=== PATIENT | female | born 1965 | race Caucasian/White ===

== ENCOUNTER 2018-03-18 22:46 | Emergency (ER) | payer MEDICAID, SELFPAY ==
[2018-03-18 22:47] VITALS: BP 131/79; PULSE 91; RESP 19; TEMP 35.9; O2SAT 100; BMI 29.4
--- NOTE | 2018-03-18 23:02 | RAD_ITS ---
STUDY: X-RAY - SACRUM/COCCYX REASON FOR EXAM: Female, 52 years old. Fall TECHNIQUE: 3 view(s) of the sacrum and coccyx were obtained. COMPARISON: None. FINDINGS: No evidence for an acute fracture or dislocation seen. Degenerative changes of the sacroiliac joints. Pelvic phleboliths. Overlying bowel gas limits assessment of the sacrum. Degenerative changes in the lower lumbar spine. IMPRESSION: No definite evidence for an acute fracture seen. Electronically Signed: Storm Coon, at 23:36 EDT Tel , Service support , RAD/Sacrum-Coccyx min 2 Views
--- NOTE | 2018-03-18 23:05 | ED.DCSUM_ITS ---
- ER Visit Summary Date of Service: 03/18/18 Chief Complaint: Right ankle pain, tailbone pain, blurry vision History of Present Illness: The patient is a 52 F presents to the emergency department with multiple complaints. One week ago, the patient was outside with her dog. She states the lesion was between her legs and her dog ran. She states that it tripped her. She fell landing on her tailbone. She also twisted her right ankle. She has had prior fracture in this ankle. She states that since then, she has had increasing pain in her low back. She denies any weakness or numbness. She denies any problems of bowel or bladder. States over the past couple days, when she gets flares of pain, she will get double vision. She denies any trouble speaking or swallowing. She did not strike her head. She denies any nausea or vomiting. Physical Examination: Vital signs reviewed General: Well-nourished, well-developed Head: Normocephalic, atraumatic Eyes: Pupils equal and reactive, extraocular muscles intact Neck, supple, no lymphadenopathy Heart: Regular rate and rhythm Respiratory: No distress, clear bilaterally Abdomen: Soft, nontender, nondistended, no peritoneal signs Back: Nontender Extremities: Nontender, no edema, no cords Skin: Normal color no rash Neuro: Alert and oriented, no focal or lateralizing deficits Test Results: [] Emergency Department Course and Treatment: The patient has a normal neurologic examination. There is no abnormalities of ocular motion. Her neck is nontender with full range of motion. She is tender in the sacral area. She also has some swelling over the lateral malleolus without instability of the right ankle. The patient's double vision is related to her pain. She has a normal steady gait. She has no ataxia. I do not feel that this is a stroke equivalent or other dangerous process. Plain films were obtained. 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 There is no other acute injury. Films of the sacrum and coccyx do not demonstrate acute fracture. I do for the patient's symptoms are likely muscular. I do not have a great explanation for her intermittent double vision. Again, she has no nystagmus. She has a normal neurologic examination. It only comes on when she has pain. I will treat the patient with anti-inflammatories and antispasmodics. She will be discharged home. Treatment Plan: [] Disposition: Discharge Impression: 1. Sacral contusion status post fall 2. Right ankle sprain status post fall This note was generated with [employer] dictation software. It may contain incorrect words, spelling, and punctuation that were not noted in review of the chart prior to signing ED Disposition - Plan for ED Patient: Chief Complaint: Fall Instructions: ED Contusion Sacrum Coccyx Prescriptions: Naproxen [Naprosyn] 500 mg PO BID PRN #20 tab Cyclobenzaprine [Flexeril] 10 mg PO TID PRN #20 tab PRN Reason: Muscle Spasm Referrals: Sabi Burroughs MD [Primary Care Provider] -
--- NOTE | 2018-03-18 23:09 | ED.RN ---
MD AWARE THAT MED REC WAS NOT COMPLETED DUE TO PT BEING UNABLE TO GET HER PHONE WORKING. PT ALSO UNABLE TO CONFIRM LIST IN OUR COMPUTER SYSTEM.
--- NOTE | 2018-03-18 23:20 | RAD_ITS ---
STUDY: X-RAY - RIGHT ANKLE REASON FOR EXAM: Female, 52 years old. Fall, previous injury. TECHNIQUE: 3 view(s) of the ankle. COMPARISON: None. FINDINGS: Well-corticated old injury of the distal fibula is noted. Normal medial and lateral malleoli. Normal tibiotalar articulation and ankle mortise. Normal visualized talus and calcaneus. The visualized subtalar, talonavicular, calcaneocuboid and tarsal articulations are normal. Circumferential and lateral soft tissue swelling is present. RAD/Ankle min 3 Views IMPRESSION: Circumferential ankle soft tissue swelling with distal fibular old well-corticated injury noted. No evidence of acute fracture or dislocation. Electronically Signed: Ant Mercedes DO at 23:36 EDT , Service support ,
[2018-03-18] MEDS: HYDROcodone Bitartrate/Apap 5/325 Tablet PO (23:28)
[2018-03-18 23:33] VITALS: BP 146/76; PULSE 86; RESP 20; O2SAT 98
--- NOTE | 2018-03-19 00:14 | ED.RN ---
PT REFUSED TO TAKE NAPROXEN PRESCRIPTION
== END 2018-03-19 00:16 | disposition home or self-care (01) ==
LOC: ED 23:09
PROVIDERS: Emergency Provider Emergency Medicine; Family Provider Internal Medicine; PCP Internal Medicine
DX: S30.0XXA Contusion of lower back and pelvis, initial encounter (principal); S93.401A Sprain of unspecified ligament of right ankle, initial encounter; W01.0XXA Fall on same level from slipping, tripping and stumbling without subsequent striking against object, initial encounter; Y93.9 Activity, unspecified; Y92.007 Garden or yard of unspecified non-institutional (private) residence as the place of occurrence of the external cause; Y99.9 Unspecified external cause status; J44.9 Chronic obstructive pulmonary disease, unspecified; J45.909 Unspecified asthma, uncomplicated; Z72.0 Tobacco use
CPT/HCPCS: 72220; 73610; 99283

== ENCOUNTER 2018-03-26 01:11 | Emergency (ER) | payer MEDICAID, SELFPAY ==
[2018-03-26 01:12] VITALS: BP 136/92; PULSE 81; RESP 16; TEMP 36.6; O2SAT 97; BMI 29.2
--- NOTE | 2018-03-26 01:52 | ED.DCSUM_ITS ---
- ER Visit Summary Date of Service: 03/26/18 Chief Complaint: Left index finger laceration History of Present Illness: The patient is a 53 F presenting with left index finger laceration. Patient was opening a can of [employer] and cut her left index finger. Her tetanus is up-to-date. She has no other injuries. Physical Examination: Vitals are stable. Patient is afebrile. Alert no acute distress. HEENT exam is unremarkable. Lungs are clear and equal bilaterally. Heart is regular rate and rhythm. Extremities 1.5 centimeter laceration to left volar index finger, tendon function is intact. Normal cap refill. Skin is warm and dry. Remainder of exam is unremarkable. Emergency Department Course and Treatment: Laceration was repaired under sterile conditions. Anesthetized with lidocaine. Irrigated with saline. 3, 5- 0 simple sutures were placed. She was given wound care instructions. Advised follow-up with primary care physician. Advised return to ED if worsening complaints. Disposition: Discharged home Impression: Left index finger laceration, laceration repair This note was generated with [employer] dictation software. It may contain incorrect words, spelling, and punctuation that were not noted in review of the chart prior to signing ED Disposition - Plan for ED Patient: Chief Complaint: Laceration Instructions: ED Laceration Hand Referrals: Sabi Burroughs MD [Primary Care Provider] -
[2018-03-26 02:42] VITALS: RESP 18
== END 2018-03-26 02:42 | disposition home or self-care (01) ==
PROVIDERS: Emergency Provider Emergency Medicine; Family Provider Internal Medicine; PCP Internal Medicine
DX: S61.211A Laceration without foreign body of left index finger without damage to nail, initial encounter (principal); W26.8XXA Contact with other sharp object(s), not elsewhere classified, initial encounter; Y93.9 Activity, unspecified; Y92.89 Other specified places as the place of occurrence of the external cause; Y99.9 Unspecified external cause status; J44.9 Chronic obstructive pulmonary disease, unspecified; Z72.0 Tobacco use
CPT/HCPCS: 12001; 99283

== ENCOUNTER 2018-04-02 21:41 | Emergency (ER) | payer MEDICAID, SELFPAY ==
[2018-04-02 21:42] VITALS: BP 141/90; PULSE 89; RESP 14; TEMP 36.6; O2SAT 98; BMI 31.1
--- NOTE | 2018-04-02 22:51 | ED.DCSUM_ITS ---
- ER Visit Summary Date of Service: 04/02/18 Chief Complaint: Leg swelling History of Present Illness: The patient is a [address] Burroughs. She reports she has had right leg swelling for approximately a year after breaking her ankle. She reports that it has now worsened on the right and spread up to mid calf. Is also developed over the left leg over the past 1-2 weeks. She reports that the area feels tight. Is worsened by walking. She denies any chest pain or shortness of breath. Review of systems: General: No fever, chills, cold sweats. Cardiovascular: No chest pain, palpitations. Respiratory: No cough, shortness of breath, dyspnea on exertion. Gastrointestinal: No abdominal pain, nausea, vomiting, diarrhea, melena, or hematochezia. Genitourinary: No dysuria, frequency, hematuria. Skin: No rash. Neuro: No headache, numbness, weakness. Physical Examination: Vitals: Stable. Afebrile. General: Well-nourished and well-developed. Head: Normocephalic atraumatic. Neck: Supple, no lymphadenopathy. No JVD. Nontender. Cardiovascular: Regular rate and rhythm. No murmurs. Respiratory: No respiratory distress. Clear to auscultation bilaterally. Abdominal: Soft, nontender, nondistended, normal bowel sounds. No guarding, rebound, or peritoneal signs. Back: Nontender. Extremities: Nontender, 2+ pitting edema lower extremity bilaterally. Skin: Normal color, no rash. Neurologic: Alert and oriented ?3. Cranial nerves II through XII are intact. Normal strength and sensation. Psych: Normal affect. Test Results: EKG is sinus at 70 with no acute changes. Troponins negative. PT SENIOR ADMINISTRAT[employer] SUPPORT is 12.3. LFTs marked total bili 1.0 globulin 4.3. Chem-7 marked potassium 3.4, creatinine 1.07, calcium 8.3. CBC is normal. Emergency Department Course and Treatment: Patient had an IV placed. She is given dose of Lasix IV. She is resting comfortably. Treatment Plan: Patient will be discharged with 5 days of Lasix and K-Dur. Instructed to follow-up Dr. Burroughs in 3-5 days for another exam. Return to the emergency department for any worsening symptoms. Disposition: To home in improved and stable condition. Impression: 1. Peripheral edema. This note was generated with [employer] dictation software. It may contain incorrect words, spelling, and punctuation that were not noted in review of the chart prior to signing ED Disposition - Plan for ED Patient: Chief Complaint: Edema Instructions: ED Leg Swelling Bilateral Prescriptions: Furosemide [Lasix] 20 mg PO DAILY #5 tablet Potassium Chloride [K-Dur] 20 meq PO BID #14 tablet Referrals: Sabi Burroughs MD [Primary Care Provider] - 3-5 Days
[2018-04-02] MEDS: Furosemide 40 MG/4 ML Vial IV (23:03)
[2018-04-02 23:28] LABS: AST(SGOT) 17 U/L (15-37); Alanine Aminotransfer ALT/SGPT 21 U/L (13-56); Albumin, Serum 3.6 g/dL (3.2-5.0); Alkaline Phosphatase 153 U/L (45-117); Anion Gap 6 (5-15); BUN 17 mg/dL (7-18); BUN/Creat Ratio 15.9 RATIO (10-20); Bilirubin, Direct 0.08 mg/dL (0.00-0.30); Calcium,Total 8.3 mg/dL (8.5-10.1); Chloride 103 mmol/L (98-107); Creatinine, Serum 1.07 mg/dL (0.55-1.02); EST Glomerular Filtration Rate 57 mL/min (>60); Est Glom Filt Rate - Afr Amer 69 mL/min (>60); Estimated Creatinine Clearance 46.41 ml/min; Globulin 4.3 g/dL (2.2-4.2); Glucose 71 mg/dL (74-106); Potassium 3.4 mmol/L (3.5-5.1); Protein, Total 7.9 g/dL (6.4-8.2); Sodium Level 139 mmol/L (136-145)
[2018-04-02 23:33] LABS: Absolute Lymphocyte Count 3.42 X10^3/ul (0.83-4.51); Absolute Neutrophil Count 4.3 X10^3/uL (2.0-7.7); Basophil# 0.03 X10^3/uL; Basophil% 0.3 % (0-1); Eosinophil# 0.22 X10^3/uL; Eosinophils% 2.6 % (0-5); Hemoglobin 12.9 g/dl (12.0-15.0); Lymphocyte # 3.42 X10^3/ul (4.0); Lymphocyte % 39.8 % (19-41); Mean Corp Hgb Conc 33.1 g/gl (32-36); Mean Corpuscular Hgb 30.4 pg (27.0-32.0); Monocyte# 0.59 X10^3/uL; Monocyte% 6.9 % (0-10); Neutrophil # 4.29 X10^3/uL (2.7-7.7); Neutrophil % 49.9 % (47-70); Platelet Count 279 K/mm3 (150-450); RBC Distribution Width CV 13.7 % (11.6-14.6); RBC Distribution Width SD 45.4 fl (35.1-43.9); Red Blood Count 4.24 M/mm3 (4.2-5.4); White Blood Count 8.6 K/mm3 (4.4-11.0)
[2018-04-02 23:34] LABS: POSITIVE COUNT NO; POSITIVE DIFFERENTIAL NO; POSITIVE MORPHOLOGY NO
[2018-04-03 00:17] LABS: BNP,B-Type NATRIURETIC PEPTIDE 12.3 pg/mL (0-100)
[2018-04-03 00:33] VITALS: BP 136/72; BP 136/82; PULSE 82; RESP 18; O2SAT 98
== END 2018-04-03 00:37 | disposition home or self-care (01) ==
LOC: ED 22:48
PROVIDERS: Emergency Provider Emergency Medicine; Family Provider Internal Medicine; PCP Internal Medicine
DX: R60.9 Edema, unspecified (principal); J45.909 Unspecified asthma, uncomplicated; F17.210 Nicotine dependence, cigarettes, uncomplicated
CPT/HCPCS: 36415; 80048; 80076; 83880; 84484; 85025; 93005; 96374; 99283; A4216; J1940

== ENCOUNTER 2018-05-14 14:27 | Emergency (ER) | payer MEDICAID, SELFPAY ==
[2018-05-14 14:28] VITALS: BP 136/83; PULSE 94; RESP 18; TEMP 36.5; O2SAT 94; BMI 30.7
[2018-05-14] MEDS: Ondansetron ODT 4 MG Tablet PO (15:01)
[2018-05-14] MEDS: HYDROcodone Bitartrate/Apap 5/325 Tablet PO (15:01)
--- NOTE | 2018-05-14 15:05 | RAD_ITS ---
STUDY: X-RAY - RIGHT HAND REASON FOR EXAM: Female, 53 years old. Pain following a fall. TECHNIQUE: 3 view(s) of the hand. COMPARISON: None. FINDINGS: Normal radiocarpal articulation. Normal distal radioulnar joint. Normal visualized carpal bones. Normal carpal articulations Normal carpometacarpal articulation of the thumb. Normal second through fifth carpometacarpal joints. Normal metacarpi. Normal metacarpophalangeal joint of the thumb. Normal interphalangeal joint of the thumb. Normal proximal and distal phalanges of the thumb. Normal metacarpophalangeal joints of the second through fifth fingers. Normal proximal and distal interphalangeal joints of the second through fifth fingers. Normal phalanges of the second through fifth fingers. Diffuse soft tissue swelling. RAD/Hand Min 3 Views IMPRESSION: Diffuse soft tissue swelling. Electronically Signed: Ed Topete MD at 15:32 EDT Tel [phone], Service support ,
--- NOTE | 2018-05-14 15:05 | RAD_ITS ---
STUDY: X-RAY - RIGHT WRIST REASON FOR EXAM: Female, 53 years old. Pain following a fall. TECHNIQUE: 3 view(s) of the wrist were obtained. COMPARISON: None. FINDINGS: Normal visualized distal radius and ulna. Normal radiocarpal articulation. Normal distal radioulnar articulation. Normal carpal bones. Normal carpal articulations. Normal carpometacarpal articulation of the thumb. Normal second through fifth carpometacarpal articulations. Normal visualized metacarpal bones. Soft tissue swelling. RAD/Wrist min 3 Views IMPRESSION: Soft tissue swelling. Electronically Signed: Ed Topete MD at 15:33 EDT Tel [phone], Service support ,
--- NOTE | 2018-05-14 15:36 | ED.DCSUM_ITS ---
- ER Visit Summary Date of Service: 05/14/18 Chief Complaint: Fall History of Present Illness: The patient is a [address] Burroughs. She reports that she was walking today and her knee gave out and she fell and injured her right wrist and hand. She reports that she has pain there that is 10 out of 10 severity. She denies any knee pain at this time. No blow to the head or loss of consciousness. No neck or back pain. Physical Examination: Vitals: Stable. Afebrile. Neck: No vertebral tenderness. Full ROM without difficulty. Cleared by NEXUS criteria. Back: No vertebral tenderness. General: A&O x 3. NAD. Cardiovascular exam: Regular rate and rhythm, no murmur, rub or gallop. Respiratory exam: Chest nontender. No crepitus. Clear to auscultation bilaterally. No wheezes or stridor. Abdominal exam: Soft, nontender, nondistended, normal bowel sounds. No pain in R UQ or LUQ specifically. No peritoneal signs. Extremity: Moderate diffuse tenderness palpation over her entire right hand and right wrist. Full range of motion without difficulty. There is no focal tenderness. She has normal sensation to light touch. There is no swelling or contusion.. Test Results: X-ray of her right hand and wrist are negative. Emergency Department Course and Treatment: An [facility] report was obtained which show she had one prescription for opiates in the past year. She is given a dose of [place] here. Treatment Plan: Patient will be discharged with a Velcro wrist splint. Instructed use Tylenol and/or ibuprofen for pain. Follow-up her primary care physician 1 week if not improving. Disposition: To home in improved and stable condition. Impression: 1. Fall. 2. Right wrist sprain. This note was generated with [employer] dictation software. It may contain incorrect words, spelling, and punctuation that were not noted in review of the chart prior to signing ED Disposition - Plan for ED Patient: Chief Complaint: Upper Extremity Injury Instructions: ED Sprain Wrist Referrals: Sabi Burroughs MD [Primary Care Provider] - 1 Week if not improving
[2018-05-14 16:11] VITALS: PULSE 68; RESP 16
== END 2018-05-14 16:12 | disposition home or self-care (01) ==
LOC: ED 14:50
PROVIDERS: Emergency Provider Emergency Medicine; Family Provider Internal Medicine; PCP Internal Medicine
DX: S63.501A Unspecified sprain of right wrist, initial encounter (principal); W18.30XA Fall on same level, unspecified, initial encounter; Y93.01 Activity, walking, marching and hiking; Y92.9 Unspecified place or not applicable; Y99.9 Unspecified external cause status; Z72.0 Tobacco use; F31.9 Bipolar disorder, unspecified
CPT/HCPCS: 73110; 73130; 99284

== ENCOUNTER 2019-09-01 19:16 | Emergency (ER) | payer MEDICAID, SELFPAY ==
[2019-09-01 19:17] VITALS: BP 147/102; PULSE 96; RESP 19; TEMP 37.1; O2SAT 96; BMI 36.1
--- NOTE | 2019-09-01 21:14 | RAD_ITS ---
STUDY: X-RAY CHEST REASON FOR EXAM: Female, 54 years old. COUGH, SOB TECHNIQUE: PA and lateral COMPARISON: August 23, 2017 FINDINGS: There appears to be very mild chronic interstitial thickening in the lower lobes. No focal lobar infiltrates are seen.. There is no demonstrated pleural abnormality. Normal size heart. Normal mediastinum and carol. Normal visualized pulmonary arteries. Normal visualized aortic arch and descending thoracic aorta. Normal visualized thoracic spine. Normal visualized ribs, clavicles, and shoulders. There is no demonstrated abnormality of the visualized soft tissue structures of the upper abdomen. RAD/Chest PA and Lateral IMPRESSION: Minor chronic interstitial thickening in the lower lobes. No acute disease Electronically Signed: Bob Zuluaga MD at 22:05 EST , Service support ,
[2019-09-01 21:25] VITALS: PULSE 88; RESP 20
[2019-09-01] MEDS: Albuterol 2.5 MG/3 ML VIAL.NEB. INHALATION (21:25)
--- NOTE | 2019-09-01 22:44 | ED.VISSUMM ---
- ER Visit Summary Date of Service: 09/01/19 Chief Complaint: Cough History of Present Illness: The patient is a 54 F with a cough for 4 days. Associated with sneezing, headache, chills, and achiness. History of asthma and smoking. Physical Examination: Afebrile and vital signs unremarkable. HEENT exam unremarkable. Lungs diminished in all nelson. Heart regular. Abdomen soft. Extremities nontender with no edema. Skin appears normal. Test Results: Chest x-ray showed no acute disease. Influenza test negative. Emergency Department Course and Treatment: Patient has what sounds like respiratory infection. She has a history of asthma and smoking. She is not having chest pain. No hemoptysis or history of blood clots. No history of heart failure. Patient was treated with DuoNeb. X-ray negative. Influenza test negative. She was treated with doxycycline and prednisone. Follow-up with primary care. Treatment Plan: As above Disposition: Discharge Impression: 1. Cough This note was generated with [employer] dictation software. It may contain incorrect words, spelling, and punctuation that were not noted in review of the chart prior to signing ED Disposition - Plan for ED Patient: Referrals: Sabi Burroughs MD [Primary Care Provider] -
--- NOTE | 2019-09-01 22:46 | ED.DEP ---
ED Disposition - Plan for ED Patient: Instructions: BRONCHITIS, Antiobiotic Treatment (Adult) Prescriptions: Doxycycline 100 mg PO BID #20 cap Prescription Printed Prednisone 10 mg PO UD #33 tab Prescription Printed Referrals: Sabi Burroughs MD [Primary Care Provider] -
[2019-09-01 22:55] VITALS: PULSE 92; RESP 18; O2SAT 95
== END 2019-09-01 23:06 | disposition home or self-care (01) ==
PROVIDERS: Emergency Provider Emergency Medicine; PCP Internal Medicine
DX: R05 Cough (principal); R06.7 Sneezing; R51 Headache; R68.83 Chills (without fever); J34.89 Other specified disorders of nose and nasal sinuses; M79.10 Myalgia, unspecified site; J45.909 Unspecified asthma, uncomplicated; G40.909 Epilepsy, unspecified, not intractable, without status epilepticus; F31.9 Bipolar disorder, unspecified; F41.9 Anxiety disorder, unspecified; Z79.899 Other long term (current) drug therapy; F17.200 Nicotine dependence, unspecified, uncomplicated
CPT/HCPCS: 71046; 87804; 94640; 99282

== ENCOUNTER 2020-09-10 16:08 | Emergency (ER) | payer MEDICAID, SELFPAY ==
[2020-09-10 16:11] VITALS: BP 143/94; PULSE 101; RESP 16; TEMP 35.4; O2SAT 97; BMI 37.8
--- NOTE | 2020-09-10 16:35 | CT_ITS ---
STUDY: CT ABDOMEN AND PELVIS WITHOUT CONTRAST REASON FOR EXAM: Female, 55 years old. LLQ PAIN. RADIATION DOSAGE (If Supplied By Facility): CTDIvol = ( 14.80 ) mGy, DLP = ( 718.65 ) mGycm TECHNIQUE: Transaxial images were obtained from the dome of the diaphragm to the symphysis pubis without oral contrast, and without intravenous contrast. Sagittal and coronal images were reconstructed. Individualized dose optimization techniques were used for this CT. COMPARISON: August 09, 2017 FINDINGS: There is lower lung atelectasis. The visualized portions of the heart are within normal limits. There is hepatomegaly with diffuse hepatic enlargement. There are surgical clips in the gallbladder fossa consistent with a prior cholecystectomy. Normal spleen. Normal pancreas. Normal bilateral adrenal glands. Normal right kidney. Normal left kidney. Normal visualized stomach. Normal small intestine. Normal colon. There is non-visualization of the appendix. There is diffuse atherosclerotic calcification of the abdominal aorta, without a demonstrated aneurysm. Normal inferior vena cava. Normal retroperitoneum. Normal urinary bladder. There is absence of the uterus consistent with a prior hysterectomy. There is no free fluid in the abdomen or pelvis. There is postoperative change of the upper abdominal wall. Normal osseous structures. CT/Abdomen/Pelvis without Cont IMPRESSION: No dominant mass or obstruction. Hepatomegaly. Postoperative change. Electronically Signed: Jj Crawley MD at 18:22 EST , Service support ,
--- NOTE | 2020-09-10 16:37 | ED.DCSUM_ITS ---
History of Present Illness Chief Complaint: Flank Pain Informant: Patient Onset: Yesterday Context: Gradual Onset Current Severity: Moderate Maximum Severity: Moderate Narrative: Patient presents secondary to left lower quadrant abdominal pain. She states she had some mild pain yesterday but significantly worsened pain today. Denies urinary symptoms. No fever or chills. She states she was told several years ago that she had a black mass in her abdomen on a CAT scan. She was told it was within that was present since . She is not able to provide any further details. Last colonoscopy was 16 years ago and unremarkable at that time. She does have a family history of colon cancer. She also has had prior kidney stones. - Past Medical History (1) Asthma Status: Chronic (2) Kidney stone Status: Resolved Past Medical History - Allergies and Home Meds Allergies/Adverse Reactions: Allergies venom-honey bee [bee venom (honey bee)] Allergy (Verified 09/10/20 16:11) Anaphylaxis aspirin Adverse Reaction (Verified 09/10/20 16:11) Other fluticasone propionate [From Advair Diskus] Adverse Reaction (Verified 09/10/20 16:11) Upset Stomach salmeterol xinafoate [From Advair Diskus] Adverse Reaction (Verified 09/10/20 16:11) Upset Stomach TIDE LAUNDRY DETERGENT Allergy (Uncoded 09/10/20 16:11) Rash Primary Care Physician: Sabi Burroughs MD [Primary Care Provider] - Prior records reviewed: Yes Smoking Status: Current every day smoker Review of Systems General: Denies: Chills, Fever Eyes: Denies: Visual changes - bilaterally ENT: Denies: Bilateral ear pain Cardiovascular: Denies: Chest pain Respiratory: Denies: Dyspnea, Cough Gastrointestinal: Reports: Abdominal pain. Denies: Vomiting, Diarrhea Genitourinary: Denies: Dysuria, Hematuria Musculoskeletal: Reports: Back pain - Left flank. Denies: Extremity Pain Neurological: Denies: Headache Hematologic: Denies: Easy bruising, Easy bleeding Allergy: Denies: Uticaria Physical Exam Vital Signs/Narrative: Vital Signs Temp Pulse Resp BP Pulse Ox 09/10/20 16:11 95.7 F L 101 H 16 143/94 H 97 Inital Vital Signs reviewed: Yes General: Well nourished, Well developed Head: Normocephalic ENT: Moist mucous membranes Neck: Supple Cardiovascular: Regular rate, Regular rhythm Respiratory: No distress, CTA bilaterally Abdomen: Soft, Tender - Left lower quadrant tenderness to palpation., Hypoactive bowel sounds. Negative for: Guarding, Rebound tenderness Back: CVA tenderness - Mild left CVA tenderness Skin: Normal color Neurological: Alert, Oriented x3 Psychological: Normal affect Diagnostic/Tx/Re-eval Impressions Abdomen/Pelvis CT 09/10/20 16:35 IMPRESSION: No dominant mass or obstruction. Hepatomegaly. Postoperative change. Electronically Signed: Jj Crawley MD at 18:22 EST , Service support , 09/10/20 16:35 Abdomen/Pelvis without Cont [CT] Stat Laboratory Results 09/10/20 09/10/20 09/10/20 16:50 16:50 17:15 WBC 13.8 H RBC 4.75 Hgb 13.6 Hct 43.3 MCV 91.2 MCH 28.6 MCHC 31.4 L RDW Std Deviation 45.1 H RDW Coeff of Lakshmi 13.3 Plt Count 342 MPV 10.9 Immature Gran % (Auto) 0.700 Neut % (Auto) 64.6 Lymph % (Auto) 24.4 [place] % (Auto) 6.8 Eos % (Auto) 3.1 Baso % (Auto) 0.4 Absolute Neuts (auto) 8.9 H Absolute Lymphs (auto) 3.36 Nucleated RBC % 0 Sodium 138 Potassium 3.9 Chloride 105 Carbon Dioxide 27.0 Anion Gap 6 BUN 8 Creatinine 0.84 Estim Creat Clear Calc 57.77 Est GFR (MDRD) Af Amer 90 Est GFR (MDRD) Non-Af 75 BUN/Creatinine Ratio 9.5 L Glucose 116 H Calcium 9.1 Urine Color Yellow Urine Clarity Clear Urine pH 7.0 Ur Specific [place] 1.005 Urine Protein Negative Urine Glucose (UA) Normal Urine Ketones Negative Urine Occult Blood 10 H Urine Nitrite Negative Urine Bilirubin Negative Urine Urobilinogen Normal Ur Leukocyte Esterase Negative Urine RBC 0 SEEN Urine WBC 0 SEEN Ur Squamous Epith Cells 0-5 SEEN Urine Bacteria RARE Urine Mucus 0 SEEN - Medical Decision Making Patient was given morphine and Zofran for pain. Labs are reviewed. White count is slightly elevated at 13.8. Urine is clean. CT scan reveals no acute findings or source of infection. Test results are discussed with the patient at bedside as well as her daughter on the phone. Patient is advised to monitor for any signs of infection including fever or worsening pain and given return instructions for this. In the meantime she will be given a short course of [place] along with Zofran to help with pain at home. She is advised to follow bland diet and slowly advance as tolerated. ED Disposition - Plan for ED Patient: Disposition: Home or Assisted Living Diagnosis: Abdominal pain Instructions: ED Abdominal Pain Unkn Cause Fem Prescriptions: Hydrocodone Bitart/Apap 5-325 [[place] 5MG-325MG] 1 tablet PO Q6H PRN PRN 3 Days #10 tablet PRN Reason: Pain Transmission Status: Received by ISAC HUDSON RD Ondansetron [Zofran Odt] 4 mg PO Q8H PRN PRN #10 tab PRN Reason: Nausea Transmission Status: Pending to ISAC HUDSON RD Referrals: Sabi Burroughs MD [Primary Care Provider] - 3-5 Days if not improving
[2020-09-10] MEDS: Morphine 4 MG/ML Syringe IV (16:54)
[2020-09-10] MEDS: Ondansetron 4 MG/2 ML Vial IV (16:54)
[2020-09-10 17:13] LABS: Anion Gap 6 (5-15); BUN 8 mg/dL (7-18); BUN/Creat Ratio 9.5 RATIO (10-20); Calcium,Total 9.1 mg/dL (8.5-10.1); Chloride 105 mmol/L (98-107); Creatinine, Serum 0.84 mg/dL (0.55-1.02); EST Glomerular Filtration Rate 75 mL/min (>60); Est Glom Filt Rate - Afr Amer 90 mL/min (>60); Estimated Creatinine Clearance 57.77 ml/min; Glucose 116 mg/dL (74-106); Potassium 3.9 mmol/L (3.5-5.1); Sodium Level 138 mmol/L (136-145)
[2020-09-10 17:21] LABS: Absolute Lymphocyte Count 3.36 X10^3/uL (0.83-4.51); Absolute Neutrophil Count 8.9 X10^3/uL (2.0-7.7); Basophil# 0.05 X10^3/uL; Basophil% 0.4 % (0-1); Eosinophil# 0.42 X10^3/uL; Eosinophils% 3.1 % (0-5); Hematocrit 43.3 % (37-47); Hemoglobin 13.6 g/dL (12.0-15.0); Lymphocyte # 3.36 X10^3/ul (4.0); Lymphocyte % 24.4 % (19-41); Mean Corp Hgb Conc 31.4 g/dL (32-36); Mean Corpuscular Hgb 28.6 pg (27.0-32.0); Mean Corpuscular Volume 91.2 fL (81-99); Mean Platelet Vol. 10.9 fl (6.2-12.0); Monocyte# 0.93 X10^3/uL; Monocyte% 6.8 % (0-10); NRBC Flagged by Analyzer 0 % (0-5); Neutrophil # 8.91 X10^3/uL (2.7-7.7); Neutrophil % 64.6 % (47-70); Platelet Count 342 K/mm3 (150-450); RBC Distribution Width CV 13.3 % (11.6-14.6); RBC Distribution Width SD 45.1 fl (35.1-43.9); Red Blood Count 4.75 M/mm3 (4.2-5.4); White Blood Count 13.8 K/mm3 (4.4-11.0)
[2020-09-10 17:24] LABS: Mucous, Urine 0 SEEN /hpf (<or=2+); Red Blood Cells-Urine 0 SEEN /hpf (0-5); White Blood Cells 0 SEEN /hpf (0-5)
[2020-09-10 17:25] LABS: Color, Urine Yellow (Yellow); Glucose, Dipstick Normal (Normal); Ketone-Dipstick Negative (Negative); Leukocyte Esterase-Dipstick Negative /ul (Negative); Nitrite-Dipstick Negative (Negative); Occult Blood-Urine 10 /ul (Negative); Protein-Dipstick Negative (Negative); Specific Gravity, Urine 1.005 (1.002-1.030); Urine Bilirubin Dipstick Negative (Negative); Urine Clarity Clear (Clear); Urine Urobilinogen Normal (Normal)
[2020-09-10 17:31] LABS: Bacteria RARE /hpf (None Seen); Squamous Epithelial Cells - UA 0-5 SEEN /hpf (5-10)
[2020-09-10 18:29] VITALS: BP 140/89; PULSE 75; RESP 20; O2SAT 97
[2020-09-10 18:53] VITALS: BP 124/73; PULSE 66; RESP 15; O2SAT 98
== END 2020-09-10 18:53 | disposition home or self-care (01) ==
PROVIDERS: Emergency Provider Emergency Medicine; PCP Internal Medicine
DX: R10.32 Left lower quadrant pain (principal); J45.909 Unspecified asthma, uncomplicated; F17.200 Nicotine dependence, unspecified, uncomplicated; Z88.0 Allergy status to penicillin; Z87.442 Personal history of urinary calculi; Z88.6 Allergy status to analgesic agent; Z80.0 Family history of malignant neoplasm of digestive organs
CPT/HCPCS: 74176; 80048; 81001; 85025; 96374; 96375; 99283; A4216; J2405

== ENCOUNTER 2021-03-05 13:23 | Emergency (ER) | payer MEDICAID, SELFPAY ==
[2021-03-05 13:23] VITALS: BP 158/93; PULSE 86; RESP 16; TEMP 37.2; O2SAT 96; BMI 41.9
--- NOTE | 2021-03-05 14:12 | EDS_ITS ---
HPI History of Present Illness Chief Complaint: Abscess Informant: patient Onset/Context/Timing Onset: Yesterday Context: Gradual Onset Timing: Continuous Quality: sore Location: R labia area Current Severity: Moderate Maximum Severity: Moderate Worsened by: touching area Relieved by: leaving alone Associated Symptoms Associated Symptoms: none Narrative Narrative: Tender swollen area in right groin that started yesterday. Never had this before. No systemic symptoms or fever/chills. No spontaneous drainage. No urinary problems or other vaginal discharge. [facility] Medical History Anxiety Bipolar 1 disorder Epilepsy History of hiatal hernia Hypothyroid Home Medications phenytoin sodium extended 100 mg PO 4X/DAY 02/23/14 [History Last Taken 05/31/17] timolol maleate [Timoptic-XE 0.5%] 1 drp EACH EYE BID 02/23/14 [History Last Taken 05/31/17] fluticasone propionate 1 puff NARES DAILY 02/24/17 [History Last Taken 05/31/17] nortriptyline 25 mg PO QHS 02/24/17 [History Last Taken 05/30/17] albuterol sulfate [Proair Hfa (SP)Vent Pts] 1 - 2 puff INHALATION Q4H PRN PRN 03/11/17 [History Last Taken Unknown] buspirone 15 mg PO BID 05/24/17 [History Last Taken 05/31/17] albuterol sulfate 2.5 mg INHALATION Q4H PRN PRN 08/09/17 [History Last Taken Unknown] dicyclomine 20 mg PO TIDAC #20 cap 08/09/17 [Rx Last Taken Unknown] epinephrine 0.3 mg IM X1 08/09/17 [History Last Taken Unknown] omeprazole 40 mg PO DAILY 08/09/17 [History Last Taken Unknown] lithium carbonate 150 mg PO TID 05/14/18 [History Last Taken Unknown] levothyroxine 75 mcg PO DAILY 09/01/19 [History Last Taken Unknown] azelastine 1 spray INTRANASAL BID 03/05/21 [History Last Taken Unknown] montelukast 10 mg PO QHS 03/05/21 [History Last Taken Unknown] quetiapine 50 mg PO QHS 03/05/21 [History Last Taken Unknown] spironolactone 25 mg PO DAILY 03/05/21 [History Last Taken Unknown] sulfamethoxazole-trimethoprim 1 tab PO BID #14 tablet 03/05/21 [Rx Last Taken Unknown] Allergy/AdvReac Type Severity Reaction Status Date / Time venom-honey bee Allergy Anaphylaxis Verified 03/05/21 13:24 [bee venom (honey bee)] aspirin AdvReac Other Verified 03/05/21 13:24 fluticasone propionate AdvReac Upset Verified 03/05/21 13:24 [From Advair Diskus] Stomach salmeterol xinafoate AdvReac Upset Verified 03/05/21 13:24 [From Advair Diskus] Stomach TIDE LAUNDRY DETERGENT Allergy Rash Uncoded 03/05/21 13:24 Surgical History (Updated 03/05/21 @ 13:41 by Kanchan East) History of cholecystectomy History of inguinal hernia repair History of tonsillectomy Hx of appendectomy Hx of hysterectomy Social History Smoking Status: Current every day smoker tobacco type: e-cigarettes ROS ROS ED Constitutional Constitutional ED: Denies chills or fever(s) Gastrointestinal Gastrointestinal: Denies abdominal pain, diarrhea, nausea or vomiting Genitourinary Genitourinary ED: Reports as per HPI Integumentary Reports as per HPI and abscess; Denies rash Neurologic Neurologic: Denies headache(s), paresthesias or weakness EXAM Physical Exam Const Vital Signs: 03/05/21 13:23 Temperature 99 F Temperature Source Temporal Pulse Rate 86 Respiratory Rate 16 Blood Pressure 158/93 H Blood Pressure Mean 114 Pulse Ox 96 Oxygen Delivery Method Room Air Positive well nourished, well developed and obese General Appearance ED: well developed and NAD Nutritional Appearance: obese Neck supple Neck Narrative: FROM Resp normal respiratory effort Neuro oriented x3, CN's II-XII intact bilaterally, no focal motor deficits and gait normal Sensorium / Orientation: alert Psych mental status grossly normal Skin Skin Narrative: Small 1 cm abscess near hair follicle in the right inguinal crease, does not involve genitalia but does involve the mons pubis. No spontaneous drainage. MDM MDM MDM Narrative Medical decision making narrative: Abscess was open, small amount of pus was drained. Will cover for MRSA, there is no surrounding cellulitis. I think 7 days of antibiotic will be enough. Discussed home care and reasons to return. Procedures Other Procedures Procedure(s): Simple abscess I&D -right groin 1 cm abscess, prepped with isopropanol and anesthetized with 2 cc plain 1% lidocaine, opened with a #10 blade superficially, probed and deloculated small amount of purulent material drained, dressed with bacitracin. Tolerated well no complications. Discharge Plan Triage Chief Complaint: Abscess ED Provider: Jj Barton Dx/Rx/DC Orders Clinical Impression: Abscess of groin, right Instructions: ED Abscess Incision And Drainage Prescriptions: New sulfamethoxazole-trimethoprim [sulfamethoxazole-trimethoprim] 1 TABLET tablet 1 tab PO BID Qty: 14 RF: 0 No Action phenytoin sodium extended 100 MG capsule 100 mg PO 4X/DAY RF: 0 timolol maleate [Timoptic-XE] 1 DROP gel forming solution 1 drp Each Eye BID RF: 0 nortriptyline 25 MG capsule 25 mg PO QHS RF: 0 fluticasone propionate 1 SPRAY spray,suspension 1 puff NARES DAILY RF: 0 albuterol sulfate [ProAir HFA] 1 PUFF inhaler 1 - 2 puff inhalation Q4H PRN PRN (Reason: Sob &/Or Wheezing) RF: 0 buspirone 10 MG tablet 15 mg PO BID RF: 0 albuterol sulfate 2.5 MG/3 ML solution for nebulization 2.5 mg inhalation Q4H PRN PRN (Reason: Sob &/Or Wheezing) RF: 0 omeprazole 20 MG capsule 40 mg PO DAILY RF: 0 epinephrine 0.3 MG syringe 0.3 mg IM X1 RF: 0 dicyclomine 10 MG capsule 20 mg PO TIDAC Qty: 20 RF: 0 lithium carbonate 150 MG capsule 150 mg PO TID RF: 0 levothyroxine 25 MCG tablet 75 mcg PO DAILY RF: 0 spironolactone 25 mg Tablet 25 mg PO DAILY RF: 0 montelukast 10 mg Tablet 10 mg PO QHS RF: 0 azelastine 137 mcg (0.1 %) Aerosol,[place] 1 spray INTRANASAL BID RF: 0 quetiapine 50 mg Tablet 50 mg PO QHS RF: 0 Primary Care Provider: Sabi Burroughs Referrals: Sabi Burroughs MD [Primary Care Provider] - As Needed Disposition Disposition: Home, Self Care
[2021-03-05] MEDS: Lidocaine 1% (20 ml mdv) 20 ML Vial INFILT (14:23)
[2021-03-05] MEDS: Smz/Tmp Ds Tablet 1 TABLET PO (15:37)
== END 2021-03-05 15:39 | disposition home or self-care (01) ==
PROVIDERS: Emergency Provider Emergency Medicine; PCP Internal Medicine
DX: L02.214 Cutaneous abscess of groin (principal); E66.9 Obesity, unspecified; E03.9 Hypothyroidism, unspecified; F31.9 Bipolar disorder, unspecified; F41.9 Anxiety disorder, unspecified; G40.909 Epilepsy, unspecified, not intractable, without status epilepticus; F17.210 Nicotine dependence, cigarettes, uncomplicated; Z79.51 Long term (current) use of inhaled steroids; Z79.82 Long term (current) use of aspirin; Z79.899 Other long term (current) drug therapy
CPT/HCPCS: 10060; 99283

== ENCOUNTER 2022-01-19 17:24 | Emergency (ER) | payer MEDICAID, SELFPAY ==
[2022-01-19 17:26] VITALS: BP 136/102; PULSE 98; RESP 14; TEMP 36.4; O2SAT 99; BMI 41.1
--- NOTE | 2022-01-19 18:01 | CT_ITS ---
STUDY: CT PELVIS WITH CONTRAST REASON FOR EXAM: Female, 56 years old. abscess, perirectal pain, boils lt butt cheek area, hx hiatal hernia, torrey, appy hyster RADIATION DOSAGE (If Supplied By Facility): CTDIvol = ( 28.20 ) mGy, DLP = ( 1262.11 ) mGycm TECHNIQUE: Transaxial imaging of the pelvis was performed without oral contrast. isovue 300 75 ml was administered intravenously. Individualized dose optimization techniques were used for this CT. COMPARISON: None. FINDINGS: Normal urinary bladder. Normal visualized small intestine. Normal visualized colon. There is no pelvic fluid. There is no pelvic lymphadenopathy or mass lesion. Normal visualized pelvic arteries. Normal abdominal wall. Normal osseous structures. CT/Pelvis WITH IV Contrast IMPRESSION: Normal enhanced CT of the pelvis. Electronically Signed: Aneudy Moreno MD at 19:35 EDT ,
--- NOTE | 2022-01-19 18:02 | EDS_ITS ---
HPI History of Present Illness Chief Complaint: Abscess Narrative Narrative: Patient presents with perirectal pain. She thinks she feels an abscess in that region. This started today. No fever or chills. She has no abdominal pain. No difficulty urinating. No prior hemorrhoids or abscesses. [facility] Medical History Anxiety Bipolar 1 disorder Epilepsy History of hiatal hernia Hypothyroid Home Medications phenytoin sodium extended 100 mg PO 4X/DAY 02/23/14 [History Last Taken 05/31/17] timolol maleate [Timoptic-XE 0.5%] 1 drp EACH EYE BID 02/23/14 [History Last Taken 05/31/17] fluticasone propionate 1 puff NARES DAILY 02/24/17 [History Last Taken 05/31/17] nortriptyline 25 mg PO QHS 02/24/17 [History Last Taken 05/30/17] albuterol sulfate [Proair Hfa (SP)Vent Pts] 1 - 2 puff INHALATION Q4H PRN PRN 03/11/17 [History Last Taken Unknown] buspirone 15 mg PO BID 05/24/17 [History Last Taken 05/31/17] albuterol sulfate 2.5 mg INHALATION Q4H PRN PRN 08/09/17 [History Last Taken Unknown] epinephrine 0.3 mg IM X1 08/09/17 [History Last Taken Unknown] omeprazole 40 mg PO DAILY 08/09/17 [History Last Taken Unknown] lithium carbonate 150 mg PO TID 05/14/18 [History Last Taken Unknown] levothyroxine 75 mcg PO DAILY 09/01/19 [History Last Taken Unknown] azelastine 1 spray INTRANASAL BID 03/05/21 [History Last Taken Unknown] montelukast 10 mg PO QHS 03/05/21 [History Last Taken Unknown] quetiapine 50 mg PO QHS 03/05/21 [History Last Taken Unknown] spironolactone 25 mg PO DAILY 03/05/21 [History Last Taken Unknown] sulfamethoxazole-trimethoprim 1 tab PO BID #14 tablet 03/05/21 [Rx Last Taken Unknown] amoxicillin-pot clavulanate [Augmentin] 1 tab PO Q8H #15 tab 01/19/22 [Rx Last Taken Unknown] Allergy/AdvReac Type Severity Reaction Status Date / Time venom-honey bee Allergy Anaphylaxis Verified 01/19/22 17:29 [bee venom (honey bee)] aspirin AdvReac Other Verified 03/05/21 13:24 fluticasone propionate AdvReac Upset Verified 03/05/21 13:24 [From Advair Diskus] Stomach salmeterol xinafoate AdvReac Upset Verified 03/05/21 13:24 [From Advair Diskus] Stomach TIDE LAUNDRY DETERGENT Allergy Rash Uncoded 03/05/21 13:24 Surgical History History of cholecystectomy History of inguinal hernia repair History of tonsillectomy Hx of appendectomy Hx of hysterectomy Social History Smoking Status: Current every day smoker tobacco type: e-cigarettes ROS ROS ED ROS Narrative Past medical history: Reviewed, significant asthma, history of kidney stone, bipolar. Medications: Reviewed Social history: Noncontributory Review of systems: All systems negative except as indicated General: No fever Eyes: No visual changes ENT: No upper airway congestion, normal voice Neck: No neck pain Cardiovascular: No chest pain Respiratory: No shortness of breath or cough Gastrointestinal: No abdominal pain, nausea vomiting or diarrhea Genitourinary: No dysuria Rectal: Perirectal pain Musculoskeletal: Denies myalgias no difficulty with ambulation Skin: No rash Neurological: No memory loss, confusion or any focal weakness Psych: No recent behavioral changes Hematologic: No easy bleeding or easy bruising EXAM Physical Exam Narrative Exam Narrative: Physical exam General: Well nourished, Well developed, No Acute Distress Head: Normocephalic, Atraumatic Eyes: Conjunctiva not pale ENT: Moist mucous membranes Neck: Supple, Nontender, No lymphadenopathy Cardiovascular: Regular rate, Regular rhythm Respiratory: No distress, CTA bilaterally Abdomen: Soft, Nontender, Nondistended Rectal: There is some left-sided fullness in the perirectal region no obvious hemorrhoids. No induration or fluctuance I cannot appreciate an obvious abscess. Back: Nontender, Normal Inspection. Negative for: CVA tenderness Extremities: Nontender, No edema Skin: Normal color, No rash Neurological: Alert, Normal Strength, Normal Sensation Psychological: Normal affect Const Vital Signs: 01/19/22 17:26 Temperature 97.6 F L Temperature Source Temporal Pulse Rate 98 Respiratory Rate 14 Blood Pressure 136/102 H Blood Pressure Mean 113 Pulse Ox 99 Oxygen Delivery Method Room Air MDM MDM MDM Narrative Medical decision making narrative: Patient's work-up is unremarkable, however on my examination there could be the beginning of an abscess therefore I will start on antibiotics. At this time I do not see anything drained and the CT does not show any dental abscess. If anything worsens she is to return. Lab Data Labs: Laboratory Results - last 24 hr 01/19/22 01/19/22 01/19/22 18:10 18:10 18:32 WBC Cancelled 11.4 H Corrected WBC Cancelled RBC Cancelled 3.89 L Hgb Cancelled 11.0 L Hct Cancelled 35.4 L MCV Cancelled 91.0 MCH Cancelled 28.3 MCHC Cancelled 31.1 L RDW Std Deviation Cancelled 43.6 RDW Coeff of Lakshmi Cancelled 13.2 Plt Count Cancelled 258 MPV Cancelled 10.2 Immature Gran % (Auto) Cancelled 0.500 Neut % (Auto) Cancelled 65.4 Lymph % (Auto) Cancelled 25.8 Falls % (Auto) Cancelled 5.6 Eos % (Auto) Cancelled 2.3 Baso % (Auto) Cancelled 0.4 Absolute Neuts (auto) Cancelled 7.5 Absolute Lymphs (auto) Cancelled 2.95 Total Counted Cancelled Neutrophils % (Manual) Cancelled Band Neutrophils % Cancelled Lymphocytes % (Manual) Cancelled Monocytes % (Manual) Cancelled Eosinophils % (Manual) Cancelled Basophils % (Manual) Cancelled Metamyelocytes % Cancelled Myelocytes % Cancelled Promyelocytes % Cancelled Blast Cells % Cancelled Plasma Cell % (Manual) Cancelled Other Cells % Cancelled Nucleated RBC % Cancelled 0 Nucleated RBCs/100 WBC Cancelled Differential Comment Cancelled Diff Path Review Cancelled Hypersegmented Neuts Cancelled Atypical Lymphocytes Cancelled Reactive Lymphocytes Cancelled Smudge Cells Cancelled Toxic Granulation Cancelled Toxic Vacuolation Cancelled Dohle Bodies Cancelled Myriam Rods Cancelled Platelet Estimate Cancelled Plt Morphology Comment Cancelled RBC Morphology Cancelled Polychromasia Cancelled Hypochromasia Cancelled Poikilocytosis Cancelled Basophilic Stippling Cancelled Anisocytosis Cancelled Microcytosis Cancelled Macrocytosis Cancelled Spherocytes Cancelled Sickle Cells Cancelled Target Cells Cancelled Tear Drop Cells Cancelled Ovalocytes Cancelled Stomatocytes Cancelled [place] Bodies Cancelled Scot Cells Cancelled Bite Cells Cancelled Crenated Cell Cancelled Acanthocytes (Spur) Cancelled Rouleaux Cancelled Schistocytes Cancelled Sodium 140 Potassium 3.3 L Chloride 107 Carbon Dioxide 29.0 Anion Gap 4 L BUN 8 Creatinine 0.86 Estim Creat Clear Calc 55.77 Est GFR (MDRD) Af Amer 88 Est GFR (MDRD) Non-Af 73 BUN/Creatinine Ratio 9.3 L Glucose 116 H Calcium 8.9 Total Bilirubin 0.10 L AST 49 H ALT 69 H Alkaline Phosphatase 188 H Total Protein 7.4 Albumin 3.3 Globulin 4.1 Albumin/Globulin Ratio 0.8 L Radiography Diagnostic Testing: Clinical Impression(s) from Imaging Studies Pelvis CT 01/19/22 18:01 IMPRESSION: Normal enhanced CT of the pelvis. Electronically Signed: Aneudy Moreno MD at 19:35 EDT , Discharge Plan Triage Chief Complaint: Abscess ED Provider: Hieu Vieira Dx/Rx/DC Orders Clinical Impression: Pain in rectum, No problem, feared complaint unfounded Instructions: Understanding the Pain Response Prescriptions: New amoxicillin-pot clavulanate [Augmentin] 500-125 mg tablet 1 tab PO Q8H Qty: 15 RF: 0 No Action phenytoin sodium extended 100 MG capsule 100 mg PO 4X/DAY RF: 0 timolol maleate [Timoptic-XE] 1 DROP gel forming solution 1 drp Each Eye BID RF: 0 nortriptyline 25 MG capsule 25 mg PO QHS RF: 0 fluticasone propionate 1 SPRAY spray,suspension 1 puff NARES DAILY RF: 0 albuterol sulfate [ProAir HFA] 1 PUFF inhaler 1 - 2 puff inhalation Q4H PRN PRN (Reason: Sob &/Or Wheezing) RF: 0 buspirone 10 MG tablet 15 mg PO BID RF: 0 albuterol sulfate 2.5 MG/3 ML solution for nebulization 2.5 mg inhalation Q4H PRN PRN (Reason: Sob &/Or Wheezing) RF: 0 omeprazole 20 MG capsule 40 mg PO DAILY RF: 0 epinephrine 0.3 MG syringe 0.3 mg IM X1 RF: 0 lithium carbonate 150 MG capsule 150 mg PO TID RF: 0 levothyroxine 25 MCG tablet 75 mcg PO DAILY RF: 0 spironolactone 25 mg Tablet 25 mg PO DAILY RF: 0 montelukast 10 mg Tablet 10 mg PO QHS RF: 0 azelastine 137 mcg (0.1 %) Aerosol,[place] 1 spray INTRANASAL BID RF: 0 quetiapine 50 mg Tablet 50 mg PO QHS RF: 0 sulfamethoxazole-trimethoprim [sulfamethoxazole-trimethoprim] 1 TABLET tablet 1 tab PO BID Qty: 14 RF: 0 Primary Care Provider: Sabi Burroughs Referrals: Sabi Burroughs MD [Primary Care Provider] - 2 Days Disposition Disposition: Home, Self Care
[2022-01-19 18:37] LABS: ALB/GLOB Ratio 0.8 RATIO (0.9-2.4); AST(SGOT) 49 U/L (15-37); Alanine Aminotransfer ALT/SGPT 69 U/L (13-56); Albumin, Serum 3.3 g/dL (3.2-5.0); Alkaline Phosphatase 188 U/L (45-117); Anion Gap 4 (5-15); BUN 8 mg/dL (7-18); BUN/Creat Ratio 9.3 RATIO (10-20); Calcium,Total 8.9 mg/dL (8.5-10.1); Chloride 107 mmol/L (98-107); Creatinine, Serum 0.86 mg/dL (0.55-1.02); EST Glomerular Filtration Rate 73 mL/min (>60); Est Glom Filt Rate - Afr Amer 88 mL/min (>60); Estimated Creatinine Clearance 55.77 ml/min; Globulin 4.1 g/dL (2.2-4.2); Glucose 116 mg/dL (74-106); Potassium 3.3 mmol/L (3.5-5.1); Protein, Total 7.4 g/dL (6.4-8.2); Sodium Level 140 mmol/L (136-145)
[2022-01-19 18:37] LABS: Absolute Lymphocyte Count 2.95 X10^3/uL (0.83-4.51); Absolute Neutrophil Count 7.5 X10^3/uL (2.0-7.7); Basophil# 0.05 X10^3/uL; Basophil% 0.4 % (0-1); Eosinophil# 0.26 X10^3/uL; Eosinophils% 2.3 % (0-5); Hematocrit 35.4 % (37-47); Lymphocyte # 2.95 X10^3/ul (0.83-4.51); Lymphocyte % 25.8 % (19-41); Mean Corp Hgb Conc 31.1 g/dL (32-36); Mean Corpuscular Hgb 28.3 pg (27.0-32.0); Mean Platelet Vol. 10.2 fl (6.2-12.0); Monocyte# 0.64 X10^3/uL; Monocyte% 5.6 % (0-10); NRBC Flagged by Analyzer 0 % (0-5); Neutrophil # 7.48 X10^3/uL (2.7-7.7); Neutrophil % 65.4 % (47-70); Platelet Count 258 K/mm3 (150-450); RBC Distribution Width CV 13.2 % (11.6-14.6); RBC Distribution Width SD 43.6 fl (35.1-43.9); Red Blood Count 3.89 M/mm3 (4.2-5.4); White Blood Count 11.4 K/mm3 (4.4-11.0)
[2022-01-19 20:01] VITALS: RESP 16
[2022-01-19] MEDS: Amox/Clavulanate 875 MG Tablet PO (20:23)
== END 2022-01-19 20:25 | disposition home or self-care (01) ==
PROVIDERS: Emergency Provider Emergency Medicine; PCP Internal Medicine; Visit Provider Emergency Medicine
DX: K62.89 Other specified diseases of anus and rectum (principal); F31.9 Bipolar disorder, unspecified; G40.909 Epilepsy, unspecified, not intractable, without status epilepticus; F17.290 Nicotine dependence, other tobacco product, uncomplicated; E03.9 Hypothyroidism, unspecified; Z79.890 Hormone replacement therapy; F41.9 Anxiety disorder, unspecified; Z79.899 Other long term (current) drug therapy
CPT/HCPCS: 72193; 80053; 85025; 99284; Q9967; A4216

== ENCOUNTER 2023-04-12 19:39 | Emergency (ER) | payer MEDICAID, SELFPAY ==
[2023-04-12 19:40] VITALS: BP 119/85; PULSE 101; RESP 16; TEMP 36.3; O2SAT 99
--- NOTE | 2023-04-12 19:50 | RAD_ITS ---
STUDY: X-RAY - LEFT ANKLE REASON FOR EXAM: Female, 58 years old. INJURY TECHNIQUE: 3 view(s) of the ankle. COMPARISON: None. FINDINGS: Nondisplaced fracture seen across the tip of the lateral malleolus. No other definite fractures are seen. There is lateral soft tissue swelling. Normal visualized distal tibia Normal medial malleolus. Normal tibiotalar articulation and ankle mortise. Normal visualized talus and calcaneus. The visualized subtalar, talonavicular, calcaneocuboid and tarsal articulations are normal. RAD/Ankle min 3 Views IMPRESSION: Nondisplaced fracture seen across the tip of the lateral malleolus. Electronically Signed: John Barclay MD at 20:33 EDT ,
--- NOTE | 2023-04-12 20:22 | ED.VIS.LOWEX ---
HPI History of Present Illness Chief Complaint: Lower Extremity Injury Narrative Narrative: 58-year-old female states she walks with a cane chronically for the last few years presents with injury to her left ankle that she sustained earlier today. She states she was walking home with her son, stepped in a hole by accident, heard a snap and now has swelling about her lateral malleolus. She has pain with weightbearing and walking. She denies hitting her head or loss of consciousness, and denies other injury. She presents because of the pain in her left ankle. [facility] Medical History Anxiety Bipolar 1 disorder Epilepsy History of hiatal hernia Hypothyroid Home Medications phenytoin sodium extended 100 mg capsule 100 mg PO 4X/DAY 02/23/14 [History Last Taken 05/31/17] timolol maleate 0.5 % eye gel forming solution (Timoptic-XE) 1 drp BID 02/23/14 [History Last Taken 05/31/17] fluticasone propionate 50 mcg/actuation nasal spray,suspension 1 puff DAILY 02/24/17 [History Last Taken 05/31/17] nortriptyline 25 mg capsule 25 mg PO QHS 02/24/17 [History Last Taken 05/30/17] albuterol sulfate 90 mcg/actuation aerosol inhaler (ProAir HFA) 1 - 2 puff inhalation Q4H PRN PRN Sob &/Or Wheezing 03/11/17 [History Last Taken Unknown] buspirone 10 mg tablet 15 mg PO BID 05/24/17 [History Last Taken 05/31/17] albuterol sulfate 2.5 mg/3 mL (0.083 %) solution for nebulization 2.5 mg inhalation Q4H PRN PRN Sob &/Or Wheezing 08/09/17 [History Last Taken Unknown] epinephrine 0.3 mg/0.3 mL injection, auto-injector 0.3 mg IM X1 08/09/17 [History Last Taken Unknown] omeprazole 20 mg capsule,delayed release 40 mg PO DAILY 08/09/17 [History Last Taken Unknown] lithium carbonate 150 mg capsule 150 mg PO TID 05/14/18 [History Last Taken Unknown] levothyroxine 25 mcg tablet 75 mcg PO DAILY 09/01/19 [History Last Taken Unknown] azelastine 137 mcg (0.1 %) nasal spray aerosol 1 spray intranasal BID 03/05/21 [History Last Taken Unknown] montelukast 10 mg tablet 10 mg PO QHS 03/05/21 [History Last Taken Unknown] quetiapine 50 mg tablet 50 mg PO QHS 03/05/21 [History Last Taken Unknown] spironolactone 25 mg tablet 25 mg PO DAILY 03/05/21 [History Last Taken Unknown] sulfamethoxazole 800 mg-trimethoprim 160 mg tablet 1 tab PO BID #14 TABLETS 03/05/21 [Rx Last Taken Unknown] amoxicillin 500 mg-potassium clavulanate 125 mg tablet (Augmentin) 1 tab PO Q8H #15 tabs 01/19/22 [Rx Last Taken Unknown] hydrocodone-acetaminophen 5-325mg 5mg-325mg 1 tab PO Q6H PRN pain 3 days #12 tabs 04/12/23 [Rx Last Taken Unknown] Allergy/AdvReac Type Severity Reaction Status Date / Time venom-honey bee Allergy Anaphylaxis Verified 04/12/23 19:40 [bee venom (honey bee)] aspirin AdvReac Other Verified 04/12/23 19:40 fluticasone propionate AdvReac Upset Verified 04/12/23 19:40 [From Advair Diskus] Stomach salmeterol xinafoate AdvReac Upset Verified 04/12/23 19:40 [From Advair Diskus] Stomach TIDE LAUNDRY DETERGENT Allergy Rash Uncoded 03/05/21 13:24 Surgical History History of cholecystectomy History of inguinal hernia repair History of tonsillectomy Hx of appendectomy Hx of hysterectomy Social History Smoking Status: Current every day smoker tobacco type: e-cigarettes ROS ROS ED ROS Narrative Constitutional: No fever, no chills. HEENT: No sore throat. No neck pain. No loss of vision. No rhinorrhea. Cardiovascular: No chest pain. No palpitations. No pedal edema. Respiratory: No cough, no shortness of breath. Abdominal: No abdominal pain. No nausea. No vomiting. Genitourinary: No dysuria. No hematuria. Musculoskeletal: No myalgias. Left ankle pain, left lateral ankle swelling worse with weightbearing and movement. Neurologic: No headaches. No dizziness. No lightheadedness. Skin: No rash. No change in color. Psychiatric: No depression. No anxiety. EXAM Physical Exam Narrative Exam Narrative: Afebrile. Vital signs noted. HEENT: Normocephalic. Atraumatic. PERRL, EOMI. Neck soft and supple. No point tenderness or step off. Cardiovascular: Regular rate and rhythm. No murmurs, rubs, or gallops appreciated. Respiratory: No tachypnea. Lungs clear to auscultation bilaterally. Gastrointestinal: Abdomen soft, nontender, with normoactive bowel sounds. No rebound or guarding. Neurological: Awake. Alert. Nonfocal, nonlateralizing. Skin: No rash. Normal color. No pallor. Musculoskeletal: Positive swelling left lateral malleolus with tenderness to palpation. Palpable dorsalis pedis pulse. No pain at base of fifth metatarsal. No palpable Achilles tendon deficit. Flexion extension is limited secondary to pain. Able to flex and extend knee without difficulty. No proximal fibular head tenderness. Const Vital Signs: 04/12/23 19:40 Temperature 97.4 F L Temperature Source Temporal Pulse Rate 101 H Respiratory Rate 16 Blood Pressure 119/85 H Blood Pressure Mean 96 Pulse Ox 99 MDM MDM MDM Narrative Medical decision making narrative: Concern is for fracture versus sprain of the left ankle. Given the amount of swelling and pain, she was administered Deary 1 tablet orally here for analgesia. X-rays were obtained per nursing protocol of the ankle in 3 views interpreted by myself independently and I see a nondisplaced De a fracture of the distal fibula. I reviewed the radiology report. It confirms a nondisplaced fracture of the distal fibula. I discussed patient with Dr. Zepeda with podiatry who recommended splinting and crutches. Initially, patient wanted a walking boot, but she was told that she may not bear weight on this nondisplaced fracture because if it becomes displaced she will require surgery. She agreed to crutches and a sugar-tong splint. Patient was examined pre and post splint application and has good capillary refill and is still able to wiggle her toes. At this point in time, she was written a prescription for 12 Deary tablets. She will be given crutches and made nonweightbearing on her left lower extremity. I stressed the importance of this along with follow-up with Dr. Zepeda. She is to call the office tomorrow for an appointment to be seen in the next few days. I feel she can be discharged safely home with follow-up. I had discussed with her possible admission if she would not manage well at home, but she states she will do well with the crutches and will follow-up. Return instructions were reviewed. Disposition is discharged home in stable condition. Radiography Diagnostic Testing: Clinical Impression(s) from Imaging Studies Ankle X-Ray 04/12/23 19:50 IMPRESSION: Nondisplaced fracture seen across the tip of the lateral malleolus. Electronically Signed: John Barclay MD at 20:33 EDT , Procedures Lower Extremity Splints Lower Extremity Splint: Orthoglass and Stirrup Splint Fabrication: Fabricated Location: Left Discharge Plan Triage Chief Complaint: Lower Extremity Injury ED Provider: Mikey Wallis Dx/Rx/DC Orders Clinical Impression: Fracture of distal end of left fibula, Fall Instructions: ED Ankle Fracture, Distal Fibula Prescriptions: New hydrocodone-acetaminophen 5-325 mg tablet 1 tab PO Q6H PRN (Reason: pain) 3 Days Qty: 12 0RF No Action phenytoin sodium extended 100 MG capsule 100 mg PO 4X/DAY timolol maleate [Timoptic-XE] 1 DROP gel forming solution 1 drp Each Eye BID nortriptyline 25 MG capsule 25 mg PO QHS Patient Comments: TAKE 1 CAPSULE BY MOUTH DAILY AT BEDTIME fluticasone propionate 1 SPRAY spray,suspension 1 puff NARES DAILY albuterol sulfate [ProAir HFA] 1 PUFF inhaler 1 - 2 puff inhalation Q4H PRN PRN (Reason: Sob &/Or Wheezing) buspirone 10 MG tablet 15 mg PO BID Patient Comments: Take 1 tablet by mouth twice daily. albuterol sulfate 2.5 MG/3 ML solution for nebulization 2.5 mg inhalation Q4H PRN PRN (Reason: Sob &/Or Wheezing) omeprazole 20 MG capsule 40 mg PO DAILY epinephrine 0.3 MG syringe 0.3 mg IM X1 lithium carbonate 150 MG capsule 150 mg PO TID levothyroxine 25 MCG tablet 75 mcg PO DAILY spironolactone 25 mg Tablet 25 mg PO DAILY montelukast 10 mg Tablet 10 mg PO QHS azelastine 137 mcg (0.1 %) Aerosol,[employer] [place] 1 spray INTRANASAL BID quetiapine 50 mg Tablet 50 mg PO QHS sulfamethoxazole-trimethoprim [sulfamethoxazole-trimethoprim] 1 TABLET tablet 1 tab PO BID Qty: 14 0RF amoxicillin-pot clavulanate [Augmentin] 500-125 mg tablet 1 tab PO Q8H Qty: 15 0RF Primary Care Provider: Sabi Burroughs Referrals: William Zepeda DPM [Med Staff - Active Staff] - Sabi Burroughs MD [Primary Care Provider] - Activity Restrictions/Additional Instructions: Do not bear any weight on your left ankle. Use your crutches. Follow-up with Dr. Zepeda early this coming week. Call the office tomorrow for an appointment. Disposition Disposition: Home, Self Care
[2023-04-12 20:44] VITALS: BMI 39.7
[2023-04-12] MEDS: HYDROcodone Bitartrate/Apap 5/325 Tablet PO (20:48)
== END 2023-04-12 22:43 | disposition home or self-care (01) ==
PROVIDERS: Emergency Provider Emergency Medicine; PCP Internal Medicine; Visit Provider Emergency Medicine
DX: S82.832A Other fracture of upper and lower end of left fibula, initial encounter for closed fracture (principal); F31.9 Bipolar disorder, unspecified; F41.9 Anxiety disorder, unspecified; E03.9 Hypothyroidism, unspecified; Z90.49 Acquired absence of other specified parts of digestive tract; Z90.710 Acquired absence of both cervix and uterus; F17.290 Nicotine dependence, other tobacco product, uncomplicated; W17.2XXA Fall into hole, initial encounter; Y93.01 Activity, walking, marching and hiking
CPT/HCPCS: 29515; 73610; 99284

== ENCOUNTER 2023-10-19 13:47 | Emergency (ER) | payer MEDICAID, SELFPAY ==
[2023-10-19 13:47] VITALS: BP 128/97; PULSE 81; RESP 22; TEMP 35.1; O2SAT 98; BMI 36.8
== END 2023-10-19 15:38 | disposition left against medical advice (07) ==
LOC: ED 15:40
PROVIDERS: PCP Internal Medicine
DX: R21 Rash and other nonspecific skin eruption (principal)

== ENCOUNTER 2024-03-04 17:39 | Emergency (ER) | payer MEDICAID, SELFPAY ==
[2024-03-04 17:40] VITALS: BP 113/74; PULSE 83; RESP 17; TEMP 36.1; O2SAT 97; BMI 34.4
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
[2024-03-04 20:51] VITALS: BP 151/81; PULSE 74; RESP 20; TEMP 36.6; O2SAT 98
== END 2024-03-04 20:52 | disposition home or self-care (01) ==
PROVIDERS: Emergency Provider Emergency Medicine; PCP Internal Medicine; Visit Provider Emergency Medicine
DX: T23.121A Burn of first degree of single right finger (nail) except thumb, initial encounter (principal); F31.9 Bipolar disorder, unspecified; T23.131A Burn of first degree of multiple right fingers (nail), not including thumb, initial encounter; F17.210 Nicotine dependence, cigarettes, uncomplicated; Z90.49 Acquired absence of other specified parts of digestive tract; E03.9 Hypothyroidism, unspecified; F41.9 Anxiety disorder, unspecified; X15.0XXA Contact with hot stove (kitchen), initial encounter
CPT/HCPCS: 99282

== ENCOUNTER 2024-03-21 22:00 | Emergency (ER) | payer MEDICAID, SELFPAY ==
[2024-03-21 22:01] VITALS: BP 133/111; PULSE 76; RESP 18; TEMP 36.9; O2SAT 98; BMI 33.7
--- NOTE | 2024-03-21 22:28 | CT_ITS ---
INDICATION: altered mental status EXAMINATION: CT BRAIN - CT Head or Brain W/O Contrast Injection TECHNIQUE: Multiple axial images were obtained of the head with sagittal and coronal reconstructed images. Individualized dose optimization techniques were used for this CT. IV contrast dosage and agent: None. COMPARISON: 11/25/2006 CT. FINDINGS: BRAIN PARENCHYMA: No evidence of an acute infarct or intracranial hemorrhage. No evidence of a mass. CSF SPACES: The ventricles, sulci and subarachnoid cisterns are appropriate for age. CALVARIUM, SKULL BASE, PARANASAL SINUSES AND MASTOID AIR CELLS: No fracture. Mastoid air cells are clear. Visualized paranasal sinuses are unremarkable. ORBITS: The globes, extraocular muscles, optic nerves and retrobulbar fat are unremarkable. CT/Brain/Head without Contrast IMPRESSION: Normal noncontrast CT of the head. Electronically Signed: Bob Farias DO at 1:15 EDT ,
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
[2024-03-21 23:34] LABS: Anion Gap 3 (5-15); BUN 9 mg/dL (7-18); BUN/Creat Ratio 9.7 RATIO (10-20); Calcium,Total 9.5 mg/dL (8.5-10.1); Chloride 107 mmol/L (98-107); Creatinine, Serum 0.93 mg/dL (0.55-1.02); EST Glomerular Filtration Rate 66 mL/min (>60); Est Glom Filt Rate - Afr Amer 80 mL/min (>60); Estimated Creatinine Clearance 63.58 ml/min; Glucose 102 mg/dL (74-106); Potassium 3.7 mmol/L (3.5-5.1); Sodium Level 137 mmol/L (136-145)
[2024-03-22 00:01] VITALS: BP 127/80; PULSE 65; RESP 18; O2SAT 92
[2024-03-22 00:07] LABS: Absolute Lymphocyte Count 3.63 X10^3/uL (0.83-4.51); Absolute Neutrophil Count 7.6 X10^3/uL (2.0-7.7); Basophil# 0.06 X10^3/uL; Basophil% 0.5 % (0-1); Eosinophil# 0.42 X10^3/uL; Eosinophils% 3.4 % (0-5); Hematocrit 38.5 % (37-47); Hemoglobin 11.9 g/dL (12.0-15.0); Lymphocyte # 3.63 X10^3/ul (0.83-4.51); Lymphocyte % 29.4 % (19-41); Mean Corp Hgb Conc 30.9 g/dL (32-36); Mean Corpuscular Hgb 27.7 pg (27.0-32.0); Mean Corpuscular Volume 89.5 fL (81-99); Mean Platelet Vol. 11.2 fl (6.2-12.0); Monocyte# 0.62 X10^3/uL; NRBC Flagged by Analyzer 0 % (0-5); Neutrophil # 7.55 X10^3/uL (2.7-7.7); Neutrophil % 61.3 % (47-70); POSITIVE COUNT YES; Platelet Count 261 K/mm3 (150-450); RBC Distribution Width SD 42.4 fl (35.1-43.9); White Blood Count 12.3 K/mm3 (4.4-11.0)
[2024-03-22 01:10] VITALS: BP 120/78; PULSE 69; RESP 16; TEMP 36.8; O2SAT 99
== END 2024-03-22 01:10 | disposition home or self-care (01) ==
PROVIDERS: Emergency Provider Emergency Medicine; PCP Internal Medicine; Visit Provider Emergency Medicine
DX: G24.02 Drug induced acute dystonia (principal); F31.9 Bipolar disorder, unspecified; G40.909 Epilepsy, unspecified, not intractable, without status epilepticus; F41.9 Anxiety disorder, unspecified; E66.9 Obesity, unspecified; F17.290 Nicotine dependence, other tobacco product, uncomplicated; Z68.33 Body mass index [BMI] 33.0-33.9, adult; Z79.899 Other long term (current) drug therapy
CPT/HCPCS: 70450; 80048; 80178; 83735; 85025; 96374; 99282; A4216

== ENCOUNTER 2024-11-10 15:24 | Emergency (ER) | payer MEDICAID, SELFPAY ==
[2024-11-10 15:25] VITALS: BP 108/89; PULSE 88; RESP 18; TEMP 37; O2SAT 98; BMI 27.9
--- NOTE | 2024-11-10 17:30 | EDS_ITS ---
HPI History of Present Illness Chief Complaint: Eye Problem [facility] Medical History History of hiatal hernia Hypothyroid Anxiety Bipolar 1 disorder Epilepsy Home Medications ?Medication ?Instructions ?Recorded ?Last Taken ?Type
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
--- NOTE | 2024-11-10 17:44 | ED.RN ---
DR. COLLINS DID NOT REQUIRE MEDICATIONS TO STAIN EYE. MEDS RETURNED UNOPENED
== END 2024-11-10 17:59 | disposition home or self-care (01) ==
PROVIDERS: Emergency Provider Emergency Medicine; PCP Internal Medicine; Referring Provider Emergency Medicine; Visit Provider Emergency Medicine
DX: H00.015 Hordeolum externum left lower eyelid (principal); Z90.710 Acquired absence of both cervix and uterus; F17.290 Nicotine dependence, other tobacco product, uncomplicated; Z90.49 Acquired absence of other specified parts of digestive tract; E03.9 Hypothyroidism, unspecified
CPT/HCPCS: 99282

== ENCOUNTER 2024-12-11 13:46 | Emergency (ER) | payer MEDICAID, SELFPAY ==
[2024-12-11 13:47] VITALS: BP 161/120; PULSE 90; RESP 18; TEMP 36.6; O2SAT 98; BMI 27.3
--- NOTE | 2024-12-11 14:15 | RAD_ITS ---
EXAM: Right foot radiograph CLINICAL HISTORY: Pain COMPARISON: None TECHNIQUE: Three-view right foot radiographs. FINDINGS: Mild diffuse osteopenia. Mild hallux valgus. No acute fracture or dislocation. No significant degenerative changes. Mild dorsal soft tissue swelling. No radiopaque foreign body. RAD/Foot min 3 Views IMPRESSION: No acute fracture or dislocation. [facility]
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
[2024-12-11 15:19] VITALS: BP 150/75; PULSE 100; RESP 18; TEMP 36.6; O2SAT 99
== END 2024-12-11 15:20 | disposition home or self-care (01) ==
PROVIDERS: Emergency Provider Emergency Medicine; PCP Internal Medicine; Visit Provider Emergency Medicine
DX: S90.31XA Contusion of right foot, initial encounter (principal); F31.9 Bipolar disorder, unspecified; E11.9 Type 2 diabetes mellitus without complications; Z90.710 Acquired absence of both cervix and uterus; M85.80 Other specified disorders of bone density and structure, unspecified site; F17.290 Nicotine dependence, other tobacco product, uncomplicated; Z90.49 Acquired absence of other specified parts of digestive tract; Z90.79 Acquired absence of other genital organ(s); E03.9 Hypothyroidism, unspecified; W22.8XXA Striking against or struck by other objects, initial encounter; Y92.009 Unspecified place in unspecified non-institutional (private) residence as the place of occurrence of the external cause
CPT/HCPCS: 73630; 99282

== ENCOUNTER 2024-12-12 21:40 | Emergency (ER) | payer MEDICAID, SELFPAY ==
[2024-12-12 21:42] VITALS: BP 131/99; PULSE 95; RESP 18; TEMP 36.4; O2SAT 99; BMI 28.5
[2024-12-12] MEDS: Ketorolac 30 MG/ML Syringe IM (22:16)
[2024-12-12] MEDS: Orphenadrine 60 MG/2 ML Ampul IM (22:16)
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
--- NOTE | 2024-12-12 22:31 | RAD_ITS ---
EXAM: Right ribs and chest CLINICAL HISTORY: Chest pain, right rib pain COMPARISON: 09/01/2019 TECHNIQUE: PA view of the chest and four views of the right ribs FINDINGS: No obvious displaced right rib fracture. No bony abnormality. The heart and mediastinum are normal. No opacity within the lungs to suggest active pulmonary disease. RAD/Ribs Uni Min 3V w/PA Chest IMPRESSION: No obvious displaced right rib fracture. No active pulmonary disease. Reading Location: [id number]
[2024-12-12 23:48] VITALS: BP 128/96; PULSE 91; RESP 17; TEMP 36.9; O2SAT 97
== END 2024-12-12 23:49 | disposition home or self-care (01) ==
PROVIDERS: Emergency Provider Emergency Medicine; PCP Internal Medicine; Visit Provider Emergency Medicine
DX: S20.211A Contusion of right front wall of thorax, initial encounter (principal); F31.9 Bipolar disorder, unspecified; E03.9 Hypothyroidism, unspecified; Z90.710 Acquired absence of both cervix and uterus; J45.909 Unspecified asthma, uncomplicated; Z79.51 Long term (current) use of inhaled steroids; Z79.890 Hormone replacement therapy; Z79.899 Other long term (current) drug therapy; F41.9 Anxiety disorder, unspecified; W19.XXXA Unspecified fall, initial encounter; Z90.49 Acquired absence of other specified parts of digestive tract; F17.290 Nicotine dependence, other tobacco product, uncomplicated
CPT/HCPCS: 71101; 96372; 99283

== ENCOUNTER 2025-02-10 16:27 | Emergency (ER) | payer MEDICAID, SELFPAY ==
[2025-02-10 16:29] VITALS: BP 150/107; PULSE 76; RESP 16; TEMP 36.7; O2SAT 95; BMI 28.5
--- NOTE | 2025-02-10 18:45 | ED.RN ---
PT STATES SHE IS LEAVING AND WILL COME BACK ANOTHER TIME. SHE IS TIRED OF WAITING/
== END 2025-02-10 18:15 | disposition left against medical advice (07) ==
LOC: ED 19:05
PROVIDERS: PCP Internal Medicine
DX: R07.9 Chest pain, unspecified (principal)

== ENCOUNTER 2025-04-01 21:00 | Emergency (ER) | payer MEDICAID, SELFPAY ==
[2025-04-01 21:01] VITALS: BP 127/109; PULSE 78; RESP 18; TEMP 36.9; O2SAT 98; BMI 28.8
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
[2025-04-01 22:37] LABS: Hematocrit 38.4 % (37-47); Hemoglobin 12.3 g/dL (12.0-15.0); Immature Granulocytes Count 0.030 X10^3/uL (0.0-0.0); Mean Corp Hgb Conc 32.0 g/dL (32-36); Mean Corpuscular Volume 88.9 fL (81-99); Mean Platelet Vol. 10.6 fl (6.2-12.0); NRBC Flagged by Analyzer 0 % (0-5); Platelet Count 264 K/mm3 (150-450); RBC Distribution Width CV 12.6 % (11.6-14.6); RBC Distribution Width SD 41.0 fl (35.1-43.9); Red Blood Count 4.32 M/mm3 (4.2-5.4); White Blood Count 10.5 K/mm3 (4.4-11.0)
--- OUTSIDE RECORDS SUMMARY | 2025-04-01 22:38 | XMS RPT_ITS | CCD ---
Author Organization [facility] Care Team Providers Care Business Information Consultant Name Role Phone Dayton Garcia MD Primary Care Provider Dayton Garcia MD Primary Care Provider Koch [facility] OR MEDICAL.GAMING CASHIER, Saeid Unavailable Radha HEALTHCARE OR MEDICAL.DESIGN ARCHITECT, Pinky Unavailable Radha HEALTHCARE OR MEDICAL.DESIGN ARCHITECT, Pinky Unavailable Dr. Dayton Garcia MD Primary Care Provider Dr. Ashu Butts DO Referring Provider Dr. Ashu Butts DO Emergency Provider Radha HEALTHCARE OR MEDICAL.DESIGN ARCHITECT, Pinky Unavailable Dr. Ashu Butts DO Attending Provider Dr. Anusha Mancia DO Emergency Provider Dr. Bob Morgan DO Emergency Provider [facility].GAMING CASHIER, Saeid Unavailable [facility] MED[facility].GAMING CASHIER, Saeid Unavailable Dr. Anusha Mancia DO Attending Provider Dr. Bob Morgan DO Attending Provider Provider, Ed Physician Emergency Provider Dayton Crane Primary Care Unavailable Anusha Mancia Attending Unavailable Ashu Butts Referring Unavailable Ashu Butts Attending Unavailable Dayton Garcia Primary Care Unavailable Jj Barton Attending Unavailable Dayton Garcia Primary Care Unavailable Amauri Salazar Attending Unavailable Talampas, Dayton D Primary Care Unavailable Talampas, Dayton D Primary Care Unavailable Provider, Ed Physician Attending Unavailab le Talampas, Dayton D Primary Care Unavailable Bob Morgan Attending Unavailable BUCKLEY KREW, FEROZ P Referring Unavailable TALAMPAS, DAYTON D Primary Care Unavailable BUCKLEY HALINAW, FEROZ P Attending Unavailable TALAMPAS, DAYTON D Primary Care Unavailable TALAMPAS, DAYTON D Primary Care Unavailable SAVAGE BATISTA Attending Unavailable SELF Referring Unavailable TALAMPAS, DAYTON D Primary Care Unavailable TALAMPAS, DAYTON D Primary Care Unavailable SAEID KOCH Attending Unavailable TALAMPAS, DAYTON D Referring Unavailable TALAMPAS, DAYTON D Primary Care Unavailable BUCKLEY HALINAW, FEROZ P Referring Unavailable BUCKLEY KEVIN, FEROZ P Attending Unavailable LYNNE GENE Janice Attending Unavailable SELF Referring Unavailable TALAMPAS, DAYTON D Primary Care Unavailable TALAMPAS, DAYTON D Primary Care Unavailable TALAMPAS, DAYTON D Attending Unavailable TALAMPAS, DAYTON D Primary Care Unavailable SAVAGE BATISTA Attending Unavailable SELF Referring Unavailable BUCKLEY KREW, FEROZ P Attending Unavailable TALAMPAS, DAYTON D Referring Unavailable TALAMPAS, DAYTON D Primary Care Unavailable SELF Referring Unavailable TALAMPAS, DAYTON D Attending Unavailable TALAMPAS, DAYTON D Primary Care Unavailable TALAMPAS, DAYTON D Referring Unavailable TALAMPAS, DAYTON D Primary Care Unavailable BUCKLEY KREW, FEROZ P Attending Unavailable TALAMPAS, DAYTON D Primary Care Unavailable BUCKLEY KREW, FEROZ P Referring Unavailable TALAMPAS, DAYTON D Primary Care Unavailable TALAMPAS, DAYTON D Attending Unavailable TALAMPAS, DAYTON D Primary Care Unavailable TALAMPAS, DAYTON D Attending Unavailable TALAMPAS, DAYTON D Primary Care Unavailable LYNNE, GENE Janice Attending Unavailable TALAMPAS, DAYTON D Primary Care Unavailable Allergies Allergy Classification Reported Allergen(s) Allergy Type Date of Onset Reaction(s) Facility fluticasone / salmeterol (1 source) fluticasone / salmeterol Drug Allergy 01-22-[address] [place] [address] Work Phone: (20 sources) fluticasone / salmeterol; Translations: [FLUTICASONE PROPION-SALMETERO L] Drug Allergy 01-22-[address] [place] [address] Work Phone: (9 sources) Salicylic Acid; Translations: [SALICYLATES] Drug Allergy 07-23-20 05 Intolerance [facility] Work Phone: (6 sources) Aspirin Drug Allergy 03-05-20 21 Other [facility] (7 sources) fluticasone; Translations: [fluticasone propionate] Drug Allergy 03-05-20 21 Upset Stomach [facility] (7 sources) salmeterol; Translations: [salmeterol xinafoate] Drug Allergy 03-05-20 21 Upset Stomach [facility] (6 sources) venom-honey bee Allergy to substance 01-20-20 22 Anaphylaxis [facility] (2 sources) TIDE LAUNDRY DETERGENT Allergy to substance 03-05-20 21 Rash [facility] (20 sources) Salicylate product Drug Intolerance 07-23-20 05 Intolerance [facility] Work Phone: (20 sources) Tree; Translations: [TREES] Allergy to substance 09-28-19 24 Shortness of Breath [facility] (5 sources) Environmental Allergies: Uncoded; Translations: [Environmental Allergies: Uncoded] Allergy to substance 04-14-20 23 Rash [facility] Comment on above: Tide Laudry Detergen t (1 source) Aspirin Drug Allergy 02-11-20 25 [facility] Repository (1 source) venom-honey bee Drug allergy (disorder) 02-11-20 25 [facility] Repository Medications Current Medications Medication Drug Class(es) Dates Sig (Normalized) Sig (Original) [id number] 200 actuat albuterol 0.09 mg/actuat metered dose inhaler (20 sources) beta2-Adrenergic Agonist Start: 09-17-2020 End: 06-22-2024 take 2 puff(s) by inhalation every four hours as needed albuterol HFA (VENTOLIN HFA) 90 mcg/actuation inhaler Inhale 2 Puffs as instructed every 4 hours as needed. Also use 2 puffs prior to exertion 8 g 3 06/22/2024 Active Start: 09-17-2020 End: 10-13-2022 albuterol (PROVENTIL) 2.5 mg /3 mL (0.083 %) nebulizer solution Use 3 mL via nebulizer every 6 hours as needed for Wheezing/Shortness of Breath. 50 Vial 5 09/17/2020 10/04/2021 Discontinued Start: 08-09-2017 take 2.5 mg by inhal ation every four hours as needed for wheezing Albuterol Sulfate 2.5 MG/3 ML solution for nebulization Active 2.5 mg INHALATION EVERY 4 HOURS NEEDED as needed for Sob &/Or Wheezing August 09, 2017 1:00am Start: 03-11-2017 take 1 puff(s) by in halation every four hours as needed Albuterol Sulfate (Proair Hfa (Sp)Vent Pts) 1 PUFF inhaler Active 1 - 2 PUFF INHALATION EVERY 4 HOURS NEEDED March 11, 2017 6:18pm Comment on above: Inhale 2 Puffs as in structed every 4 hours as needed. Also use 2 puffs prior to exertion Use 3 mL via nebuliz er every 6 hours as needed for Wheezing/Shortness of Breath. albuterol 0.833 mg/ml / ipratropium bromide 0.167 mg/ml inhalation solution (20 sources) Anticholinergic, beta2-Adrenergic Agonist Start: 3 End: 3 take 3 mL by inhalation every six hours as needed ipratropium-albute rol (DUONEB) 0.5 mg-3 mg(2.5 mg base)/3 mL nebu Inhale 3 mL as instructed every 6 hours as needed for wheezing/shortness of breath. 150 mL 1 01/07/2023 Active Comment on above: Inhale 3 mL as instr ucted every 6 hours as needed for wheezing/shortness of breath. Albuterol Sulfate (Proair Hfa (Sp)Vent Pts) 1 PUFF inhaler (2 sources) Start: take 1 puff(s) by inhalation every four hours as needed Albuterol Sulfate (Proair Hfa (Sp)Vent Pts) 1 PUFF inhaler Active 1 - 2 PUFF INHALATION EVERY 4 HOURS NEEDED March 10, 2017 11:00pm Start: 03-11-2017 take 1 puff(s) by in halation every four hours as needed Albuterol Sulfate (Proair Hfa (Sp)Vent Pts) 1 PUFF inhaler Active 1 - 2 PUFF INHALATION EVERY 4 HOURS NEEDED March 11, 2017 12:00am Albuterol Sulfate (Proair Hfa) 1 PUFF inhaler (3 sources) Start: 03-11-2017 Albuterol Sulf ate (Proair Hfa) 1 PUFF inhaler Active 1 - 2 NMA INHALATION EVERY 4 HOURS NEEDED as needed for Sob &/Or Wheezing March 11, 2017 12:00am benzonatate 100 mg oral capsule (20 sources) Non-narcotic Antitussive Start: 10-03-2024 take 1 capsule by mouth three times daily as needed for cough benzonatate (TESSALON PERLES) 100 mg capsule Indications: Acute URI Take 1 capsule by mouth three times a day as needed. TAKE ONE(1)CAPSULE BY MOUTH THREE(3) TIMES DAILIY NEEDED FOR COUGH. 21 capsule 1 10/03/2024 Active Start: 08-12-2022 take 1 capsule by mo [facility] three times daily as needed for cough benzonatate (TESSALON PERLES) 100 mg capsule Indications: Acute URI Take 1 capsule by mouth three times daily as needed. TAKE ONE(1)CAPSULE BY MOUTH THREE(3) TIMES DAILIY NEEDED FOR COUGH. 21 capsule 1 08/12/2022 Active Comment on above: Take 1 capsule by mo ut three times daily as needed. TAKE ONE(1)CAPSULE BY MOUTH THREE(3) TIMES DAILIY NEEDED FOR COUGH. benztropine mesylate 2 mg oral tablet (20 sources) Anticholinergic, Antihistamine Start: take 1 tablet by mouth three times daily benztropine (COGENTIN) 2 mg tablet TAKE 1 TABLET BY MOUTH THREE TIMES A DAY 90 tablet 2 02/07/2025 Active Start: 11-14-2024 take 1 tablet by casey three times daily benztropine (COGENTIN) 2 mg tablet TAKE 1 TABLET BY MOUTH THREE TIMES A DAY 90 tablet 2 11/14/2024 Active Start: 07-27-2024 End: 08-26-2024 take 1 tablet by mouth three times daily benztropine (COGENTIN) 2 mg tablet Take 1 tablet by mouth three times a day. 90 tablet 2 07/27/2024 Active Start: 05-18-2024 End: 06-27-2024 take 1 tablet by mouth twice daily as needed, then take 1-2 tablets by mouth twice daily as needed benztropine (COGENTIN) 2 mg tablet Take 1 tablet by mouth two times a day. 1 to 2 tablets two times daily as needed 60 tablet 2 05/18/2024 06/27/2024 Discontinued Start: 03-22-2024 End: 03-28-2024 take 1 tablet by mouth twice daily as needed Benztropine 1 mg tablet Active 1 mg PO TWICE A DAY as needed for tic 20 0 March 22, 2024 1:18am 24 hr buPROPion hydrochloride 150 mg extended release oral tablet (20 sources) Aminoketone Start: 2024 take 1 tablet by mouth every twenty-four hours at bedtime Bupropion Hcl 150 mg tablet extended release 24 hr Active 150 mg PO AT BEDTIME 2024 12:00am Start: 04-25-2022 End: 11-14-2025 take 1 tablet by mouth once daily buPROPion XL (WELLBUTRIN XL) 150 mg 24 hr tablet Indications: Bipolar I disorder (HCC) Take 1 tablet by mouth once daily. 90 tablet 3 11/14/2024 11/14/2025 Active Start: 10-25-2021 End: 04-23-2022 take 1 tablet by mouth once daily buPROPion XL (WELLBUTRIN XL) 150 mg 24 hr tablet Indications: Bipolar I disorder (HCC) Take 1 tablet by mouth once daily. 30 tablet 5 10/25/2021 04/23/2022 Discontinued Comment on above: Take 1 tablet by casey th once daily. cholestyramine resin 4000 mg powder for oral suspension (20 sources) Bile Acid Sequestrant Start: 021 End: 023 take 1 dose by mouth once daily for diarrhea cholestyramine (QUESTRAN) 4 gram packet Take 1 Packet by mouth once daily. for diarrhea 30 Packet 5 02/06/2023 Active Comment on above: Take 1 Packet by casey th once daily. for diarrhea COMPOUNDED PRESCRIPTION (20 sources) Start: 011 COMPOUNDED PRESCRIPTION Indications: Unspecified asthma(493.90) Nebulizer for home use. Dx: 493.90 1 Each 0 02/25/2011 Active Comment on above: Nebulizer for home u se. Dx: 493.90 [id number] 0.3 ml EPINEPHrine 1 mg/ml auto-injector (20 sources) alpha-Adrenergic Agonist, beta-Adrenergic Agonist, Catecholamine Start: 021 End: 023 EPINEPHrine (EPIPEN) 0.3 mg/0.3 mL auto-injector Indications: Bee sting allergy Use as needed for bee sting then go to emergecny room for further evaluation and treatment after bee sting 2 Each 01/07/2023 Active Start: 08-09-2017 inject 0.3 mg by int ramuscular injection once Epinephrine 0.3 MG syringe Active 0.3 mg IM ONE TIME August 09, 2017 1:00am Comment on above: Use as needed for be e sting then go to emergecny room for further evaluation and treatment after bee sting erythromycin 0.005 mg/mg ophthalmic ointment (3 sources) Macrolide, Macrolide Antimicrobial Start: 11-11-19 25 Erythromycin 5 mg/gram (0.5 %) ointment Active 1 NMA LEFT EYE THREE TIMES A DAY 3.5 7 0 November 10, 2024 12:00am estradiol 1 mg oral tablet (20 sources) Estrogen Start: 06-22-20 End: 11-15-19 25 take 1 tablet by mouth once daily Estradiol 1 mg tablet Active 1 mg PO DAILY 2024 12:00am Start: 05-26-2023 take 1 tablet by casey th once daily estradiol (ESTRACE) 1 mg tablet Indications: Hot flash, menopausal Take 1 tablet by mouth once daily. Take this in addition to the 0.5mg dose for a total of 1.5 mg daily 30 tablet 5 05/26/2023 Active Start: 05-25-2023 End: 05-26-2023 take 1 tablet by mouth once daily Estradiol (ESTRACE) 0.5 mg tablet Indications: Hot flash, menopausal Take 1 tablet by mouth once daily. Take this in addition to 1 mg tablet for a total of 1.5 mg daily. For hot flashes 30 tablet 5 05/26/2023 Active Start: 02-13-2023 take 1 tablet by casey th once daily estradiol (ESTRACE) 1 mg tablet Indications: Hot flash, menopausal Take 1 tablet by mouth once daily. 30 tablet 5 02/13/2023 Active Start: 10-14-2022 End: 02-13-2023 take 1 tablet by mouth once daily Estradiol (ESTRACE) 0.5 mg tablet Indications: Hot flash, menopausal Take 1 tablet by mouth once daily. 30 tablet 11 12/15/2022 02/13/2023 Discontinued Start: 06-20-2022 End: 08-15-2022 take 1 tablet by mouth once daily Estradiol (ESTRACE) 0.5 mg tablet Indications: Hot flash, menopausal Take 1 tablet by mouth once daily. 30 tablet 1 06/20/2022 08/15/2022 Discontinued Comment on above: Take 1 tablet by casey th once daily. Take 1 tablet by casey th once daily. Take this in addition to 1 mg tablet for a total of 1.5 mg daily. For hot flashes Take 1 tablet by casey th once daily. Take this in addition to the 0.5mg dose for a total of 1.5 mg daily etodolac 500 mg oral tablet (20 sources) Nonsteroidal Anti-inflammatory Drug Start: 02-06-2023 End: 01-06-2025 take 1 tablet by mouth twice daily Etodolac 500 mg tablet Indications: Myalgia Take 1 tablet by mouth two times a day. 60 tablet 3 01/06/2025 Active Start: 10-26-2020 End: 02-06-2023 take 1 tablet by mouth twice daily as needed etodolac (LODINE) 400 mg tablet Indications: Myalgia , Medication management Take 1 tablet by mouth twice daily as needed. 60 tablet 1 10/26/2020 06/11/2022 Discontinued Comment on above: Take 1 tablet by casey th twice daily as needed. Take 1 tablet by casey th twice daily. Take 1 tablet by casey th two times a day. fluticasone propionate 0.05 mg/actuat metered dose nasal spray (20 sources) Corticosteroid Start: 02-24-2017 End: 02-08-2025 Fluticasone Propionate 1 SPRAY spray,suspension Active 1 NMA NARES DAILY February 24, 2017 12:00am Start: 02-24-2017 Fluticasone Pr opionate Active 1 PUFF NARES DAILY February 23, 2017 11:00pm Comment on above: Use 2 Sprays in each nostril once daily. gabapentin 300 mg oral capsule (20 sources) Anti-epileptic Agent Start: 11-14-2024 End: 12-14-2024 take 1 capsule by mouth every twelve hours as needed gabapentin (NEURONTIN) 100 mg capsule Take 1 capsule by mouth two times a day as needed (anxiety) for up to 30 days. 60 capsule 11/14/2024 Active Start: 09-07-2024 End: 10-07-2024 take 1 capsule by mouth three times daily gabapentin (NEURONTIN) 400 mg capsule Take 1 capsule by mouth three times a day for 30 days. 90 capsule 2 09/07/2024 10/07/2024 Active Start: 07-21-2024 End: 08-20-2024 take 1 capsule by mouth every twelve hours as needed gabapentin (NEURONTIN) 100 mg capsule Take 1 capsule by mouth two times a day as needed (dystonia) for up to 30 days. TAKE 2 CAPSULES BY MOUTH EVERY MORNING & TAKE 1 CAPSULE AT NOON *MAY TAKE AN ADDITIONAL 1 CAPSULE NEEDED DURING THE DAY 60 capsule 2 07/21/2024 Active Start: 06-03-2024 End: 07-08-2024 gabapentin (NEURONTIN) 100 m g capsule Take 200 mg in the morning and 100 mg at noon, may take an additional 100 mg as needed during the day. 60 capsule 2 06/03/2024 07/08/2024 Active Start: 05-18-2024 End: 06-22-2024 gabapentin (NEURONTIN) 100 m g capsule Take 100 mg in the morning and 100 mg at noon 60 capsule 2 05/18/2024 06/03/2024 Discontinued Start: 03-04-2024 End: 01-26-2025 take 1 capsule by mouth at bedtime Gabapentin 300 mg capsule Active 300 mg PO AT BEDTIME March 04, 2024 12:00am Start: 07-19-2023 End: 11-30-2024 take 1 capsule by mouth once daily at bedtime gabapentin (NEURONTIN) 300 mg capsule Take 1 capsule by mouth daily at bedtime for 180 days. 90 capsule 1 05/18/2024 06/03/2024 Discontinued Start: 06-19-2023 End: 09-28-2023 gabapentin (NEURONTIN) 100 m g capsule Take one at bedtime for three days, then take two at bedtime for three days then take three at bedtime thereafter. For hot flashes 69 capsule 0 06/19/2023 09/28/2023 Discontinued Comment on above: Take one at bedtime for three days, then take two at bedtime for three days then take three at bedtime thereafter. For hot flashes Take 1 capsule by mo [facility] daily at bedtime for 180 days. Do not start before July 19, 2023. levothyroxine sodium 0.088 mg oral tablet (20 sources) l-Thyroxine Start: 06-20-20 End: 04-21-20 take 1 tablet by mouth once daily Levothyroxine 88 mcg tablet Active 88 ug PO DAILY March 04, 2024 12:00am Start: 05-28-2020 End: 05-06-2022 take 1 tablet by mouth once daily for thyroid dysfunction levothyroxine (SYNTHROID) 75 mcg tablet Indications: Acquired hypothyroidism Take 1 tablet by mouth once daily. Take on empty stomach. For Thyroid 30 tablet 11 05/07/2022 Active Start: 09-01-2019 End: 03-04-2024 take 3 tablets by mouth once daily Levothyroxine 25 MCG tablet Discontinued 75 ug PO DAILY September 01, 2019 1:00am March 04, 2024 7:38pm Start: 09-01-2019 take 75 ug by mouth once daily Levothyroxine Active 75 MCG PO DAILY September 01, 2019 12:00am Comment on above: Take 1 tablet by casey once daily. Take on empty stomach. For Thyroid lidocaine 0.05 mg/mg medicated patch (2 sources) Antiarrhythmic, Amide Local Anesthetic Start: 12-12-2024 Lidocaine 5 % adhesive patch,medicated Active 1 NMA TOPICAL DAILY as needed for pain 30 0 December 12, 2024 11:39pm leave on most painful area for up to 12 hrs lithium carbonate 300 mg oral capsule (20 sources) Start: 02-07-2025 End: 03-09-2025 take 1 capsule by mouth twice daily lithium carbonate (ESKALITH) 300 mg capsule Indications: Bipolar I disorder (HCC) Take 1 capsule by mouth two times a day. 60 capsule 1 02/07/2025 03/09/2025 Active Start: 05-30-2024 End: 07-04-2024 take 1 capsule by mouth once daily at bedtime lithium carbonate (ESKALITH) 300 mg capsule Indications: Bipolar I disorder (HCC) Take 1 capsule by mouth daily at bedtime. 30 capsule 05/30/2024 07/04/2024 Discontinued Start: 05-30-2024 End: 07-04-2024 take 1 capsule by mouth once daily lithium carbonate (ESKALITH) 150 mg capsule Take 1 capsule by mouth once daily. 30 capsule 2 05/30/2024 07/04/2024 Discontinued Start: 10-26-2020 End: 08-26-2024 take 1 capsule by mouth twice daily at mealtime lithium carbonate (ESKALITH) 300 mg capsule Indications: Bipolar I disorder (HCC) TAKE 1 CAPSULE BY MOUTH TWICE A DAY WITH MEALS 60 capsule 1 12/12/2024 Active Start: 05-14-2018 End: 2024 take 2 capsules by mouth twice daily Lealman Carbonate 150 MG capsule Discontinued 300 mg PO TWICE A DAY May 14, 2018 12:00am 2024 11:26pm Start: 05-14-2018 take 150 mg by mouth three times daily Lealman Carbonate Active 150 MG PO THREE TIMES A DAY May 13, 2018 11:00pm Comment on above: Take 1 capsule by mo uth twice daily with meals. Take 1 capsule by mo uth two times a day with meals. 24 hr metFORMIN hydrochloride 500 mg extended release oral tablet (20 sources) Biguanide Start: End: take 1 tablet by mouth once daily Metformin 500 mg tablet extended release 24 hr Active 500 mg PO DAILY March 04, 2024 12:00am Comment on above: Take 1 tablet by casey th daily with breakfast. methocarbamol 500 mg oral tablet (2 sources) Muscle Relaxant Start: 5 take 1 tablet by mouth four times daily as needed for pain Methocarbamol 500 mg tablet Active 500 mg PO 4 TIMES DAILY as needed for Muscle pain/spasm 40 0 December 12, 2024 11:39pm phenytoin sodium 100 mg extended release oral capsule (20 sources) Anti-epileptic Agent Start: 5 End: 5 take 1 capsule by mouth three times daily phenytoin ER (DILANTIN) 100 mg ER capsule Take 1 capsule by mouth three times a day. 90 capsule 5 10/17/2024 Active Start: 01-02-2023 End: 10-14-2024 take 1 capsule by mouth three times daily phenytoin ER (DILANTIN) 100 mg ER capsule Take 1 capsule by mouth three times a day. 90 capsule 5 03/28/2024 10/14/2024 Discontinued Start: 04-25-2022 End: 10-20-2022 take 1 capsule by mouth three times daily phenytoin ER (DILANTIN) 100 mg ER capsule Take 1 capsule by mouth three times daily. 90 capsule 2 07/21/2022 10/20/2022 Discontinued Start: 10-26-2020 End: 04-23-2022 take 1 capsule by mouth three times daily phenytoin ER (DILANTIN) 100 mg ER capsule Take 1 capsule by mouth three times daily. 90 capsule 5 10/25/2021 04/23/2022 Discontinued Start: 02-23-2014 take 1 capsule by mo ut four times daily Phenytoin Sodium Extended 100 MG capsule Active 100 mg PO 4 TIMES DAILY February 23, 2014 12:00am Comment on above: Take 1 capsule by mo [facility] three times daily. Take 1 capsule by mo [facility] three times a day. Timolol (20 sources) beta-Adrenergic Ian Start: 08-01-2015 take 1 drop(s) into the eye(s) twice daily timolol hemihydrate (BETIMOL) 0.5 % ophthalmic solution Use 1 Drop in both eyes twice daily. 0 08/01/2015 Active Start: 08-01-2015 take 1 drop(s) into the eye(s) twice daily timolol hemihydrate (BETIMOL) 0.5 % ophthalmic solution Use 1 Drop in both eyes twice daily. 0 08/01/2015 Active Start: 08-01-2015 take 1 drop(s) into the eye(s) twice daily timolol hemihydrate (BETIMOL) 0.5 % ophthalmic solution Use 1 Drop in both eyes twice daily. 0 08/01/2015 Active Start: 02-23-2014 apply 1 drop(s) into the eye(s) twice daily Timolol Maleate (Timoptic-Xe) 1 DROP gel forming solution Active 1 NMA Each Eye TWICE A DAY February 23, 2014 12:00am Start: 02-23-2014 Timolol Maleat e (Timoptic-Xe 0.5%) 1 DROP gel forming solution Active 1 DRP Each Eye TWICE A DAY February 22, 2014 11:00pm Comment on above: Use 1 Drop in both e yes twice daily. Completed/Discontinued Medications Medication Drug Class(es) Dates Sig (Normalized) Sig (Original) acetaminophen 325 mg oral tablet (20 sources) Start: 08-18-2019 End: 09-02-2022 take 2 tablets by mouth every six hours as needed acetaminophen (TYLENOL) 325 mg tablet Take 2 tablets by mouth every 6 hours as needed for Pain. 08/18/2019 09/02/2022 Discontinued Comment on above: Take 2 tablets by mo uth every 6 hours as needed for Pain. acetaminophen 325 mg / HYDROcodone bitartrate 5 mg oral tablet (11 sources) Opioid Agonist Start: 04-12-2023 End: 03-04-2024 Hydrocodone-Acetami nophen 5-325 mg tablet Discontinued 1 {tbl} PO EVERY 6 HOURS as needed for pain 12 3 0 April 12, 2023 March 04, 2024 7:36pm Fracture of distal end of fibula Start: 04-12-2023 take 1 tablet by casey th every six hours Hydrocodone-Acetaminophen Active 1 TABLE T PO EVERY 6 HOURS 12 3 April 12, 2023 Start: 09-10-2020 End: 09-13-2020 Hydrocodone-Acetaminophen 1 TABLET tablet Discontinued 1 {tbl} PO EVERY 6 HOURS NEEDED as needed for Pain 10 3 0 September 10, 2020 September 12, 2020 1:00am September 13, 2020 1:03am Abdominal pain Unspecified abdominal pain Start: 09-10-2020 End: 09-13-2020 take 1 tablet by mouth every six hours as needed Hydrocodone-Acetaminophen Discontinued 1 TABLET PO EVERY 6 HOURS NEEDED 10 3 September 10, 2020 September 13, 2020 12:03am amoxicillin 500 mg / clavulanate 125 mg oral tablet (6 sources) Penicillin-class Antibacterial Start: 01-19-2022 End: 03-04-2024 Amoxicillin-Pot Clavulanate (Augmentin) 500-125 mg tablet Discontinued 1 {tbl} PO Q8H 15 0 January 19, 2022 12:00am March 04, 2024 7:35pm azelastine hydrochloride 0.137 mg/actuat metered dose nasal spray (20 sources) Histamine-1 Receptor Antagonist Start: 03-05-2021 End: 09-02-2022 azelastine (ASTELIN) 0.1% nasal spray Azelastine Active 1 SPRAY INTRANASAL TWICE A DAY March 05, 2021 1:44pm 03/05/2021 09/02/2022 Discontinued Start: 03-05-2021 End: 09-02-2022 azelastine (ASTELIN) 0.1% na sunday spray Azelastine Active 1 SPRAY INTRANASAL TWICE A DAY March 05, 2021 1:44pm 0 03/05/2021 09/02/2022 Discontinued Start: 03-05-2021 Azelastine 137 mcg (0.1 %) Aerosol,Loyal Active 1 NMA INTRANASAL TWICE A DAY March 05, 2021 12:00am Start: 03-05-2021 Azelastine Act dashawn 1 SPRAY INTRANASAL TWICE A DAY March 04, 2021 11:00pm Comment on above: Azelastine Active 1 SPRAY INTRANASAL TWICE A DAY March 05, 2021 1:44pm busPIRone hydrochloride 10 mg oral tablet (20 sources) Start: End: take 2 tablets by mouth three times daily busPIRone (BUSPAR) 10 mg tablet Indications: Encounter for long-term current use of medication , Anxiety Take 2 tablets by mouth three times a day. 180 tablet 2 11/28/2024 12/28/2024 Start: 08-14-2023 End: 07-21-2024 take 1 tablet by mouth three times daily Buspirone 15 mg tablet Active 15 mg PO THREE TIMES A DAY 2024 12:00am Start: 09-02-2022 take 1 tablet by casey th three times daily busPIRone (BUSPAR) 15 mg tablet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 sting allergy [T63.91XA] 12/17/2007 Asthma [J45.909] 06/04/2012 Chronic daily headache [R51.9] 06/04/2012 Non morbid obesity due to excess calories [E66.*08/31/2015 Chronic abdominal pain [R10.9, G89.29] 04/22/2016 Myalgia [M79.10] 04/22/2016 Altered bowel habits [R19.4] 08/26/2017 Left sided abdominal pain [R10.9] 08/26/2017 GERD (gastroesophageal reflux disease) [K21.9] 08/26/2017 Biliary dyskinesia [K82.8] 08/26/2017 Borderline diabetes mellitus [R73.03] 09/14/2017 High serum thyroid stimulating hormone (TSH) [R*01/11/2019 Chronic low back pain without sciatica [M54.50,*05/20/2021 Other spondylosis, thoracolumbar region [M47.89*05/20/2021 Kyphosis of thoracic region [M40.204] 05/20/2021 Encounter Status:Closed by UTE COATES on 07/11/24 Normal [facility] [place], Bld SerPl-sCncon [place] [Moles/Vol] 1.2 mmol/L Normal 0.6-1.2 [facility] Comment on above: Order Comment: Speci men Type: BLOOD SPECIMENOrdering Facility: [facility] Address: [address] [place] [address] Result Comment: Refe rence ranges and high/low indicator flags are provided as general guidelines only. The treating physician must determine appropriate target levels/dosing based on the specific clinical situation. Performed By: #### 1 4334-7 ####[facility] LABCLIA [id number] [facility] [id number] [place] [address] OF [facility] Kiran 07-05-2024 CNPN Telephone (PSYRMN) KALLI JACOBS ([id number]) 1965 F Date Time Provider Department 07/05/24 FEROZ ACOSTA PSYRMN During your visit today, we recorded the following information about you: Ute Coates 07/05/2024 10:12 AM Signed Pt called upset and would like a call back from you. Feroz Acosta MD 07/05/2024 10:46 AM Signed Called patient. She was upset because her friend was just diagnosed with COVID. Is worried that this will impact Thanksgiving. Reassured her it wouldn't. Not symptomatic at this time. Will speak to PCP. Engaged in some supportive psychotherapy/. Allergies As of Date: 07/05/2024 Noted Allergy Reaction ASA (SALICYLATES) 07/23/2005 5 - Intolerance Comments: stomach bleeding ADVAIR DISKUS (FLUTICASONE PROPIO*01/21/2010 Comments: Seizures after use twice. PINE TREES (TREES) 09/28/2023 12 - Shortness of Breath Comments: Sneezing, runny nose Date Reviewed: 05/30/2024 Reviewed by: Jess Ceja LPN - Fully Assessed Prescriptions as of 07/05/2024 - lithium carbonate (ESKALITH) 300 mg capsule Take 1 capsule by mouth two times a day with meals. - benztropine (COGENTIN) 2 mg tablet Take 1 tablet by mouth three times a day. - albuterol HFA (VENTOLIN HFA) 90 mcg/actuation inhaler Inhale 2 Puffs as instructed every 4 hours as needed. Also use 2 puffs prior to exertion - metFORMIN ER (GLUCOPHAGE XR) 500 mg 24 hr tablet Take 1 tablet by mouth daily with breakfast. - gabapentin (NEURONTIN) 300 mg capsule Take 1 capsule by mouth daily at bedtime for 180 days. - gabapentin (NEURONTIN) 100 mg capsule Take 200 mg in the morning and 100 mg at noon, may take an additional 100 mg as needed during the day. - estradiol (ESTRACE) 1 mg tablet Take 1 tablet by mouth once daily. - Etodolac 500 mg tablet Take 1 tablet by mouth two times a day. - levothyroxine (SYNTHROID) 88 mcg tablet Take 1 tablet by mouth once daily. Take on empty stomach. For Thyroid - phenytoin ER (DILANTIN) 100 mg ER capsule Take 1 capsule by mouth three times a day. - buPROPion XL (WELLBUTRIN XL) 150 mg 24 hr tablet Take 1 tablet by mouth once daily. - busPIRone (BUSPAR) 15 mg tablet Take 1 tablet by mouth three times a day. - fluticasone (FLONASE) 50 mcg/actuation nasal spray Use 2 Sprays in each nostril once daily. - cholestyramine (QUESTRAN) 4 gram packet Take 1 Packet by mouth once daily. for diarrhea - ipratropium-albuterol (DUONEB) 0.5 mg-3 mg(2.5 mg base)/3 mL nebu Inhale 3 mL as instructed every 6 hours as needed for wheezing/shortness of breath. - EPINEPHrine (EPIPEN) 0.3 mg/0.3 mL auto-injector Use as needed for bee sting then go to emergecny room for further evaluation and treatment after bee sting - spironolactone (ALDACTONE) 25 mg tablet Take 1 tablet by mouth once daily as needed (swelling/fluid retention). - timolol hemihydrate (BETIMOL) 0.5 % ophthalmic solution Use 1 Drop in both eyes twice daily. - COMPOUNDED PRESCRIPTION Nebulizer for home use. Dx: 493.90 Problem List As Of Date 07/05/2024 Noted Resolved Bipolar I disorder (HCC) [F31.9] Migraine with aura [G43.109] INCISIONAL HERNIA [K43.2] 08/19/2005 Closed fracture of metacarpal bone(s), site uns*03/25/2006 06/04/2012 Closed fracture of hamate (unciform) bone of wr*04/08/2006 06/04/2012 Generalized convulsive epilepsy (HCC) [G40.309] 05/11/2006 Constipation [K59.00] 07/29/2006 Tobacco use disorder [F17.200] 10/28/2006 Bee sting allergy [T63.91XA] 12/17/2007 Asthma [J45.909] 06/04/2012 Chronic daily headache [R51.9] 06/04/2012 Non morbid obesity due to excess calories [E66.*08/31/2015 Chronic abdominal pain [R10.9, G89.29] 04/22/2016 Myalgia [M79.10] 04/22/2016 Altered bowel habits [R19.4] 08/26/2017 Left sided abdominal pain [R10.9] 08/26/2017 GERD (gastroesophageal reflux disease) [K21.9] 08/26/2017 Biliary dyskinesia [K82.8] 08/26/2017 Borderline diabetes mellitus [R73.03] 09/14/2017 High serum thyroid stimulating hormone (TSH) [R*01/11/2019 Chronic low back pain without sciatica [M54.50,*05/20/2021 Other spondylosis, thoracolumbar region [M47.89*05/20/2021 Kyphosis of thoracic region [M40.204] 05/20/2021 Encounter Status:Closed by FEROZ ACOSTA on 07/05/24 Normal [facility] Kiran 07-04-2024 CNPN Telephone (PSYRMN) KALLI JACOBS ([id number]) 1965 F Date Time Provider Department 07/04/24 FEROZ ACOSTA PSYRMN During your visit today, we recorded the following information about you: Ute Coates 07/04/2024 10:49 AM Signed Pt called and she wanted to let you know that she is doing great and the benztropine (COGENTIN) 2 mg tablet . She said she has not jumped, Estela ect. She is requesting call back [phone] Thank you, Feroz Calderon MD 07/04/2024 11:41 AM Signed Spoke to patient. Overall doing much better. Thinking about going into psychotherapy. No concerns. Grateful for care. Allergies As of Date: 07/04/2024 Noted Allergy Reaction ASA (SALICYLATES) 07/23/2005 5 - Intolerance Comments: stomach bleeding ADVAIR DISKUS (FLUTICASONE PROPIO*01/21/2010 Comments: Seizures after use twice. PINE TREES (TREES) 09/28/2023 12 - Shortness of Breath Comments: Sneezing, runny nose Date Reviewed: 05/30/2024 Reviewed by: Jess Ceja LPN - Fully Assessed Visit Diagnosis:Bipolar I disorder (HCC) [F31.9] Order(s):lithium carbonate (ESKALITH) 300 mg capsuleTake 1 capsule by mouth two times a day with meals.Disp: 60 capsuleRfl: 1 Prescriptions as of 07/04/2024 - lithium carbonate (ESKALITH) 300 mg capsule Take 1 capsule by mouth two times a day with meals. - benztropine (COGENTIN) 2 mg tablet Take 1 tablet by mouth three times a day. - albuterol HFA (VENTOLIN HFA) 90 mcg/actuation inhaler Inhale 2 Puffs as instructed every 4 hours as needed. Also use 2 puffs prior to exertion - metFORMIN ER (GLUCOPHAGE XR) 500 mg 24 hr tablet Take 1 tablet by mouth daily with breakfast. - gabapentin (NEURONTIN) 300 mg capsule Take 1 capsule by mouth daily at bedtime for 180 days. - gabapentin (NEURONTIN) 100 mg capsule Take 200 mg in the morning and 100 mg at noon, may take an additional 100 mg as needed during the day. - estradiol (ESTRACE) 1 mg tablet Take 1 tablet by mouth once daily. - Etodolac 500 mg tablet Take 1 tablet by mouth two times a day. - levothyroxine (SYNTHROID) 88 mcg tablet Take 1 tablet by mouth once daily. Take on empty stomach. For Thyroid - phenytoin ER (DILANTIN) 100 mg ER capsule Take 1 capsule by mouth three times a day. - buPROPion XL (WELLBUTRIN XL) 150 mg 24 hr tablet Take 1 tablet by mouth once daily. - busPIRone (BUSPAR) 15 mg tablet Take 1 tablet by mouth three times a day. - fluticasone (FLONASE) 50 mcg/actuation nasal spray Use 2 Sprays in each nostril once daily. - cholestyramine (QUESTRAN) 4 gram packet Take 1 Packet by mouth once daily. for diarrhea - ipratropium-albuterol (DUONEB) 0.5 mg-3 mg(2.5 mg base)/3 mL nebu Inhale 3 mL as instructed every 6 hours as needed for wheezing/shortness of breath. - EPINEPHrine (EPIPEN) 0.3 mg/0.3 mL auto-injector Use as needed for bee sting then go to emergecny room for further evaluation and treatment after bee sting - spironolactone (ALDACTONE) 25 mg tablet Take 1 tablet by mouth once daily as needed (swelling/fluid retention). - timolol hemihydrate (BETIMOL) 0.5 % ophthalmic solution Use 1 Drop in both eyes twice daily. - COMPOUNDED PRESCRIPTION Nebulizer for home use. Dx: 493.90 Problem List As Of Date 07/04/2024 Noted Resolved Bipolar I disorder (HCC) [F31.9] Migraine with aura [G43.109] INCISIONAL HERNIA [K43.2] 08/19/2005 Closed fracture of metacarpal bone(s), site uns*03/25/2006 06/04/2012 Closed fracture of hamate (unciform) bone of wr*04/08/2006 06/04/2012 Generalized convulsive epilepsy (HCC) [G40.309] 05/11/2006 Constipation [K59.00] 07/29/2006 Tobacco use disorder [F17.200] 10/28/2006 Bee sting allergy [T63.91XA] 12/17/2007 Asthma [J45.909] 06/04/2012 Chronic daily headache [R51.9] 06/04/2012 Non morbid obesity due to excess calories [E66.*08/31/2015 Chronic abdominal pain [R10.9, G89.29] 04/22/2016 Myalgia [M79.10] 04/22/2016 Altered bowel habits [R19.4] 08/26/2017 Left sided abdominal pain [R10.9] 08/26/2017 GERD (gastroesophageal reflux disease) [K21.9] 08/26/2017 Biliary dyskinesia [K82.8] 08/26/2017 Borderline diabetes mellitus [R73.03] 09/14/2017 High serum thyroid stimulating hormone (TSH) [R*01/11/2019 Chronic low back pain without sciatica [M54.50,*05/20/2021 Other spondylosis, thoracolumbar region [M47.89*05/20/2021 Kyphosis of thoracic region [M40.204] 05/20/2021 Prescriptions ordered this encounter Disp Refills Start End LITHIUM CARBONATE 300 MG CAPSULE 60 c* 1 07/04/2024 08/03/2024 Route: ORAL Sig: Take 1 capsule by mouth two times a day with meals. Medications Discontinued During This Encounter Prescriptions - lithium carbonate (ESKALITH) 150 mg capsule (Discontinued) Take 150 mg by mouth once daily. In the am - lithium carbonate (ESKALITH) 300 mg capsule (Discontinued) Take 1 capsule by mouth daily at bedtim (more content not included)... Normal [facility] Kiran 06-27-2024 KASSI Telephone (PSYRMN) KALLI JACOBS ([id number]) 1965 F Date Time Provider Department 06/27/24 FEROZ ACOSTA PSYRMN During your visit today, we recorded the following information about you: Melvin Ute Camacho 06/27/2024 3:25 PM Signed Pt called and said she was returning you call something about lithium? I asked her if the call was from today, but she was not sure. I think it may have been from 06/13? Please review. Ute Mckenzie Allergies As of Date: 06/27/2024 Noted Allergy Reaction ASA (SALICYLATES) 07/23/2005 5 - Intolerance Comments: stomach bleeding ADVAIR DISKUS (FLUTICASONE PROPIO*01/21/2010 Comments: Seizures after use twice. PINE TREES (TREES) 09/28/2023 12 - Shortness of Breath Comments: Sneezing, runny nose Date Reviewed: 05/30/2024 Reviewed by: Jess Ceja LPN - Fully Assessed Prescriptions as of 06/27/2024 - benztropine (COGENTIN) 2 mg tablet Take 1 tablet by mouth three times a day. - albuterol HFA (VENTOLIN HFA) 90 mcg/actuation inhaler Inhale 2 Puffs as instructed every 4 hours as needed. Also use 2 puffs prior to exertion - metFORMIN ER (GLUCOPHAGE XR) 500 mg 24 hr tablet Take 1 tablet by mouth daily with breakfast. - gabapentin (NEURONTIN) 300 mg capsule Take 1 capsule by mouth daily at bedtime for 180 days. - gabapentin (NEURONTIN) 100 mg capsule Take 200 mg in the morning and 100 mg at noon, may take an additional 100 mg as needed during the day. - lithium carbonate (ESKALITH) 150 mg capsule Take 1 capsule by mouth once daily. - lithium carbonate (ESKALITH) 300 mg capsule Take 1 capsule by mouth daily at bedtime. - estradiol (ESTRACE) 1 mg tablet Take 1 tablet by mouth once daily. - Etodolac 500 mg tablet Take 1 tablet by mouth two times a day. - levothyroxine (SYNTHROID) 88 mcg tablet Take 1 tablet by mouth once daily. Take on empty stomach. For Thyroid - phenytoin ER (DILANTIN) 100 mg ER capsule Take 1 capsule by mouth three times a day. - buPROPion XL (WELLBUTRIN XL) 150 mg 24 hr tablet Take 1 tablet by mouth once daily. - busPIRone (BUSPAR) 15 mg tablet Take 1 tablet by mouth three times a day. - fluticasone (FLONASE) 50 mcg/actuation nasal spray Use 2 Sprays in each nostril once daily. - cholestyramine (QUESTRAN) 4 gram packet Take 1 Packet by mouth once daily. for diarrhea - ipratropium-albuterol (DUONEB) 0.5 mg-3 mg(2.5 mg base)/3 mL nebu Inhale 3 mL as instructed every 6 hours as needed for wheezing/shortness of breath. - EPINEPHrine (EPIPEN) 0.3 mg/0.3 mL auto-injector Use as needed for bee sting then go to emergecny room for further evaluation and treatment after bee sting - spironolactone (ALDACTONE) 25 mg tablet Take 1 tablet by mouth once daily as needed (swelling/fluid retention). - timolol hemihydrate (BETIMOL) 0.5 % ophthalmic solution Use 1 Drop in both eyes twice daily. - COMPOUNDED PRESCRIPTION Nebulizer for home use. Dx: 493.90 Problem List As Of Date 06/27/2024 Noted Resolved Bipolar I disorder (HCC) [F31.9] Migraine with aura [G43.109] INCISIONAL HERNIA [K43.2] 08/19/2005 Closed fracture of metacarpal bone(s), site uns*03/25/2006 06/04/2012 Closed fracture of hamate (unciform) bone of wr*04/08/2006 06/04/2012 Generalized convulsive epilepsy (HCC) [G40.309] 05/11/2006 Constipation [K59.00] 07/29/2006 Tobacco use disorder [F17.200] 10/28/2006 Bee sting allergy [T63.91XA] 12/17/2007 Asthma [J45.909] 06/04/2012 Chronic daily headache [R51.9] 06/04/2012 Non morbid obesity due to excess calories [E66.*08/31/2015 Chronic abdominal pain [R10.9, G89.29] 04/22/2016 Myalgia [M79.10] 04/22/2016 Altered bowel habits [R19.4] 08/26/2017 Left sided abdominal pain [R10.9] 08/26/2017 GERD (gastroesophageal reflux disease) [K21.9] 08/26/2017 Biliary dyskinesia [K82.8] 08/26/2017 Borderline diabetes mellitus [R73.03] 09/14/2017 High serum thyroid stimulating hormone (TSH) [R*01/11/2019 Chronic low back pain without sciatica [M54.50,*05/20/2021 Other spondylosis, thoracolumbar region [M47.89*05/20/2021 Kyphosis of thoracic region [M40.204] 05/20/2021 Encounter Status:Closed by UTE COATES on 06/27/24 [facility] Kiran 06-13-2024 CNPN Telephone (PSYAEM) KALLI JACOBS ([id number]) 1965 F Date Time Provider Department 06/13/24 FEROZ ACOSTA During your visit today, we recorded the following information about you: Feroz Acosta MD 06/13/2024 9:40 AM Signed Spoke to patient. Instructed her to please restart lithium 300 mg BID. Will repeat lithium level in one month. Allergies As of Date: 06/13/2024 Noted Allergy Reaction ASA (SALICYLATES) 07/23/2005 5 - Intolerance Comments: stomach bleeding ADVAIR DISKUS (FLUTICASONE PROPIO*01/21/2010 Comments: Seizures after use twice. PINE TREES (TREES) 09/28/2023 12 - Shortness of Breath Comments: Sneezing, runny nose Date Reviewed: 05/30/2024 Reviewed by: Jess Ceja LPN - Fully Assessed Primary Visit Diagnosis:Bipolar affective disorder, remission status unspecified (HCC) [F31.9] Order(s):LITHIUM [SQLI] Order #: [id number] FUTURE Prescriptions as of 06/13/2024 - gabapentin (NEURONTIN) 300 mg capsule Take 1 capsule by mouth daily at bedtime for 180 days. - gabapentin (NEURONTIN) 100 mg capsule Take 200 mg in the morning and 100 mg at noon, may take an additional 100 mg as needed during the day. - lithium carbonate (ESKALITH) 150 mg capsule Take 1 capsule by mouth once daily. - lithium carbonate (ESKALITH) 300 mg capsule Take 1 capsule by mouth daily at bedtime. - estradiol (ESTRACE) 1 mg tablet Take 1 tablet by mouth once daily. - Etodolac 500 mg tablet Take 1 tablet by mouth two times a day. - benztropine (COGENTIN) 2 mg tablet Take 1 tablet by mouth two times a day. 1 to 2 tablets two times daily as needed - levothyroxine (SYNTHROID) 88 mcg tablet Take 1 tablet by mouth once daily. Take on empty stomach. For Thyroid - phenytoin ER (DILANTIN) 100 mg ER capsule Take 1 capsule by mouth three times a day. - albuterol HFA (VENTOLIN HFA) 90 mcg/actuation inhaler Inhale 2 Puffs as instructed every 4 hours as needed. Also use 2 puffs prior to exertion - metFORMIN ER (GLUCOPHAGE XR) 500 mg 24 hr tablet Take 1 tablet by mouth daily with breakfast. - buPROPion XL (WELLBUTRIN XL) 150 mg 24 hr tablet Take 1 tablet by mouth once daily. - busPIRone (BUSPAR) 15 mg tablet Take 1 tablet by mouth three times a day. - fluticasone (FLONASE) 50 mcg/actuation nasal spray Use 2 Sprays in each nostril once daily. - cholestyramine (QUESTRAN) 4 gram packet Take 1 Packet by mouth once daily. for diarrhea - ipratropium-albuterol (DUONEB) 0.5 mg-3 mg(2.5 mg base)/3 mL nebu Inhale 3 mL as instructed every 6 hours as needed for wheezing/shortness of breath. - EPINEPHrine (EPIPEN) 0.3 mg/0.3 mL auto-injector Use as needed for bee sting then go to emergecny room for further evaluation and treatment after bee sting - spironolactone (ALDACTONE) 25 mg tablet Take 1 tablet by mouth once daily as needed (swelling/fluid retention). - timolol hemihydrate (BETIMOL) 0.5 % ophthalmic solution Use 1 Drop in both eyes twice daily. - COMPOUNDED PRESCRIPTION Nebulizer for home use. Dx: 493.90 Problem List As Of Date 06/13/2024 Noted Resolved Bipolar I disorder (HCC) [F31.9] Migraine with aura [G43.109] INCISIONAL HERNIA [K43.2] 08/19/2005 Closed fracture of metacarpal bone(s), site uns*03/25/2006 06/04/2012 Closed fracture of hamate (unciform) bone of wr*04/08/2006 06/04/2012 Generalized convulsive epilepsy (HCC) [G40.309] 05/11/2006 Constipation [K59.00] 07/29/2006 Tobacco use disorder [F17.200] 10/28/2006 Bee sting allergy [T63.91XA] 12/17/2007 Asthma [J45.909] 06/04/2012 Chronic daily headache [R51.9] 06/04/2012 Non morbid obesity due to excess calories [E66.*08/31/2015 Chronic abdominal pain [R10.9, G89.29] 04/22/2016 Myalgia [M79.10] 04/22/2016 Altered bowel habits [R19.4] 08/26/2017 Left sided abdominal pain [R10.9] 08/26/2017 GERD (gastroesophageal reflux disease) [K21.9] 08/26/2017 Biliary dyskinesia [K82.8] 08/26/2017 Borderline diabetes mellitus [R73.03] 09/14/2017 High serum thyroid stimulating hormone (TSH) [R*01/11/2019 Chronic low back pain without sciatica [M54.50,*05/20/2021 Other spondylosis, thoracolumbar region [M47.89*05/20/2021 Kyphosis of thoracic region [M40.204] 05/20/2021 Encounter Status:Closed by FEROZ ACOSTA on 06/13/24 Normal [facility] CBC W Auto Differential pane l (Bld)on 06-06-2024 Basophils (Bld) [#/Vol] 0.06 10*3/uL [facility] Basophils/100 WBC (Bld) 0.5 % [facility] Differential cell count method Nom (Bld) Auto [facility] Eosinophils (Bld) [#/Vol] 0.37 10*3/uL [facility] Eosinophils/100 WBC (Bld) 3.2 % [facility] Erythrocyte distribution width (RBC) [Ratio] 13.0 % 11.5 - 15.0 % [facility] Hematocrit (Bld) [Volume fraction] 40.8 % 36.0 - 46.0 % [facility] Hemoglobin (Bld) [Mass/Vol] 12.5 g/dL 11.5 - 15.5 g/dL [facility] Immature granulocytes (Bld) [#/Vol] 0.04 10*3/uL [facility] Immature granulocytes/100 WBC (Bld) 0.3 % [facility] Interpretation and review of laboratory results Abnormal [facility] Lymphocytes (Bld) [#/Vol] 3.30 10*3/uL [facility] Lymphocytes/100 WBC (Bld) 28.9 % [facility] MCH (RBC) [Entitic mass] 28.5 pg 26.0 - 34.0 pg [facility] MCHC (RBC) [Mass/Vol] 30.6 g/dL 30.5 - 36.0 g/dL [facility] MCV (RBC) [Entitic vol] 93.2 fL 80.0 - 100.0 fL [facility] Monocytes (Bld) [#/Vol] 0.60 10*3/uL [facility] Monocytes/100 WBC (Bld) 5.2 % C [facility] Neutrophils (Bld) [#/Vol] 7.06 10*3/uL [facility] Neutrophils/100 WBC (Bld) 61.9 % [facility] Nucleated RBC (Bld) [#/Vol] [facility] Nucleated RBC/100 WBC (Bld) [Ratio] 0.0 % /100 WBC [facility] Platelet mean volume (Bld) [Entitic vol] 11.4 fL 9.0 - 12.7 fL [facility] Platelets (Bld) [#/Vol] 324 10*3/uL [facility] RBC (Bld) [#/Vol] 4.38 10*6/uL 3.90 - 5.2 0 m/uL [facility] WBC (Bld) [#/Vol] 11.43 10*3/uL [facility] Basophils (Bld) [#/Vol] 0.06 10*3/uL Normal <0.11 [facility] Comment on above: Order Comment: Speci men Type: BLOOD SPECIMENOrdering Facility: [facility] Address: [address] [place] [address] Performed By: #### 5 7021-8 ####[facility] LABCLIA [id number] [facility] [place] [address] [place] Basophils/100 WBC (Bld) 0.5 % Normal [facility] Comment on above: Order Comment: Speci men Type: BLOOD SPECIMENOrdering Facility: [facility] Address: [address] [place] [address] Performed By: #### 5 7021-8 ####[facility] LABCLIA [id number] [place] [address] [place] Differential cell count method Nom (Bld) Auto Normal [facility] Comment on above: Order Comment: Speci men Type: BLOOD SPECIMENOrdering Facility: [facility] Address: [address] [place] [address] Performed By: #### 5 7021-8 ####[facility] LABCLIA [id number] [place] [address] [place] Eosinophils (Bld) [#/Vol] 0.37 10*3/uL Normal <0.46 [facility] Comment on above: Order Comment: Speci men Type: BLOOD SPECIMENOrdering Facility: [facility] Address: [address] [place] [address] Performed By: #### 5 7021-8 ####[facility] LABCLIA [id number] [place] [address] [place] Eosinophils/100 WBC (Bld) 3.2 % Normal [facility] Comment on above: Order Comment: Speci men Type: BLOOD SPECIMENOrdering Facility: [facility] Address: [address] [place] [address] Performed By: #### 5 7021-8 ####[facility] LABCLIA [id number] [place] [address] [place] Erythrocyte distribution width (RBC) [Ratio] 13.0 % Normal 11.5-15.0 [facility] Comment on above: Order Comment: Speci men Type: BLOOD SPECIMENOrdering Facility: [facility] Address: [address] [place] [address] Performed By: #### 5 7021-8 ####[facility] LABIA [id number] [place] [address] [place] Hematocrit (Bld) [Volume fraction] 40.8 % Normal 36.0-46.0 [facility] [facility] Comment on above: Order Comment: Speci men Type: BLOOD SPECIMENOrdering Facility: [facility] Address: [address] [place] [address] Performed By: #### 5 7021-8 ####[facility] LABIA [id number] [place] [address] [place] Hemoglobin (Bld) [Mass/Vol] 12.5 g/dL Normal 11.5-15.5 [facility] Comment on above: Order Comment: Speci men Type: BLOOD SPECIMENOrdering Facility: [facility] Address: [address] [place] [address] Performed By: #### 5 7021-8 ####[facility] LABCLIA [id number] [place] [address] [place] Immature granulocytes (Bld) [#/Vol] 0.04 10*3/uL Normal <0.10 [facility] Comment on above: Order Comment: Speci men Type: BLOOD SPECIMENOrdering Facility: [facility] Address: [address] [place] [address] Performed By: #### 5 7021-8 ####[facility] LABCLIA [id number] [place] [address] [place] Immature granulocytes/100 WBC (Bld) 0.3 % Normal [facility] Comment on above: Order Comment: Speci men Type: BLOOD SPECIMENOrdering Facility: [facility] Address: [address] [place] [address] Performed By: #### 5 7021-8 ####[facility] LABCLIA [id number] [place] [address] [place] Lymphocytes (Bld) [#/Vol] 3.30 10*3/uL Normal 1.00-4.00 [facility] Comment on above: Order Comment: Speci men Type: BLOOD SPECIMENOrdering Facility: [facility] Address: [address] [place] [address] Performed By: #### 5 7021-8 ####[facility] LABCLIA [id number] [place] [address] [place] Lymphocytes/100 WBC (Bld) 28.9 % Normal [facility] Comment on above: Order Comment: Speci men Type: BLOOD SPECIMENOrdering Facility: [facility] Address: [address] [place] [address] Performed By: #### 5 7021-8 ####[facility] LABCLIA [id number] [place] [address] [place] MCH (RBC) [Entitic mass] 28.5 pg Normal 26.0-34.0 [facility] Comment on above: Order Comment: Speci men Type: BLOOD SPECIMENOrdering Facility: [facility] Address: [address] [place] [address] Performed By: #### 5 7021-8 ####[facility] LABCLIA [id number] [place] [address] [place] MCHC (RBC) [Mass/Vol] 30.6 g/dL Normal 30.5-36.0 [facility] Comment on above: Order Comment: Speci men Type: BLOOD SPECIMENOrdering Facility: [facility] Address: [address] [place] [address] Performed By: #### 5 7021-8 ####[facility] LABCLIA [id number] [place] [address] [place] MCV (RBC) [Entitic vol] 93.2 fL Normal 80.0-100.0 [facility] Comment on above: Order Comment: Speci men Type: BLOOD SPECIMENOrdering Facility: [facility] Address: [address] [place] [address] Performed By: #### 5 7021-8 ####[facility] LABCLIA [id number] [place] [address] [place] Monocytes (Bld) [#/Vol] 0.60 10*3/uL Normal <0.87 [facility] Comment on above: Order Comment: Speci men Type: BLOOD SPECIMENOrdering Facility: [facility] Address: [address] [place] [address] Performed By: #### 5 7021-8 ####[facility] LABCLIA [id number] [place] [address] [place] Monocytes/100 WBC (Bld) 5.2 % Normal [facility] Comment on above: Order Comment: Speci men Type: BLOOD SPECIMENOrdering Facility: [facility] Address: [address] [place] [address] Performed By: #### 5 7021-8 ####[facility] LABCLIA [id number] [place] [address] [place] Neutrophils (Bld) [#/Vol] 7.06 10*3/uL Normal 1.45-7.50 [facility] Comment on above: Order Comment: Speci men Type: BLOOD SPECIMENOrdering Facility: [facility] Address: [address] [place] [address] Performed By: #### 5 7021-8 ####[facility] LABCLIA [id number] [place] [address] [place] Neutrophils/100 WBC (Bld) 61.9 % Normal [facility] Comment on above: Order Comment: Speci men Type: BLOOD SPECIMENOrdering Facility: [facility] Address: [address] [place] [address] Performed By: #### 5 7021-8 ####[facility] LABCLIA [id number] [place] [address] [place] Nucleated RBC (Bld) [#/Vol] 10*3/uL Normal <0.01 [facility] Comment on above: Order Comment: Speci men Type: BLOOD SPECIMENOrdering Facility: [facility] Address: [address] [place] [address] Performed By: #### 5 7021-8 ####[facility] LABCLIA [id number] [place] [address] [place] Nucleated RBC/100 WBC (Bld) [Ratio] 0.0 /100 WBC Normal [facility] Comment on above: Order Comment: Speci men Type: BLOOD SPECIMENOrdering Facility: [facility] Address: [address] [place] [address] Performed By: #### 5 7021-8 ####[facility] LABCLIA [id number] [place] [address] [place] Platelet mean volume (Bld) [Entitic vol] 11.4 fL Normal 9.0-12.7 [facility] Comment on above: Order Comment: Speci men Type: BLOOD SPECIMENOrdering Facility: [facility] Address: [address] [place] [address] Performed By: #### 5 7021-8 ####[facility] LABCLIA [id number] [place] [address] [place] Platelets (Bld) [#/Vol] 324 10*3/uL Normal 150-400 [facility] Comment on above: Order Comment: Speci men Type: BLOOD SPECIMENOrdering Facility: [facility] Address: [address] [place] [address] Performed By: #### 5 7021-8 ####[facility] LABCLIA [id number] [place] [address] [place] RBC (Bld) [#/Vol] 4.38 10*6/uL Normal 3.90-5.20 [facility] Comment on above: Order Comment: Speci men Type: BLOOD SPECIMENOrdering Facility: [facility] Address: [address] [place] [address] Performed By: #### 5 7021-8 ####[facility] LABCLIA [id number] [place] [address] [place] WBC (Bld) [#/Vol] 11.43 10*3/uL High 3.70-11.00 [facility] Comment on above: Order Comment: Speci men Type: BLOOD SPECIMENOrdering Facility: [facility] Address: [address] [place] [address] Performed By: #### 5 7021-8 ####[facility] LABCLIA [id number] [place] [address] [place] Comprehensive metabolic 2000 panelon 06-06-2024 Albumin [Mass/Vol] 4.2 g/dL 3.9 - 4.9 g/dL [facility] ALP [Catalytic activity/Vol] 175 U/L High 34 - 123 U/L [facility] ALT [Catalytic activity/Vol] 12 U/L 7 - 38 U/L [facility] Anion gap [Moles/Vol] 10 mmol/L 8 - 15 mmol/L [facility] AST [Catalytic activity/Vol] 16 U/L 13 - 35 U/L [facility] Bilirubin [Mass/Vol] 0.2 mg/dL 0.2 - 1 .3 mg/dL [facility] Calcium [Mass/Vol] 9.3 mg/dL 8.5 - 10. 2 mg/dL [facility] Chloride [Moles/Vol] 105 mmol/L 98 - 10 7 mmol/L [facility] CO2 [Moles/Vol] 26 mmol/L 22 - 30 mmol/L [facility] Creatinine [Mass/Vol] 0.88 mg/dL 0.58 - 0.96 mg/dL [facility] GFR/1.73 sq M.predicted among non-blacks MDRD (S/P/Bld) [Vol rate/Area] 76 mL/min/{1.73_m2} - PINF [facility] Comment on above: Estimated Glomerular Filtration Rate (eGFR) is calculated using the 2020 CKD-EPI creatinine equation. This equation utilizes serum creatinine, sex, and age as parameters. The creatinine assay has traceable calibration to isotope dilution-mass spectrometry. Refer to KDIGO guidelines for clinical interpretation. In patients with unstable renal function, e.g. those with acute kidney injury, the eGFR may not accurately reflect actual GFR. Glucose [Mass/Vol] 97 mg/dL 74 - 99 mg/dL [facility] Comment on above: The [place] Di[employer] s Association (ADA) provides guidance for cutoff values for fasting glucose and random glucose. The ADA defines fasting as no caloric intake for at least 8 hours. Fasting plasma glucose results between 100 to 125 mg/dL indicate increased risk for diabetes (prediabetes). Fasting plasma glucose results greater than or equal to 126 mg/dL meet the criteria for diagnosis of diabetes. In the absence of unequivocal hyperglycemia, results should be confirmed by repeat testing. In a patient with classic symptoms of hyperglycemia or hyperglycemic crisis, random plasma glucose results greater than or equal to 200 mg/dL meet the criteria for diagnosis of diabetes. Reference: Standards of Medical Care in Diabetes 2016, [place] [employer] Association. Diabetes Care. 2016.39(Suppl 1). Interpretation and review of laboratory results Abnormal [facility] Potassium [Moles/Vol] 4.5 mmol/L 3.7 - 5.1 mmol/L [facility] Protein [Mass/Vol] 6.9 g/dL 6.3 - 8.0 g/dL [facility] Sodium [Moles/Vol] 141 mmol/L 136 - 144 mmol/L [facility] Urea nitrogen [Mass/Vol] 8 mg/dL 7 - 21 mg/dL [facility] Albumin [Mass/Vol] 4.2 g/dL Normal 3.9-4.9 [facility] Comment on above: Order Comment: Speci men Type: BLOOD SPECIMENOrdering Facility: [facility] Address: [address] [id number] Performed By: #### 2 4323-8, 77368-0 ####[facility] LABCLIA [id number] [place] [address] [place] ALP [Catalytic activity/Vol] 175 U/L High 34-123 [facility] Comment on above: Order Comment: Speci men Type: BLOOD SPECIMENOrdering Facility: [facility] Address: [address] [place] [address] Performed By: #### 2 4323-8, 26995-8 ####[facility] LABCLIA [id number] [place] [address] [place] ALT [Catalytic activity/Vol] 12 U/L Normal 7-38 [facility] Comment on above: Order Comment: Speci men Type: BLOOD SPECIMENOrdering Facility: [facility] Address: [address] [place] [address] Performed By: #### 2 4323-8, 47572-6 ####[facility] LABIA [id number] [place] [address] [place] Anion gap [Moles/Vol] 10 mmol/L Normal 8-15 [facility] Comment on above: Order Comment: Speci men Type: BLOOD SPECIMENOrdering Facility: [facility] Address: [address] [place] [address] Performed By: #### 2 4323-8, 12225-9 ####[facility] LABCLIA [id number] [place] [address] [place] AST [Catalytic activity/Vol] 16 U/L Normal 13-35 [facility] Comment on above: Order Comment: Speci men Type: BLOOD SPECIMENOrdering Facility: [facility] Address: [address] [place], [place] [address] Performed By: #### 2 4323-8, 72869-8 ####[facility] LABCLIA [id number] [address] [address] [place] Bilirubin [Mass/Vol] 0.2 mg/dL Normal 0.2-1.3 [facility] Comment on above: Order Comment: Speci men Type: BLOOD SPECIMENOrdering Facility: [facility] Address: [address] [place] [address] Performed By: #### 2 4323-8, 56027-9 ####[facility] LABCLIA [id number] [place] [address] [place] Calcium [Mass/Vol] 9.3 mg/dL Normal 8.5-10.2 [facility] Comment on above: Order Comment: Speci men Type: BLOOD SPECIMENOrdering Facility: [facility] Address: [address] [place] [address] Performed By: #### 2 4323-8, 16809-9 ####[facility] LABCLIA [id number] [place] [address] [place] Chloride [Moles/Vol] 105 mmol/L Normal 98-107 [facility] Comment on above: Order Comment: Speci men Type: BLOOD SPECIMENOrdering Facility: [facility] Address: [address] [place] [address] Performed By: #### 2 4323-8, 29286-1 ####[facility] LABCLIA [id number] [place] [id number] [place] CO2 [Moles/Vol] 26 mmol/L Normal 22-30 [facility] Comment on above: Order Comment: Speci men Type: BLOOD SPECIMENOrdering Facility: [facility] Address: [address] [place] [address] Performed By: #### 2 4323-8, 60957-0 ####[facility] LABCLIA [id number] [address] [address] [place] Creatinine [Mass/Vol] 0.88 mg/dL Normal 0.58-0.96 [facility] Comment on above: Order Comment: Edmar perkins Type: BLOOD SPECIMENOrdering Facility: [facility] Address: [address] [place] [address] Performed By: #### 2 4323-8, 19957-5 ####[facility] LABCLIA [id number] [address] [place] Creatinine and Glomerular filtration rate.predicted panel (S/P/Bld) 76 mL/min/1.73m??? Normal >=60 [facility] Comment on above: Order Comment: Edmar perkins Type: BLOOD SPECIMENOrdering Facility: [facility] Address: [address] [place] [address] Result Comment: Willow mated Glomerular Filtration Rate (eGFR) is calculated using the 2020 CKD-EPI creatinine equation. This equation utilizes serum creatinine, sex, and age as parameters. The creatinine assay has traceable calibration to isotope dilution-mass spectrometry. Refer to KDIGO guidelines for clinical interpretation. In patients with unstable renal function, e.g. those with acute kidney injury, the eGFR may not accurately reflect actual GFR. Performed By: #### 2 4323-8, 24399-3 ####[facility] LABCLIA [id number] [place] [address] [place] Glucose [Mass/Vol] 97 mg/dL Normal 74-99 [facility] Comment on above: Order Comment: Edmar perkins Type: BLOOD SPECIMENOrdering Facility: [facility] Address: [address] [place] [address] Result Comment: The [place] Diabetes Association (ADA) provides guidance for cutoff values for fasting glucose and random glucose. The ADA defines fasting as no caloric intake for at least 8 hours. Fasting plasma glucose results between 100 to 125 mg/dL indicate increased risk for diabetes (prediabetes). Fasting plasma glucose results greater than or equal to 126 mg/dL meet the criteria for diagnosis of diabetes. In the absence of unequivocal hyperglycemia, results should be confirmed by repeat testing. In a patient with classic symptoms of hyperglycemia or hyperglycemic crisis, random plasma glucose results greater than or equal to 200 mg/dL meet the criteria for diagnosis of diabetes. Reference: Standards of Medical Care in Diabetes 2016, [place] [employer]. Diabetes Care. 2016.39(Suppl 1). Performed By: #### 2 4323-8, 08707-7 ####[facility] LABCLIA [id number] [address] [address] [place] Potassium [Moles/Vol] 4.5 mmol/L Normal 3.7-5.1 [facility] Comment on above: Order Comment: Speci men Type: BLOOD SPECIMENOrdering Facility: [facility] Address: [address] [place] [address] Performed By: #### 2 4323-8, 02587-9 ####[facility] LABCLIA [id number] [place] [address] [place] Protein [Mass/Vol] 6.9 g/dL Normal 6.3-8.0 [facility] Comment on above: Order Comment: Speci men Type: BLOOD SPECIMENOrdering Facility: [facility] Address: [address] [id number] Performed By: #### 2 4323-8, 61345-5 ####[facility] LABIA [id number] [place] [id number] [place] Sodium [Moles/Vol] 141 mmol/L Normal 136-144 [facility] Comment on above: Order Comment: Speci men Type: BLOOD SPECIMENOrdering Facility: [facility] Address: [address] [id number] Performed By: #### 2 4323-8, 74912-8 ####[facility] LABCLIA [id number] [place] [id number] [place] Urea nitrogen [Mass/Vol] 8 mg/dL Normal 7-21 [facility] Comment on above: Order Comment: Speci men Type: BLOOD SPECIMENOrdering Facility: [facility] Address: [address] [id number] Performed By: #### 2 4323-8, 47539-0 ####[facility] LABCLIA [id number] [place] [address] [place] HbA1c (Bld)on 06-06-2024 Average glucose Estimated from glycated hemoglobin (Bld) [Mass/Vol] 94 mg/dL [facility] Comment on above: eAG: (Estimated aver age glucose) is a calculated value from HgbA1c and is client account representative of the average blood glucose level in the last 2-3 month period. HbA1c (Bld) [Mass fraction] 4.9 % 4.3 - 5.6 % [facility] Comment on above: [place] Diabetes As sociation guidelines indicate that patients with HgbA1c in the range 5.7-6.4% are at increased risk for development of diabetes, and intervention by lifestyle modification may be beneficial. HgbA1c greater or equal to 6.5% is considered diagnostic of diabetes. [facility] Average glucose Estimated from glycated hemoglobin (Bld) [Mass/Vol] 94 mg/dL Normal [facility] Comment on above: Order Comment: Speci men Type: BLOOD SPECIMENOrdering Facility: [facility] Address: [address] [place] [address] Result Comment: eAG: (Estimated average glucose) is a calculated value from HgbA1c and is client account representative of the average blood glucose level in the last 2-3 month period. Performed By: #### 5 5454-3 ####[facility] LABCLIA [id number] [place] [address] [place] HbA1c (Bld) [Mass fraction] 4.9 % Normal 4.3-5.6 [facility] Comment on above: Order Comment: Speci men Type: BLOOD SPECIMENOrdering Facility: [facility] Address: [address] [place] [address] Result Comment: [place] Diabetes Association guidelines indicate that patients with HgbA1c in the range 5.7-6.4% are at increased risk for development of diabetes, and intervention by lifestyle modification may be beneficial. HgbA1c greater or equal to 6.5% is considered diagnostic of diabetes. Performed By: #### 5 5454-3 ####[facility] LABCLIA [id number] [place] [address] [place] Lealman, Bld SerPl-sCncon Lealman [Moles/Vol] 0.5 mmol/L Low 0.6-1.2 [facility] Comment on above: Order Comment: Speci men Type: BLOOD SPECIMENOrdering Facility: [facility] Address: [address] [place] [address] Result Comment: Refe rence ranges and high/low indicator flags are provided as general guidelines only. The treating physician must determine appropriate target levels/dosing based on the specific clinical situation. Performed By: #### 2 4323-8, 68208-3 ####[facility] LABCLIA [id number] [address] OF [facility] CNPBeverley 06-03-2024 CNPN Telephone (PSYRMN) KALLI JACOBS ([id number]) 1965 F Date Time Provider Department 06/03/24 FEROZ ACOSTA PSYRMN During your visit today, we recorded the following information about you: Ute Coates 06/03/2024 3:32 PM Signed Pt called and it was hard to understand her, so I called the provider Dr. Buckley to call her alonso and she will take care of it. Pt was studding a lot and I was not able to understand much but pt wants to know why is she feeling this way. She said she is doing everything she was told to do. Pt [phone] Ute Mckenzie Anna P, MD 06/03/2024 3:36 PM Signed Spoke to patient who reports stutter was worse. Told her to take an additional dose of neurontin. Had some improvement. Increase dosage to 200 mgqam, 100 mg q noon and 300 mg qhs with 100 mg daily prn. Allergies As of Date: 06/03/2024 Noted Allergy Reaction ASA (SALICYLATES) 07/23/2005 5 - Intolerance Comments: stomach bleeding ADVAIR DISKUS (FLUTICASONE PROPIO*01/21/2010 Comments: Seizures after use twice. PINE TREES (TREES) 09/28/2023 12 - Shortness of Breath Comments: Sneezing, runny nose Date Reviewed: 05/30/2024 Reviewed by: Jess Ceja LPN - Fully Assessed Order(s):gabapentin (NEURONTIN) 300 mg capsuleTake 1 capsule by mouth daily at bedtime for 180 days.Disp: 90 capsuleRfl: 1 gabapentin (NEURONTIN) 100 mg capsuleTake 200 mg in the morning and 100 mg at noon, may take an additional 100 mg as needed during the day.Disp: 60 capsuleRfl: 2 Prescriptions as of 06/03/2024 - gabapentin (NEURONTIN) 300 mg capsule Take 1 capsule by mouth daily at bedtime for 180 days. - gabapentin (NEURONTIN) 100 mg capsule Take 200 mg in the morning and 100 mg at noon, may take an additional 100 mg as needed during the day. - lithium carbonate (ESKALITH) 150 mg capsule Take 1 capsule by mouth once daily. - lithium carbonate (ESKALITH) 300 mg capsule Take 1 capsule by mouth daily at bedtime. - estradiol (ESTRACE) 1 mg tablet Take 1 tablet by mouth once daily. - Etodolac 500 mg tablet Take 1 tablet by mouth two times a day. - benztropine (COGENTIN) 2 mg tablet Take 1 tablet by mouth two times a day. 1 to 2 tablets two times daily as needed - levothyroxine (SYNTHROID) 88 mcg tablet Take 1 tablet by mouth once daily. Take on empty stomach. For Thyroid - phenytoin ER (DILANTIN) 100 mg ER capsule Take 1 capsule by mouth three times a day. - albuterol HFA (VENTOLIN HFA) 90 mcg/actuation inhaler Inhale 2 Puffs as instructed every 4 hours as needed. Also use 2 puffs prior to exertion - metFORMIN ER (GLUCOPHAGE XR) 500 mg 24 hr tablet Take 1 tablet by mouth daily with breakfast. - buPROPion XL (WELLBUTRIN XL) 150 mg 24 hr tablet Take 1 tablet by mouth once daily. - busPIRone (BUSPAR) 15 mg tablet Take 1 tablet by mouth three times a day. - fluticasone (FLONASE) 50 mcg/actuation nasal spray Use 2 Sprays in each nostril once daily. - cholestyramine (QUESTRAN) 4 gram packet Take 1 Packet by mouth once daily. for diarrhea - ipratropium-albuterol (DUONEB) 0.5 mg-3 mg(2.5 mg base)/3 mL nebu Inhale 3 mL as instructed every 6 hours as needed for wheezing/shortness of breath. - EPINEPHrine (EPIPEN) 0.3 mg/0.3 mL auto-injector Use as needed for bee sting then go to emergecny room for further evaluation and treatment after bee sting - spironolactone (ALDACTONE) 25 mg tablet Take 1 tablet by mouth once daily as needed (swelling/fluid retention). - timolol hemihydrate (BETIMOL) 0.5 % ophthalmic solution Use 1 Drop in both eyes twice daily. - COMPOUNDED PRESCRIPTION Nebulizer for home use. Dx: 493.90 Problem List As Of Date 06/03/2024 Noted Resolved Bipolar I disorder (HCC) [F31.9] Migraine with aura [G43.109] INCISIONAL HERNIA [K43.2] 08/19/2005 Closed fracture of metacarpal bone(s), site uns*03/25/2006 06/04/2012 Closed fracture of hamate (unciform) bone of wr*04/08/2006 06/04/2012 Generalized convulsive epilepsy (HCC) [G40.309] 05/11/2006 Constipation [K59.00] 07/29/2006 Tobacco use disorder [F17.200] 10/28/2006 Bee sting allergy [T63.91XA] 12/17/2007 Asthma [J45.909] 06/04/2012 Chronic daily headache [R51.9] 06/04/2012 Non morbid obesity due to excess calories [E66.*08/31/2015 Chronic abdominal pain [R10.9, G89.29] 04/22/2016 Myalgia [M79.10] 04/22/2016 Altered bowel habits [R19.4] 08/26/2017 Left sided abdominal pain [R10.9] 08/26/2017 GERD (gastroesophageal reflux disease) [K21.9] 08/26/2017 Biliary dyskinesia [K82.8] 08/26/2017 Borderline diabetes mellitus [R73.03] 09/14/2017 High serum thyroid stimulating hormone (TSH) [R*01/11/2019 Chronic low back pain without sciatica [M54.50,*05/20/2021 Other spondylosis, thoracolumbar region [M47.89*05/20/2021 Kyphosis of thoracic region [M40.204] 05/20/2021 Prescriptions ordered this encounter Disp R (more content not included)... [facility] KALLI JACOBS ([id number]) 1965 F Date Time Provider Department 06/03/24 FEROZ ACOSTA PSYRMN During your visit today, we recorded the following information about you: Ute Coates 06/03/2024 3:59 PM Signed Pt called and wants to know when she needs to do her lab work? I don't see anything about a lab work. Please review and let me know so that I can call the pt back and let her know. Thanks, Feroz Calderon MD 06/03/2024 4:02 PM Signed Spoke to patient, lithium level to be drawn on Thursday Allergies As of Date: 06/03/2024 Noted Allergy Reaction ASA (SALICYLATES) 07/23/2005 5 - Intolerance Comments: stomach bleeding ADVAIR DISKUS (FLUTICASONE PROPIO*01/21/2010 Comments: Seizures after use twice. PINE TREES (TREES) 09/28/2023 12 - Shortness of Breath Comments: Sneezing, runny nose Date Reviewed: 05/30/2024 Reviewed by: Jess Ceja LPN - Fully Assessed Primary Visit Diagnosis:Bipolar affective disorder, remission status unspecified ([facility]) [F31.9] Order(s):LITHIUM [SQLI] Order #: [id number] FUTURE Prescriptions as of 06/03/2024 - gabapentin (NEURONTIN) 300 mg capsule Take 1 capsule by mouth daily at bedtime for 180 days. - gabapentin (NEURONTIN) 100 mg capsule Take 200 mg in the morning and 100 mg at noon, may take an additional 100 mg as needed during the day. - lithium carbonate (ESKALITH) 150 mg capsule Take 1 capsule by mouth once daily. - lithium carbonate (ESKALITH) 300 mg capsule Take 1 capsule by mouth daily at bedtime. - estradiol (ESTRACE) 1 mg tablet Take 1 tablet by mouth once daily. - Etodolac 500 mg tablet Take 1 tablet by mouth two times a day. - benztropine (COGENTIN) 2 mg tablet Take 1 tablet by mouth two times a day. 1 to 2 tablets two times daily as needed - levothyroxine (SYNTHROID) 88 mcg tablet Take 1 tablet by mouth once daily. Take on empty stomach. For Thyroid - phenytoin ER (DILANTIN) 100 mg ER capsule Take 1 capsule by mouth three times a day. - albuterol HFA (VENTOLIN HFA) 90 mcg/actuation inhaler Inhale 2 Puffs as instructed every 4 hours as needed. Also use 2 puffs prior to exertion - metFORMIN ER (GLUCOPHAGE XR) 500 mg 24 hr tablet Take 1 tablet by mouth daily with breakfast. - buPROPion XL (WELLBUTRIN XL) 150 mg 24 hr tablet Take 1 tablet by mouth once daily. - busPIRone (BUSPAR) 15 mg tablet Take 1 tablet by mouth three times a day. - fluticasone (FLONASE) 50 mcg/actuation nasal spray Use 2 Sprays in each nostril once daily. - cholestyramine (QUESTRAN) 4 gram packet Take 1 Packet by mouth once daily. for diarrhea - ipratropium-albuterol (DUONEB) 0.5 mg-3 mg(2.5 mg base)/3 mL nebu Inhale 3 mL as instructed every 6 hours as needed for wheezing/shortness of breath. - EPINEPHrine (EPIPEN) 0.3 mg/0.3 mL auto-injector Use as needed for bee sting then go to emergecny room for further evaluation and treatment after bee sting - spironolactone (ALDACTONE) 25 mg tablet Take 1 tablet by mouth once daily as needed (swelling/fluid retention). - timolol hemihydrate (BETIMOL) 0.5 % ophthalmic solution Use 1 Drop in both eyes twice daily. - COMPOUNDED PRESCRIPTION Nebulizer for home use. Dx: 493.90 Problem List As Of Date 06/03/2024 Noted Resolved Bipolar I disorder (HCC) [F31.9] Migraine with aura [G43.109] INCISIONAL HERNIA [K43.2] 08/19/2005 Closed fracture of metacarpal bone(s), site uns*03/25/2006 06/04/2012 Closed fracture of hamate (unciform) bone of wr*04/08/2006 06/04/2012 Generalized convulsive epilepsy (HCC) [G40.309] 05/11/2006 Constipation [K59.00] 07/29/2006 Tobacco use disorder [F17.200] 10/28/2006 Bee sting allergy [T63.91XA] 12/17/2007 Asthma [J45.909] 06/04/2012 Chronic daily headache [R51.9] 06/04/2012 Non morbid obesity due to excess calories [E66.*08/31/2015 Chronic abdominal pain [R10.9, G89.29] 04/22/2016 Myalgia [M79.10] 04/22/2016 Altered bowel habits [R19.4] 08/26/2017 Left sided abdominal pain [R10.9] 08/26/2017 GERD (gastroesophageal reflux disease) [K21.9] 08/26/2017 Biliary dyskinesia [K82.8] 08/26/2017 Borderline diabetes mellitus [R73.03] 09/14/2017 High serum thyroid stimulating hormone (TSH) [R*01/11/2019 Chronic low back pain without sciatica [M54.50,*05/20/2021 Other spondylosis, thoracolumbar region [M47.89*05/20/2021 Kyphosis of thoracic region [M40.204] 05/20/2021 Encounter Status:Closed by FEROZ ACOSTA on 06/03/24 Normal [facility] CNOVon 05-30-2024 CNOV Office Visit (INTMWS ) KALLI JACOBS ([id number]) 1965 F Date Time Provider Department 05/30/24 4:20 PM DAYTON GARCIA INTMWS During your visit today, we recorded the following information about you: Temperature Pulse Respiration Blood pressure 98.3 degrees 70/minute 16/minute 104/62 Weight 75.1 kg Dayton Garcia MD 07/09/2024 2:54 PM Signed This note was created using [employer]. Subjective Kalli Jacobs is a 59 year old female. Patient presents with: Established Patient: Follow up SUBJECTIVE: Kalli Jacobs is a 59 year old year old lady here today for follow up appointment for review of medical conditions. The patient is a 59-year-old female with a history of seizures, presenting for follow-up. The patient reports significant improvement in her condition following a recent adjustment to her medication regimen by her psychiatrist, Dr. Feroz Brown. She is currently taking lithium, with one dose in the morning and two in the evening, and notes that the medication is working well. She mentions experiencing dizziness with the morning dose, which Dr. Joy Brown is addressing. Recent lithium levels were 1.3 mEq/L. She also reports a return of her voice and a reduction in stuttering, stating, I feel like a person again. She denies any issues with her seizure medication. The patient has been experiencing xerostomia and inquires about potential treatments. 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 She mentions a family history of Parkinson's disease and inquires about testing for the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 APRN.GAMING CASHIER Work Phone: [facility] 10-10-2024 14:11-0500 Heart rate 70 /min Saeid Koch HEALTHCARE OR MEDICAL.GAMING CASHIER Work Phone: [facility] 10-10-2024 14:11-0500 Respiratory rate 16 /min Saeid Koch HEALTHCARE OR MEDICAL.GAMING CASHIER Work Phone: [facility] 10-10-2024 14:11-0500 Systolic blood pressure 111 mm[Hg] Saeid Koch HEALTHCARE OR MEDICAL.GAMING CASHIER Work Phone: [facility] 09-22-2024 14:23-0500 Body mass index (BMI) [Ratio] 28.95 kg/m2 Blair Beth MD Work Phone: [facility] 09-22-2024 14:23-0500 Body temperature 99.3 [degF] Blair Beth MD Work Phone: [facility] 09-22-2024 14:23-0500 Body weight 69.5 kg Blair Beth MD Work Phone: [facility] 09-22-2024 14:23-0500 Heart rate 87 /min Blair Beth MD Work Phone: [facility] 09-22-2024 14:23-0500 Respiratory rate 18 /min Blair Beth MD Work Phone: [facility] 09-22-2024 14:23-0500 SaO2% (BldA) [Mass fraction] 96 % Blair Beth MD Work Phone: [facility] 05-30-2024 16:38-0400 Body mass index (BMI) [Ratio] 31.28 kg/m2 Dayton Garcia MD Work Phone: [facility] 05-30-2024 16:38-0400 Body temperature 98.29 [degF] Dayton Garcia MD Work Phone: [facility] 05-30-2024 16:38-0400 Body weight 75.1 kg Dayton Garcia MD Work Phone: [facility] 05-30-2024 16:38-0400 Diastolic blood pressure 62 mm[Hg] Dayton Garcia MD Work Phone: [facility] 05-30-2024 16:38-0400 Heart rate 70 /min Dayton Garcia MD Work Phone: [facility] 05-30-2024 16:38-0400 Respiratory rate 16 /min Dayton Garcia MD Work Phone: [facility] 05-30-2024 16:38-0400 SaO2% (BldA) [Mass fraction] 99 % Dayton Garcia MD Work Phone: [facility] 05-30-2024 16:38-0400 Systolic blood pressure 104 mm[Hg] Dayton Garcia MD Work Phone: [facility] 04-14-2024 13:54-0400 Body height 154.9 cm Dayton Garcia MD Work Phone: [facility] 04-14-2024 13:54-0400 Body mass index (BMI) [Ratio] 32.07 kg/m2 Dayton Garcia MD Work Phone: [facility] 04-14-2024 13:54-0400 Body temperature 97.59 [degF] Dayton Garcia MD Work Phone: [facility] 04-14-2024 13:54-0400 Body weight 77 kg Dayton Garcia MD Work Phone: [facility] 04-14-2024 13:54-0400 Heart rate 65 /min Dayton Garcia MD Work Phone: [facility] 04-14-2024 13:54-0400 Respiratory rate 16 /min Dayton Garcia MD Work Phone: [facility] 04-14-2024 13:54-0400 SaO2% (BldA) [Mass fraction] 97 % Dayton Garcia MD Work Phone: [facility] 03-28-2024 14:18-0400 Body mass index (BMI) [Ratio] 33.2 kg/m2 Dayton Garcia MD Work Phone: [facility] 03-28-2024 14:18-0400 Body temperature 97.81 [degF] Dayton Garcia MD Work Phone: [facility] 03-28-2024 14:18-0400 Body weight 79.7 kg Dayton Garcia MD Work Phone: [facility] 03-28-2024 14:18-0400 Diastolic blood pressure 72 mm[Hg] Dayton Garcia MD Work Phone: [facility] 03-28-2024 14:18-0400 Heart rate 65 /min Dayton Garcia MD Work Phone: [facility] 03-28-2024 14:18-0400 Respiratory rate 18 /min Dayton Garcia MD Work Phone: [facility] 03-28-2024 14:18-0400 SaO2% (BldA) [Mass fraction] 99 % Dayton Garcia MD Work Phone: [facility] 03-28-2024 14:18-0400 Systolic blood pressure 124 mm[Hg] Dayton Garcia MD Work Phone: [facility] 02-05-2024 12:55-0400 Body mass index (BMI) [Ratio] 33.82 kg/m2 Albina Mi HEALTHCARE OR MEDICAL.DESIGN ARCHITECT Work Phone: [facility] 02-05-2024 12:55-0400 Body weight 81.19 kg Albina PearsonShmuel HEALTHCARE OR MEDICAL.DESIGN ARCHITECT Work Phone: [facility] 02-05-2024 12:55-0400 Diastolic blood pressure 92 mm[Hg] Albina PearsonShmuel HEALTHCARE OR MEDICAL.DESIGN ARCHITECT Work Phone: [facility] 02-05-2024 12:55-0400 Heart rate 74 /min Albina PearsonShmuel HEALTHCARE OR MEDICAL.DESIGN ARCHITECT Work Phone: [facility] 02-05-2024 12:55-0400 Respiratory rate 16 /min Albina Shmuel HEALTHCARE OR MEDICAL.DESIGN ARCHITECT Work Phone: [facility] 02-05-2024 12:55-0400 SaO2% (BldA) [Mass fraction] 97 % Albina Mi APRN.DESIGN ARCHITECT Work Phone: [facility] 02-05-2024 12:55-0400 Systolic blood pressure 146 mm[Hg] Albina Mi APRN.DESIGN ARCHITECT Work Phone: [facility] 10-19-2023 13:47-0500 Body height 154.94 cm [facility] 10-19-2023 13:47-0500 Body mass index (BMI) [Ratio] 36.8 kg/m2 [facility] 10-19-2023 13:47-0500 Body temperature 95.2 [degF] [facility] 10-19-2023 13:47-0500 Body weight 88.54 kg [facility] 10-19-2023 13:47-0500 Diastolic blood pressure 97 mm[Hg] [facility] 10-19-2023 13:47-0500 Heart rate 81 /min [facility] 10-19-2023 13:47-0500 Respiratory rate 22 /min [facility] 10-19-2023 13:47-0500 SaO2% (BldA) [Mass fraction] 98 % [facility] 10-19-2023 13:47-0500 Systolic blood pressure 128 mm[Hg] [facility] 04-12-2023 20:44-0400 Body mass index (BMI) [Ratio] 39.7 kg/m2 [facility] 04-12-2023 20:44-0400 Body weight 95.5 kg [facility] 04-12-2023 19:40-0400 Body height 154.94 cm [facility] 04-12-2023 19:40-0400 Body temperature 97.4 [degF] [facility] 04-12-2023 19:40-0400 Diastolic blood pressure 85 mm[Hg] [facility] 04-12-2023 19:40-0400 Heart rate 101 /min [facility] 04-12-2023 19:40-0400 Respiratory rate 16 /min [facility] 04-12-2023 19:40-0400 SaO2% (BldA) [Mass fraction] 99 % [facility] 04-12-2023 19:40-0400 Systolic blood pressure 119 mm[Hg] [facility] 02-06-2023 17:48-0400 Body temperature 98.01 [degF] Dayton Garcia MD Work Phone: [facility] 02-06-2023 17:48-0400 Body weight 94.35 kg Dayton Garcia MD Work Phone: [facility] 02-06-2023 17:48-0400 Diastolic blood pressure 72 mm[Hg] Dayton Garcia MD Work Phone: [facility] 02-06-2023 17:48-0400 Heart rate 79 /min Dayton Garcia MD Work Phone: [facility] 02-06-2023 17:48-0400 Respiratory rate 18 /min Dayton Garcia MD Work Phone: [facility] 02-06-2023 17:48-0400 SaO2% (BldA) [Mass fraction] 97 % Dayton Garcia MD Work Phone: [facility] 02-06-2023 17:48-0400 Systolic blood pressure 110 mm[Hg] Dayton Garcia MD Work Phone: [facility] 10-13-2022 14:18-0500 Body weight 92.49 kg Saeid Koch HEALTHCARE OR MEDICAL.GAMING CASHIER Work Phone: [facility] 10-13-2022 14:18-0500 Diastolic blood pressure 78 mm[Hg] Saeid Koch HEALTHCARE OR MEDICAL.GAMING CASHIER Work Phone: [facility] 10-13-2022 14:18-0500 Heart rate 88 /min Saeid Koch HEALTHCARE OR MEDICAL.GAMING CASHIER Work Phone: [facility] 10-13-2022 14:18-0500 Respiratory rate 16 /min Saeid Koch HEALTHCARE OR MEDICAL.GAMING CASHIER Work Phone: [facility] 10-13-2022 14:18-0500 SaO2% (BldA) [Mass fraction] 96 % Saeid Koch HEALTHCARE OR MEDICAL.GAMING CASHIER Work Phone: [facility] 10-13-2022 14:18-0500 Systolic blood pressure 124 mm[Hg] Saeid Koch HEALTHCARE OR MEDICAL.GAMING CASHIER Work Phone: [facility] 09-02-2022 15:29-0500 Diastolic blood pressure 83 mm[Hg] Saeid Koch HEALTHCARE OR MEDICAL.GAMING CASHIER Work Phone: [facility] 09-02-2022 15:29-0500 Heart rate 91 /min Saeid Koch HEALTHCARE OR MEDICAL.GAMING CASHIER Work Phone: [facility] 09-02-2022 15:29-0500 Systolic blood pressure 119 mm[Hg] Saeid Koch HEALTHCARE OR MEDICAL.GAMING CASHIER Work Phone: [facility] 09-02-2022 15:27-0500 Body weight 94.35 kg Saeid Okch HEALTHCARE OR MEDICAL.GAMING CASHIER Work Phone: [facility] 09-02-2022 15:27-0500 Respiratory rate 16 /min Saeid Koch HEALTHCARE OR MEDICAL.GAMING CASHIER Work Phone: [facility] 01-19-2022 20:01-0400 Respiratory rate 16 /min [facility] Work Phone: 01-19-2022 17:26-0400 Body height 154.94 cm [facility] Work Phone: 01-19-2022 17:26-0400 Body mass index (BMI) [Ratio] 41.1 kg/m2 [facility] Work Phone: 01-19-2022 17:26-0400 Body temperature 97.6 [degF] [facility] Work Phone: 01-19-2022 17:26-0400 Body weight 98.88 kg [facility] Work Phone: 01-19-2022 17:26-0400 Diastolic blood pressure 102 mm[Hg] [facility] Work Phone: 01-19-2022 17:26-0400 Heart rate 98 /min [facility] Work Phone: 01-19-2022 17:26-0400 SaO2% (BldA) [Mass fraction] 99 % [facility] Work Phone: 01-19-2022 17:26-0400 Systolic blood pressure 136 mm[Hg] [facility] Work Phone: 10-25-2021 15:51-0500 Body weight 98.88 kg Dayton Garcia MD Work Phone: [facility] 10-25-2021 15:51-0500 Diastolic blood pressure 72 mm[Hg] Dayton Garcia MD Work Phone: [facility] 10-25-2021 15:51-0500 Heart rate 92 /min Dayton Garcia MD Work Phone: [facility] 10-25-2021 15:51-0500 Systolic blood pressure 118 mm[Hg] Dayton Garcia MD Work Phone: [facility] Encounters Encounter Date Encounter Type Care Provider Facility Start: 03-14-2025 End: 03-14-2025 ambulatory DAYTON GARCIA Facility:[facility] Start: 02-10-2025 End: 02-10-2025 Emergency department patient visit Dr. Dayton Garcia MD Work Phone: -Emergency Department Work Phone: Start: 02-08-2025 End: 02-08-2025 Refill Dayton Garcia MD Work Phone: [facility] Comment on above: Refill Request Start: 01-06-2025 End: 01-10-2025 Refill Dayton Garcia MD Work Phone: [facility] Comment on above: Refill Request Start: 12-20-2024 End: 01-02-2025 Office outpatient visit 15 minutes Dayton Garcia MD Work Phone: [facility] Comment on above: Dystonia (Primary Dx ); Family history of Parkinson disease; History of fall Start: 12-20-2024 End: 01-20-2025 ambulatory Dayton Garcia MD Work Phone: [facility] Start: 12-19-2024 End: 12-19-2024 Telephone encounter Dayotn Garcia MD Work Phone: [facility] Comment on above: Hand Shakiness Start: 12-12-2024 End: 12-12-2024 Emergency department patient visit Dr. Dayton Garcia MD Work Phone: -Emergency Department Work Phone: Start: 12-12-2024 End: 12-12-2024 Refill Pinky Garcia APRN.DESIGN ARCHITECT Work Phone: [facility] Comment on above: Refill Request Start: 12-11-2024 End: 12-11-2024 Emergency department patient visit Dr. Dayton Garcia MD Work Phone: -Emergency Department Work Phone: Start: 11-14-2024 End: 11-14-2024 Refill Dayton Garcia MD Work Phone: [facility] [place] Comment on above: Refill Request Start: 11-11-2024 End: 11-11-2024 ambulatory DAYTON GARCIA Facility:[facility] Start: 11-10-2024 End: 11-10-2024 Emergency department patient visit Dr. Dayton Garcia MD Work Phone: -Emergency Department Work Phone: Start: 10-14-2024 End: 10-17-2024 Refill Dayton Garcia MD Work Phone: [facility] [place] Comment on above: Refill Request Start: 10-10-2024 End: 10-10-2024 Office outpatient visit 25 minutes Saeid Koch APRN.GAMING CASHIER Work Phone: [facility] [place] Comment on above: Asthma (Primary Dx); Encounter for immunization; Generalized convulsive epilepsy (HCC); Bipolar I disorder (HCC); Migraine with aura and without status migrainosus, not intractable; Tobacco use disorder; High serum thyroid stimulating hormone (TSH); Non morbid obesity due to excess calories Start: 10-10-2024 End: 10-10-2024 ambulatory DAYTON GARCIA Facility:[facility] Start: 10-03-2024 End: 10-03-2024 Telephone encounter Dayton Garcia MD Work Phone: [facility] [place] Comment on above: Cough Start: 09-26-2024 End: 09-26-2024 ambulatory SAVAGE Janice LYNNE Facility:[facility] Start: 09-22-2024 End: 09-22-2024 ambulatory DAYTON GARCIA Facility:[facility] Start: 09-22-2024 End: 09-22-2024 Office outpatient visit 15 minutes Blair Beth MD Work Phone: [facility] Comment on above: Otalgia, right (Prim rosa maria Dx) Start: 09-22-2024 End: 09-22-2024 Telephone encounter Dayton Garcia MD Work Phone: [facility] [place] Comment on above: Earache Start: 09-15-2024 End: 09-15-2024 Refill Dayton Garcia MD Work Phone: [facility] [place] Comment on above: Refill Request Start: 08-18-2024 End: 08-19-2024 Refill Dayton Garcia MD Work Phone: [facility] [place] Comment on above: Refill Request Start: 07-27-2024 End: 07-28-2024 ambulatory FEROZ BROWN Facility:[facility] Start: 07-21-2024 End: 07-22-2024 Refill Dayton Garcia MD Work Phone: [facility] [place] Comment on above: Refill Request Start: 07-08-2024 End: 07-08-2024 ambulatory FEROZ BROWN Facility:[facility] Start: 06-27-2024 End: 06-27-2024 ambulatory FEROZ BROWN Facility:[facility] Start: 06-22-2024 End: 06-22-2024 Refill Dayton Garcia MD Work Phone: [facility] [place] Comment on above: Refill Request Start: 06-06-2024 End: 06-06-2024 ambulatory DAYTON GARCIA Facility:[facility] Start: 05-30-2024 End: 05-30-2024 Office outpatient visit 25 minutes Dayton Garcia MD Work Phone: [facility] [place] Comment on above: Dysmetabolic syndrom e (Primary Dx); Class 1 obesity due to excess calories with body mass index (BMI) of 33.0 to 33.9 in adult, unspecified whether serious comorbidity present; Dystonia; Dry mouth; Acquired hypothyroidism; Bipolar I disorder (HCC); Other elevated white blood cell (WBC) count; Elevated LFTs; Encounter for long-term current use of medication; Long-term current use of lithium; Screening for depression; Encounter for screening examination for other mental health and behavioral disorders Start: 05-30-2024 End: 05-30-2024 ambulatory SELF Facility:[facility] Start: 05-28-2024 End: 05-28-2024 ambulatory FEROZ BROWN Facility:[facility] Start: 05-24-2024 End: 05-24-2024 Refill Dayton Garcia MD Work Phone: [facility] [place] Comment on above: Refill Request Start: 05-18-2024 End: 05-18-2024 ambulatory FEROZ BROWN Facility:[facility] Start: 04-26-2024 End: 04-26-2024 ambulatory SAVAGE BATISTA Facility:[facility] Start: 04-21-2024 End: 04-21-2024 Refill Dayton Garcia MD Work Phone: [facility] [place] Comment on above: Refill Request Start: 04-14-2024 End: 04-14-2024 ambulatory DAYTON GARCIA Facility:[facility] Start: 04-14-2024 End: 04-14-2024 Office outpatient visit 40 minutes Dayton Garcia MD Work Phone: [facility] [place] Comment on above: Adverse effects in t he therapeutic use of other antipsychotics and neuroleptics (Primary Dx); Dystonia; Bipolar I disorder (HCC); Generalized convulsive epilepsy (HCC) Start: 04-04-2024 End: 04-04-2024 Refill Dayton Garcia MD Work Phone: [facility] [place] Comment on above: Refill Request Start: 03-28-2024 End: 03-28-2024 Office outpatient visit 25 minutes Dayton Garcia MD Work Phone: [facility] [place] Comment on above: Bipolar I disorder ( HCC) (Primary Dx); Dystonia; Hot flash, menopausal; Class 1 obesity due to excess calories with body mass index (BMI) of 33.0 to 33.9 in adult, unspecified whether serious comorbidity present; Adverse effects in the therapeutic use of other antipsychotics and neuroleptics; Long-term current use of lithium Start: 03-28-2024 End: 03-28-2024 ambulatory DAYTON GARCIA Facility:[facility] Start: 03-23-2024 End: 03-23-2024 ambulatory SAVAGE Camacho LYNNE Facility:[facility] Start: 2024 End: 03-22-2024 Emergency department patient visit Jj Barton Facility:[facility] Start: 03-07-2024 Telephone encounter Dayton boss MD Work Phone: [facility] [place] Comment on above: Forms Start: 03-04-2024 End: 03-04-2024 Emergency department patient visit Amauri Salazar Facility:[facility] Start: 02-29-2024 Telephone encounter Dayton boss MD Work Phone: [facility] [place] Comment on above: Results Start: 02-25-2024 End: 02-25-2024 Subsequent hospital visit by physician [facility] Work Phone: Radiology Comment on above: Localized swelling, mass or lump of neck [R22.1] Start: 02-24-2024 Refill Dayton holman MD Work Phone: [facility] [place] Comment on above: Refill Request Start: 02-08-2024 Telephone encounter Dayton boss MD Work Phone: [facility] [place] Comment on above: Results Start: 02-05-2024 End: 02-05-2024 Patient encounter procedure Albina Mi HEALTHCARE OR MEDICAL.DESIGN ARCHITECT Work Phone: [facility] [place] Comment on above: Localized swelling, mass or lump of neck (Primary Dx) Start: 01-20-2024 ambulatory Dayton holman MD Work Phone: [facility] [place] Start: 12-31-2023 Refill Dayton holman MD Work Phone: [facility] [place] Comment on above: Refill Request Start: 11-30-2023 Refill Dayton holman MD Work Phone: [facility] [place] Comment on above: Refill Request Start: 11-05-2023 Refill Dayton holman MD Work Phone: [facility] [place] Comment on above: Refill Request Start: 10-19-2023 End: 10-19-2023 Emergency department patient visit [facility] Work Phone: Start: 10-07-2023 Refill Dayton holman MD Work Phone: [facility] [place] Comment on above: Refill Request Start: 09-28-2023 End: 09-28-2023 Office outpatient visit 15 minutes Dayton Garcia MD Work Phone: [facility] [place] Comment on above: Elevated ferritin (P rimary Dx); Generalized convulsive epilepsy (HCC); Bipolar I disorder (HCC); Anxiety; Acquired hypothyroidism; Class 2 obesity due to excess calories with body mass index (BMI) of 37.0 to 37.9 in adult, unspecified whether serious comorbidity present Start: 07-17-2023 Refill Dayton holman MD Work Phone: [facility] [place] Comment on above: Refill Request Start: 06-19-2023 Refill Dayton holman MD Work Phone: Internal [facility] Comment on above: Refill Request Start: 05-31-2023 Refill Pinky Radha A PRN.DESIGN ARCHITECT Work Phone: Internal [facility] Comment on above: Refill Request Start: 05-26-2023 Refill Saeid Koch A PRN.GAMING CASHIER Work Phone: Internal [facility] Comment on above: Refill Request; Medi cation Problem Start: 05-22-2023 Refill Dayton holman MD Work Phone: Internal [facility] Comment on above: Refill Request Start: 05-01-2023 Refill Pinky Radha A PRN.DESIGN ARCHITECT Work Phone: Internal [facility] Comment on above: Refill Request Start: 04-12-2023 End: 04-12-2023 Emergency department patient visit [facility] Work Phone: Start: 04-01-2023 Refill Pinky Radha A PRN.DESIGN ARCHITECT Work Phone: Internal [facility] Comment on above: Refill Request Start: 03-30-2023 Refill Dayton holman MD Work Phone: [facility] Comment on above: Refill Request Start: 03-26-2023 Telephone encounter Dayton boss MD Work Phone: Internal [facility] Comment on above: Results Start: 03-02-2023 Refill Pinky Wallr A PRN.DESIGN ARCHITECT Work Phone: Internal [facility] Comment on above: Refill Request Start: 02-21-2023 Telephone encounter Dayton boss MD Work Phone: Internal [facility] Comment on above: Results Start: 02-06-2023 End: 02-06-2023 Office outpatient visit 40 minutes Dayton Garcia MD Work Phone: Internal [facility] Comment on above: Myalgia (Primary Dx) ; Dysmetabolic syndrome; Bipolar I disorder (HCC); Acquired hypothyroidism; Pure hypercholesterolemia; Generalized convulsive epilepsy (HCC); Breast cancer screening by mammogram; Elevated LFTs; Elevated ferritin; Encounter for long-term current use of medication Start: 02-02-2023 Refill Dayton holman MD Work Phone: [facility] [place] Comment on above: Refill Request Start: 01-31-2023 Refill Pinky Wallr A PRN.DESIGN ARCHITECT Work Phone: [facility] [place] Comment on above: Refill Request Start: 12-15-2022 Refill Dayton holman MD Work Phone: [facility] [place] Comment on above: Refill Request Start: 12-10-2022 Refill Dayton holman MD Work Phone: [facility] [place] Comment on above: Refill Request Start: 12-09-2022 Refill Pinky Camacho PRN.DESIGN ARCHITECT Work Phone: [facility] [place] Comment on above: Refill Request Start: 12-09-2022 Refill Dayton holman MD Work Phone: [facility] [place] Comment on above: Refill Request Start: 10-27-2022 Telephone encounter Saeid shepherd APRN.GAMING CASHIER Work Phone: [facility] [place] Comment on above: Information Start: 10-20-2022 Refill Dayton holman MD Work Phone: [facility] [place] Comment on above: Refill Request Start: 10-13-2022 End: 10-13-2022 Office outpatient visit 25 minutes Saeid Koch APRN.GAMING CASHIER Work Phone: [facility] [place] Comment on above: Anxiety (Primary Dx) ; Colon cancer screening; Gastroesophageal reflux disease, unspecified whether esophagitis present; Bipolar I disorder (HCC) Start: 10-03-2022 Refill Pinky Radha A PRN.DESIGN ARCHITECT Work Phone: [facility] Comment on above: Refill Request Start: 10-02-2022 Refill Dayton holman MD Work Phone: [facility] Comment on above: Refill Request Start: 09-05-2022 Refill Pinky Camacho PRN.DESIGN ARCHITECT Work Phone: [facility] Comment on above: Refill Request Start: 09-03-2022 ambulatory Pinky Camacho PRN.DESIGN ARCHITECT Work Phone: [facility] [place] Comment on above: Results Start: 09-03-2022 E-mail encounter fro m caregiver Pinky Garcia HEALTHCARE OR MEDICAL.DESIGN ARCHITECT Work Phone: [facility] [place] Start: 09-02-2022 End: 09-02-2022 Office outpatient visit 25 minutes Saeid Koch HEALTHCARE OR MEDICAL.GAMING CASHIER Work Phone: [facility] [place] Comment on above: Hot flashes (Primary Dx); Bipolar I disorder (HCC); Anxiety; Encounter for long-term current use of medication; High serum thyroid stimulating hormone (TSH) Start: 08-15-2022 Refill Dayton holman MD Work Phone: [facility] [place] Comment on above: Refill Request Start: 08-12-2022 End: 08-12-2022 Office outpatient visit 25 minutes Dayton Garcia MD Work Phone: [facility] [place] Comment on above: COVID-19 virus infec tion (Primary Dx); Mild intermittent asthma with acute exacerbation; Acute URI Start: 08-06-2022 End: 08-06-2022 Subsequent hospital visit by physician [facility] Work Phone: Radiology Comment on above: Abnormal mammogram [ R92.8] Start: 07-21-2022 Refill Dayton holman MD Work Phone: [facility] Comment on above: Refill Request Start: 07-16-2022 Telephone encounter Dayton boss MD Work Phone: [facility] [place] Comment on above: thyroid lab results Start: 07-14-2022 Refill Dayton holman MD Work Phone: [facility] [place] Comment on above: Refill Request Start: 06-25-2022 Telephone encounter Dayton boss MD Work Phone: [facility] [place] Comment on above: Results; Breast Prob chion (Mammogram at [facility]) Start: 06-24-2022 Documentation procedure Mammog kavitha Coordinator [facility] Start: 06-24-2022 Letter encounter Mammography Coordinator [facility] Start: 06-16-2022 Refill Dayton holman MD Work Phone: [facility] [place] Comment on above: Refill Request Start: 06-11-2022 Refill Dayton holman MD Work Phone: [facility] [place] Comment on above: Refill Request Start: 06-03-2022 Telephone encounter Dayton boss MD Work Phone: [facility] [place] Comment on above: Results Start: 05-06-2022 Refill Dayton holman MD Work Phone: [facility] [place] Comment on above: Refill Request Start: 05-05-2022 Refill Saeid BENDER Work Phone: [facility] [place] Comment on above: Refill Request Start: 04-23-2022 Refill Dayton holman MD Work Phone: [facility] [place] Comment on above: Refill Request Start: 02-12-2022 ambulatory Dayton holman MD Work Phone: Internal [facility] Start: 01-19-2022 End: 01-19-2022 [facility] Start: 12-27-2021 Telephone encounter Dayton boss MD Work Phone: [facility] [place] Comment on above: Dry Mouth Start: 12-09-2021 Telephone encounter Dayton boss MD Work Phone: [facility] [place] Comment on above: Orders Refill Request Start: 11-25-2021 Refill Dayton holman MD Work Phone: [facility] [place] Comment on above: Refill Request Start: 11-03-2021 Refill Dayton holman MD Work Phone: [facility] [place] Comment on above: Refill Request Start: 10-25-2021 End: 10-25-2021 Office outpatient visit 25 minutes Dayton Garcia MD Work Phone: [facility] [place] Comment on above: Bipolar I disorder ( HCC) (Primary Dx); Acquired hypothyroidism; Elevated cholesterol; Elevated ferritin; Elevated hemoglobin A1c; Encounter for long-term current use of medication; Generalized convulsive epilepsy (HCC); Class 3 severe obesity due to excess calories without serious comorbidity with body mass index (BMI) of 40.0 to 44.9 in adult (HCC); Gastroesophageal reflux disease, unspecified whether esophagitis present; Moderate persistent asthma without complication; Kyphosis of thoracic region, unspecified kyphosis type Start: 07-19-2021 Telephone encounter Dayton boss MD Work Phone: [facility] [place] Comment on above: hot flashes Start: 04-09-2021 End: 04-09-2021 Subsequent hospital visit by physician [facility] [place] Work Phone: Radiology Comment on above: Chronic midline back pain, unspecified back location [M54.9, G89.29] Procedures Date Procedure Procedure Detail Performing Clinician Start: 12-12-2024 X-ray of chest posteroanterior view Dr. Dayton Garcia MD Work Phone: Start: 12-11-2024 X-ray of foot, three or more views Dr. Dayton Garcia MD Work Phone: Start: 05-30-2024 Adult depression scr eening assessment Dayton Garcia MD Work Phone: Start: 02-05-2024 Lipid 1996 panel - S mati or Plasma Dayton Garcia MD Work Phone: Start: 04-12-2023 Radiography of ankle Start: 02-20-2023 Lipid 1996 panel - S mati or Plasma Pinky Garcia APRN.DESIGN ARCHITECT Work Phone: Start: 08-06-2022 breast uni real t holger with image limited Dayton Garcia MD Work Phone: Start: 08-06-2022 MARIA D FLAKITOG W RONNIE LEFT Li ghada Garcia MD Work Phone: Start: 06-23-2022 Mammography Mammograph y Coordinator Start: 01-19-2022 CT of pelvis with contrast Start: 04-09-2021 Radex spine lumbosac ral 2/3 views Saeid Koch HEALTHCARE OR MEDICAL.GAMING CASHIER Work Phone: Start: 04-09-2021 Adult depression scr eening assessment Dayton Garcia MD Work Phone: Start: 08-04-2017 Mammography Dayton cronin MD Work Phone: Plan of Treatment Date Care Activity Detail Author Start: 02-04-2029 Lipid panel Lipid Screening [facility] Start: 02-21-2028 Lipid 1996 panel - S mati or Plasma Lipid Screening [facility] Start: 02-21-2028 Lipid panel Lipid Screening [facility] Start: 02-21-2028 LIPID SCREEN LIPID SCREEN [facility] Start: 06-06-2027 Diabetes Screening Diabetes Screenin g [facility] Start: 06-02-2027 LIPID SCREEN LIPID SCREEN [facility] Start: 02-04-2027 [facility] Start: 05-20-2026 LIPID SCREEN LIPID SCREEN [facility] Start: 02-20-2026 DIABETES SCREEN DIABETES SCREEN [facility] Start: 02-20-2026 Diabetes Screening Diabetes Screenor g [facility] Start: 12-22-2025 Urine microalbumin profile [facility] Start: 12-20-2025 Annual PCP Team Document Specialist jos Disease Visit Annual PCP Team Chronic Disease Visit [facility] Start: 10-27-2025 COLOGUARD (FIT-DNA) COLOGUARD (FIT-D NA) [facility] Start: 10-27-2025 COLORECTAL CANCER SCREENING COLORECTAL CANCER SCREENING [facility] Start: 10-27-2025 Screening for malign ant neoplasm of colon [facility] Start: 10-10-2025 Pneumococcal Vaccine : 50+ (2 of 2 - PCV) Pneumococcal Vaccine: 50+ (2 of 2 - PCV) [facility] Comment on above: Postponed from 03/23 (Declined at this time) Start: 07-12-2025 End: 07-12-2025 Patient encounter procedure 07/12/2025 1:40 PM EST Office Visit [facility] [place] [address] [facility] [place] [id number] Dayton Garcia MD [address] [facility] [place], [place] [address] 3-4 month follow up [facility] [place] Comment on above: 3-4 month follow up Start: 06-02-2025 DIABETES SCREEN DIABETES SCREEN [facility] Start: 05-30-2025 Annual PCP Team Document Specialist jos Disease Visit Annual PCP Team Chronic Disease Visit [facility] Start: 05-30-2025 Anxiety Screening Anxiety Screening [facility] Start: 05-30-2025 Covid-19 Vaccine ( season) Covid-19 Vaccine ( season) [facility] Comment on above: Postponed from 04/17 (Declined at this time) Start: 05-30-2025 [facility] Start: 04-17-2025 Influenza vaccination Influenz a Vaccine (Season Ended) [facility] Start: 04-14-2025 Annual PCP Team Document Specialist jos Disease Visit Annual PCP Team Chronic Disease Visit [facility] Start: 04-10-2025 End: 04-10-2025 Patient encounter procedure [facility] [place] Comment on above: 3-4 month follow up follow up Start: 03-28-2025 Annual PCP Team Document Specialist jos Disease Visit Annual PCP Team Chronic Disease Visit [facility] Start: 02-13-2025 Influenza vaccination Influenza Vacc ine (#1) [facility] Comment on above: Postponed from 04/17 (Declined at this time) Start: 02-04-2025 Annual PCP Team Document Specialist jos Disease Visit Annual PCP Team Chronic Disease Visit [facility] Start: 01-04-2025 End: 01-04-2025 Patient encounter procedure 01/04/2025 3:20 PM EDT Office Visit [facility] [place] [address] [place] [id number] Dayton Garcia MD [address] [facility] [place] [id number] 3-4 month follow up [facility] [place] Comment on above: 3-4 month follow up Start: 12-20-2024 End: 12-20-2024 Patient encounter procedure 12/20/2024 6:40 PM EDT Office Visit [facility] [place] [address] [place] [address] Dayton Garcia MD [address] [facility], [place] [id number] Bilateral Hand Shakiness for Years. Concerns for Parkinson's d/t family History. [facility] [place] Comment on above: Bilateral Hand Shaki ness for Years. Concerns for Parkinson's d/t family History. Start: 12-15-2024 End: 03-17-2025 25-hydroxyvitamin D3 [Mass/volume] in Serum or Plasma VITAMIN D 25 HYDROXY Lab Routine Generalized convulsive epilepsy (HCC) High serum thyroid stimulating hormone (TSH) Expected: 12/15/2024 (Approximate), Expires: 03/17/2025 [facility] Comment on above: Expected: 12/15/2024 (Approximate), Expires: 03/17/2025 Start: 12-15-2024 End: 03-17-2025 CBC W Auto Differential panel - Blood COMPLETE BLOOD COUNT AND DIFFERENTIAL Lab Routine Generalized convulsive epilepsy (HCC) Bipolar I disorder (HCC) Migraine with aura and without status migrainosus, not intractable Tobacco use disorder Expected: 12/15/2024 (Approximate), Expires: 03/17/2025 [facility] Comment on above: Expected: 12/15/2024 (Approximate), Expires: 03/17/2025 Start: 12-15-2024 End: 03-17-2025 Comprehensive metabolic 2000 panel - Serum or Plasma COMPREHENSIVE METABOLIC PANEL Lab Routine Generalized convulsive epilepsy (HCC) Bipolar I disorder (HCC) Migraine with aura and without status migrainosus, not intractable Tobacco use disorder High serum thyroid stimulating hormone (TSH) Expected: 12/15/2024 (Approximate), Expires: 03/17/2025 [facility] Comment on above: Expected: 12/15/2024 (Approximate), Expires: 03/17/2025 Start: 12-15-2024 End: 03-17-2025 Hemoglobin A1c in Blood HEMOGLOBIN A1C Lab Routine Non morbid obesity due to excess calories Expected: 12/15/2024 (Approximate), Expires: 03/17/2025 [facility] Comment on above: Expected: 12/15/2024 (Approximate), Expires: 03/17/2025 Start: 12-15-2024 End: 03-17-2025 Lipid 1996 panel - Serum or Plasma LIPID PANEL BASIC Lab Routine Bipolar I disorder (HCC) High serum thyroid stimulating hormone (TSH) Expected: 12/15/2024 (Approximate), Expires: 03/17/2025 [facility] Comment on above: Expected: 12/15/2024 (Approximate), Expires: 03/17/2025 Start: 12-15-2024 End: 03-17-2025 Thyrotropin [Units/volume] in Serum or Plasma THYROID STIMULATING HORMONE Lab Routine Generalized convulsive epilepsy (HCC) High serum thyroid stimulating hormone (TSH) Expected: 12/15/2024 (Approximate), Expires: 03/17/2025 [facility] Comment on above: Expected: 12/15/2024 (Approximate), Expires: 03/17/2025 Start: 12-12-2024 [facility] Start: 12-11-2024 [facility] Start: 11-10-2024 [facility] Start: 10-10-2024 End: 10-10-2024 Patient encounter procedure 10/10/2024 2:20 PM EST Office Visit [facility] [place] [address] [place] [address] Saeid Koch APRN.GAMING CASHIER [address] [place] [address] 3-4 mo follow up [facility] [place] Comment on above: 3-4 mo follow up Start: 10-10-2024 End: 01-09-2025 Phenytoin [Mass/volume] in Serum or Plasma PHENYTOIN/DILANTIN Lab Routine Generalized convulsive epilepsy (HCC) Expected: 10/10/2024, Expires: 01/09/2025 [facility] Comment on above: Expected: 10/10/2024 , Expires: 01/09/2025 Start: 10-03-2024 End: 10-03-2024 Patient encounter procedure 10/03/2024 1:20 PM EST Office Visit [facility] [place] [address] [place] [address] Saeid Koch APRN.GAMING CASHIER [address] [place] [address] 3-4 month follow up [facility] [place] Comment on above: 3-4 month follow up Start: 09-28-2024 Annual PCP Team Document Specialist jos Disease Visit Annual PCP Team Chronic Disease Visit [facility] Start: 05-30-2024 End: 05-30-2024 Patient encounter procedure 05/30/2024 4:20 PM EDT Office Visit [facility] [place] [address] [place] [address] Dayton Garcia MD [address] [facility] [place] [address] sep f/u joanie [facility] [place] Comment on above: sep f/u joanie Start: 05-20-2024 DIABETES SCREEN DIABETES SCREEN [facility] Start: 04-17-2024 Covid-19 Vaccine ( season) Covid-19 Vaccine ( season) [facility] Start: 04-17-2024 Covid-19 Vaccine ( season) Covid-19 Vaccine ( season) [facility] Start: 04-17-2024 Influenza vaccination [facility] Start: 02-25-2024 End: 02-25-2024 Patient encounter procedure 02/25/2024 11:30 AM EDT Appointment Radiology [address] [place] [address] Localized swelling, mass or lump of neck [R22.1] Radiology Comment on above: Localized swelling, mass or lump of neck [R22.1] Start: 02-22-2024 End: 02-22-2024 Patient encounter procedure 02/22/2024 11:40 AM EDT Office Visit [facility] [place] [address] [place] [address] Saeid Koch, HEALTHCARE OR MEDICAL.GAMING CASHIER [address] [place], [place] [id number] sep [facility] [place] Comment on above: sep [facility] Start: 02-14-2024 Influenza vaccination Influenza Vacc ine (#1) [facility] Comment on above: Postponed from 04/17 (Declined at this time) Start: 02-07-2024 ANNUAL PCP TEAM DEVELOPMENT GEOLOGIST JOS DISEASE VISIT ANNUAL PCP TEAM CHRONIC DISEASE VISIT [facility] Start: 01-28-2024 End: 01-28-2024 Patient encounter procedure 01/28/2024 1:00 PM EDT Office Visit Internal Medicine [place] [address], [place] [id number] Saeid Koch, HEALTHCARE OR MEDICAL.GAMING CASHIER [address] [place], [place] [id number] [facility] [place] Comment on above: [facility] Start: 10-13-2023 COVID-19 VACCINE (#1) COVID-19 VACCI NE (#1) [facility] Comment on above: Postponed from 09/21 (Declined at this time) Start: 10-13-2023 PNEUMOCOCCAL (2 - PCV) PNEUMOCOCCAL (2 - PCV) [facility] Comment on above: Postponed from 03/23 (Declined at this time) Start: 10-13-2023 Pneumococcal vaccination Pneum ococcal Vaccine (2 - PCV) [facility] Comment on above: Postponed from 03/23 (Declined at this time) Start: 08-17-2023 Behavioral Health Screening Behavioral Health Screening [facility] Start: 08-17-2023 Depression Assessment Depression Ass essment [facility] Start: 08-12-2023 ANNUAL PCP TEAM DEVELOPMENT GEOLOGIST JOS DISEASE VISIT ANNUAL PCP TEAM CHRONIC DISEASE VISIT [facility] Start: 06-23-2023 Mammography [facility] Start: 06-23-2023 Screening for malign ant neoplasm of breast Mammogram Screening [facility] Start: 06-20-2023 ANNUAL PCP TEAM DEVELOPMENT GEOLOGIST JOS DISEASE VISIT ANNUAL PCP TEAM CHRONIC DISEASE VISIT [facility] Start: 04-17-2023 Covid-19 Vaccine ( season) Covid-19 Vaccine () [facility] Start: 04-17-2023 Influenza vaccination C [facility] Start: 02-26-2023 End: 04-28-2023 CBC W Auto Differential panel - Blood CBC + DIFF Lab Routine Elevated ferritin Expected: 02/26/2023, Expires: 04/28/2023 [facility] Work Phone: Comment on above: Expected: 02/26/2023 , Expires: 04/28/2023 Start: 02-26-2023 End: 04-28-2023 Ferritin [Mass/volume] in Serum or Plasma FERRITIN BLD Lab Routine Elevated ferritin Expected: 02/26/2023, Expires: 04/28/2023 [facility] Work Phone: Comment on above: Expected: 02/26/2023 , Expires: 04/28/2023 Start: 02-26-2023 End: 04-28-2023 HFE gene targeted mutation analysis in Blood or Tissue by Molecular genetics method HFE (HEMOCHROMATOSIS) Lab Routine Elevated ferritin Expected: 02/26/2023, Expires: 04/28/2023 [facility] Work Phone: Comment on above: Expected: 02/26/2023 , Expires: 04/28/2023 Start: 02-26-2023 End: 04-28-2023 Iron and Iron binding capacity panel - Serum or Plasma IRON + TIBC Lab Routine Elevated ferritin Expected: 02/26/2023, Expires: 04/28/2023 [facility] Work Phone: Comment on above: Expected: 02/26/2023 , Expires: 04/28/2023 Start: 02-26-2023 End: 04-28-2023 Smooth muscle Ab [Presence] in Serum SMOOTH MUSCLE AB SCR Lab Routine Elevated ferritin Expected: 02/26/2023, Expires: 04/28/2023 [facility] Work Phone: Comment on above: Expected: 02/26/2023 , Expires: 04/28/2023 Start: 02-13-2023 Influenza vaccination INFLUENZA (#1) [facility] Comment on above: Postponed from 04/17 (Declined at this time) Start: 10-25-2022 ANNUAL PCP TEAM DEVELOPMENT GEOLOGIST JOS DISEASE VISIT ANNUAL PCP TEAM CHRONIC DISEASE VISIT [facility] Start: 08-27-2022 End: 10-27-2022 Thyrotropin [Units/volume] in Serum or Plasma TSH BLD Lab Routine Acquired hypothyroidism Expected: 08/27/2022, Expires: 10/27/2022 [facility] Work Phone: Comment on above: Expected: 08/27/2022 , Expires: 10/27/2022 Start: 08-27-2022 End: 10-27-2022 Thyroxine (T4) free [Mass/volume] in Serum or Plasma T4 FREE/FREE THYROX Lab Routine Acquired hypothyroidism Expected: 08/27/2022, Expires: 10/27/2022 [facility] Work Phone: Comment on above: Expected: 08/27/2022 , Expires: 10/27/2022 Start: 08-27-2022 End: 10-27-2022 Triiodothyronine (T3) Free [Mass/volume] in Serum or Plasma T3 FREE BLD Lab Routine Acquired hypothyroidism Expected: 08/27/2022, Expires: 10/27/2022 [facility] Work Phone: Comment on above: Expected: 08/27/2022 , Expires: 10/27/2022 Start: 08-17-2022 DEPRESSION ASSESSMENT DEPRESSION ASS ESSMENT [facility] Start: 04-17-2022 Influenza vaccination C [facility] Start: 04-09-2022 Adult depression scr eening assessment DEPRESSION SCREENING [facility] Start: 04-09-2022 COVID-19 VACCINE (#1) COVID-19 VACCI NE (#1) [facility] Comment on above: Postponed from 03/21 (Declined at this time) Postponed from 09/21 (Declined at this time) Start: 04-09-2022 COVID-19 VACCINE (1) COVID-19 VACCIN E (1) [facility] Comment on above: Postponed from 03/21 (Declined at this time) Start: 02-13-2022 Influenza vaccination INFLUENZA (#1) [facility] Comment on above: Postponed from 04/17 (Declined at this time) Start: 08-17-2021 DEPRESSION ASSESSMENT DEPRESSION ASS ESSMENT [facility] Start: 03-23-2021 PNEUMOCOCCAL (2 - PCV) PNEUMOCOCCAL (2 - PCV) [facility] Start: 03-23-2021 Pneumococcal Vaccine : 50+ (2 of 2 - PCV) Pneumococcal Vaccine: 50+ (2 of 2 - PCV) [facility] Start: 03-07-2021 COLORECTAL CANCER SCREENING COLORECTAL CANCER SCREENING [facility] Start: 03-07-2021 FECAL OCCULT BLOOD FECAL OCCULT BLOO D [facility] Start: 03-07-2021 Screening for malign ant neoplasm of colon Fecal Occult Blood [facility] Start: 08-04-2018 Mammography MAMMOGRAM [facility] Start: 2011 COLOGUARD (FIT-DNA) COLOGUARD (FIT-D NA) [facility] Start: 2011 Colonoscopy COLONOSCOPY [facility] Start: [address] COLONOGRAPHY [facility] Start: 2011 Screening for malign ant neoplasm of colon [facility] Start: 2011 SIGMOIDOSCOPY SIGMOIDOSCOPY [facility] Start: 1984 Anxiety Screening Anxiety Screening [facility] Start: 1984 Depression Screening Depression Scre ening [facility] Start: 1984 SPIROMETRY SPIROMETRY [facility] Start: 1972 PNEUMOCOCCAL (1 - PCV) PNEUMOCOCCAL (1 - PCV) [facility] Start: 1966 COVID-19 VACCINE (#1) COVID-19 VACCI NE (#1) [facility] End: 10-25-2022 CBC panel - Blood by Automated count CBC Lab Routine Encounter for long-term current use of medication Every 3 months for 4 Occurrences starting 10/25/2021 until 10/25/2022 [facility] Work Phone: Comment on above: Every 3 months for 4 Occurrences starting 10/25/2021 until 10/25/2022 COLOGUARD COLOGUARD Lab Ro utine Colon cancer screening Ordered: 10/13/2022 [facility] Work Phone: Comment on above: Ordered: 10/13/2022 End: 10-25-2022 Comprehensive metabolic 2000 panel - Serum or Plasma COMP METABOLIC PANEL Lab Routine Encounter for long-term current use of medication Every 3 months for 4 Occurrences starting 10/25/2021 until 10/25/2022 [facility] Work Phone: Comment on above: Every 3 months for 4 Occurrences starting 10/25/2021 until 10/25/2022 End: 01-19-2026 DBT Breast - bilateral screening MARIA D SCREENING W RONNIE Radiology Routine Encounter for screening mammogram for breast cancer 1 Occurrences starting 12/20/2024 until 01/19/2026 [facility] Work Phone: Comment on above: 1 Occurrences starti ng 12/20/2024 until 01/19/2026 End: 07-26-2023 Diagnostic mammography computer-aided detcj uni MARIA D DIAGNOSTIC LT Radiology Routine Abnormal mammogram 1 Occurrences starting 06/26/2022 until 07/26/2023 [facility] Work Phone: Comment on above: 1 Occurrences starti ng 06/26/2022 until 07/26/2023 End: 10-25-2022 FERRITIN BLD FERRITIN BLD Lab Routine Elevated ferritin Every 3 months for 4 Occurrences starting 10/25/2021 until 10/25/2022 [facility] Work Phone: Comment on above: Every 3 months for 4 Occurrences starting 10/25/2021 until 10/25/2022 End: 10-25-2022 Hemoglobin A1c/Hemoglobin.total in Blood HGB A1C Lab Routine Elevated hemoglobin A1c Every 3 months for 4 Occurrences starting 10/25/2021 until 10/25/2022 [facility] Work Phone: Comment on above: Every 3 months for 4 Occurrences starting 10/25/2021 until 10/25/2022 Hepb vaccine adult 3 dose schedule for im use HEPATITIS B VACCINE, ADULT AGE 20+, IM Immunization/Injection Routine Need for vaccination Ordered: 12/09/2021 [facility] Work Phone: Comment on above: Ordered: 12/09/2021 End: 10-25-2022 IRON + TIBC IRON + TIBC Lab Routine Encounter for long-term current use of medication Every 3 months for 4 Occurrences starting 10/25/2021 until 10/25/2022 [facility] Work Phone: Comment on above: Every 3 months for 4 Occurrences starting 10/25/2021 until 10/25/2022 End: 10-25-2022 LIPID PANEL BASIC LIPID PANEL BASIC Lab Routine Elevated cholesterol Encounter for long-term current use of medication Every 3 months for 4 Occurrences starting 10/25/2021 until 10/25/2022 [facility] Work Phone: Comment on above: Every 3 months for 4 Occurrences starting 10/25/2021 until 10/25/2022 End: 03-07-2024 MARIA D SCREENING MARIA D SCREENING Radiology Routine Breast cancer screening by mammogram 1 Occurrences starting 02/06/2023 until 03/07/2024 [facility] Work Phone: Comment on above: 1 Occurrences starti ng 02/06/2023 until 03/07/2024 End: 02-18-2025 MG Breast Screening MARIA D SCREENING Radiology Routine Encounter for screening mammogram for breast cancer 1 Occurrences starting 01/20/2024 until 02/18/2025 [facility] Work Phone: Comment on above: 1 Occurrences starti ng 01/20/2024 until 02/18/2025 Patient Education [facility] Work Phone: Patient referral [facility] Work Phone: End: 03-14-2023 Screening mammography bi 2-[facility] cad MARIA D SCREENING Radiology Routine Encounter for screening mammogram for breast cancer 1 Occurrences starting 02/12/2022 until 03/14/2023 [facility] Work Phone: Comment on above: 1 Occurrences starti ng 02/12/2022 until 03/14/2023 End: 11-09-2025 SPIROMETRY - BASELINE AND POST DILATOR SPIROMETRY - BASELINE AND POST DILATOR PFT Routine Asthma 1 Occurrences starting 10/10/2024 until 11/09/2025 [facility] Work Phone: Comment on above: 1 Occurrences starti ng 10/10/2024 until 11/09/2025 End: 10-25-2022 T3 FREE BLD T3 FREE BLD Lab Routine Acquired hypothyroidism Encounter for long-term current use of medication Every 3 months for 4 Occurrences starting 10/25/2021 until 10/25/2022 [facility] Work Phone: Comment on above: Every 3 months for 4 Occurrences starting 10/25/2021 until 10/25/2022 End: 10-25-2022 T4 FREE/FREE THYROX T4 FREE/FREE THYROX Lab Routine Acquired hypothyroidism Encounter for long-term current use of medication Every 3 months for 4 Occurrences starting 10/25/2021 until 10/25/2022 [facility] Work Phone: Comment on above: Every 3 months for 4 Occurrences starting 10/25/2021 until 10/25/2022 End: 10-25-2022 Thyrotropin [Units/volume] in Serum or Plasma TSH BLD Lab Routine Acquired hypothyroidism Encounter for long-term current use of medication Every 3 months for 4 Occurrences starting 10/25/2021 until 10/25/2022 [facility] Work Phone: Comment on above: Every 3 months for 4 Occurrences starting 10/25/2021 until 10/25/2022 End: 07-26-2023 Us breast uni real time with image limited US BREAST LTD LT Radiology Routine Abnormal mammogram 1 Occurrences starting 06/26/2022 until 07/26/2023 [facility] Work Phone: Comment on above: 1 Occurrences starti ng 06/26/2022 until 07/26/2023 End: 03-06-2025 US Head and neck soft tissue US HEAD/NECK SOFT TISSUE OTHER Radiology Routine Localized swelling, mass or lump of neck 1 Occurrences starting 02/05/2024 until 03/06/2025 [facility] Work Phone: Comment on above: 1 Occurrences starti ng 02/05/2024 until 03/06/2025 US Head and neck sof t tissue US HEAD/NECK SOFT TISSUE OTHER Radiology Routine Localized swelling, mass or lump of neck 02/25/2024 11:55 AM EDT [facility] Work Phone: [facility] Immunizations Immunization Date Immunization Notes Care Provider Fa zenaida 12-23-2021 hepatitis B vaccine, adult dosage Dayton Garcia MD Work Phone: [facility] Work Phone: 08-20-2021 hepatitis B vaccine, adult dosage Dayton Garcia MD Work Phone: [facility] Work Phone: 06-27-2021 hepatitis B vaccine, adult dosage Dayton Garcia MD Work Phone: [facility] Work Phone: 03-23-2020 pneumococcal polysaccharide vaccine, 23 valent Dayton Garcia MD Work Phone: [facility] Work Phone: 03-23-2020 zoster vaccine recombinant Dayton Garcia MD Work Phone: [facility] Work Phone: 01-20-2020 zoster vaccine recombinant Dayton Garcia MD Work Phone: [facility] Work Phone: 06-21-2018 influenza, injectabl e, quadrivalent, contains preservative Dayton Garcia MD Work Phone: [facility] 06-21-2018 influenza virus vacc ine, unspecified formulation Pinky Garcia APRN.CNP Work Phone: [facility] 12-23-2015 tetanus toxoid, redu singh diphtheria toxoid, and acellular pertussis vaccine, adsorbed Dayton Garcia MD Work Phone: [facility] Work Phone: Payers Date Payer Category Payer Self-pay [id number] 2022 Unknown [id number] 2015 Medicaid [employer] [facility] MEDICA[employer] [id number] 2015-Present [phone] [address] [place] [address] Medicaid [id number] 2015 Medicaid [id number] Unknown SELF PAY INSURANCE [id number] Unknown [id number] Unknown [id number] Unknown [id number] Unknown [id number] Unknown [id number] Unknown [id number] Social History Date Type Detail Facility Start: 08-18-2017 End: 12-12-2024 Tobacco smoking status NHIS Smokes tobacco daily [facility] Start: 02-28-1991 End: 02-28-2021 History of tobacco use Cigarette Smoker [facility] Start: 08-18-2017 End: 12-17-2022 Cigarettes smoked current (pack per day) - Reported 0.5 [facility] Start: 08-18-2017 End: 09-17-2020 Tobacco use and exposure Smokeless tobacco non-user [facility] Start: 10-25-2021 End: 12-20-2024 Alcohol intake Current drinker of alcohol (finding) [facility] Start: 09-17-2020 Tobacco Comment ; currently va pes; smokes only when home but not most of the time. Down to less than half PPD [facility] Start: 1965 Sex Assigned At Not on file [facility] Start: 03-10-2021 End: 06-20-2022 Exposure to SARS-CoV-2 (event) Not sure [facility] Start: 01-19-2022 End: 04-12-2023 Tobacco smoking status NHIS Unknown if ever smoked [facility] Start: 1965 Sex Assigned At Female [facility] Start: 04-14-2022 End: 04-24-2022 Exposure to SARS-CoV-2 (event) Unable to assess [facility] Work Phone: Start: 06-20-2022 End: 04-14-2024 Tobacco smoking status NHIS Ex-smoker [facility] Work Phone: Start: 02-28-1991 End: 02-28-2021 History of tobacco use Current smoker [facility] Work Phone: Start: 06-20-2022 End: 04-14-2024 Tobacco use and exposure Former smokeless tobacco user [facility] Work Phone: Start: 06-20-2022 Tobacco Comment Currently vape s but no nicotine in it. Just likes th flavor [facility] Start: 08-12-2022 History SDOH Social Connections Phone 2 [facility] Start: 08-12-2022 History SDOH Social Connections Meetings 1 [facility] Start: 08-12-2022 History SDOH Social Connections Living 5 [facility] Start: 08-12-2022 History SDOH Physica l Activity DPW 0 [facility] Start: 08-12-2022 History SDOH Financial 4 [facility] Start: 08-12-2022 History SDOH Food Scarcity 98 [facility] Start: 08-12-2022 End: 12-17-2022 Social connection and isolation panel [facility] Attends [employer] Services Not on file [facility] Do you belong to any clubs or organizations such as yazdanism groups, unions, fraternal or athletic groups, or school groups? No [facility] Are you now , , , , never or living with a partner? [facility] How hard is it for y ou to pay for the very basics like food, housing, medical care, and heating Not very hard [facility] Do you feel stress - tense, restless, nervous, or anxious, or unable to sleep at night because your mind is troubled all the time - these days [OSQ] Only a little [facility] (I/We) worried eloisa er (my/our) food would run out before (I/we) got money to buy more. Never true [facility] The food that (I/we) bought just didn't last, and (I/we) didn't have money to get more. DK or Refused [facility] At any time in the p ast 12 months, were you homeless or living in residential [including now]? Yes [facility] Start: 11-10-2024 End: 12-12-2024 Sex Female (finding) [facility] Functional Status Date Assessment Result Facility 09-19-2014 Are you deaf, or do you have serious difficulty hearing No 09/19/2014 3:05 PM Magaly Fine MA No [facility] 09-19-2014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 shakiness. Patient reports bilateral hand shakiness for years. No other symptoms noted. Patient reports she has a family history of Parkinson's and would like to discuss shakiness and if she needs any further testing to evaluate. Scheduled with Dr. Garcia per patient request. Nicci Martinez RN documented in this encounter [facility] 12-12-2024 Radiology Diagnostic study note [facility] Imaging Services [address], [place] [address] Ribs Uni Min 3V w/PA Chest MR#: [id number] Acct: [id number] Name: KALLI JACOBS Rep #: [id number] : 1965 F 59 From: Robbin Moreno MD PCP: Dr. Dayton Garcia MD Status: RE G ER Study:Ribs Uni Min 3V w/PA Chest Date of Exam : 12/12/24 Exam# [id number] Ordering Dr: Katie Morgan DO EXAM: Right ribs and chest CLINICAL HISTORY: Chest pain, right rib pain COMPARISON: 09/01/2019 TECHNIQUE: PA view of the chest and four views of the right ribs FINDINGS: No obvious displaced right rib fracture. No bony abnormality. The heart and mediastinum are normal. No opacity within the lungs to suggest active pulmonary disease. RAD/Ribs Uni Min 3V w/PA Chest IMPRESSION: No obvious displaced right rib fracture. No active pulmonary disease. Reading Location: [id number] CC: Dr. Dayton Garcia MD; Bob oMrgan DO ~ Floodplain Manager: Signed [facility] 12-12-2024 Telephone encounter Note The patient has been identified by name and date of : Yes, pharmacy Caregiver verified no other encounters exist for this prescription request: Yes Caregiver confirmed with patient/requestor that no other refills are due, in the near future, with this provider at this time: Yes The last office visit in the department: 10/10/2024 Does the patient have a future office visit with this provider/department: Yes 04/10/2025 Requested Prescriptions Pending Prescriptions Disp Refills metFORMIN ER (GLUCOPHAGE XR) 500 mg 24 hr tablet 30 tablet 5 Sig: Take 1 tablet by mouth daily with breakfast. Violeta Alegria LPN December 12, 2024 1:38 PM [facility] 12-12-2024 Miscellaneous Notes The patient has been identified by name and date of : Yes, pharmacy Caregiver verified no other encounters exist for this prescription request: Yes Caregiver confirmed with patient/requestor that no other refills are due, in the near future, with this provider at this time: Yes The last office visit in the department: 10/10/2024 Does the patient have a future office visit with this provider/department: Yes 04/10/2025 Requested Prescriptions Pending Prescriptions Disp Refills metFORMIN ER (GLUCOPHAGE XR) 500 mg 24 hr tablet 30 tablet 5 Sig: Take 1 tablet by mouth daily with breakfast. Violeta Alegria LPN December 12, 2024 1:38 PM documented in this encounter [facility] 11-14-2024 Telephone encounter Note The patient has been identified by name and date of : Yes Caregiver verified no other encounters exist for this prescription request: Yes Caregiver confirmed with patient/requestor that no other refills are due, in the near future, with this provider at this time: Yes The last office visit in the department: 10/10/2024 Does the patient have a future office visit with this provider/department: Yes 04/10/2025 Requested Prescriptions Pending Prescriptions Disp Refills buPROPion XL (WELLBUTRIN XL) 150 mg 24 hr tablet 90 tablet 3 Sig: Take 1 tablet by mouth once daily. estradiol (ESTRACE) 1 mg tablet 30 tablet 5 Sig: Take 1 tablet by mouth once daily. Gabriela Oro RN November 14, 2024 9:17 AM [facility] 11-14-2024 Miscellaneous Notes The patient has been identified by name and date of : Yes Caregiver verified no other encounters exist for this prescription request: Yes Caregiver confirmed with patient/requestor that no other refills are due, in the near future, with this provider at this time: Yes The last office visit in the department: 10/10/2024 Does the patient have a future office visit with this provider/department: Yes 04/10/2025 Requested Prescriptions Pending Prescriptions Disp Refills buPROPion XL (WELLBUTRIN XL) 150 mg 24 hr tablet 90 tablet 3 Sig: Take 1 tablet by mouth once daily. estradiol (ESTRACE) 1 mg tablet 30 tablet 5 Sig: Take 1 tablet by mouth once daily. Gabriela Oro RN November 14, 2024 9:17 AM documented in this encounter [facility] 11-11-2024 Note HNO ID: [id number] Author: FEROZ ACOSTA MD Service: ? Author Type: Physician Type: Progress Notes Filed: 11/11/2024 17:10 Note Text: FOLLOW UP - PSYCHIATRIC PROGRESS NOTE Visit Type:Visit had to occur by telephone due to technologic problems Reason for Visit: Outpatient follow-up and safety monitoring of previously prescribed psychiatric medication, psychotherapy or other treatment CC: Medication management. HPI: Ms. 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 Today, reports that she is doing well. The stutter is gone. Has rare movements. Is happy. Discussed her beautiful family. No concerns. Risks and benefits of the medication, including any black box warnings, were discussed with the patient. Interval Progress: Improved PATIENT DATA: Generalized Anxiety Disorder Scale (DAMARIS-7) 10/13/2022 06/27/2024 DAMARIS - 7 SCORES Score 3 16 (0-4) minimal anxiety, (5-9) mild anxiety, (10-14) moderate anxiety, (15-21) severe anxiety Patient Health Questionnaire (PHQ-9) 04/09/2021 10/13/2022 06/27/2024 PHQ-9 Score 3 7 10 (0-4) minimal depression, (5-9) mild depression, (10-14) moderate depression, (15-19) moderately severe depression, (20-27) severe depression PROMIS Global Health 08/12/2022 06/27/2024 PROMIS Global Health - (T-Scores - the mean of general population = 50. Five points is a clinically meaningful difference.) Physical T-Score 47.7 34.9 Mental T-Score 36.3 38.8 Generalized Anxiety Disorder Scale (DAMARIS-7) 10/13/2022 06/27/2024 DAMARIS - 7 SCORES Score 3 16 (0-4) minimal anxiety, (5-9) mild anxiety, (10-14) moderate anxiety, (15-21) severe anxiety Darwin Cognitive Assessment (MoCA) No data to display Score of 26 or above considered normal 18-25 =mild cognitive impairment, 10-17 = moderate cognitive impairment, <10 = severe cognitive impairment Patient Health Questionnaire (PHQ-9) 04/09/2021 10/13/2022 06/27/2024 PHQ-9 Score 3 7 10 (0-4) minimal depression, (5-9) mild depression, (10-14) moderate depression, (15-19) moderately severe depression, (20-27) severe depression PROMIS Global Health 08/12/2022 06/27/2024 PROMIS Global Health - (T-Scores - the mean of general population = 50. Five points is a clinically meaningful difference.) Physical T-Score 47.7 34.9 Mental T-Score 36.3 38.8 PAST MEDICAL HISTORY Diagnosis Date Bee sting allergy 12/17/2007 By patient history Bipolar I disorder, most recent episode (or current) unspecified Borderline diabetes mellitus 09/14/2017 Esophageal reflux 09/02/2005 Hearing loss Hot flashes due to menopause Migraine with aura Other forms of epilepsy and recurrent seizures Unspecified asthma(493.90) Unspecified constipation PAST SURGICAL HISTORY Procedure Laterality Date APPENDECTOMY HX ARTHROSCOPY KNEE DIAGNOSTIC W/WO SYNOVIAL BX SPX 1998 Arthroscopy, knee right DEL W/ ANTE/POST CARE x 4 COLONOSCOPY FLX DX W/COLLJ SPEC WHEN PFRMD 08/28/05 LAPAROSCOPY SURG CHOLECYSTECTOMY 2002 Cholecystectomy, lap RPR 1ST INGUN HRNA AGE 6 YRS/> REDUCIBLE Hernia repair, inguinal RPR 1ST INGUN HRNA FULL TERM INFT <6 MO [facility] 07/2005 TONSILLECTOMY HX TONSILLECTOMY PRIMARY/SECONDARY Tonsillectomy TOTAL ABDOMINAL HYSTERECT W/WO RMVL TUBE OVARY Hysterectomy, JIMMY Current Outpatient Medications Medication Sig Dispense Refill phenytoin ER (DILANTIN) 100 mg ER capsule Take 1 capsule by mouth three times a day. 90 capsule 5 lithium carbonate (ESKALITH) 300 mg capsule TAKE 1 CAPSULE BY MOUTH TWICE A DAY WITH MEALS 60 capsule 1 benzonatate (TESSALON PERLES) 100 mg capsule Take 1 capsule by mouth three times a day as needed. TAKE ONE(1)CAPSULE BY MOUTH THREE(3) TIMES DAILIY NEEDED FOR COUGH. 21 capsule 1 gabapentin (NEURONTIN) 300 mg capsule Take 1 capsule by mouth three times a day for 30 days. 90 capsule 2 Etodolac 500 mg tablet Take 1 tablet by mouth two times a day. 60 tablet 3 fluticasone (FLONASE) 50 mcg/actuation nasal spray Use 2 Sprays in each nostril once daily. 16 g 5 benztropine (COGENTIN) 2 mg tablet Take 1 tablet by mouth three times a day. 90 tablet 2 busPIRone (BUSPAR) 15 mg tablet Take 1 tablet by mouth three times a day. 90 tablet 11 gabapentin (NEURONTIN) 100 mg capsule Take 1 capsule by mouth two times a day as needed (dystonia) for up to 30 days. TAKE 2 CAPSULES BY MOUTH EVERY MORNING AND TAKE 1 CAPSULE AT NOON *MAY TAKE AN ADDITIONAL 1 CAPSULE NEEDED DURING THE DAY (Patient not taking: Reported on 10/10/2024) 60 capsule 2 albuterol HFA (VENTOLIN HFA) 90 mcg/actuation inhaler Inhale 2 Puffs as instructed every 4 hours as needed. Also use 2 puffs prior to exertion 8 g 3 metFORMIN ER (GLUCOPHAGE XR) 500 mg 24 hr tablet Take 1 tablet by mouth daily with breakfas (more content not included)... [facility] 10-17-2024 Telephone encounter Note ok [facility] 10-17-2024 Miscellaneous Notes ok [facility] calling and stated patient will be out of medication tomorrow. Will send message to Saeid Koch, for possible renewal. Leora Carcamo RN The patient has been identified by name and date of : Yes Caregiver verified no other encounters exist for this prescription request: Yes Caregiver confirmed with patient/requestor that no other refills are due, in the near future, with this provider at this time: Yes The last office visit in the department: 10/10/2024 Does the patient have a future office visit with this provider/department: Yes 01/04/2025 Requested Prescriptions Pending Prescriptions Disp Refills phenytoin ER (DILANTIN) 100 mg ER capsule 90 capsule 5 Sig: Take 1 capsule by mouth three times a day. Nicci Martinez RN October 14, 2024 2:33 PM documented in this encounter [facility] 10-17-2024 Telephone encounter Note [facility] calling and stated patient will be out of medication tomorrow. Will send message to Saeid Koch, for possible renewal. Leoar Carcamo RN [facility] 10-14-2024 Telephone encounter Note The patient has been identified by name and date of : Yes Caregiver verified no other encounters exist for this prescription request: Yes Caregiver confirmed with patient/requestor that no other refills are due, in the near future, with this provider at this time: Yes The last office visit in the department: 10/10/2024 Does the patient have a future office visit with this provider/department: Yes 01/04/2025 Requested Prescriptions Pending Prescriptions Disp Refills phenytoin ER (DILANTIN) 100 mg ER capsule 90 capsule 5 Sig: Take 1 capsule by mouth three times a day. Nicci Martinez RN October 14, 2024 2:33 PM [facility] 10-10-2024 Note HNO ID: [id number] Author: SAEID KOCH APRN.GAMING CASHIER Service: ? Author Type: Nurse Specialist Type: Progress Notes Filed: 10/10/2024 15:01 Note Text: SUBJECTIVE: Spirometry Never done Pneumococcal Vaccine: 50+(2 of 2 - PCV) due on 03/23/2021 Mammogram Screening due on 06/23/2023 HPI Kalli Jacobs is a 59 year old female. PMH significant for ACTIVE PROBLEM LIST Bipolar I Disorder (Hcc) Migraine With Aura Incisional Hernia Without Mention of Obstruction Or Gangrene Generalized Convulsive Epilepsy (Hcc) Constipation Tobacco Use Disorder Bee sting allergy Asthma Chronic Daily Headache Non Morbid Obesity Due to Excess Calories Chronic Abdominal Pain Myalgia Altered Bowel Habits Left Sided Abdominal Pain Gerd (Gastroesophageal Reflux Disease) Biliary Dyskinesia Borderline Diabetes Mellitus High Serum Thyroid Stimulating Hormone (Tsh) Chronic Low Back Pain Without Sciatica Other Spondylosis, Thoracolumbar Region Kyphosis of Thoracic Region Reports has resumed smoking. At her last visit she noted dry mouth. Notes lemon drop candy has helped Seizure: reports one seizure since last seen. Her dose of gabapentin ws decreased from 400 mg to 300mg. Counseling/psychiatry: Dr Savage Batista / Dr Janet Brown Hypothyroidism. Notes feeling well with current dose TSH Date Value 02/05/2024 1.870 mIU/L 02/20/2023 3.600 mIU/L 12/26/2020 2.670 uU/mL 05/21/2020 4.950 uU/mL ) Without report of excessive thirst or increased frequency of urination, chest pain or dyspnea , numbness, tingling or pain in extremities, new or unusual visual symptoms, low sugar/hypoglycemic reactions, weight loss/gain, lightheadedness/dizziness, and bowel changes/loose stools Patient's last HgA1C was Hemoglobin A1C (%) Date Value 06/06/2024 4.9 02/20/2023 5.7 05/20/2021 5.9 12/26/2020 6.1 ) Review of Systems Psychiatric/Behavioral: Positive for dysphoric mood. The patient is nervous/anxious. Objective BP 111/76 Pulse 70 Resp 16 Wt 69 kg (152 lb 1.9 oz) LMP 01/30/2011 BMI 28.74 kg/m? Physical Exam Vitals and nursing note reviewed. Constitutional: Appearance: Normal appearance. HENT: Head: Normocephalic and atraumatic. Eyes: Conjunctiva/sclera: Conjunctivae normal. Neck: Thyroid: No thyromegaly. Vascular: No JVD. Cardiovascular: Rate and Rhythm: Normal rate and regular rhythm. Heart sounds: Normal heart sounds. Pulmonary: Effort: Pulmonary effort is normal. Breath sounds: Normal breath sounds. Abdominal: General: Bowel sounds are normal. Skin: General: Skin is warm and dry. Neurological: Mental Status: She is alert. Mental status is at baseline. ALLERGIES Allergen Reactions Asa [Salicylates] Intolerance stomach bleeding Advair Diskus [Flut* Seizures after use twice. Orosi Trees [Trees] Shortness of Breath Sneezing, runny nose Medications benzonatate (TESSALON PERLES) 100 mg capsule Take 1 capsule by mouth three times a day as needed. TAKE ONE(1)CAPSULE BY MOUTH THREE(3) TIMES DAILIY NEEDED FOR COUGH. gabapentin (NEURONTIN) 300 mg capsule Take 1 capsule by mouth three times a day for 30 days. Etodolac 500 mg tablet Take 1 tablet by mouth two times a day. fluticasone (FLONASE) 50 mcg/actuation nasal spray Use 2 Sprays in each nostril once daily. benztropine (COGENTIN) 2 mg tablet Take 1 tablet by mouth three times a day. lithium carbonate (ESKALITH) 300 mg capsule Take 1 capsule by mouth two times a day with meals. busPIRone (BUSPAR) 15 mg tablet Take 1 tablet by mouth three times a day. albuterol HFA (VENTOLIN HFA) 90 mcg/actuation inhaler Inhale 2 Puffs as instructed every 4 hours as needed. Also use 2 puffs prior to exertion metFORMIN ER (GLUCOPHAGE XR) 500 mg 24 hr tablet Take 1 tablet by mouth daily with breakfast. estradiol (ESTRACE) 1 mg tablet Take 1 tablet by mouth once daily. levothyroxine (SYNTHROID) 88 mcg tablet Take 1 tablet by mouth once daily. Take on empty stomach. For Thyroid phenytoin ER (DILANTIN) 100 mg ER capsule Take 1 capsule by mouth three times a day. buPROPion XL (WELLBUTRIN XL) 150 mg 24 hr tablet Take 1 tablet by mouth once daily. cholestyramine (QUESTRAN) 4 gram packet Take 1 Packet by mouth once daily. for diarrhea EPINEPHrine (EPIPEN) 0.3 mg/0.3 mL auto-injector Use as needed for bee sting then go to emergecny room for further evaluation and treatment after bee sting timolol hemihydrate (BETIMOL) 0.5 % ophthalmic solution Use 1 Drop in both eyes twice daily. COMPOUNDED PRESCRIPTION Nebulizer for home use. Dx: 493.90 gabapentin (NEURONTIN) 100 mg capsule Take 1 capsule by mouth two times a day as needed (dystonia) for up to 30 days. TAKE 2 CAPSULES BY MOUTH EVERY MORNING AND TAKE 1 CAPSULE AT NOON *MAY TAKE AN ADDITIONAL 1 CAPSULE NEEDED DURING THE DAY (Patient not taking: Reported on 10/10/2024) ipratropium-albuterol (DUONEB) 0.5 mg-3 mg(2.5 mg base)/3 mL nebu (more content not included)... [facility] 10-10-2024 History of Presen t illness Narrative SUBJECTIVE: Spirometry Never done Pneumococcal Vaccine: 50+(2 of 2 - PCV) due on 03/23/2021 Mammogram Screening due on 06/23/2023 HPI Kalli Jacobs is a 59 year old female. PMH significant for ACTIVE PROBLEM LIST Bipolar I Disorder (Hcc) Migraine With Aura Incisional Hernia Without Mention of Obstruction Or Gangrene Generalized Convulsive Epilepsy (Hcc) Constipation Tobacco Use Disorder Bee sting allergy Asthma Chronic Daily Headache Non Morbid Obesity Due to Excess Calories Chronic Abdominal Pain Myalgia Altered Bowel Habits Left Sided Abdominal Pain Gerd (Gastroesophageal Reflux Disease) Biliary Dyskinesia Borderline Diabetes Mellitus High Serum Thyroid Stimulating Hormone (Tsh) Chronic Low Back Pain Without Sciatica Other Spondylosis, Thoracolumbar Region Kyphosis of Thoracic Region Reports has resumed smoking. At her last visit she noted dry mouth. Notes lemon drop candy has helped Seizure: reports one seizure since last seen. Her dose of gabapentin ws decreased from 400 mg to 300mg. Counseling/psychiatry: Dr Savage Batista / Dr Janet Brown Hypothyroidism. Notes feeling well with current dose TSH Date Value 02/05/2024 1.870 mIU/L 02/20/2023 3.600 mIU/L 12/26/2020 2.670 uU/mL 05/21/2020 4.950 uU/mL ) Without report of excessive thirst or increased frequency of urination, chest pain or dyspnea , numbness, tingling or pain in extremities, new or unusual visual symptoms, low sugar/hypoglycemic reactions, weight loss/gain, lightheadedness/dizziness, and bowel changes/loose stools Patient's last HgA1C was Hemoglobin A1C (%) Date Value 06/06/2024 4.9 02/20/2023 5.7 05/20/2021 5.9 12/26/2020 6.1 ) Review of Systems Psychiatric/Behavioral: Positive for dysphoric mood. The patient is nervous/anxious. Objective BP 111/76 Pulse 70 Resp 16 Wt 69 kg (152 lb 1.9 oz) LMP 01/30/2011 BMI 28.74 kg/m Physical Exam Vitals and nursing note reviewed. Constitutional: Appearance: Normal appearance. HENT: Head: Normocephalic and atraumatic. Eyes: Conjunctiva/sclera: Conjunctivae normal. Neck: Thyroid: No thyromegaly. Vascular: No JVD. Cardiovascular: Rate and Rhythm: Normal rate and regular rhythm. Heart sounds: Normal heart sounds. Pulmonary: Effort: Pulmonary effort is normal. Breath sounds: Normal breath sounds. Abdominal: General: Bowel sounds are normal. Skin: General: Skin is warm and dry. Neurological: Mental Status: She is alert. Mental status is at baseline. ALLERGIES Allergen Reactions Asa [Salicylates] Intolerance stomach bleeding Advair Diskus [Flut* Seizures after use twice. Orosi Trees [Trees] Shortness of Breath Sneezing, runny nose Medications benzonatate (TESSALON PERLES) 100 mg capsule Take 1 capsule by mouth three times a day as needed. TAKE ONE(1)CAPSULE BY MOUTH THREE(3) TIMES DAILIY NEEDED FOR COUGH. gabapentin (NEURONTIN) 300 mg capsule Take 1 capsule by mouth three times a day for 30 days. Etodolac 500 mg tablet Take 1 tablet by mouth two times a day. fluticasone (FLONASE) 50 mcg/actuation nasal spray Use 2 Sprays in each nostril once daily. benztropine (COGENTIN) 2 mg tablet Take 1 tablet by mouth three times a day. lithium carbonate (ESKALITH) 300 mg capsule Take 1 capsule by mouth two times a day with meals. busPIRone (BUSPAR) 15 mg tablet Take 1 tablet by mouth three times a day. albuterol HFA (VENTOLIN HFA) 90 mcg/actuation inhaler Inhale 2 Puffs as instructed every 4 hours as needed. Also use 2 puffs prior to exertion metFORMIN ER (GLUCOPHAGE XR) 500 mg 24 hr tablet Take 1 tablet by mouth daily with breakfast. estradiol (ESTRACE) 1 mg tablet Take 1 tablet by mouth once daily. levothyroxine (SYNTHROID) 88 mcg tablet Take 1 tablet by mouth once daily. Take on empty stomach. For Thyroid phenytoin ER (DILANTIN) 100 mg ER capsule Take 1 capsule by mouth three times a day. buPROPion XL (WELLBUTRIN XL) 150 mg 24 hr tablet Take 1 tablet by mouth once daily. cholestyramine (QUESTRAN) 4 gram packet Take 1 Packet by mouth once daily. for diarrhea EPINEPHrine (EPIPEN) 0.3 mg/0.3 mL auto-injector Use as needed for bee sting then go to emergecny room for further evaluation and treatment after bee sting timolol hemihydrate (BETIMOL) 0.5 % ophthalmic solution Use 1 Drop in both eyes twice daily. COMPOUNDED PRESCRIPTION Nebulizer for home use. Dx: 493.90 gabapentin (NEURONTIN) 100 mg capsule Take 1 capsule by mouth two times a day as needed (dystonia) for up to 30 days. TAKE 2 CAPSULES BY MOUTH EVERY MORNING & TAKE 1 CAPSULE AT NOON *MAY TAKE AN ADDITIONAL 1 CAPSULE NEEDED DURING THE DAY (Patient not taking: Reported on 10/10/2024) ipratropium-albuterol (DUONEB) 0.5 mg-3 mg(2.5 mg base)/3 mL nebu Inhale 3 mL as instructed every 6 hours as needed for wheezing/shortness of breath. spironolactone (ALDACTONE) 25 mg tablet Take 1 tablet by mouth once daily as needed (swelling/fluid retention). (Patient not taking: Reported on 05/30/2024) PAST MEDICAL HISTORY Diagnosis Date Bee sting allergy 12/17/2007 By patient history Bipolar I disorder, most recent episode (or current) unspecified Borderline diabetes mellitus 09/14/2017 Esophageal reflux 09/02/2005 Hearing loss Hot flashes due to menopause Migraine with aura Other forms of epilepsy and recurrent seizures Unspecified asthma(493.90) Unspecified constipation Social History Tobacco Use Smoking status: Former Current packs/day: 0.00 Average packs/day: 0.5 packs/day for 30.0 years (15.0 ttl pk-yrs) Types: Cigarettes Start date: 02/28/1991 Quit date: 02/28/2021 Years since quittin.6 Smokeless tobacco: Former Tobacco comments: Currently vapes but no nicotine in it. Just likes th flavor Substance Use Topics Alcohol use: Yes Comment: Occasionally Drug use: Not Currently Types: Crack Cocaine Comment: Quit in 1999 Latest Ref Rng 02/05/2024 05/28/2024 06/06/2024 07/08/2024 WBC 3.70 - 11.00 k/uL 13.82 (H) 11.43 (H) RBC 3.90 - 5.20 m/uL 4.54 4.38 Hemoglobin 11.5 - 15.5 g/dL 12.6 12.5 Hematocrit 36.0 - 46.0 % 41.6 40.8 MCV 80.0 - 100.0 fL 91.6 93.2 MCH 26.0 - 34.0 pg 27.8 28.5 MCHC 30.5 - 36.0 g/dL 30.3 (L) 30.6 RDW-CV 11.5 - 15.0 % 12.5 13.0 Platelet Count 150 - 400 k/uL 333 324 MPV 9.0 - 12.7 fL 11.6 11.4 Neut% % 67.1 61.9 Abs Neut (ANC) 1.45 - 7.50 k/uL 9.28 (H) 7.06 Lymph% % 23.2 28.9 Abs Lymph 1.00 - 4.00 k/uL 3.[address] [place]% % 5.[address] [place] <0.87 k/uL 0.69 0.60 Eosin% % 3.8 3.2 Abs Eosin <0.46 k/uL 0.52 (H) 0.37 Baso% % 0.5 0.5 Abs Baso <0.11 k/uL 0.07 0.06 Immature Gran % % 0.4 0.3 IMMATURE GRANS (ABS) <0.10 k/uL 0.06 0.04 NRBC /100 WBC 0.0 0.0 Absolute nRBC <0.01 k/uL <0.01 <0.01 DTYPE Auto Auto Protein, Total 6.3 - 8.0 g/dL 7.8 6.9 Albumin 3.9 - 4.9 g/dL 4.7 4.2 Calcium 8.5 - 10.2 mg/dL 10.1 9.3 Bilirubin, Total 0.2 - 1.3 mg/dL 0.3 0.2 Alkaline Phosphatase 34 - 123 U/L 165 (H) 175 (H) AST 13 - 35 U/L 22 16 ALT 7 - 38 U/L 20 12 Glucose 74 - 99 mg/dL 101 (H) 97 BUN 7 - 21 mg/dL 9 8 Creatinine 0.58 - 0.96 mg/dL 0.92 0.88 Sodium 136 - 144 mmol/L 137 141 Potassium 3.7 - 5.1 mmol/L 4.3 4.5 Chloride 98 - 107 mmol/L 101 105 CO2 22 - 30 mmol/L 26 26 Anion Gap 8 - 15 mmol/L 10 10 eGFR >=60 mL/min/1.73m 73 76 Cholesterol, Total <200 mg/dL 259 (H) Triglyceride <150 mg/dL 198 (H) HDL Cholesterol >39 mg/dL 46 Non HDL Cholesterol <130 mg/dL 213 (H) Fasting Time hrs 12 VLDL Cholesterol <30 mg/dL 40 (H) TC:HDL Ratio <5.10 5.63 (H) LDL Cholesterol <100 mg/dL 173 (H) LDL:HDL Ratio <2.54 3.76 (H) Iron 41 - 186 ug/dL 94 TIBC 232 - 386 ug/dL 345 Transferrin Saturation 15.0 - 57.0 % 27.2 Hemoglobin A1C 4.3 - 5.6 % 4.9 Estimated Average Glucose mg/dL 94 Ferritin 14.7 - 205.1 ng/mL 380.0 (H) [place] 0.6 - 1.2 mmol/L 1.2 1.3 (H) 0.5 (L) 1.2 Phenytoin 10.0 - 20.0 ug/mL 5.9 (L) TSH 0.270 - 4.200 mIU/L 1.870 ASSESSMENT/PLAN: 1. Asthma - ICD9: 493.90, ICD10: J45.909 (primary diagnosis) controlled, no recent exacerbation - SPIROMETRY - BASELINE AND POST DILATOR 2. Encounter for immunization - ICD9: V03.89, ICD10: Z23 declined - PNEUMOCOCCAL VACCINE, 20 VALENT (PREVNAR 20) 3. Generalized convulsive epilepsy (HCC) - ICD9: 345.10, ICD10: G40.309 Reports seizure once since last seen. Continue with current treatment unchanged for now. - COMPREHENSIVE METABOLIC PANEL - COMPLETE BLOOD COUNT AND DIFFERENTIAL - LIPID PANEL BASIC - THYROID STIMULATING HORMONE - VITAMIN D 25 HYDROXY - PHENYTOIN/DILANTIN - COMPREHENSIVE METABOLIC PANEL - COMPLETE BLOOD COUNT AND DIFFERENTIAL - THYROID STIMULATING HORMONE - VITAMIN D 25 HYDROXY - PHENYTOIN/DILANTIN 4. Bipolar I disorder (HCC) - ICD9: 296.7, ICD10: F31.9 Following with psychology and psychiatry - COMPREHENSIVE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 tablet by mouth three times a day. Nicci Martinez RN July 21, 2024 9:04 AM documented in this encounter [facility] 07-21-2024 Telephone encounter Note The patient has been identified by name and date of : Yes Caregiver verified no other encounters exist for this prescription request: Yes Caregiver confirmed with patient/requestor that no other refills are due, in the near future, with this provider at this time: Yes The last office visit in the department: 05/30/2024 Does the patient have a future office visit with this provider/department: 10/03/2024 Requested Prescriptions Pending Prescriptions Disp Refills busPIRone (BUSPAR) 15 mg tablet 90 tablet 11 Sig: Take 1 tablet by mouth three times a day. Nicci Martinez RN July 21, 2024 9:04 AM [facility] 06-27-2024 Note HNO ID: [id number] Author: FEROZ ACOSTA MD Service: ? Author Type: Physician Type: Progress Notes Filed: 06/27/2024 15:52 Note Text: FOLLOW UP - PSYCHIATRIC PROGRESS NOTE Visit Type:Virtual Visit utilizing two-way audio and video for at least a portion of the visit. Consent for virtual visit obtained verbally. Confidentiality limitations with virtual visits reviewed with the patient and guardian, if present, who have accepted the risk verbally prior to proceeding with encounter. I have communicated my name and active licensure. The patient's identity and physical location were verified at the time of this visit. Either the patient or their legal client account representative has been informed of the risks and benefits of -- and alternatives to -- treatment through a remote evaluation and consents to proceed with the evaluation remotely. Reason for Visit: Outpatient follow-up and safety monitoring of previously prescribed psychiatric medication, psychotherapy or other treatment CC: Medication management HPI: Ms. 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 Since then benztropine and gabapentin were increased. Patient reports that today, she has some jumpiness' but that overall she is 90% better. Notes that she is tolerating current treatment. Would like to increase benztropine. Discuss this as reasonable option. Denies suicidal/homicidal ideation. Risks and benefits of the medication, including any black box warnings, were discussed with the patient. Interval Progress: Improved PATIENT DATA: Generalized Anxiety Disorder Scale (DAMARIS-7) 10/13/2022 06/27/2024 [place] - 7 SCORES Score 3 16 (0-4) minimal anxiety, (5-9) mild anxiety, (10-14) moderate anxiety, (15-21) severe anxiety Patient Health Questionnaire (PHQ-9) 04/09/2021 10/13/2022 06/27/2024 PHQ-9 Score 3 7 10 (0-4) minimal depression, (5-9) mild depression, (10-14) moderate depression, (15-19) moderately severe depression, (20-27) severe depression PROMIS Global Health 08/12/2022 06/27/2024 PROMIS Global Health - (T-Scores - the mean of general population = 50. Five points is a clinically meaningful difference.) Physical T-Score 47.7 34.9 Mental T-Score 36.3 38.8 Generalized Anxiety Disorder Scale (DAMARIS-7) 10/13/2022 06/27/2024 [place] - 7 SCORES Score 3 16 (0-4) minimal anxiety, (5-9) mild anxiety, (10-14) moderate anxiety, (15-21) severe anxiety Darwin Cognitive Assessment (MoCA) No data to display Score of 26 or above considered normal 18-25 =mild cognitive impairment, 10-17 = moderate cognitive impairment, <10 = severe cognitive impairment Patient Health Questionnaire (PHQ-9) 04/09/2021 10/13/2022 06/27/2024 PHQ-9 Score 3 7 10 (0-4) minimal depression, (5-9) mild depression, (10-14) moderate depression, (15-19) moderately severe depression, (20-27) severe depression PROMIS Global Health 08/12/2022 06/27/2024 PROMIS Global Health - (T-Scores - the mean of general population = 50. Five points is a clinically meaningful difference.) Physical T-Score 47.7 34.9 Mental T-Score 36.3 38.8 PAST MEDICAL HISTORY Diagnosis Date Bee sting allergy 12/17/2007 By patient history Bipolar I disorder, most recent episode (or current) unspecified Borderline diabetes mellitus 09/14/2017 Esophageal reflux 09/02/2005 Hearing loss Hot flashes due to menopause Migraine with aura Other forms of epilepsy and recurrent seizures Unspecified asthma(493.90) Unspecified constipation PAST SURGICAL HISTORY Procedure Laterality Date APPENDECTOMY HX ARTHROSCOPY KNEE DIAGNOSTIC W/WO SYNOVIAL BX SPX 1998 Arthroscopy, knee right DEL W/ ANTE/POST CARE x 4 COLONOSCOPY FLX DX W/COLLJ SPEC WHEN PFRMD 08/28/05 LAPAROSCOPY SURG CHOLECYSTECTOMY 2003 Cholecystectomy, lap RPR 1ST INGUN HRNA AGE 6 YRS/> REDUCIBLE Hernia repair, inguinal RPR 1ST INGUN HRNA FULL TERM INFT <6 MO [facility] 07/2005 TONSILLECTOMY HX TONSILLECTOMY PRIMARY/SECONDARY Tonsillectomy TOTAL ABDOMINAL HYSTERECT W/WO RMVL TUBE OVARY Hysterectomy, JIMMY Current Outpatient Medications Medication Sig Dispense Refill albuterol HFA (VENTOLIN HFA) 90 mcg/actuation inhaler Inhale 2 Puffs as instructed every 4 hours as needed. Also use 2 puffs prior to exertion 8 g 3 metFORMIN ER (GLUCOPHAGE XR) 500 mg 24 hr tablet Take 1 tablet by mouth daily with breakfast. 30 tablet 5 gabapentin (NEURONTIN) 300 mg capsule Take 1 capsule by mouth daily at bedtime for 180 days. 90 capsule 1 gabapentin (NEURONTIN) 100 mg capsule Take 200 mg in the morning and 100 mg at noon, may take an additional 100 mg as needed during the day. 60 capsule 2 lithium carbonate (ESKALITH) 150 mg capsule Take 1 capsule by mouth once daily. (Patient taking differently: Take 150 mg by mouth once daily. In the am) 30 ca (more content not included)... [facility] 06-22-2024 Telephone encounter Note Prescription Refill Information The patient has been identified by name and date of : Yes Caregiver verified no other encounters exist for this prescription request: Yes Caregiver confirmed with patient/requestor that no other refills are due, in the near future, with this provider at this time: Yes The last office visit in the department: 05/30/24 Does the patient have a future office visit with this provider/department: Yes Requested Prescriptions Pending Prescriptions Disp Refills albuterol HFA (VENTOLIN HFA) 90 mcg/actuation inhaler 8 g 3 Sig: Inhale 2 Puffs as instructed every 4 hours as needed. Also use 2 puffs prior to exertion metFORMIN ER (GLUCOPHAGE XR) 500 mg 24 hr tablet 30 tablet 5 Sig: Take 1 tablet by mouth daily with breakfast. Joy Haddad LPN June 22, 2024 11:09 AM [facility] 06-22-2024 Miscellaneous Notes Prescription Refill Information The patient has been identified by name and date of : Yes Caregiver verified no other encounters exist for this prescription request: Yes Caregiver confirmed with patient/requestor that no other refills are due, in the near future, with this provider at this time: Yes The last office visit in the department: 05/30/24 Does the patient have a future office visit with this provider/department: Yes Requested Prescriptions Pending Prescriptions Disp Refills albuterol HFA (VENTOLIN HFA) 90 mcg/actuation inhaler 8 g 3 Sig: Inhale 2 Puffs as instructed every 4 hours as needed. Also use 2 puffs prior to exertion metFORMIN ER (GLUCOPHAGE XR) 500 mg 24 hr tablet 30 tablet 5 Sig: Take 1 tablet by mouth daily with breakfast. Joy Haddad LPN June 22, 2024 11:09 AM documented in this encounter [facility] 05-30-2024 Instructions Dayton Garcia MD - 05/30/2024 5:10 PM EDT - Continue taking your current medications as prescribed by Dr. Feroz Brown. - Monitor your weight and blood sugar levels regularly. - Scheduled lab tests: - A1c test to monitor blood sugar levels. - Blood count recheck. - Metabolic panel. - Follow the provided instructions for managing dry mouth: - Sip water regularly to stay hydrated. - Use [id number] saliva substitutes like Biotene. - Suck on hard candy to stimulate saliva production. - Discuss any persistent symptoms or concerns about Parkinson's disease with Dr. Feroz Brown during your next follow-up appointment. - Schedule and complete your colonoscopy as recommended. From Up to Date management of dry mouth: Stimulating saliva -- Simply sucking on sugar-free candy or lozenges or chewing sugar-free gum can stimulate the flow of s?arline?. Products that contain xylitol can help reduce the risk for dental decay. In some people who do not respond adequately to such measures, medications (eg, pilocarpine or cevimeline) can be given to increase ?aliv? production. Replacing secretions in the mouth -- Sipping on water throughout the day is an easy and effective treatment of dry mouth for many people. The water does not have to be swallowed. It can be rinsed around the mouth and then spit out. If this does not help, an artificial saliva product (spray or lozenge) may be helpful. If you have painful gums, a gel that relieves dry mouth can be helpful. Preventing cavities -- People with Sj gren's disease [and dry mouth from other issues] are at increased risk for dental cavities. You should brush and floss after eating meals and snacks. An electric toothbrush is preferred. It is important for you to visit your dentist at least every six months for a cleaning and evaluation. Toothpastes designed specifically for people with dry mouth are available. These lack the detergents that are present in many types of toothpaste but can irritate a dry mouth. Toothbrushes with special features that help clean between the teeth (including electric toothbrushes) may also help to keep your teeth clean. Toothpaste with fluoride (or a special fluoride rinse or varnish) may help to prevent cavities. A fluoride treatment after each dental cleaning may also be helpful. Other products that help preserve dental integrity include chewing gums that keep the pH neutral on the dental surface and toothpastes that bind calcium and phosphate ions to tooth surfaces. documented in this encounter [facility] 05-30-2024 Note HNO ID: [id number] Author: DAYTON GARCIA MD Service: ? Author Type: Physician Type: Progress Notes Filed: 07/09/2024 14:54 Note Text: This note was created using [employer]. Subjective Kalli Jacobs is a 59 year old female. Patient presents with: Established Patient: Follow up SUBJECTIVE: Kalli Jacobs is a 59 year old year old lady here today for follow up appointment for review of medical conditions. The patient is a 59-year-old female with a history of seizures, presenting for follow-up. The patient reports significant improvement in her condition following a recent adjustment to her medication regimen by her psychiatrist, Dr. Feroz Brown. She is currently taking lithium, with one dose in the morning and two in the evening, and notes that the medication is working well. She mentions experiencing dizziness with the morning dose, which Dr. Joy Brown is addressing. Recent lithium levels were 1.3 mEq/L. She also reports a return of her voice and a reduction in stuttering, stating, I feel like a person again. She denies any issues with her seizure medication. The patient has been experiencing xerostomia and inquires about potential treatments. 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 She mentions a family history of Parkinson's disease and inquires about testing for the condition. The patient reports a weight loss of 1 lb over the past week, with a current weight of 165 lbs. She expresses a desire to reach a weight of 120-125 lbs, noting that she has not been in the 130s since having children. She inquires about the necessity of continuing metformin if she maintains a weight of 130 lbs. Her last recorded HbA1c was 5.7% in February of the previous year. She also mentions experiencing mild edema, particularly when walking or standing for extended periods, which she notes is worse in hot and humid weather. The patient has not yet scheduled a colonoscopy. She denies feelings of depression or hopelessness, stating she is happy and positive. She has a history of crack cocaine use but has been abstinent for 24 years as of May 01. She reports occasional marijuana use. PAST MEDICAL HISTORY Diagnosis Date Bee sting allergy 12/17/2007 By patient history Bipolar I disorder, most recent episode (or current) unspecified Borderline diabetes mellitus 09/14/2017 Esophageal reflux 09/02/2005 Hearing loss Hot flashes due to menopause Migraine with aura Other forms of epilepsy and recurrent seizures Unspecified asthma(493.90) Unspecified constipation Current Outpatient Medications Medication Sig lithium carbonate (ESKALITH) 150 mg capsule Take 1 capsule by mouth once daily. (Patient taking differently: Take 150 mg by mouth once daily. In the am) lithium carbonate (ESKALITH) 300 mg capsule Take 1 capsule by mouth daily at bedtime. estradiol (ESTRACE) 1 mg tablet Take 1 tablet by mouth once daily. Etodolac 500 mg tablet Take 1 tablet by mouth two times a day. benztropine (COGENTIN) 2 mg tablet Take 1 tablet by mouth two times a day. 1 to 2 tablets two times daily as needed gabapentin (NEURONTIN) 100 mg capsule Take 100 mg in the morning and 100 mg at noon gabapentin (NEURONTIN) 300 mg capsule Take 1 capsule by mouth daily at bedtime for 180 days. levothyroxine (SYNTHROID) 88 mcg tablet Take 1 tablet by mouth once daily. Take on empty stomach. For Thyroid phenytoin ER (DILANTIN) 100 mg ER capsule Take 1 capsule by mouth three times a day. albuterol HFA (VENTOLIN HFA) 90 mcg/actuation inhaler Inhale 2 Puffs as instructed every 4 hours as needed. Also use 2 puffs prior to exertion metFORMIN ER (GLUCOPHAGE XR) 500 mg 24 hr tablet Take 1 tablet by mouth daily with breakfast. buPROPion XL (WELLBUTRIN XL) 150 mg 24 hr tablet Take 1 tablet by mouth once daily. busPIRone (BUSPAR) 15 mg tablet Take 1 tablet by mouth three times a day. fluticasone (FLONASE) 50 mcg/actuation nasal spray Use 2 Sprays in each nostril once daily. ipratropium-albuterol (DUONEB) 0.5 mg-3 mg(2.5 mg base)/3 mL nebu Inhale 3 mL as instructed every 6 hours as needed for wheezing/shortness of breath. EPINEPHrine (EPIPEN) 0.3 mg/0.3 mL auto-injector Use as needed for bee sting then go to emergecny room for further evaluation and treatment after bee sting timolol hemihydrate (BETIMOL) 0.5 % ophthalmic solution Use 1 Drop in both eyes twice daily. COMPOUNDED PRESCRIPTION Nebulizer for home use. Dx: 493.90 cholestyramine (QUESTRAN) 4 gram packet Take 1 Packet by mouth once daily. for diarrhea (Patient taking differently: Take 1 Packet by mouth once daily as needed. for diarrhea) spironolactone (ALDACTONE) 25 mg tablet Take 1 tablet by mouth once daily as needed (swelling/fluid retention). (Patient not taking: Reported on 05/30/2024) No current facility-administered medications for (more content not included)... [facility] 05-30-2024 History of Presen t illness Narrative This note was created using [employer]. Subjective Kalli Jacobs is a 59 year old female. Patient presents with: Established Patient: Follow up SUBJECTIVE: Kalli Jacobs is a 59 year old year old lady here today for follow up appointment for review of medical conditions. The patient is a 59-year-old female with a history of seizures, presenting for follow-up. The patient reports significant improvement in her condition following a recent adjustment to her medication regimen by her psychiatrist, Dr. Feroz Brown. She is currently taking lithium, with one dose in the morning and two in the evening, and notes that the medication is working well. She mentions experiencing dizziness with the morning dose, which Dr. Joy Brown is addressing. Recent lithium levels were 1.3 mEq/L. She also reports a return of her voice and a reduction in stuttering, stating, I feel like a person again. She denies any issues with her seizure medication. The patient has been experiencing xerostomia and inquires about potential treatments. 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 She mentions a family history of Parkinson's disease and inquires about testing for the condition. The patient reports a weight loss of 1 lb over the past week, with a current weight of 165 lbs. She expresses a desire to reach a weight of 120-125 lbs, noting that she has not been in the 130s since having children. She inquires about the necessity of continuing metformin if she maintains a weight of 130 lbs. Her last recorded HbA1c was 5.7% in February of the previous year. She also mentions experiencing mild edema, particularly when walking or standing for extended periods, which she notes is worse in hot and humid weather. The patient has not yet scheduled a colonoscopy. She denies feelings of depression or hopelessness, stating she is happy and positive. She has a history of crack cocaine use but has been abstinent for 24 years as of May 01. She reports occasional marijuana use. PAST MEDICAL HISTORY Diagnosis Date Bee sting allergy 12/17/2007 By patient history Bipolar I disorder, most recent episode (or current) unspecified Borderline diabetes mellitus 09/14/2017 Esophageal reflux 09/02/2005 Hearing loss Hot flashes due to menopause Migraine with aura Other forms of epilepsy and recurrent seizures Unspecified asthma(493.90) Unspecified constipation Current Outpatient Medications Medication Sig lithium carbonate (ESKALITH) 150 mg capsule Take 1 capsule by mouth once daily. (Patient taking differently: Take 150 mg by mouth once daily. In the am) lithium carbonate (ESKALITH) 300 mg capsule Take 1 capsule by mouth daily at bedtime. estradiol (ESTRACE) 1 mg tablet Take 1 tablet by mouth once daily. Etodolac 500 mg tablet Take 1 tablet by mouth two times a day. benztropine (COGENTIN) 2 mg tablet Take 1 tablet by mouth two times a day. 1 to 2 tablets two times daily as needed gabapentin (NEURONTIN) 100 mg capsule Take 100 mg in the morning and 100 mg at noon gabapentin (NEURONTIN) 300 mg capsule Take 1 capsule by mouth daily at bedtime for 180 days. levothyroxine (SYNTHROID) 88 mcg tablet Take 1 tablet by mouth once daily. Take on empty stomach. For Thyroid phenytoin ER (DILANTIN) 100 mg ER capsule Take 1 capsule by mouth three times a day. albuterol HFA (VENTOLIN HFA) 90 mcg/actuation inhaler Inhale 2 Puffs as instructed every 4 hours as needed. Also use 2 puffs prior to exertion metFORMIN ER (GLUCOPHAGE XR) 500 mg 24 hr tablet Take 1 tablet by mouth daily with breakfast. buPROPion XL (WELLBUTRIN XL) 150 mg 24 hr tablet Take 1 tablet by mouth once daily. busPIRone (BUSPAR) 15 mg tablet Take 1 tablet by mouth three times a day. fluticasone (FLONASE) 50 mcg/actuation nasal spray Use 2 Sprays in each nostril once daily. ipratropium-albuterol (DUONEB) 0.5 mg-3 mg(2.5 mg base)/3 mL nebu Inhale 3 mL as instructed every 6 hours as needed for wheezing/shortness of breath. EPINEPHrine (EPIPEN) 0.3 mg/0.3 mL auto-injector Use as needed for bee sting then go to emergecny room for further evaluation and treatment after bee sting timolol hemihydrate (BETIMOL) 0.5 % ophthalmic solution Use 1 Drop in both eyes twice daily. COMPOUNDED PRESCRIPTION Nebulizer for home use. Dx: 493.90 cholestyramine (QUESTRAN) 4 gram packet Take 1 Packet by mouth once daily. for diarrhea (Patient taking differently: Take 1 Packet by mouth once daily as needed. for diarrhea) spironolactone (ALDACTONE) 25 mg tablet Take 1 tablet by mouth once daily as needed (swelling/fluid retention). (Patient not taking: Reported on 05/30/2024) No current facility-administered medications for this visit. Review of Systems Objective BP 104/62 Pulse 70 Temp 36.8 C (98.3 F) Resp 16 Wt 75.1 kg (165 lb 9.1 oz) LMP 01/30/2011 SpO2 99% BMI 31.28 kg/m Last 5 Encounter Wt Readings: Date: Wt: 05/30/2024 75.1 kg (165 lb 9.1 oz) 04/14/2024 77 kg (169 lb 12.1 oz) 03/28/2024 79.7 kg (175 lb 11.3 oz) 02/05/2024 81.2 kg (179 lb) 05/25/2023 88.5 kg (195 lb) No waist measurement recorded Estimated body mass index is 31.28 kg/m as calculated from the following: Height as of 04/14/24: 154.9 cm (5' 1). Weight as of this encounter: 75.1 kg (165 lb 9.1 oz). Last 5 Encounter BP Readings: Date: BP: 05/30/2024 104/62 03/28/2024 124/72 02/05/2024 146/92 05/25/2023 118/77 02/06/2023 110/72 Physical Exam Constitutional: Appearance: Normal appearance. HENT: Head: Normocephalic. Eyes: Conjunctiva/sclera: Conjunctivae normal. Cardiovascular: Rate and Rhythm: Normal rate and regular rhythm. Heart sounds: Normal heart sounds. Pulmonary: Effort: Pulmonary effort is normal. Breath sounds: Normal breath sounds. Skin: General: Skin is warm and dry. Findings: No lesion or rash. Neurological: General: No focal deficit present. Mental Status: She is alert and oriented to person, place, and time. Comments: occasional stuttering but speech mostly fluent Psychiatric: Attention and Perception: Attention and perception normal. Mood and Affect: Mood and affect normal. Speech: Speech normal. Behavior: Behavior normal. Thought Content: Thought content normal. Judgment: Judgment normal. Latest Ref Rng 02/20/2023 03/20/2023 04/07/2023 02/05/2024 05/28/2024 WBC 3.70 - 11.00 k/uL 15.14 (H) 12.80 (H) 13.82 (H) RBC 3.90 - 5.20 m/uL 4.80 4.45 4.54 Hemoglobin 11.5 - 15.5 g/dL 13.7 12.9 12.6 Hematocrit 36.0 - 46.0 % 43.7 41.5 41.6 MCV 80.0 - 100.0 fL 91.0 93.3 91.6 MCH 26.0 - 34.0 pg 28.5 29.0 27.8 MCHC 30.5 - 36.0 g/dL 31.4 31.1 30.3 (L) RDW-CV 11.5 - 15.0 % 13.3 13.7 12.5 Platelet Count 150 - 400 k/uL 393 201 333 MPV 9.0 - 12.7 fL 10.7 12.9 (H) 11.6 Neut% % 62.6 67.1 Abs Neut (ANC) 1.45 - 7.50 k/uL 8.02 (H) 9.28 (H) Lymph% % 26.8 23.2 Abs Lymph 1.00 - 4.00 k/uL 3.[address] [place]% % 6.[address] [place] <0.87 k/uL 0.84 0.69 Eosin% % 3.0 3.8 Abs Eosin <0.46 k/uL 0.38 0.52 (H) Baso% % 0.6 0.5 Abs Baso <0.11 k/uL 0.08 0.07 Immature Gran % % 0.4 0.4 IMMATURE GRANS (ABS) <0.10 k/uL 0.05 0.06 NRBC /100 WBC 0.0 0.0 Absolute nRBC <0.01 k/uL <0.01 <0.01 <0.01 DTYPE Auto Auto Protein, Total 6.3 - 8.0 g/dL 7.7 7.8 Albumin 3.9 - 4.9 g/dL 4.7 4.7 Calcium 8.5 - 10.2 mg/dL 9.5 10.1 Bilirubin, Total 0.2 - 1.3 mg/dL <0.2 (L) 0.3 Alkaline Phosphatase 34 - 123 U/L 178 (H) 165 (H) AST 13 - 35 U/L 42 (H) 22 ALT 7 - 38 U/L 44 (H) 20 Glucose 74 - 99 mg/dL 102 (H) 101 (H) BUN 7 - 21 mg/dL 7 9 Creatinine 0.58 - 0.96 mg/dL 0.79 0.92 Sodium 136 - 144 mmol/L 139 137 Potassium 3.7 - 5.1 mmol/L 4.2 4.3 Chloride 98 - 107 mmol/L 102 101 CO2 22 - 30 mmol/L 23 26 Anion Gap 8 - 15 mmol/L 14 10 eGFR >=60 mL/min/1.73m 88 73 Cholesterol, Total <200 mg/dL 257 (H) 259 (H) Triglyceride <150 mg/dL 118 198 (H) HDL Cholesterol >39 mg/dL 57 46 Non HDL Cholesterol <130 mg/dL 200 (H) 213 (H) Fasting Time hrs 13 12 VLDL Cholesterol <30 mg/dL 24 40 (H) TC:HDL Ratio <5.10 4.51 5.63 (H) LDL Cholesterol <100 mg/dL 176 (H) 173 (H) LDL:HDL Ratio <2.54 3.09 (H) 3.76 (H) Iron 41 - 186 ug/dL 103 75 94 TIBC 232 - 386 ug/dL -- 334 345 Transferrin Saturation 15.0 - 57.0 % -- 22.5 27.2 Hemoglobin A1C 4.3 - 5.6 % 5.7 (H) Estimated Average Glucose mg/dL 117 Actin Smooth Muscle IgG Qualitative Negative Negative Actin Smooth Muscle IgG Quantitative <20 Units 10 TSH 0.270 - 4.200 mIU/L 3.600 1.870 Free T4 0.9 - 1.7 ng/dL 1.1 Free T3 2.3 - 4.1 pg/mL 2.6 Phenytoin 10.0 - 20.0 ug/mL 7.7 (L) 5.9 (L) Ferritin 14.7 - 205.1 ng/mL 599.0 (H) 616.0 (H) 380.0 (H) [place]alman 0.6 - 1.2 mmol/L 1.2 1.3 (H) Legend: (H) High (L) Low Hemoglobin A1C (%) Date Value 02/20/2023 5.7 06/02/2022 5.8 05/20/2021 5.9 12/26/2020 6.1 04/08/2018 5.3 Assessment and Plan # Dysmetabolic syndrome (E88.810) # Class 1 obesity due to excess calories with body mass index (BMI) of 33.0 to 33.9 in adult, unspecified whether serious comorbidity present (E66.811) - Weight has decreased by 4 lbs since March, currently at 165 lbs. - Discussed target weight range; patient is 5'1. - Ordered HbA1c to monitor glycemic control. - Continue current dietary and exercise regimen. # Dystonia (G24.9) - Symptoms have improved with recent medication adjustments by Dr. Feroz Brown. - No further interventions required at this time. # Dry mouth (R68.2) - Likely secondary to medication use. - Recommended dadf-hrb-hmanryn saliva substitutes such as Biotene. - Advised increased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 Wheelchair, Crutches, etc.)? Yes, Patient High Risk for Falls What interventions were put in place to prevent falls during this visit? Increased Observations by Caregivers PATIENT GENDER DATA: Female. status: : No status: NO. PATIENT RELEVANT IMPLANT DATA REVIEWED: Not Applicable PATIENT PRESENTS WITH AN IMPLANTABLE OR ATTACHED REGULATED PROGRAM MANAGER: No RADIOLOGY DEPARTMENT: Ultrasound PERIPHERAL IV DATA: Not applicable SIGNED BY: Amparo Flood RDMS February 25, 2024 11:55 AM documented in this encounter [facility] 02-24-2024 Telephone encounter Note The patient has been identified by name and date of : Yes Caregiver verified no other encounters exist for this prescription request: Yes Caregiver confirmed with patient/requestor that no other refills are due, in the near future, with this provider at this time: Yes The last office visit in the department: 02/05/2024 Does the patient have a future office visit with this provider/department: Yes 05/30/2024 Requested Prescriptions Pending Prescriptions Disp Refills albuterol HFA (VENTOLIN HFA) 90 mcg/actuation inhaler 8 g 3 Sig: Inhale 2 Puffs as instructed every 4 hours as needed. Also use 2 puffs prior to exertion Ruby Bellamy LPN February 24, 2024 10:43 AM [facility] 02-24-2024 Miscellaneous Notes The patient has been identified by name and date of : Yes Caregiver verified no other encounters exist for this prescription request: Yes Caregiver confirmed with patient/requestor that no other refills are due, in the near future, with this provider at this time: Yes The last office visit in the department: 02/05/2024 Does the patient have a future office visit with this provider/department: Yes 05/30/2024 Requested Prescriptions Pending Prescriptions Disp Refills albuterol HFA (VENTOLIN HFA) 90 mcg/actuation inhaler 8 g 3 Sig: Inhale 2 Puffs as instructed every 4 hours as needed. Also use 2 puffs prior to exertion Ruby Bellamy LPN February 24, 2024 10:43 AM documented in this encounter [facility] 02-10-2024 Telephone encounter Note Spoke with patient. Given message from provider's office. Patient verbalizes understanding. Diamond Elliott RN [facility] 02-10-2024 Miscellaneous Notes Spoke with patient. Given message from provider's office. Patient verbalizes understanding. Diamond Elliott RN Please let her know that thyroid, blood counts, metabolic panel, and lithium are all stable and with in acceptable limits. Iron panel is also normal, ferritin is still high but improving. Dilantin level is stable. Cholesterol is up some, overall risk is still under 7.5% so medication does not need added but we should continue to monitor the cholesterol levels regularly. Pinky Garcia APRN.DESIGN ARCHITECT The 10-year ASCVD risk score (Doe LUNA, et al., 2019) is: 4.6% Values used to calculate the score: Age: 58 years Sex: Female Is Non- : No Diabetic: No Tobacco smoker: No Systolic Blood Pressure: 146 mmHg Is BP treated: No HDL Cholesterol: 46 mg/dL Total Cholesterol: 259 mg/dL Patient calling for lab results done 02/05/24. Diamond Elliott RN documented in this encounter [facility] 02-10-2024 Telephone encounter Note Please let her know that thyroid, blood counts, metabolic panel, and lithium are all stable and with in acceptable limits. Iron panel is also normal, ferritin is still high but improving. Dilantin level is stable. Cholesterol is up some, overall risk is still under 7.5% so medication does not need added but we should continue to monitor the cholesterol levels regularly. Pinky Garcia APRN.CNP The 10-year ASCVD risk score (Doe LUNA, et al., 2019) is: 4.6% Values used to calculate the score: Age: 58 years Sex: Female Is Non- : No Diabetic: No Tobacco smoker: No Systolic Blood Pressure: 146 mmHg Is BP treated: No HDL Cholesterol: 46 mg/dL Total Cholesterol: 259 mg/dL [facility] 02-08-2024 Telephone encounter Note Patient calling for lab results done 02/05/24. Diamond Elliott RN [facility] 02-05-2024 History of Presen t illness Narrative Images from the original note were not included. CC: Patient presents with: lump on chin HPI Kalli Jacobs is a 58 year old female who presents today for above. Patient states she has noticed a lump on the underside of her chin on the right x 3 months. She describes it as soft and squishy, tender to the touch but does not cause pain otherwise. She does mention it causes her jaw to lock up when she talks a lot. Does not interfere with eating or opening/closing her mouth. Denies fever, chills, night sweats, unintentional weight loss, dysphagia, sore throat, ear/jaw pain. Review of Systems See HPI PAST MEDICAL HISTORY Diagnosis Date Bee sting allergy 12/17/2007 By patient history Bipolar I disorder, most recent episode (or current) unspecified Borderline diabetes mellitus 09/14/2017 Esophageal reflux 09/02/2005 Hearing loss Hot flashes due to menopause Migraine with aura Other forms of epilepsy and recurrent seizures Unspecified asthma(493.90) Unspecified constipation PAST SURGICAL HISTORY Procedure Laterality Date APPENDECTOMY HX ARTHROSCOPY KNEE DIAGNOSTIC W/WO SYNOVIAL BX SPX 1998 Arthroscopy, knee right DEL W/ ANTE/POST CARE x 4 COLONOSCOPY FLX DX W/COLLJ SPEC WHEN PFRMD 08/28/05 LAPAROSCOPY SURG CHOLECYSTECTOMY 2003 Cholecystectomy, lap RPR 1ST INGUN HRNA AGE 6 YRS/> REDUCIBLE Hernia repair, inguinal RPR 1ST INGUN HRNA FULL TERM INFT <6 MO [facility] 07/2005 TONSILLECTOMY HX TONSILLECTOMY PRIMARY/SECONDARY <AGE 13 Tonsillectomy TOTAL ABDOMINAL HYSTERECT W/WO RMVL TUBE OVARY Hysterectomy, JIMMY ALLERGIES Asa [Salicylates], Advair Diskus [Fluticasone Propion-Salmeterol], and [place] Trees [Trees] MEDICATIONS Etodolac 500 mg tablet Take 1 tablet by mouth two times a day. gabapentin (NEURONTIN) 300 mg capsule Take 1 capsule by mouth daily at bedtime for 180 days. metFORMIN ER (GLUCOPHAGE XR) 500 mg 24 hr tablet Take 1 tablet by mouth daily with breakfast. nortriptyline (PAMELOR) 25 mg capsule Take 1 capsule by mouth daily at bedtime. (Patient not taking: Reported on 02/05/2024) phenytoin ER (DILANTIN) 100 mg ER capsule Take 1 capsule by mouth three times a day. estradiol (ESTRACE) 1 mg tablet Take 1 tablet by mouth once daily. buPROPion XL (WELLBUTRIN XL) 150 mg 24 hr tablet Take 1 tablet by mouth once daily. albuterol HFA (VENTOLIN HFA) 90 mcg/actuation inhaler Inhale 2 Puffs as instructed every 4 hours as needed. Also use 2 puffs prior to exertion lithium carbonate (ESKALITH) 300 mg capsule Take 1 capsule by mouth two times a day with meals. dicyclomine (BENTYL) 20 mg tablet Take 1 tablet by mouth three times a day. (Patient not taking: Reported on 02/05/2024) omeprazole (PRILOSEC) 40 mg capsule Take 1 capsule by mouth once daily. (Patient not taking: Reported on 02/05/2024) QUEtiapine (SEROQUEL) 50 mg tablet Take 1 tablet by mouth daily at bedtime. busPIRone (BUSPAR) 15 mg tablet Take 1 tablet by mouth three times a day. fluticasone (FLONASE) 50 mcg/actuation nasal spray Use 2 Sprays in each nostril once daily. montelukast (SINGULAIR) 10 mg tablet Take 1 tablet by mouth daily at bedtime. (Patient not taking: Reported on 02/05/2024) levothyroxine (SYNTHROID) 88 mcg tablet Take 1 tablet by mouth once daily. Take on empty stomach. For Thyroid cholestyramine (QUESTRAN) 4 gram packet Take 1 Packet by mouth once daily. for diarrhea ipratropium-albuterol (DUONEB) 0.5 mg-3 mg(2.5 mg base)/3 mL nebu Inhale 3 mL as instructed every 6 hours as needed for wheezing/shortness of breath. EPINEPHrine (EPIPEN) 0.3 mg/0.3 mL auto-injector Use as needed for bee sting then go to emergecny room for further evaluation and treatment after bee sting spironolactone (ALDACTONE) 25 mg tablet Take 1 tablet by mouth once daily as needed (swelling/fluid retention). timolol hemihydrate (BETIMOL) 0.5 % ophthalmic solution Use 1 Drop in both eyes twice daily. COMPOUNDED PRESCRIPTION Nebulizer for home use. Dx: 493.90 FAMILY HISTORY Problem Relation Age of Onset Hypertension Father Cancer Father Lung, renal and prostate Colon Cancer Mother at age 61 Seizures Mother other (epilepsy) Mother other (precancer cells cervix) Daughter Social History Tobacco Use Smoking status: Former Packs/day: 0.50 Years: 30.00 Additional pack years: 0.00 Total pack years: 15.00 Types: Cigarettes Quit date: 02/28/2021 Years since quittin.9 Smokeless tobacco: Former Tobacco comments: Currently vapes but no nicotine in it. Just likes th flavor Substance Use Topics Alcohol use: Yes Comment: Occasionally Drug use: Not Currently Types: Crack Cocaine Comment: Quit in 1999 BP 146/92 Pulse 74 Resp 16 Wt 81.2 kg (179 lb) LMP 01/30/2011 SpO2 97% BMI 33.82 kg/m Physical Exam Vitals reviewed. Constitutional: Appearance: Normal appearance. Neck: Lymphadenopathy: Head: Right side of head: No submental, submandibular, tonsillar, preauricular, posterior auricular or occipital adenopathy. Cervical: No cervical adenopathy. Upper Body: Right upper body: No supraclavicular adenopathy. Left upper body: No supraclavicular adenopathy. Neurological: Mental Status: She is alert. ASSESSMENT/PLAN: 1. Localized swelling, mass or lump of neck - ICD9: 784.2, ICD10: R22.1 I am unable to palpate lump patient is referring to. She states is is only really noticeable when she talks a lot. No alarm symptoms or exam findings. Recommend further evaluation with ultrasound, patient is agreeable - US HEAD/NECK SOFT TISSUE OTHER Prescription instructions reviewed with patient as applicable. Potential red flag symptoms discussed with the patient. Reviewed appropriate action plan to take if red flag symptoms occur. Patient agreeable to treatment plan. Albina Mi APRN.DESIGN ARCHITECT documented in this encounter [facility] 12-31-2023 Telephone encounter Note Patient has been identified by name and date of : Yes, Provider Dr Garcia Date 12/31/23 Time 1104. Pharmacy phones for refill(s): Requested Prescriptions Pending Prescriptions Disp Refills Etodolac 500 mg tablet 60 tablet 3 Sig: Take 1 tablet by mouth two times a day. gabapentin (NEURONTIN) 300 mg capsule 90 capsule 1 Sig: Take 1 capsule by mouth daily at bedtime for 180 days. metFORMIN ER (GLUCOPHAGE XR) 500 mg 24 hr tablet 30 tablet 5 Sig: Take 1 tablet by mouth daily with breakfast. nortriptyline (PAMELOR) 25 mg capsule 30 capsule 5 Sig: Take 1 capsule by mouth daily at bedtime. Date of last office visit in primary care: 09/28/2023 Date of next office visit in primary care: 01/28/2024 Please advise. Thank you. Snow Vences RN. [facility] 12-31-2023 Miscellaneous Notes Patient has been identified by name and date of : Yes, Provider Dr Garcia Date 12/31/23 Time 1104. Pharmacy phones for refill(s): Requested Prescriptions Pending Prescriptions Disp Refills Etodolac 500 mg tablet 60 tablet 3 Sig: Take 1 tablet by mouth two times a day. gabapentin (NEURONTIN) 300 mg capsule 90 capsule 1 Sig: Take 1 capsule by mouth daily at bedtime for 180 days. metFORMIN ER (GLUCOPHAGE XR) 500 mg 24 hr tablet 30 tablet 5 Sig: Take 1 tablet by mouth daily with breakfast. nortriptyline (PAMELOR) 25 mg capsule 30 capsule 5 Sig: Take 1 capsule by mouth daily at bedtime. Date of last office visit in primary care: 09/28/2023 Date of next office visit in primary care: 01/28/2024 Please advise. Thank you. Snow Vences RN. documented in this encounter [facility] 11-30-2023 Miscellaneous Notes Patient has been identified by name and date of : Yes, Provider Joanie Date 11-30-23 Time 3:07 pm Pharmacy phones for refill(s): Requested Prescriptions Pending Prescriptions Disp Refills phenytoin ER (DILANTIN) 100 mg ER capsule 90 capsule 5 Sig: Take 1 capsule by mouth three times a day. estradiol (ESTRACE) 1 mg tablet 30 tablet 5 Sig: Take 1 tablet by mouth once daily. buPROPion XL (WELLBUTRIN XL) 150 mg 24 hr tablet 90 tablet 3 Sig: Take 1 tablet by mouth once daily. Date of last office visit in primary care: 09/28/2023 Date of next office visit in primary care: 01/28/2024 Please advise. Thank you. Christiano Rangel RN. documented in this encounter [facility] 11-05-2023 Miscellaneous Notes Patient has been identified by name and date of : Pharmacy phones for refill(s): Requested Prescriptions Pending Prescriptions Disp Refills albuterol HFA (VENTOLIN HFA) 90 mcg/actuation inhaler 8 g 3 Sig: Inhale 2 Puffs as instructed every 4 hours as needed. Also use 2 puffs prior to exertion lithium carbonate (ESKALITH) 300 mg capsule 60 capsule 5 Sig: Take 1 capsule by mouth two times a day with meals. Date of last office visit in primary care: 09/28/2023 Date of next office visit in primary care: 01/28/2024 Please advise. Thank you. Violeta Alegria LPN. documented in this encounter [facility] 10-07-2023 Miscellaneous Notes Patient has been identified by name and date of : Yes, Provider Dr Garcia Date 10/07/23 Time 1552. Pharmacy phones for refill(s): Requested Prescriptions Pending Prescriptions Disp Refills Etodolac 500 mg tablet 60 tablet 3 Sig: Take 1 tablet by mouth two times a day. Date of last office visit in primary care: 09/28/2023 Date of next office visit in primary care: 01/28/2024 Please advise. Thank you. Snow Vences, SIMBA. documented in this encounter [facility] 09-28-2023 Instructions Dayton Garcia MD - 09/28/2023 12:29 PM EST Get labs in the next month documented in this encounter [facility] 09-28-2023 History of Presen t illness Narrative This note was created using [employer]-Medics[employer]. Subjective Kalli Jacobs is a 58 year old female. Patient presents with: Follow Up SUBJECTIVE: Kalli Jacobs is a 58 year old year old lady here today for follow up appointment for review of medical conditions. Has great granddaughter. Has roes on upper lip. Noticed a week ago. No pain noted. No rash on rest of face note. Noticed the past few months feels like muscles tighten up. Does not think anxiety triggers this. Vision has been bothering her. Glaucoma and cataract. Had not pursued treatment yet so thinks will need to get surgery now. Told might need laser surgery. Overall doing well with weight slowly coming down. PAST MEDICAL HISTORY Diagnosis Date Bee sting allergy 12/17/2007 By patient history Bipolar I disorder, most recent episode (or current) unspecified Borderline diabetes mellitus 09/14/2017 Esophageal reflux 09/02/2005 Hearing loss Hot flashes due to menopause Migraine with aura Other forms of epilepsy and recurrent seizures Unspecified asthma(493.90) Unspecified constipation Current Outpatient Medications Medication Sig dicyclomine (BENTYL) 20 mg tablet Take 1 tablet by mouth three times a day. omeprazole (PRILOSEC) 40 mg capsule Take 1 capsule by mouth once daily. QUEtiapine (SEROQUEL) 50 mg tablet Take 1 tablet by mouth daily at bedtime. busPIRone (BUSPAR) 15 mg tablet Take 1 tablet by mouth three times a day. fluticasone (FLONASE) 50 mcg/actuation nasal spray Use 2 Sprays in each nostril once daily. albuterol HFA (VENTOLIN HFA) 90 mcg/actuation inhaler Inhale 2 Puffs as instructed every 4 hours as needed. Also use 2 puffs prior to exertion metFORMIN ER (GLUCOPHAGE XR) 500 mg 24 hr tablet Take 1 tablet by mouth daily with breakfast. nortriptyline (PAMELOR) 25 mg capsule Take 1 capsule by mouth daily at bedtime. montelukast (SINGULAIR) 10 mg tablet Take 1 tablet by mouth daily at bedtime. estradiol (ESTRACE) 1 mg tablet Take 1 tablet by mouth once daily. Etodolac 500 mg tablet Take 1 tablet by mouth two times a day. phenytoin ER (DILANTIN) 100 mg ER capsule Take 1 capsule by mouth three times a day. gabapentin (NEURONTIN) 300 mg capsule Take 1 capsule by mouth daily at bedtime for 180 days. Do not start before July 19, 2023. levothyroxine (SYNTHROID) 88 mcg tablet Take 1 tablet by mouth once daily. Take on empty stomach. For Thyroid lithium carbonate (ESKALITH) 300 mg capsule Take 1 capsule by mouth two times a day with meals. cholestyramine (QUESTRAN) 4 gram packet Take 1 Packet by mouth once daily. for diarrhea ipratropium-albuterol (DUONEB) 0.5 mg-3 mg(2.5 mg base)/3 mL nebu Inhale 3 mL as instructed every 6 hours as needed for wheezing/shortness of breath. EPINEPHrine (EPIPEN) 0.3 mg/0.3 mL auto-injector Use as needed for bee sting then go to emergecny room for further evaluation and treatment after bee sting buPROPion XL (WELLBUTRIN XL) 150 mg 24 hr tablet Take 1 tablet by mouth once daily. spironolactone (ALDACTONE) 25 mg tablet Take 1 tablet by mouth once daily as needed (swelling/fluid retention). timolol hemihydrate (BETIMOL) 0.5 % ophthalmic solution Use 1 Drop in both eyes twice daily. COMPOUNDED PRESCRIPTION Nebulizer for home use. Dx: 493.90 No current facility-administered medications for this visit. Review of Systems Objective BP (P) 112/78 (BP Site: Left Arm, BP Position: Sitting, BP Cuff Size: Large Adult) Pulse (P) 78 Wt (P) 88.9 kg (196 lb) LMP 01/30/2011 BMI (P) 37.03 kg/m Last 5 Encounter Wt Readings: Date: Wt: 05/25/2023 88.5 kg (195 lb) 02/06/2023 94.3 kg (208 lb) 10/13/2022 92.5 kg (203 lb 14.4 oz) 09/02/2022 94.3 kg (208 lb) 06/20/2022 95.3 kg (210 lb) No waist measurement recorded Estimated body mass index is 37.03 kg/m (pended) as calculated from the following: Height as of 09/11/17: 154.9 cm (5' 1). Weight as of this encounter: (P) 88.9 kg (196 lb). Last 5 Encounter BP Readings: Date: BP: 05/25/2023 118/77 02/06/2023 110/72 10/13/2022 124/78 09/02/2022 119/83 06/20/2022 118/62 Physical Exam Constitutional: Appearance: Normal appearance. HENT: Head: Normocephalic. Eyes: Conjunctiva/sclera: Conjunctivae normal. Cardiovascular: Rate and Rhythm: Normal rate and regular rhythm. Heart sounds: Normal heart sounds. Pulmonary: Effort: Pulmonary effort is normal. Breath sounds: Normal breath sounds. Musculoskeletal: Right lower leg: No edema. Left lower leg: No edema. Skin: General: Skin is warm and dry. Neurological: General: No focal deficit present. Mental Status: She is alert and oriented to person, place, and time. Psychiatric: Mood and Affect: Mood normal. Behavior: Behavior normal. Thought Content: Thought content normal. Judgment: Judgment normal. Labs not done yet Assessment and Plan Encounter Diagnosis ICD-10-CM 1. Elevated ferritin R79.89 Discussed should get labs soon 2. 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 3. Bipolar I disorder (HCC) F31.9 Controlled with [place] 4. Anxiety F41.9 Stable on current meds 5. Acquired hypothyroidism E03.9 get thyroid lab updated; adjust dose as needed 6. Class 2 obesity due to excess calories with body mass index (BMI) of 37.0 to 37.9 in adult, unspecified whether serious comorbidity present E66.09 Z68.37 Needs to keep working on better diet and regular exercise to lose weight successfully Above issues addressed with patient. Patient involved in shared decision making for management of medical issues. History and medications reviewed. Epic updated as needed Refills and/or prescriptions taken care of and meds adjusted as indicated after reviewed history, exam and labs. Health Maintenance reviewed. Updated record and/or ordered tests as recorded. Encouraged on efforts at healthy diet and regular exercise and adequate sleep. Dayton Garcia MD documented in this encounter [facility] 07-17-2023 Miscellaneous Notes Patient has been identified by name and date of : Pharmacy phones for refill(s): Requested Prescriptions Pending Prescriptions Disp Refills albuterol HFA (VENTOLIN HFA) 90 mcg/actuation inhaler 8 g 3 Sig: Inhale 2 Puffs as instructed every 4 hours as needed. Also use 2 puffs prior to exertion metFORMIN ER (GLUCOPHAGE XR) 500 mg 24 hr tablet 30 tablet 5 Sig: Take 1 tablet by mouth daily with breakfast. nortriptyline (PAMELOR) 25 mg capsule 30 capsule 5 Sig: Take 1 capsule by mouth daily at bedtime. montelukast (SINGULAIR) 10 mg tablet 30 tablet 11 Sig: Take 1 tablet by mouth daily at bedtime. Date of last office visit in primary care: 05/25/2023 Date of next office visit in primary care: 09/21/2023 Last 2 Encounter Wt Readings: Date: Wt: 05/25/2023 88.5 kg (195 lb) 02/06/2023 94.3 kg (208 lb) Previous labs/tests for medication: Diabetes: Hemoglobin A1C (%) Date Value 02/20/2023 5.7 06/02/2022 5.8 05/20/2021 5.9 12/26/2020 6.1 Blood Pressure: BUN (mg/dL) Date Value 02/20/2023 7 05/20/2021 5 Sodium (mmol/L) Date Value 02/20/2023 139 05/20/2021 135 Last 1 Encounter BP Readings: Date: BP: 05/25/2023 118/77 Please advise. Thank you. Violeta Alegria LPN. documented in this encounter [facility] 06-19-2023 Miscellaneous Notes Last seen [facility] [facility] 05/25/23 Patient has been identified by name and date of : Yes Requested Prescriptions Pending Prescriptions Disp Refills Etodolac 500 mg tablet 60 tablet 3 Sig: Take 1 tablet by mouth two times a day. phenytoin ER (DILANTIN) 100 mg ER capsule 90 capsule 2 Sig: Take 1 capsule by mouth three times a day. RX INSTRUCTIONS: Pharmacy initiated this request. No need to notify patient. Marguerite Leigh documented in this encounter [facility] 05-26-2023 Miscellaneous Notes rx re-sent Amparo from [facility] calls and is asking for clarification on patient's Estradiol. Did provider increase the dose? If dose was increased the previous 1 mg dose was discontinued and new script would need to be sent to [facility]. Please review and advise, Gabriela Oro RN documented in this encounter [facility] 05-22-2023 Miscellaneous Notes Last Office Visit: 02/06/2023 Future Office Visit: 05/25/2023 Requested Prescriptions Pending Prescriptions Disp Refills levothyroxine (SYNTHROID) 88 mcg tablet 30 tablet 11 Sig: Take 1 tablet by mouth once daily. Take on empty stomach. For Thyroid lithium carbonate (ESKALITH) 300 mg capsule 60 capsule 5 Sig: Take 1 capsule by mouth two times a day with meals. Date of Last Labs: 03/20/2023 documented in this encounter [facility] 04-12-2023 Discharge summary Note Date/Time April 12, 2023 8:25pm [facility] Medical Records Department [address] [place] [address] Emergency Department Summary 04/12/23 MR#: [id number] Acct: [id number] Name: KALLI JACOBS Rep #:[id number] : 1965 58 From: Mikey Wallis MD PCP: Dr. Dayton Garcia MD Status:RE G ER Location: ED HPI History of Present Illness Chief Complaint: Lower Extremity Injury Narrative Narrative: 58-year-old female states she walks with a cane chronically for the last few years presents with injury to her left ankle that she sustained earlier today. She states she was walking home with her son, stepped in a hole by accident, heard a snap and now has swelling about her lateral malleolus. She has pain with weightbearing and walking. She denies hitting her head or loss of consciousness, and denies other injury. She presents because of the pain in herleft ankle. [facility] Medical History Anxiety Bipolar 1 disorder Epilepsy History of hiatal hernia Hypothyroid Home Medications phenytoin sodium extended 100 mg capsule 100 mg PO 4X/DAY 02/23/14 [History Last Taken 05/31/17] timolol maleate 0.5 % eye gel forming solution (Timoptic-XE) 1 drp BID 02/23/14 [History Last Taken 05/31/17] fluticasone propionate 50 mcg/actuation nasal spray,suspension 1 puff DAILY 02/24/17 [History Last Taken 05/31/17] nortriptyline 25 mg capsule 25 mg PO QHS 02/24/17 [History Last Taken 05/30/17] albuterol sulfate 90 mcg/actuation aerosol inhaler (ProAir HFA) 1 - 2 puff inhalation Q4H PRN PRN Sob &/Or Wheezing 03/11/17 [History Last Taken Unknown] buspirone 10 mg tablet 15 mg PO BID 05/24/17 [History Last Taken 05/31/17] albuterol sulfate 2.5 mg/3 mL (0.083 %) solution for nebulization 2.5 mg inhalation Q4H PRN PRN Sob &/Or Wheezing 08/09/17 [History Last Taken Unknown] epinephrine 0.3 mg/0.3 mL injection, auto-injector 0.3 mg IM X1 08/09/17 [History Last Taken Unknown] omeprazole 20 mg capsule,delayed release 40 mg PO DAILY 08/09/17 [History Last Taken Unknown] lithium carbonate 150 mg capsule 150 mg PO TID 05/14/18 [History Last Taken Unknown] levothyroxine 25 mcg tablet 75 mcg PO DAILY 09/01/19 [History Last Taken Unknown] azelastine 137 mcg (0.1 %) nasal spray aerosol 1 spray intranasal BID 03/05/21 [History Last Taken Unknown] montelukast 10 mg tablet 10 mg PO QHS 03/05/21 [History Last Taken Unknown] quetiapine 50 mg tablet 50 mg PO QHS 03/05/21 [History Last Taken Unknown] spironolactone 25 mg tablet 25 mg PO DAILY 03/05/21 [History Last Taken Unknown] sulfamethoxazole 800 mg-trimethoprim 160 mg tablet 1 tab PO BID #14 TABLETS 03/05/21 [Rx Last Taken Unknown] amoxicillin 500 mg-potassium clavulanate 125 mg tablet (Augmentin) 1 tab PO Q8H #15 tabs 01/19/22 [Rx Last Taken Unknown] hydrocodone-acetaminophen 5-325mg 5mg-325mg 1 tab PO Q6H PRN pain 3 days #12 tabs 04/12/23 [Rx Last Taken Unknown] Allergy/AdvReac Type Severity Reaction Status Date / Time venom-honey bee Allergy Anaphylaxis Verified 04/12/23 19:40 [bee venom (honey bee)] aspirin AdvReac Other Verified 04/12/23 19:40 fluticasone propionate AdvReac Upset Verified 04/12/23 19:40 [From Advair Diskus] Stomach salmeterol xinafoate AdvReac Upset Verified 04/12/23 19:40 [From Advair Diskus] Stomach TIDE LAUNDRY DETERGENT Allergy Rash Uncoded 03/05/21 13:24 Surgical History History of cholecystectomy History of inguinal hernia repair History of tonsillectomy Hx of appendectomy Hx of hysterectomy Social History Smoking Status: Current every day smoker tobacco type: e-cigarettes ROS ROS ED ROS Narrative Constitutional: No fever, no chills. HEENT: No sore throat. No neck pain. No loss of vision. No rhinorrhea. Cardiovascular: No chest pain. No palpitations. No pedal edema. Respiratory: No cough, no shortness of breath. Abdominal: No abdominal pain. No nausea. No vomiting. Genitourinary: No dysuria. No hematuria. Musculoskeletal: No myalgias. Left ankle pain, left lateral ankle swelling worse with weightbearing and movement. Neurologic: No headaches. No dizziness. No lightheadedness. Skin: No rash. No change in color. Psychiatric: No depression. No anxiety. EXAM Physical Exam Narrative Exam Narrative: Afebrile. Vital signs noted. HEENT: Normocephalic. Atraumatic. PERRL, EOMI. Neck soft and supple. No pointtenderness or step off. Cardiovascular: Regular rate and rhythm. No murmurs, rubs, or gallops appreciated. Respiratory: No tachypnea. Lungs clear to auscultation bilaterally. Gastrointestinal: Abdomen soft, nontender, with normoactive bowel sounds. No rebound or guarding. Neurological: Awake. Alert. Nonfocal, nonlateralizing. Skin: No rash. Normal color. No pallor. Musculoskeletal: Positive swelling left lateral malleolus with tenderness to palpation. Palpable dorsalis pedis pulse. No pain at base of fifth metatarsal. No palpable Achilles tendon deficit. Flexion extension is limited secondary topain. Able to flex and extend knee without difficulty. No proximal fibular head tenderness. Const Vital Signs: 04/12/23 19:40 Temperature 97.4 F L Temperature Source Temporal Pulse Rate 101 H Respiratory Rate 16 Blood Pressure 119/85 H Blood Pressure Mean 96 Pulse Ox 99 MDM MDM MDM Narrative Medical decision making narrative: Concern is for fracture versus sprain of the left ankle. Given the amount of swelling and pain, she was administered [place] 1 tablet orally here for analgesia. X-rays were obtained per nursing protocol of the ankle in 3 views interpreted by myself independently and I see a nondisplaced De a fracture ofthe distal fibula. I reviewed the radiology report. It confirms a nondisplacedfracture of the distal fibula. I discussed patient with Dr. Zepeda with podiatry who recommended splinting and crutches. Initially, patient wanted a walking boot, but she was told that she may not bear weight on this nondisplaced fracture because if it becomes displaced she will require surgery. She agreed to crutches and a sugar-tong splint. Patient was examined pre and post splint application and has good capillary refill and is still able to wiggle her toes. At this point in time, she was written a prescription for 12 [place] tablets. Shewill be given crutches and made nonweightbearing on her left lower extremity. Istressed the importance of this along with follow-up with Dr. Zepeda. She is to call the office tomorrow for an appointment to be seen in the next few days. I feel she can be discharged safely home with follow-up. I had discussed with herpossible admission if she would not manage well at home, but she states she willdo well with the crutches and will follow-up. Return instructions were reviewed. Disposition is discharged home in stable condition. Radiography Diagnostic Testing: Clinical Impression(s) from Imaging Studies Ankle X-Ray 04/12/23 19:50 IMPRESSION: Nondisplaced fracture seen across the tip of the lateral malleolus. Electronically Signed: John Barclay MD at 20:33 EDT , Procedures Lower Extremity Splints Lower Extremity Splint: Orthoglass and Stirrup Splint Fabrication: Fabricated Location: Left Discharge Plan Triage Chief Complaint: Lower Extremity Injury ED Provider: Mikey Wallis Dx/Rx/DC Orders Clinical Impression: Fracture of distal end of left fibula, Fall Instructions: ED Ankle Fracture, Distal Fibula Prescriptions: New hydrocodone-acetaminophen 5-325 mg tablet 1 tab PO Q6H PRN (Reason: pain) 3 Days Qty: 12 0RF No Action phenytoin sodium extended 100 MG capsule 100 mg PO 4X/DAY timolol maleate [Timoptic-XE] 1 DROP gel forming solution 1 drp Each Eye BID nortriptyline 25 MG capsule 25 mg PO QHS Patient Comments: TAKE 1 CAPSULE BY MOUTH DAILY AT BEDTIME fluticasone propionate 1 SPRAY spray,suspension 1 puff NARES DAILY albuterol sulfate [ProAir HFA] 1 PUFF inhaler 1 - 2 puff inhalation Q4H PRN PRN (Reason: Sob &/Or Wheezing) buspirone 10 MG tablet 15 mg PO BID Patient Comments: Take 1 tablet by mouth twice daily. albuterol sulfate 2.5 MG/3 ML solution for nebulization 2.5 mg inhalation Q4H PRN PRN (Reason: Sob &/Or Wheezing) omeprazole 20 MG capsule 40 mg PO DAILY epinephrine 0.3 MG syringe 0.3 mg IM X1 lithium carbonate 150 MG capsule 150 mg PO TID levothyroxine 25 MCG tablet 75 mcg PO DAILY spironolactone 25 mg Tablet 25 mg PO DAILY montelukast 10 mg Tablet 10 mg PO QHS azelastine 137 mcg (0.1 %) Aerosol,Loyal 1 spray INTRANASAL BID quetiapine 50 mg Tablet 50 mg PO QHS sulfamethoxazole-trimethoprim [sulfamethoxazole-trimethoprim] 1 TABLET tablet 1 tab PO BID Qty: 14 0RF amoxicillin-pot clavulanate [Augmentin] 500-125 mg tablet 1 tab PO Q8H Qty: 15 0RF Primary Care Provider: Dayton Garcia Referrals: William Zepeda DPM [Med Staff - Active Staff] - Dayton Garcia MD [Primary Care Provider] - Activity Restrictions/Additional Instructions: Do not bear any weight on your left ankle. Use your crutches. Follow-up with Dr. Zepeda early this coming week. Call the office tomorrow for an appointment. Disposition Disposition: Home, Self Care What to do if you have Problems For any increased pain, shortness of breath, bleeding, nausea or vomiting, chestpain, or any unexpected problems, contact your Primary Care Provider. Call [facility] ([phone]) or report to the closest Emergency Room. Call 911 if necessary. 04/12/232130 <Electronically signed by Mikey Wallis MD> Cosigner Signature (if applicable): CC: Dr. Dayton Garcia MD ~ Signed [facility] Work Phone: [phone] Miscellaneous Notes* Telephone Encounter - Leora Carcamo RN - 03/30/2023 11:57 AM EDT Medication refill requested by Pharmacy Please review and advise. Requested Prescriptions Pending Prescriptions Disp Refills dicyclomine (BENTYL) 20 mg tablet 90 tablet 5 Sig: Take 1 tablet by mouth three times daily. phenytoin ER (DILANTIN) 100 mg ER capsule 90 capsule 2 Sig: Take 1 capsule by mouth three times daily. albuterol HFA (VENTOLIN HFA) 90 mcg/actuation inhaler 8 g 3 Sig: Inhale 2 Puffs as instructed every 4 hours as needed. Also use 2 puffs prior to exertion Last encounter with this provider: 02/06/2023 Next appt: 05/25/2023 WBC (k/uL) Date Value 03/20/2023 12.80 (H) Hemoglobin (g/dL) Date Value 03/20/2023 12.9 Platelet Count (k/uL) Date Value 03/20/2023 201 Glucose (mg/dL) Date Value 02/20/2023 102 (H) BUN (mg/dL) Date Value 02/20/2023 7 Creatinine (mg/dL) Date Value 02/20/2023 0.79 Sodium (mmol/L) Date Value 02/20/2023 139 Potassium (mmol/L) Date Value 02/20/2023 4.2 Calcium, Total (mg/dL) Date Value 02/20/2023 9.5 Alkaline Phosphatase (U/L) Date Value 02/20/2023 178 (H) Bilirubin, Total (mg/dL) Date Value 02/20/2023 <0.2 (L) AST (U/L) Date Value 02/20/2023 42 (H) ALT (U/L) Date Value 02/20/2023 44 (H) Cholesterol, Total (mg/dL) Date Value 02/20/2023 257 (H) Triglyceride (mg/dL) Date Value 02/20/2023 118 TSH (mIU/L) Date Value 02/20/2023 3.600 Leora Carcamo RN documented in this encounterThe [facility]08-11-2023 Miscellaneous Notes* Telephone Encounter - Nicci Martinez RN - 03/27/2023 12:57 PM EDT Patient calls and notified of results and providers instructions. Patient verbalizes understanding.Patient reports she is not certain when she will have the blood work done because she hates needlesbut she will get it done. Nicci Martinez RN * Telephone Encounter - Mindy Casas LPN - 03/27/2023 12:02 PM EDT No answer. Left message for patient to call office and ask to speak to a nurse regarding lab results. * Telephone Encounter - Dayton Garcia MD - 03/27/2023 1:45 AM EDT From result note added: Iron/TIBC needs redrawn since blood hemolyzed. Smooth muscle antibody test is negative (test to check for possible autoimmune hepatitis). Negative for hemochromatosis gene. CBC normal except for high WBC but that is back down to 12.8 from 15.14 a month ago. Ferritin level still high, back over 600. Noted had CT in 2017 that showed normal liver. Need Iron/TIBC lab to see transferrin saturation to decide if needs further testing now or just continue to monitor ferritin levels ,etc. * Telephone Encounter - Leora Carcamo RN - 03/26/2023 1:37 PM EDT Patient asking PCP to advise on recent lab results from 03/20/23. Thank you. documented in this encounterThe [facility]07-14-2023 Miscellaneous Notes* Telephone Encounter - Rukhsana Pisano LPN - 02/27/2023 1:49 PM EDT PATIENT NOTIFIED OF SAME. * Telephone Encounter - Dayton Garcia MD - 02/26/2023 8:07 PM EDT Result note added: Thyroid labs within normal limits White blood cell count is high again to 15 range--would recheck with CBC and diff. Phenytoin (Dilantin) level on the low side. HgA1C is almost normal, down to 5.7%. Glucose down to 102--still consistent with prediabetes. Metabolic panel with normal kidney labs and electrolytes. Alk phos and AST and ALT still elevated. Ferritin still elevated. Prior evaluation had included CT scans that showed no liver abnormalities--last CT 2016. Would check additional labs to rule out a few other causes for high ferritin. Labs ordered so may do nonfasting. Recommend check in the next month or two. * Telephone Encounter - Joy Haddad LPN - 02/21/2023 9:09 AM EDT Patient called for results of recent lab work. They are still in process but should be back by Thursday. Patient requesting a call, states that she can see some on MyChart and does not understand what they say. Please advise. documented in this encounterThe [facility]06-23-2023 History of Present illness Narrative* Dayton Garcia MD - 02/06/2023 6:06 PM EDT This note was created using [employer]. Subjective Kalli Jacobs is a 57 year old female. Patient presents with: Established Patient SUBJECTIVE: Kalli Jacobs is a 57 year old year old lady here today for follow up appointment for review of medical conditions. Going to be a great grandmother. Due August. Grandson's child. Noted issues with back pain. Muscles get tight. Can lose balance when standing too long since like torso wants to go backwards. Does stretches to help. Using cane. Needing etodolac for back pain, knee pain or headaches. Takes one a day most days; some days needs 2 a day; occasionally does not need to take. Allergies acting up. Gets problems with bowels when eats so does not eat if wants to leave home. Still fasting even now. Requested something for insomnia and consider starting metformin for help with weight loss as well as blood sugars. Takes a couple hours to sleep. Able to sleep a few hours but sometimes gets nightmare. Sometimes feels like small bladder and has to get up to urinate. Would like to try melatonin. 5 or 10 mg did not help. Usually takes 20 mg doseto help her sleep. 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 Was in [facility]. Noted episode of pneumonia when she was 10yo and had to be hospitalized. Noted that grandfather had postpolio. When was a child, hands might shake. Noted has had issues with her hip since daughter was born. Pain come and goes. No seizure since May 2022. Eats from 3 to 6. Eats at 9PM then nothing till next afternoon. Can eat chicken. Maybe 2 drumsticks. Snacks on salads. Drinks V8 1 a day. Koolaid and iced tea. Wears shades all the time because lights hurt her eyes. Noted [birth year]22 was mother's birthday. 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 nortriptyline (PAMELOR) 25 mg capsule Take 1 capsule by mouth daily at bedtime. ipratropium-albuterol (DUONEB) 0.5 mg-3 mg(2.5 mg base)/3 mL nebu Inhale 3 mL as instructed every 6hours as needed for wheezing/shortness of breath. EPINEPHrine (EPIPEN) 0.3 mg/0.3 mL auto-injector Use as needed for bee sting then go to emergecny room for further evaluation and treatment after bee sting phenytoin ER (DILANTIN) 100 mg ER capsule Take 1 capsule by mouth three times daily. Estradiol (ESTRACE) 0.5 mg tablet Take 1 tablet by mouth once daily. lithium carbonate (ESKALITH) 300 mg capsule Take 1 capsule by mouth twice daily with meals. buPROPion XL (WELLBUTRIN XL) 150 mg 24 hr tablet Take 1 tablet by mouth once daily. dicyclomine (BENTYL) 20 mg tablet Take 1 tablet by mouth three times daily. omeprazole (PRILOSEC) 40 mg capsule Take 1 capsule by mouth once daily. albuterol HFA (VENTOLIN HFA) 90 mcg/actuation inhaler Inhale 2 Puffs as instructed every 4 hours asneeded. Also use 2 puffs prior to exertion QUEtiapine (SEROQUEL) 50 mg tablet Take 1 tablet by mouth daily at bedtime. montelukast (SINGULAIR) 10 mg tablet Take 1 tablet by mouth daily at bedtime. busPIRone (BUSPAR) 15 mg tablet Take 1 tablet by mouth three times daily. fluticasone (FLONASE) 50 mcg/actuation nasal spray Use 2 Sprays in each nostril once daily. levothyroxine (SYNTHROID) 88 mcg tablet Take 1 tablet by mouth once daily. Take on empty stomach. For Thyroid cholestyramine (QUESTRAN) 4 gram packet Take 1 Packet by mouth once daily. for diarrhea spironolactone (ALDACTONE) 25 mg tablet Take 1 tablet by mouth once daily as needed (swelling/fluidretention). timolol hemihydrate (BETIMOL) 0.5 % ophthalmic solution Use 1 Drop in both eyes twice daily. COMPOUNDED PRESCRIPTION Nebulizer for home use. Dx: 493.90 benzonatate (TESSALON PERLES) 100 mg capsule Take 1 capsule by mouth three times daily as needed. TAKE ONE(1)CAPSULE BY MOUTH THREE(3) TIMES DAILIY NEEDED FOR COUGH. (Patient not taking: Reported on 02/06/2023) nicotine (NICODERM) 21 mg/24 hr Apply 1 Patch as directed every 24 hours. (Patient not taking: Reported on 02/06/2023) polyethylene glycol 3350 (MIRALAX, GLYCOLAX) 17 gram/dose powder Mix 1 capful (17 grams) once a dayin 8 ounces of liquid daily (Patient not taking: Reported on 02/06/2023) No current facility-administered medications for this visit. Review of Systems Objective BP 110/72 Pulse 79 Temp 36.7 C (98 F) Resp 18 Wt 94.3 kg (208 lb) LMP 01/30/2011 SpO2 97% BMI 39.30 kg/m Last 5 Encounter Wt Readings: Date: Wt: 02/06/2023 94.3 kg (208 lb) 10/13/2022 92.5 kg (203 lb 14.4 oz) 09/02/2022 94.3 kg (208 lb) 06/20/2022 95.3 kg (210 lb) 10/25/2021 98.9 kg (218 lb) No waist measurement recorded Estimated body mass index is 39.3 kg/m as calculated from the following: Height as of 09/11/17: 154.9 cm (5' 1). Weight as of this encounter: 94.3 kg (208 lb). Last 5 Encounter BP Readings: Date: BP: 02/06/2023 110/72 10/13/2022 124/78 09/02/2022 119/83 06/20/2022 118/62 10/25/2021 118/72 Physical Exam Constitutional: Appearance: Normal appearance. HENT: Head: Normocephalic. Eyes: Conjunctiva/sclera: Conjunctivae normal. Cardiovascular: Rate and Rhythm: Normal rate and regular rhythm. Heart sounds: Normal heart sounds. Pulmonary: Effort: Pulmonary effort is normal. Breath sounds: Normal breath sounds. Musculoskeletal: Right lower leg: No edema. Left lower leg: No edema. Skin: General: Skin is warm and dry. Neurological: General: No focal deficit present. Mental Status: She is alert and oriented to person, place, and time. Psychiatric: Mood and Affect: Mood normal. Behavior: Behavior normal. Thought Content: Thought content normal. Judgment: Judgment normal. Skin in crease under breasts with fabricio areas with fissure and skin a little moisture. Component Latest Ref Rng & Units 05/20/2021 06/02/2022 07/15/2022 09/02/2022 10/27/2022 Protein, Total 6.3 - 8.0 g/dL 7.4 Albumin 3.9 - 4.9 g/dL 4.1 Calcium 8.5 - 10.2 mg/dL 9.3 Bilirubin, Total 0.2 - 1.3 mg/dL 0.2 Alkaline Phosphatase 34 - 123 U/L 180 (H) AST 13 - 35 U/L 33 Glucose 74 - 99 mg/dL 82 BUN 7 - 21 mg/dL 5 (L) Creatinine 0.58 - 0.96 mg/dL 0.68 Sodium 136 - 144 mmol/L 135 (L) Potassium 3.7 - 5.1 mmol/L 3.9 Chloride 97 - 105 mmol/L 102 CO2 22 - 30 mmol/L 19 (L) Anion Gap 9 - 18 mmol/L 14 ALT 7 - 38 U/L 37 eGFR- >60 eGFR-All Other Races . >60 Cholesterol, Total <200 mg/dL 239 (H) Triglyceride <150 mg/dL 124 HDL Cholesterol >39 mg/dL 47 Non HDL Cholesterol <130 mg/dL 192 (H) Fasting Time hrs 17 VLDL Cholesterol <30 mg/dL 25 TC:HDL Ratio <5.10 5.09 LDL Cholesterol <100 mg/dL 167 (H) LDL:HDL Ratio <2.54 3.55 (H) Iron 41 - 186 ug/dL 88 TIBC 232 - 386 ug/dL 283 Transferrin Saturation 15.0 - 57.0 % 31.1 Hemoglobin A1C 4.3 - 5.6 % 5.8 (H) Estimated Average Glucose mg/dL 120 TSH 0.270 - 4.200 mIU/L 6.230 (H) 5.020 (H) 2.450 Free T4 0.9 - 1.7 ng/dL 1.0 1.0 1.0 Free T3 2.3 - 4.1 pg/mL 2.6 2.5 2.5 Ferritin 14.7 - 205.1 ng/mL 605.0 (H) Stool DNA Negative Negative Hemoglobin A1C (%) Date Value 06/02/2022 5.8 05/20/2021 5.9 12/26/2020 6.1 04/08/2018 5.3 Assessment and Plan Encounter Diagnosis ICD-10-CM 1. Myalgia M79.10 Etodolac 500 mg tablet 2. Dysmetabolic syndrome E88.81 LIPID PANEL BASIC metFORMIN ER (GLUCOPHAGE XR) 500 mg 24 hr tablet 3. Bipolar I disorder (HCC) F31.9 4. Acquired hypothyroidism E03.9 TSH BLD T4 FREE/FREE THYROX T3 FREE BLD 5. Pure hypercholesterolemia E78.00 LIPID PANEL BASIC 6. 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 Breast cancer screening by mammogram Z12.31 MARIA D SCREENING 8. Elevated LFTs R79.89 9. Elevated ferritin R79.89 10. Encounter for long-term current use of medication Z79.899 COMP METABOLIC PANEL CBC HGB A1C TSH BLD T4 FREE/FREE THYROX T3 FREE BLD PHENYTOIN/DILANTIN FERRITIN BLD LIPID PANEL BASIC Above issues addressed with patient. Patient involved in shared decision making for management of medical issues. History and medications reviewed. Epic updated as needed Refills and/or prescriptions taken care of and meds adjusted as indicated after reviewed history, exam and labs. Health Maintenance reviewed. Updated record and/or ordered tests as recorded. Encouraged on efforts at healthy diet and regular exercise and adequate sleep. Needs to keep working on diet and exercise with lifestyle changes for effective weight loss as well as prevention of DM,and control of BP and lipids. I spent a total of at least 50 minutes on the date of the service which included [id number] patient care, completing clinical documentation, obtaining and/or reviewing separately obtained history, performing a medically appropriate examination, counseling and educating the patient/family/caregiver, and ordering medications, tests, or procedures. Dayton Garcia MD documented in this encounterThe [facility]06-19-2023 Miscellaneous Notes* Telephone Encounter - Ruby Bellamy LPN - 02/02/2023 2:36 PM EDT Patient has been identified by name and date of : Yes, Provider Dr. Garcia Date 01/23/23 Time 2:36 pm Pharmacy phones for refill(s): Requested Prescriptions Pending Prescriptions Disp Refills etodolac (LODINE) 400 mg tablet 60 tablet 1 Sig: Take 1 tablet by mouth twice daily as needed. nortriptyline (PAMELOR) 25 mg capsule 30 capsule 5 Sig: Take 1 capsule by mouth daily at bedtime. Date of last office visit in primary care: 10/13/22 next apt 02/06/23 Last 2 Encounter Wt Readings: Date: Wt: 10/13/2022 92.5 kg (203 lb 14.4 oz) 09/02/2022 94.3 kg (208 lb) Previous labs/tests for medication: Not applicable Thank you. Ruby Bellamy LPN documented in this encounterThe [facility]05-01-2023 Miscellaneous Notes* Telephone Encounter - Lilly Spear LPN - 12/15/2022 10:36 AM EDT Last seen [facility] 10/13/22. Next appt with pcp 02/06/23. * Telephone Encounter - Antonieta Osei - 12/15/2022 10:26 AM EDT Patient has been identified by name and date of : Yes Requested Prescriptions Pending Prescriptions Disp Refills Estradiol (ESTRACE) 0.5 mg tablet 30 tablet 1 Sig: Take 1 tablet by mouth once daily. RX INSTRUCTIONS: Patient only has enough medication left for two days. Patient aware RX will be sent to pharmacy. No need to notify patient. Antonieta Osei documented in this encounterThe [facility]04-26-2023 Miscellaneous Notes* Telephone Encounter - Nicci Martinez RN - 12/10/2022 10:37 AM EDT Patient has been identified by name and date of : Yes, Nicci Martinez RN Date 12/10/2022 Time 10:38 am Pharmacy phones for refill(s): Requested Prescriptions Pending Prescriptions Disp Refills etodolac (LODINE) 400 mg tablet 60 tablet 1 Sig: Take 1 tablet by mouth twice daily as needed. Date of last office visit with pcp: 10/13/2022 Future appt: 02/06/2023 Last 2 Encounter Wt Readings: Date: Wt: 10/13/2022 92.5 kg (203 lb 14.4 oz) 09/02/2022 94.3 kg (208 lb) Previous labs/tests for medication: Blood Pressure: BUN (mg/dL) Date Value 06/02/2022 5 05/20/2021 5 Sodium (mmol/L) Date Value 06/02/2022 136 05/20/2021 135 Last 1 Encounter BP Readings: Date: BP: 10/13/2022 124/78 Liver Function: ALT (U/L) Date Value 06/02/2022 41 05/20/2021 37 AST (U/L) Date Value 06/02/2022 41 05/20/2021 33 Please advise. Thank you. Nicci Martinez RN documented in this encounterThe [facility]04-25-2023 Miscellaneous Notes* Telephone Encounter - Patricia Miller LPN - 12/09/2022 3:40 PM EDT Patient is wanting to have all her prescriptions transferred over to [facility] pharmacy. Advised Patient to have [facility] call [place] for 1x transfer. Patricia Miller LPN documented in this encounterThe [facility]04-25-2023 Miscellaneous Notes* Telephone Encounter - Ruby Bellamy LPN - 12/09/2022 1:56 PM EDT Patient has been identified by name and date of : Yes, Provider Dr. Garcia Date 12/09/22 Time1:59 pm Pharmacy phones for refill(s): Requested Prescriptions Pending Prescriptions Disp Refills lithium carbonate (ESKALITH) 300 mg capsule 60 capsule 5 Sig: Take 1 capsule by mouth twice daily with meals. buPROPion XL (WELLBUTRIN XL) 150 mg 24 hr tablet 90 tablet 3 Sig: Take 1 tablet by mouth once daily. Date of last office visit in primary care: 10/13/22 next apt 02/06/23 Last 2 Encounter Wt Readings: Date: Wt: 10/13/2022 92.5 kg (203 lb 14.4 oz) 09/02/2022 94.3 kg (208 lb) Previous labs/tests for medication: Not applicable Thank you. Ruby Bellamy LPN documented in this encounterThe [facility]03-13-2023 Miscellaneous Notes* Telephone Encounter - Leora Carcamo RN - 10/27/2022 2:09 PM EDT Patient returned call and states she contacted the [employer] and got things figured out. A test will be mailed to her. Leora Carcamo, RN * Telephone Encounter - Violeta Alegria LPN - 10/27/2022 1:31 PM EDT Patient calling she completed her Cologuard and is having problems getting a [employer] pickling solution maker arranged. Advised patient to call number [employer] store gave her and ask to speak to a supervisor boiler repair since can not getautomated system to complete the task. documented in this encounterThe [facility] Hospital03-06-2023 Miscellaneous Notes* Telephone Encounter - Mindy Casas LPN - 10/20/2022 3:45 PM EST JOSE J 10/13/22 Next OV 02/06/23 * Telephone Encounter - Antonieta Osei - 10/20/2022 11:06 AM EST Patient has been identified by name and date of : Yes Requested Prescriptions Pending Prescriptions Disp Refills phenytoin ER (DILANTIN) 100 mg ER capsule 90 capsule 2 Sig: Take 1 capsule by mouth three times daily. RX INSTRUCTIONS: Patient aware RX will be sent to pharmacy. No need to notify patient. Antonieta Osei documented in this encounterThe [facility]02-27-2023 History of Present illness Narrative* Saeid Koch APRN.GAMING CASHIER - 10/13/2022 2:20 PM EST SUBJECTIVE: COVID-19 VACCINE(1) Never done SPIROMETRY Never done COLORECTAL CANCER SCREENING due on 03/07/2021 PNEUMOCOCCAL(2 - PCV) due on 03/23/2021 DEPRESSION ASSESSMENT Never done HPI Kalli Jacobs is a 57 year old female. 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 Her dose of buspirone was increased and she has noted improvement of symptoms. Does have some depression, no voiced SI, HI. Recalls childhood trauma/concerns that still bother her now. Counseling/psychiatry: Dr Batista Hypothyroidism. Dose was increased from 75 mcg daily to 88 mcg daily in June 2022. TSH Date Value 09/02/2022 2.450 mIU/L 07/15/2022 5.020 mIU/L 12/26/2020 2.670 uU/mL 05/21/2020 4.950 uU/mL ) She notes nausea before breakfast. Heartburn 2 or 3 times per week. Not sure if she is taking omeprazole. Review of Systems Gastrointestinal: Positive for nausea. Psychiatric/Behavioral: Positive for dysphoric mood. The patient is nervous/anxious. Objective BP 124/78 Pulse 88 Resp 16 Wt 92.5 kg (203 lb 14.4 oz) LMP 01/30/2011 SpO2 96% BMI 38.53 kg/m Physical Exam Vitals and nursing note reviewed. Constitutional: Appearance: Normal appearance. HENT: Head: Normocephalic and atraumatic. Cardiovascular: Rate and Rhythm: Normal rate. Pulmonary: Effort: Pulmonary effort is normal. Skin: General: Skin is warm and dry. Neurological: Mental Status: She is alert. Mental status is at baseline. ALLERGIES Allergen Reactions Asa [Salicylates] Intolerance stomach bleeding Advair Diskus [Flut* Seizures after use twice. Medications QUEtiapine (SEROQUEL) 50 mg tablet Take 1 tablet by mouth daily at bedtime. montelukast (SINGULAIR) 10 mg tablet Take 1 tablet by mouth daily at bedtime. busPIRone (BUSPAR) 15 mg tablet Take 1 tablet by mouth three times daily. Estradiol (ESTRACE) 0.5 mg tablet Take 1 tablet by mouth once daily. benzonatate (TESSALON PERLES) 100 mg capsule Take 1 capsule by mouth three times daily as needed. TAKE ONE(1)CAPSULE BY MOUTH THREE(3) TIMES DAILIY NEEDED FOR COUGH. buPROPion XL (WELLBUTRIN XL) 150 mg 24 hr tablet Take 1 tablet by mouth once daily. phenytoin ER (DILANTIN) 100 mg ER capsule Take 1 capsule by mouth three times daily. fluticasone (FLONASE) 50 mcg/actuation nasal spray Use 2 Sprays in each nostril once daily. omeprazole (PRILOSEC) 40 mg capsule Take 1 capsule by mouth once daily. nortriptyline (PAMELOR) 25 mg capsule Take 1 capsule by mouth daily at bedtime. levothyroxine (SYNTHROID) 88 mcg tablet Take 1 tablet by mouth once daily. Take on empty stomach. For Thyroid lithium carbonate (ESKALITH) 300 mg capsule Take 1 capsule by mouth twice daily with meals. etodolac (LODINE) 400 mg tablet Take 1 tablet by mouth twice daily as needed. dicyclomine (BENTYL) 20 mg tablet Take 1 tablet by mouth three times daily. albuterol HFA (VENTOLIN HFA) 90 mcg/actuation inhaler Inhale 2 Puffs as instructed every 4 hours asneeded. Also use 2 puffs prior to exertion albuterol (PROVENTIL) 2.5 mg /3 mL (0.083 %) nebulizer solution Use 3 mL via nebulizer every 6 hours as needed for Wheezing/Shortness of Breath. cholestyramine (QUESTRAN) 4 gram packet Take 1 Packet by mouth once daily. for diarrhea EPINEPHrine (EPIPEN) 0.3 mg/0.3 mL auto-injector Use as needed for bee sting then go to emergecny room for further evaluation and treatment after bee sting nicotine (NICODERM) 21 mg/24 hr Apply 1 Patch as directed every 24 hours. spironolactone (ALDACTONE) 25 mg tablet Take 1 tablet by mouth once daily as needed (swelling/fluidretention). polyethylene glycol 3350 (MIRALAX, GLYCOLAX) 17 gram/dose powder Mix 1 capful (17 grams) once a dayin 8 ounces of liquid daily timolol hemihydrate (BETIMOL) 0.5 % ophthalmic solution Use 1 Drop in both eyes twice daily. COMPOUNDED PRESCRIPTION Nebulizer for home use. Dx: 493.90 PAST MEDICAL HISTORY Diagnosis Date Bee sting allergy 12/17/2007 By patient history Bipolar I disorder, most recent episode (or current) unspecified Borderline diabetes mellitus 09/14/2017 Esophageal reflux 09/02/2005 Hearing loss Hot flashes due to menopause Migraine with aura Other forms of epilepsy and recurrent seizures Unspecified asthma(493.90) Unspecified constipation Social History Tobacco Use Smoking status: Former Packs/day: 0.50 Years: 30.00 Pack years: 15.00 Types: Cigarettes Quit date: 02/28/2021 Years since quittin.6 Smokeless tobacco: Former Tobacco comments: Currently vapes but no nicotine in it. Just likes th flavor Substance Use Topics Alcohol use: Yes Comment: Occasionally Drug use: No Component Latest Ref Rng & Units 07/15/2022 09/02/2022 TSH 0.270 - 4.200 mIU/L 5.020 (H) 2.450 Free T4 0.9 - 1.7 ng/dL 1.0 1.0 Free T3 2.3 - 4.1 pg/mL 2.5 2.5 ASSESSMENT/PLAN: 1. Anxiety - ICD9: 300.00, ICD10: F41.9 (primary diagnosis) Improved on increased dose of buspirone. Continue with counseling unchanged. 2. Colon cancer screening - ICD9: V76.51, ICD10: Z12.11 - COLOGUARD 3. Gastroesophageal reflux disease, unspecified whether esophagitis present - ICD9: 530.81, ICD10: K21.9 Not sure if she is taking omeprazole, endorse taking this in the morning before eating consistently. Keep scheduled follow up visit MD Saeid Delcid APRN.GAMING CASHIER Medical Decision Making: Problems: Moderate: 2+ stable chronic illnesses Risk: Moderate: Drug management Medical Decision Making Level: 4 - Moderate [facility] Miscellaneous Notes* Telephone Encounter - Rukhsana Pisano LPN - 10/03/2022 7:59 AM EST Last office visit: 09/02/22 Next appointment scheduled: 10/03/22 * Telephone Encounter - Mely [facility] - 10/02/2022 3:33 PM EST Patient has been identified by name and date of : Yes Requested Prescriptions Pending Prescriptions Disp Refills QUEtiapine (SEROQUEL) 50 mg tablet 30 tablet 11 Sig: Take 1 tablet by mouth daily at bedtime. RX INSTRUCTIONS: Patient aware RX will be sent to pharmacy. No need to notify patient. [facility] documented in [facility]The [facility]01[facility] Miscellaneous Notes* Telephone Encounter - Gabriela Oro RN - 09/03/2022 3:18 PM EST Patient notified of results. Patient verbalizes understanding. Gabriela Oro RN documented in this encounterThe [facility]01-17-[facility]23 Instructions* Patient Instructions* Saeid Koch APRN.CNS - 09/02/2022 3:46 PM EST Drink about 64 ounces of fluid per day. Increase buspirone to 15 mg twice daily to three times per day documented in [facility] encounterThe [facility]01-17-[facility]23 History of Present illness Narrative* Saeid Koch APRN.CNS - 09/02/2022 3:20 PM EST SUBJECTIVE: COVID-19 VACCINE(1) Never done SPIROMETRY Never done COLORECTAL CANCER SCREENING due on 03/07/2021 PNEUMOCOCCAL(2 - PCV) due on 03/23/2021 DEPRESSION ASSESSMENT Never done HPI Kalli Jacobs is a 57 year old female. PMH significant for ACTIVE PROBLEM LIST Bipolar I Disorder (Hcc) Migraine With Aura Incisional Hernia Without Mention of Obstruction Or Gangrene Generalized Convulsive Epilepsy (Hcc) Constipation Tobacco Use Disorder Bee sting allergy Asthma Chronic Daily Headache Non Morbid Obesity Due to Excess Calories Chronic Abdominal Pain Myalgia Altered Bowel Habits Left Sided Abdominal Pain Gerd (Gastroesophageal Reflux Disease) Biliary Dyskinesia Borderline Diabetes Mellitus High Serum Thyroid Stimulating Hormone (Tsh) Chronic Low Back Pain Without Sciatica Other Spondylosis, Thoracolumbar Region Kyphosis of Thoracic Region Reports feeling lightheaded when she goes out, no energy, hot flashes, thinks it is anxiety. Does have some depression, no voiced SI, HI. Recalls childhood trauma/concerns that still bother her now. Counseling/psychiatry: Dr Batista Hypothyroidism. Dose was increased from 75 mcg daily to 88 mcg daily in June 2022. TSH Date Value 07/15/2022 5.020 mIU/L 06/02/2022 6.230 mIU/L 12/26/2020 2.670 uU/mL 05/21/2020 4.950 uU/mL ) Review of Systems Psychiatric/Behavioral: Positive for dysphoric mood. The patient is nervous/anxious. Objective BP 119/83 (BP Site: Left Arm, BP Position: Standing, BP Cuff Size: Regular Adult) Pulse 91 Resp16 Wt 94.3 kg (208 lb) LMP 01/30/2011 BMI 39.30 kg/m Physical Exam Vitals and nursing note reviewed. Constitutional: Appearance: Normal appearance. HENT: Head: Normocephalic and atraumatic. Neurological: Mental Status: She is alert. ALLERGIES Allergen Reactions Asa [Salicylates] Intolerance stomach bleeding Advair Diskus [Flut* Seizures after use twice. Medications Estradiol (ESTRACE) 0.5 mg tablet Take 1 tablet by mouth once daily. benzonatate (TESSALON PERLES) 100 mg capsule Take 1 capsule by mouth three times daily as needed. TAKE ONE(1)CAPSULE BY MOUTH THREE(3) TIMES DAILIY NEEDED FOR COUGH. buPROPion XL (WELLBUTRIN XL) 150 mg 24 hr tablet Take 1 tablet by mouth once daily. phenytoin ER (DILANTIN) 100 mg ER capsule Take 1 capsule by mouth three times daily. fluticasone (FLONASE) 50 mcg/actuation nasal spray Use 2 Sprays in each nostril once daily. busPIRone (BUSPAR) 15 mg tablet Take 1 tablet by mouth twice daily. omeprazole (PRILOSEC) 40 mg capsule Take 1 capsule by mouth once daily. nortriptyline (PAMELOR) 25 mg capsule Take 1 capsule by mouth daily at bedtime. levothyroxine (SYNTHROID) 88 mcg tablet Take 1 tablet by mouth once daily. Take on empty stomach. For Thyroid lithium carbonate (ESKALITH) 300 mg capsule Take 1 capsule by mouth twice daily with meals. etodolac (LODINE) 400 mg tablet Take 1 tablet by mouth twice daily as needed. dicyclomine (BENTYL) 20 mg tablet Take 1 tablet by mouth three times daily. QUEtiapine (SEROQUEL) 50 mg tablet Take 1 tablet by mouth daily at bedtime. albuterol HFA (VENTOLIN HFA) 90 mcg/actuation inhaler Inhale 2 Puffs as instructed every 4 hours asneeded. Also use 2 puffs prior to exertion albuterol (PROVENTIL) 2.5 mg /3 mL (0.083 %) nebulizer solution Use 3 mL via nebulizer every 6 hours as needed for Wheezing/Shortness of Breath. montelukast (SINGULAIR) 10 mg tablet Take 1 tablet by mouth daily at bedtime. azelastine (ASTELIN) 0.1% nasal spray Azelastine Active 1 SPRAY INTRANASAL TWICE A DAY March 05, 2021 1:44pm cholestyramine (QUESTRAN) 4 gram packet Take 1 Packet by mouth once daily. for diarrhea EPINEPHrine (EPIPEN) 0.3 mg/0.3 mL auto-injector Use as needed for bee sting then go to emergecny room for further evaluation and treatment after bee sting loperamide (IMODIUM A-D) 2 mg cap(s) Take 1 capsule by mouth four times daily as needed for Diarrhea. nicotine (NICODERM) 21 mg/24 hr Apply 1 Patch as directed every 24 hours. spironolactone (ALDACTONE) 25 mg tablet Take 1 tablet by mouth once daily as needed (swelling/fluidretention). polyethylene glycol 3350 (MIRALAX, GLYCOLAX) 17 gram/dose powder Mix 1 capful (17 grams) once a dayin 8 ounces of liquid daily acetaminophen (TYLENOL) 325 mg tablet Take 2 tablets by mouth every 6 hours as needed for Pain. (Patient not taking: Reported on 04/09/2021 ) Compression Knee Highs KNEE HIGH COMPRESSION STOCKINGS 20-30 MM. DX: lower extremity edema, varicose veins, zafar insufficiency timolol hemihydrate (BETIMOL) 0.5 % ophthalmic solution Use 1 Drop in both eyes twice daily. COMPOUNDED PRESCRIPTION Nebulizer for home use. Dx: 493.90 PAST MEDICAL HISTORY Diagnosis Date Bee sting allergy 12/17/2007 By patient history Bipolar I disorder, most recent episode (or current) unspecified Borderline diabetes mellitus 09/14/2017 Esophageal reflux 09/02/2005 Hearing loss Hot flashes due to menopause Migraine with aura Other forms of epilepsy and recurrent seizures Unspecified asthma(493.90) Unspecified constipation Social History Tobacco Use Smoking status: Former Packs/day: 0.50 Years: 30.00 Pack years: 15.00 Types: Cigarettes Quit date: 02/28/2021 Years since quittin.5 Smokeless tobacco: Former Tobacco comments: Currently vapes but no nicotine in it. Just likes th flavor Substance Use Topics Alcohol use: Yes Comment: Occasionally Drug use: No ASSESSMENT/PLAN: 1. Hot flashes - ICD9: 782.62, ICD10: R23.2 (primary diagnosis) - TSH BLD 2. Bipolar I disorder (HCC) - ICD9: 296.7, ICD10: F31.9 3. Anxiety - ICD9: 300.00, ICD10: F41.9 - TSH BLD - BUSPIRONE 15 MG TABLET 4. Encounter for long-term current use of medication - ICD9: V58.69, ICD10: Z79.899 - BUSPIRONE 15 MG TABLET 5. High TSH R79.89 She notes that she thinks symptoms are related to anxiety, will increase buspirone per her preference. Increased from twice daily to 3 times daily dosing. Can recheck thyroid lab work, defers today. Recheck symptoms one month. Saeid Koch APRN.CNS Medical Decision Making: Problems: Moderate: 1+ chronic illnesses with change Data: Unique test(s) ordered: 1 Risk: Moderate: Drug management Medical Decision Making Level: 4 - Moderate documented in this encounterThe [facility]12-30-2022 Miscellaneous Notes* Telephone Encounter - Amaury Hilario Ma - 08/15/2022 2:21 PM EST JOSE J: 08/12/2022 [facility] Last refill: 06/20/2022 QTY: 30 Refills: 1 Patient's request for medication is as follows: Requested Prescriptions Pending Prescriptions Disp Refills Estradiol (ESTRACE) 0.5 mg tablet 30 tablet 1 Sig: Take 1 tablet by mouth once daily. Please approve the above prescription(s) to electronically send to pharmacy. Amaury Hilario Ma documented in this encounterThe [facility]12-27-2022 History of Present illness Narrative* Dayton Garcia MD - 08/12/2022 6:20 PM EST Telemedicine Evaluation for COVID-19 Infection MyChart video visit was used for evaluation of this patient. Location of patient: [facility] Kalli Jacobs is a 57 year old female who presents with 4 days of symptoms that are stable. Tested on Thursday. Symptoms include: Fever (?100.4F): No or Chills: No Cough: Yes Shortness of breath: No or Difficulty breathing: No Fatigue: No Muscle aches: No Headache: Yes (needing to take headache med more than usual) New loss of smell or taste: No Sore throat: Yes Nasal congestion: Yes or Rhinorrhea: No Nausea: Yes or Vomiting: Yes (once) Diarrhea: No worse than usual Daughter sent supplements through [employer]: Tried Black Cumin seed oil--tastes bad Also Zinc OTC meds/remedies that patient has tried: Zinc and Black Cumin seed oil from daughter. High risk category assessment Chronic lung disease Exposures: Sick contacts? No Family or close contacts with confirmed/probable COVID-19 in last 14 days? No She reports that she quit smoking about 17 months ago. Her smoking use included cigarettes. She hasa 15.00 pack-year smoking history. She has quit using smokeless tobacco. OBJECTIVE VIDEO EXAM (if available) GENERAL: Ill-appearing, but non-toxic HEENT: no conjunctival injection, pupils equal, moist mucous membranes, sinuses non-tender to self-palpation, and palpable cervical adenopathy PULMONARY: breathing comfortably on room air , coughing, and no wheezing noted ASSESSMENT/PLAN Encounter Diagnosis ICD-10-CM 1. COVID-19 virus infection U07.1 molnupiravir 200 mg capsule 2. Mild intermittent asthma with acute exacerbation J45.21 (U07.1) COVID-19 virus infection (primary encounter diagnosis) (J45.21) Mild intermittent asthma with acute exacerbation - Discussed symptom monitoring and supportive care - Red flag symptoms requiring follow up discussed Paxlovid contraindicated with quetiapine. Molnupiravir Eligibility and Patient Discussion [facility] Formulary Restriction Criteria: Adult outpatients 18 years and older with ALL of the following: [x] Patient has positive SARS-COV-2 viral test (PCR or antigen test) during current illness [x] Patient has symptoms for 5 days or less [x] Not requiring hospitalization at any time for management of COVID-19 [x] Not requiring supplemental oxygen or a change in baseline supplemental oxygen [x] Not utilized for pre-exposure or post-exposure prophylaxis for prevention of COVID-19 [x] Patient is not or lactating [x] Meeting at least one of the criteria for high risk of progression to severe COVID-19: [] Age over 65 years [] Cancer [] Chronic kidney disease [] Chronic liver disease [x] Chronic lung diseases, including cystic fibrosis [] Dementia or other neurological conditions [] Diabetes (type 1 or type 2) [] Disabilities, including Down syndrome and neurodevelopmental disorders [] Heart conditions [] HIV infection [] Immunocompromised state [x] Mental health conditions [] Medical related technological dependence (tracheostomy, gastrostomy, or positive pressure ventilation (not related to COVID) [x] Overweight and obesity (BMI greater or equal to 25 for adults) [] Physical inactivity [] Sickle cell disease or thalassemia [] Smoking, current or former [] Solid organ or blood stem cell transplant [] Stroke or cerebrovascular disease [] Substance use disorders [] Tuberculosis [] People from racial and ethnic minority groups Criteria above are met: Yes Date of Positive Test:08/09/22 Date of Symptom Onset: 08/09/22 Patient received COVID vaccine: No / status reviewed: Females: [x] Patient is not currently and there is no possibility the patient could be (select one of the following): [] test does not need to be confirmed in patients who have undergone permanent sterilization, are currently using an intrauterine system or contraceptive implant, or in whom is not possible. [] Patients not meeting conditions above: assess whether the patient is based on the firstday of the last menstrual period in individuals who have regular menstrual cycles, is using reliable method of contraception correctly and consistently or have had a negative test [] A test is recommended if the individual has irregular menstrual cycles, is unsure of the first day of the last menstrual period or is not using effective contraception correctly and consistently [x] Patient is not currently . is not recommended during treatment and for four days after final dose of molnupiravir. [x] Females have been advised to use a reliable method of contraception correctly and consistently for the duration of treatment and for four days after the last dose of molnupiravir Males: [] Sexually active male with partner(s) of childbearing potential has been advised to use a reliable method of contraception correctly and consistently for intercourse for the duration of treatment and for three months after the last dose of molnupiravir I have discussed the use of the investigational therapeutic, molnupiravir, for the treatment of mild to moderate COVID-19 and its use under Emergency Use Authorization with the patient. The patient was informed that molnupiravir is not an FDA approved drug and that it is authorized for use under this Emergency Use Authorization. The patient was also informed of the significant knownbenefits and potential risks of molnupiravir, and the extent to which such potential risks and benefits are unknown. The patient was informed that there is mandatory reporting of all medication errors and serious adverse events potentially related to molnupiravir treatment within 7 calendar days from the onset of the event and that events up to 28 days after completion of therapy need to be reported. The discussion included alternatives to receiving molnupiravir, including clinical trials, and potential the risks and benefits of those alternatives. The patient was provided electronically withthe Fact Sheet for Patients, Parents and Caregivers. The patient was also instructed that in addition to the treatment with molnupiravir, he/she should continue to self-isolate and use infection control measures (e.g., wear mask, isolate, social distance, avoid sharing personal items, clean and disinfect high touch surfaces, and frequent handwashing) according to CDC guidelines. The patient stated understanding and gave verbal consent to proceeding with molnupiravir treatment. Dayton Garcia MD August 12, 2022 7:27 PM This patient encounter involved the screening or treatment of novel coronavirus infection (COVID-19). documented in this encounterThe [facility]12-27-2022 Instructions* Patient Instructions* Dayton Garcia MD - 08/12/2022 5:13 PM EST Resources for Managing Anxiety During COVID Crisis [email or web address] https://www.cdc.gov/coronavirus/2019-ncov/prepare/pwiuuame-frddcu-reyyqem.html https://coronavirus.[place].gov/wps/portal/gov/covid-19/home/resources/resources-fo p-urwplw-cclnqv-oigd-atn-yngws-19-pandemic www.Instapio.[employer]cast[employer]/us/blog/uzh-slctn-hlpnkqsvceza//xfh-bxisis-duzixql irus-anxiety https://www.[employer]/us/blog/fhj-dfqon-pfkxugu//17-rxpz-heojupb dt-xktr-wrrakehmpg-now https://www.[employer]/us/blog/experimentations//0-qkknmoyxtrh-xx qkzkpinms-etiwfpuwgc-blzqlokzw How to Protect Yourself & Others from COVID-19 Wash your hands often Wash your hands often with soap and water for at least 20 seconds especially after you have been jg public place, or after blowing your nose, coughing, or sneezing. If soap and water are not readily available, use a hand fax machine repairer that contains at least 60% alcohol. Cover all surfaces of your hands and rub them together until they feel dry. Avoid touching your eyes, nose, and mouth with unwashed hands. Avoid close contact Inside your home: Avoid close contact with people who are sick. If possible, maintain 6 feet between the person who is sick and other household members. Outside your home: Put 6 feet of distance between yourself and people who don't live in your household. Cover your mouth and nose with a mask when around others Masks help prevent you from getting or spreading the virus. You could spread COVID-19 to others even if you do not feel sick. Everyone should wear a mask in public settings and when around people who don't live in your household, especially when other social distancing measures are difficult to maintain. Masks should not be placed on young children under age 2, anyone who has trouble breathing, or is unconscious, incapacitated or otherwise unable to remove the mask without assistance. Cover coughs and sneezes Always cover your mouth and nose with a tissue when you cough or sneeze or use the inside of your elbow and do not spit. Throw used tissues in the trash. Immediately wash your hands with soap and water for at least 20 seconds. Clean and disinfect Clean AND disinfect frequently touched surfaces daily. This includes tables, doorknobs, light switches, countertops, handles, desks, phones, keyboards, toilets, faucets, and sinks. Monitor Your Health Daily Be alert for symptoms. Watch for fever, cough, shortness of breath, or other symptoms of COVID-19. Especially important if you are running essential errands, going into the office or workplace, and in settings where it may be difficult to keep a physical distance of 6 feet. Take your temperature if symptoms develop. Don't take your temperature within 30 minutes of exercising or after taking medications that could lower your temperature, like acetaminophen. Travel Skip events that put you in contact with large groups of people (sporting events, concerts, theme monet, etc). Avoid unnecessary domestic and international travel, including travel through large international airports. If traveling, wipe down your airplane seat (and tray) with a disinfecting wipe. Office Visits If you have a fever, cough or shortness of breath, or are otherwise concerned you have COVID-19, weask that you do not come to any [facility] facility without calling your primary care physician or speaking to a provider using a virtual visit using [facility] [employer]. You will be evaluated to determine if you require being seen in person or if you meet CDC guidelines for testing for COVID-19 based on symptoms, travel and exposures. If you meet criteria for testing, your [employer] provider or primary care physician will advise how to proceed with testing Immunosuppression There is no need to stop your immunosuppressive medications preemptively. If you become sick, please let your doctor know, and discuss with them prior to stopping any medications. At this point, we have no knowledge that patients on immunosuppressive medications are at higher risk of COVID-19 infection. People with weakened immune systems are at higher risk of getting severely sick from SARS-CoV-2, the virus that causes COVID-19. They may also remain infectious for a longer period of time than others with COVID-19, but we cannot confirm this until we learn more about this new virus. Steps You Can Take to Protect Your Health Continue your regular treatment plan. Don't stop any medications or treatments without talking to your doctor. Discuss any concerns about your treatment with your doctor. Keep your regularly scheduled medical appointments. Talk to your doctor about steps they are taking to reduce risk of exposure to COVID-19 in the office. Use telehealth services whenever possible if recommended by your doctor. Ensure that you are getting necessary tests prescribed by your doctor. Seek urgent medical care if you are feeling unwell. Talk to your doctor, insurer, and pharmacist about getting an emergency supply of prescription medications. Make sure you have at least 30 days of prescription medications, tioq-clr-gcshuyl medicines, and supplies on hand in case you need or want to stay home for several weeks. Talk to your doctor or pharmacist about ways to receive your medications by mail. Take steps to care for your emotional health. Fear and anxiety about COVID-19 can be overwhelming and cause strong emotions. It is natural to feel concerned or stressed about COVID-19. - Learn more about stress and coping with anxiety here. Call your healthcare provider if stress gets in the way ofyour daily activities for several days in a row. If you are feeling overwhelmed with emotions like sadness, depression, or anxiety, or feel like youwant to harm yourself or others: Call 061 if you feel like you want to harm yourself or others Visit the Disaster Distress Helpline call , [place] [address] Visit the National Domestic Violence Hotline or call and TTY Visit the National Suicide Prevention Lifeline or call and TTY or text Most importantly, don't panic. By following basic prevention measures such as hand hygiene and cover your cough, you are helping to keep yourself and others healthy. Additional information can be found on the CDC and [facility] web sites: https://www.cdc.gov/coronavirus/2019-nCoV/index.html https://[facility].org/coronavirus Beginning Home Isolation Isolation is used to separate people infected with SARS-CoV-2, the virus that causes COVID-19, frompeople who are not infected. People who are in isolation should stay home until it s safe for them to be around others. In the home, anyone sick or infected should separate themselves from others by staying in a specific sick room or area and using a separate bathroom (if available). Isolation or Quarantine: What's the difference? Quarantine keeps someone who might have been exposed to the virus away from others. Isolation keeps someone who is infected with the virus away from others, even in their home. Who needs to isolate People who have COVID-19 People who have symptoms of COVID-19 and are able to recover at home People who have no symptoms (are asymptomatic) but have tested positive for infection with SARS-CoV-2 Steps to take Stay home except to get medical care Monitor your symptoms. Stay in a separate room from other household members, if possible Use a separate bathroom, if possible Avoid contact with other members of the household and pets Don t share personal household items, like cups, towels, and utensils Wear a mask when around other people, if you are able to When to seek emergency medical attention Look for emergency warning signs* for COVID-19. If someone is showing any of these signs, seek emergency medical care immediately: Trouble breathing Persistent pain or pressure in the chest New confusion Inability to wake or stay awake Bluish lips or face *This list is not all possible symptoms. Please call your medical provider for any other symptoms that are severe or concerning to you. Call 911 or call ahead to your local emergency facility: Notify the sand mill operator that you are seeking care for someone who has or may have COVID-19. Ending Home Isolation - When you can be around others after you had or likely had COVID-19 When you can be around others after you had or likely had COVID-19 If You Test Positive for COVID-19 (Isolation) Everyone, regardless of vaccination status: Stay home for 5 days. Note: Day 0 is your first day of symptoms or the date of collection of a positive viral test if no symptoms. Day 1 is the first full day after symptoms developed or test specimen was collected. If you have no symptoms or your symptoms are resolving after 5 days, you can leave your house. Continue to wear a mask around others for 5 additional days. If you have a fever, continue to stay home until your fever resolves, even if it is longer than 5 days. If You Were Exposed to Someone with COVID-19 (Quarantine) If you: 1. Have been boosted OR 2. Completed the primary series of Pfizer or Moderna vaccine within the last 6 months OR 3. Completed the primary series of J&J vaccine within the last 2 months THEN: 1. Wear a mask around others for 10 days. 2. Test on day 5, if possible. If you develop symptoms get a test and stay home. If You Were Exposed to Someone with COVID-19 (Quarantine) If you: 1. Completed the primary series of Pfizer or Moderna vaccine over 6 months ago and are not boosted OR 2. Completed the primary series of J&J over 2 months ago and are not boosted OR 3. Are unvaccinated THEN: 1. Stay home for 5 days. After that continue to wear a mask around others for 5 additional days. 2. If you can't quarantine you must wear a mask for 10 days. 3. Test on day 5 if possible. If you develop symptoms get a test and stay home. I had COVID-19 or I tested positive for COVID-19 and I have a weakened immune system If you have a weakened immune system (immunocompromised) due to a health condition or medication, you might need to stay home and isolate longer than 10 days. Talk to your healthcare provider for more information. Your doctor may work with an infectious disease expert at your local health department to determinewhen you can be around others. How to Manage Common Symptoms Associated with COVID for Adults Fever- Fever is a temperature over 100.4 F and can occur when the body is fighting an infection. Tohelp treat a fever: Drink plenty of fluids and stay well hydrated. Eat small amounts of easy to digest food. Rest. Your body needs rest to recover, but getting up and moving around the house frequently is a good idea. You should try to continue doing your normal daily activities (bathing, toileting, grooming, cooking), though you will probably feel tired, and need to rest often. Avoid any heavy activity or exercise, as this will increase your body temperature. Dress in light clothing and stay covered in a light sheet. Keep the room temperature cool. Take a slightly warm (not cold or cool) bath, or apply damp washcloths to the forehead and wrists. Cough- Cough is a common symptom associated with COVID and can be bothersome. To help treat a cough: Stay well hydrated. Try warm water or tea with lemon and/or honey to help soothe the cough. Use a humidifier to add moisture to the air. Try a product with menthol, like a cough drop or a rub for your chest such as Vicks, which can helpreduce cough. Try cough drops. Avoid smoking and other strong odors or perfumes. Try breathing exercises to keep your lungs open and clear. Take a big deep breath through your noseand hold for 5 seconds before slowly releasing. Repeat frequently, while you are awake. Congestion- Runny nose or nasal congestion can occur with COVID. Treatment can help relieve symptoms: Try OTC nasal saline spray, or nasal saline rinse to relieve mucus congestion. Nasal strips can help keep nasal passages open, to increase airflow. Elevating your head with an extra pillow in bed can help reduce congestion. Using a humidifier can increase moisture in the air, and make breathing easier. Sore Throat- Another common symptom with COVID, can be managed at home by: Stay well hydrated. Gargle with salt water - mix teaspoon salt with 1 cup of warm water and gargle. This helps to loosen mucus in the back of the throat and may reduce discomfort. Try ice chips, popsicles or lozenges to soothe the throat. Nausea/Vomiting/Diarrhea- These are common symptoms, and staying hydrated is most important. If you are nauseous or vomiting, start with small sips of water every 10-15 minutes and increase astolerated. You can try sucking an ice cube too. If tolerating, you can try pedialyte or Gatorade, or flat sprite or penny-edilia. Start slowly and increase as you are able to. Instead of meals, try smaller, more frequent snacks. Try eating bland foods like crackers, toast, rice, and applesauce. Avoid spicy, greasy or fried foods and dairy containing foods. Even if you aren't feeling hungry due to lack of smell or taste, it is important to try to take in some food when you are able. After drinking and eating, rest in an upright position for up to two hours as needed to help decrease nauseous feelings. Try closing your eyes, avoid moving and watching TV. Avoid strong odors that can make you feel more nauseated. When to seek emergency medical attention Look for emergency warning signs for COVID-19. If having any of these symptoms, seek emergency medical care immediately: Trouble breathing Persistent pain or pressure in the chest New confusion Inability to wake or stay awake Bluish lips or face *This list is not all possible symptoms. Please call your medical provider for any other symptoms that are severe or concerning to you. Fact Sheet for Patients And Caregivers Emergency Use Authorization (EUA) Of Molnupiravir For Coronavirus Disease 2019 (COVID-19) What is the most important information I should know about molnupiravir? Molnupiravir may cause serious side effects, including: Molnupiravir may cause harm to your unborn baby. It is not known if molnupiravir will harm your baby if you take molnupiravir during . Molnupiravir is not recommended for use in . Molnupiravir has not been studied in . Molnupiravir was studied in animals only. When molnupiravir was given to animals, molnupiravir caused harm to their unborn babies. You and your healthcare provider may decide that you should take molnupiravir during if there are no other COVID-19 treatment options authorized by the FDA that are accessible or clinicallyappropriate for you. If you and your healthcare provider decide that you should take molnupiravir during , you and your healthcare provider should discuss the known and potential benefits and the potential risksof taking molnupiravir during . For individuals who are able to become : You should use a reliable method of control (contraception) consistently and correctly duringtreatment with molnupiravir and for 4 days after the last dose of molnupiravir. Talk to your healthcare provider about reliable control methods. Before starting treatment with molnupiravir your healthcare provider may do a test to seeif you are before starting treatment with molnupiravir. Tell your healthcare provider right away if you become or think you may be duringtreatment with molnupiravir. Surveillance Program: There is a surveillance program for individuals who take molnupiravir during . The purpose of this program is to collect information about the health of you and your baby. Talk to your healthcare provider about how to take part in this program. If you take molnupiravir during and you agree to participate in the surveillance program and allow your healthcare provider to share your information with [employer],then your healthcare provider will report your use of molnupiravir during to [employer]. by calling or Pregnancyreporting.[employer]. For individuals who are sexually active with partners who are able to become : It is not known if molnupiravir can affect sperm. While the risk is regarded as low, animal studies to fully assess the potential for molnupiravir to affect the babies of males treated with molnupiravir have not been completed. A reliable method of control (contraception) should be used consistently and correctly during treatment with molnupiravir and for at least 3 months after thelast dose. The risk to sperm beyond 3 months is not known. Studies to understand the risk to sperm beyond 3 months are ongoing. Talk to your healthcare provider about reliable control methods. Talk to your healthcare provider if you have questions or concerns about how molnupiravir may affectsperm. You are being given this fact sheet because your healthcare provider believes it is necessary to provide you with molnupiravir for the treatment of adults with zarb-qh-bkwynazt coronavirus disease 2019 (COVID-19) with positive results of direct SARS-CoV-2 viral testing, and who are at high risk forprogressing to severe COVID-19 including hospitalization or , and for whom other COVID-19 treatment options authorized by the FDA are not accessible or clinically appropriate. The [place]. Food and Drug Administration (FDA) has issued an Emergency Use Authorization (EUA) to makemolnupiravir available during the COVID-19 pandemic (for more details about an EUA please see What is an Emergency Use Authorization? at the end of this document). Molnupiravir is not an FDA-approved medicine in the [place]. Read this Fact Sheet for information about molnupiravir. Talk to your healthcare provider about your options if you have any questions. It is your choice to take molnupiravir. What is COVID-19? COVID-19 is caused by a virus called a coronavirus. You can get COVID-19 through close contact withanother person who has the virus. COVID-19 illnesses have ranged from very qken-fx-boukcp, including illness resulting in . While information so far suggests that most COVID-19 illness is mild, serious illness can happen and maycause some of your other medical conditions to become worse. Older people and people of all ages with severe, long lasting (chronic) medical conditions like heart disease, lung disease and diabetes, for example seem to be at higher risk of being hospitalized for COVID-19. What is molnupiravir? Molnupiravir is an investigational medicine used to treat mjmj-nr-nxurxnwd COVID-19 in adults: with positive results of direct SARS-CoV-2 viral testing, and who are at high risk for progressing to severe COVID-19 including hospitalization or , and for whom other COVID-19 treatment optionsauthorized by the FDA are not accessible or clinically appropriate. The FDA has authorized the emergency use of molnupiravir for the treatment of mild-tomoderate COVID-19 in adults under an EUA. For more information on EUA, see the What is an Emergency Use Authorization (EUA)? section at the end of this Fact Sheet. Molnupiravir is not authorized: for use in people less than 18 years of age. for prevention of COVID-19. for people needing hospitalization for COVID-19. for use for longer than 5 consecutive days. What should I tell my healthcare provider before I take molnupiravir? Tell your healthcare provider if you: Have any allergies Are or plan to breastfeed Have any serious illnesses Are taking any medicines (prescription, fhie-low-raxykom, vitamins, or herbal products). How do I take molnupiravir? Take molnupiravir exactly as your healthcare provider tells you to take it. Take 4 capsules of molnupiravir every 12 hours (for example, at 8 am and at 8 pm) Take molnupiravir for 5 days. It is important that you complete the full 5 days of treatment with molnupiravir. Do not stop taking molnupiravir before you complete the full 5 days of treatment, even if you feel better. Take molnupiravir with or without food. You should stay in isolation for as long as your healthcare provider tells you to. Talk to your healthcare provider if you are not sure about how to properly isolate while you have COVID-19. Swallow molnupiravir capsules whole. Do not open, break, or crush the capsules. If you cannot swallow capsules whole, tell your healthcare provider. What to do if you miss a dose: If it has been less than 10 hours since the missed dose, take it as soon as you remember If it has been more than 10 hours since the missed dose, skip the missed dose and take your dose atthe next scheduled time. Do not double the dose of molnupiravir to make up for a missed dose. What are the important possible side effects of molnupiravir? Possible side effects of molnupiravir are: See, What is the most important information I should know about molnupiravir? diarrhea nausea dizziness These are not all the possible side effects of molnupiravir. Not many people have taken molnupiravir. Serious and unexpected side effects may happen. This medicine is still being studied,so it is possible that all of the risks are not known at this time. What other treatment choices are there? Like molnupiravir, FDA may allow for the emergency use of other medicines to treat people with COVID-19. Go to https://www.fda.gov/lscihiehg-ysxuqhklbhdm-zlw-response/dso-emxhqukqclyuuxl-hed- policy-framework/harxefduj-pfd-bqbpkssxdwuhi for more information. It is your choice to be treated or not to be treated with molnupiravir. Should you decide not to take it, it will not change your standard medical care. What if I am ? is not recommended during treatment with molnupiravir and for 4 days after the last dose of molnupiravir. If you are or plan to breastfeed, talk to your healthcare provider about your options and specific situation before taking molnupiravir. How do I report side effects with molnupiravir? Contact your healthcare provider if you have any side effects that bother you or do not go away. Report side effects to FDA MedWatch at www.fda.gov/medwatch or call 2-574-FTH-5467 ( ). How should I store molnupiravir? Store molnupiravir capsules at room temperature between 68 F to 77 F (20 C to 25 C). Keep molnupiravir and all medicines out of the reach of children and pets. How can I learn more about COVID-19? Ask your healthcare provider. Visit www.cdc.gov/COVID19 Contact your local or state public health department. Call [employer] at (toll free in the [place] Visit www.[employer] What Is an Emergency Use Authorization (EUA)? The [place] FDA has made molnupiravir available under an emergency access mechanism called an Emergency Use Authorization (EUA) The EUA is supported by a [place] of Health and Human Service (HHS) declaration that circumstances exist to justify emergency use of drugs and biological products during the COVID-19 pandemic. Molnupiravir for the treatment of ksss-ku-nrwgpooo COVID-19 in adults with positive results of direct SARS-CoV-2 viral testing, who are at high risk for progression to severe COVID-19, including hospitalization or , and for whom alternative COVID-19 treatment options authorized by FDA are not accessible or clinically appropriate, has not undergone the same type of review as an FDA- approved product. In issuing an EUA under the COVID-19 public health emergency, the FDA has determined, among other things, that based on the total amount of scientific evidence available including data from adequate and well-controlled clinical trials, if available, it is reasonable to believe that the product may be effective for diagnosing, treating, or preventing COVID-19, or a serious or life-threatening disease or condition caused by COVID19; that the known and potential benefits of the product, when used to diagnose, treat, or prevent such disease or condition, outweigh the known and potential risks of such product; and that there are no adequate, approved, and available alternatives. All of these criteria must be met to allow for the product to be used in the treatment of patients during the COVID-19 pandemic. The EUA for molnupiravir is in effect for the duration of the COVID-19declaration justifying emergency use of molnupiravir, unless terminated or revoked (after which molnupiravir may no longer be used under the EUA). For patent information: www.[employer]/research/patent Copyright 2020 [employer] [facility] and its affiliates. All rights reserved. [id number] Issued: 08/08/2021 [facility] History of Present illness Narrative* Kacey Mcdonald RDMS - 08/06/2022 2:30 PM EST Radiology Service Progress Note PATIENT NAME: Kalli Jacobs DATE OF SERVICE: August 06, 2022 TIME: 3:15 PM PATIENT IDENTITY VERIFICATION COMPLETED USING TWO (2) IDENTIFIERS: Name and Date of confirmedby patient verbally. FALL SCREENING: Has the patient had 2 falls in the last year or 1 fall with injury or currently using an Ambulatory Assistive Device (Walker, Cane, Wheelchair, Crutches, etc.)? Yes, Patient High Riskfor Falls What interventions were put in place to prevent falls during this visit? Instructed Patient to Callfor Help if Needed, Offered Assistance with Transfers/Clothing, Instructed Patient to Remain Seated(Not on Exam Table) Until Exam, and Increased Observations by Caregivers PATIENT GENDER DATA: Female. status: : No status: NO. PATIENT RELEVANT IMPLANT DATA REVIEWED: Not Applicable RADIOLOGY DEPARTMENT: Ultrasound PERIPHERAL IV DATA: Not applicable SIGNED BY: Kacey Mcdonald RDMS T August 06, 2022 3:15 PM documented in this [facility]The [facility]12-[facility] History of Present illness Narrative* Kika Garcia RT(R) - 08/06/2022 2:00 PM EST Radiology Service Progress Note PATIENT NAME: Kalli Jacobs DATE OF SERVICE: August 06, 2022 TIME: 1:40 PM PATIENT IDENTITY VERIFICATION COMPLETED USING TWO (2) IDENTIFIERS: Name and Date of confirmedby patient verbally. FALL SCREENING: Has the patient had 2 falls in the last year or 1 fall with injury or currently using an Ambulatory Assistive Device (Walker, Cane, Wheelchair, Crutches, etc.)? No PATIENT GENDER DATA: Female. status: : No status: NO. PATIENT RELEVANT IMPLANT DATA REVIEWED: Not Applicable RADIOLOGY DEPARTMENT: Mammography PERIPHERAL IV DATA: Not applicable SIGNED BY: RT Kennedi(R) August 06, 2022 1:40 PM documented in [facility] encounterThe [facility]12[facility] Miscellaneous Notes* Telephone Encounter - Rukhsana Pisano LPN - 07/21/2022 10:23 AM EST Last office visit: 06/20/22 Next appointment scheduled: 02/06/23 Last labs: 06/02/22 * Telephone Encounter - Mely Antonio - 07/21/2022 9:50 AM EST Patient has been identified by name and date of : Yes Requested Prescriptions Pending Prescriptions Disp Refills buPROPion XL (WELLBUTRIN XL) 150 mg 24 hr tablet 30 tablet 2 Sig: Take 1 tablet by mouth once daily. phenytoin ER (DILANTIN) 100 mg ER capsule 90 capsule 2 Sig: Take 1 capsule by mouth three times daily. fluticasone (FLONASE) 50 mcg/actuation nasal spray 16 g 11 Sig: Use 2 Sprays in each nostril once daily. RX INSTRUCTIONS: Patient aware RX will be sent to pharmacy. No need to notify patient. [facility] [place] [facility] Miscellaneous Notes* Telephone Encounter - Rukhsana Pisano LPN - 07/16/2022 1:48 PM EST PATIENT NOTIFIED OF SAME. * Telephone Encounter - Pinky Garcia APRN.CNP - 07/16/2022 1:19 PM EST I would recommend repeat labs in about 6 weeks, orders placed. * Telephone Encounter - Snow Vences RN - 07/16/2022 12:53 PM EST Pt called and is notified of providers message and instructions. Pt voices understanding, she is like what it I take my Thyroid medication an hour before I take my night time meds and then go to bed.Pt also asking when provider would like her to come in and get her labs redrawn. Please call and advise. Snow Vences, SIMBA * Telephone Encounter - Pinky Garcia APRN.CNP - 07/16/2022 12:36 PM EST Please let her know the thyroid labs show improvement but that thyroid is still underactive. Not taking it alone with an empty stomach could be part of the issue. If she is not having any symptoms ofissues I would recommend she try and start taking it alone without other meds at the same time (could take at bedtime if having a hard time in the morning but recommend not eating 2 hours prior to taking it) and we can see what influence that has on the labs before we jump to increasing the medicine further. * Telephone Encounter - Violeta Alegria LPN - 07/16/2022 9:48 AM EST Patient calling asking about her thyroid lab results. Patient is taking Levothyroxine 88 mcg daily,but she has been taking with her other medications at times. Patient said she tried to take it alone, hard to get all of her other medications taken. Please advise Component Latest Ref Rng & Units 07/15/2022 TSH 0.270 - 4.200 mIU/L 5.020 (H) Free T4 0.9 - 1.7 ng/dL 1.0 Free T3 2.3 - 4.1 pg/mL 2.5 documented in this encounterThe [facility]11-28-[facility]22 Miscellaneous Notes* Telephone Encounter - Rukhsana Pisano LPN - 07/14/2022 2:33 PM EST Last office visit: 06/20/22 Next appointment scheduled: 02/06/23 * Telephone Encounter - Serina Baron Pss - 07/14/2022 2:27 PM EST Patient has been identified by name and date of : Yes Requested Prescriptions Pending Prescriptions Disp Refills busPIRone (BUSPAR) 15 mg tablet 60 tablet 2 Sig: Take 1 tablet by mouth twice daily. omeprazole (PRILOSEC) 40 mg capsule 90 capsule 0 Sig: Take 1 capsule by mouth once daily. RX INSTRUCTIONS: Patient aware RX will be sent to pharmacy. No need to notify patient. Serina Baron Pss documented in this encounterThe [facility]11-10-[facility]22 Miscellaneous Notes* Telephone Encounter - Hailey Macdonald Pss - 06/26/2022 3:18 PM EST Patient contacted and transferred to [facility] at [phone]. Also given phone number in [facility] would get disconnected. * Telephone Encounter - Mindy Casas LPN - 06/26/2022 1:39 PM EST Patient notified of providers message and verbalized understanding. Encounter routed to PSR to assist patient in scheduling follow up imaging. * Telephone Encounter - Dayton Garcia MD - 06/26/2022 1:03 PM EST Patient needs additional views of left breast to determine if the asymmetry is something that needsfurther work up. * Telephone Encounter - Snow Vences RN - 06/25/2022 9:45 AM EST Pt called in and is asking if provider would go over her mammogram results. Please call and advise. documented in this encounterThe [facility]11-[facility]22 Miscellaneous Notes* Letter - Mammography Coordinator - 06/24/2022 9:43 AM EST June 24, 2022 PID: [id number] Kalli Jacobs [address] [place] [id number] Dear Ms. Jacobs, Your recent breast imaging exam on 06/23/2022 showed a possible finding that requires additional imaging studies for a complete evaluation. Most such findings are probably benign (not cancer). If you have a healthcare provider who ordered/prescribed your screening mammogram: Please call [phone] or [phone]: [phone] to schedule an appointment for your additional imaging (if youhave not already done so). If you DO NOT have a healthcare provider (ie you did not have an order/prescription for your screening mammogram): Please call to schedule an appointment for your additional imaging (if you have not already done so). You must have an order/prescription from your physician when calling to schedule your appointment. If your order/prescription is not electronic, you must bring the hard copy with you on the day of your exam to avoid delays. Your imaging studies and reports are kept [facility] file [facility] as part of your permanent medical record, and are available for your continuing care. Thank you for allowing us to help in meeting your health care needs. Sincerely, Dr. Garcia Interpreting Radiologist [facility] (Additional imaging) documented in this encounterThe [facility] Miscellaneous Notes* Telephone Encounter - Rukhsana Pisano LPN - 06/20/2022 10:23 AM EDT PATIENT NOTIFIED OF SAME. * Telephone Encounter - Dayton Garcia MD - 06/19/2022 11:04 PM EDT Let her know hypothyroidism can affect hair and weight problems * Telephone Encounter - Snow Vences RN - 06/13/2022 4:25 PM EDT Pt called and is notified of providers results and instructions. Pt voices understanding. Pt reports she is taking the Synthroid as prescribed. She is asking if this could be causing weight gain and her hair to be falling out. Snow Vences RN * Telephone Encounter - Saeid Koch APRN.ALVIN - 06/13/2022 4:15 PM EDT Has PCP visit 06/22, can discuss in detail at visit. Little change from previous, TSH elevated though. Verify taking medications as prescribed. Component Latest Ref Rng & Units 05/20/2021 06/02/2022 Protein, Total 6.3 - 8.0 g/dL 7.4 7.4 Albumin 3.9 - 4.9 g/dL 4.1 4.5 Calcium 8.5 - 10.2 mg/dL 9.3 8.7 Bilirubin, Total 0.2 - 1.3 mg/dL 0.2 0.3 Alkaline Phosphatase 34 - 123 U/L 180 (H) 188 (H) AST 13 - 35 U/L 33 41 (H) Glucose 74 - 99 mg/dL 82 116 (H) BUN 7 - 21 mg/dL 5 (L) 5 (L) Creatinine 0.58 - 0.96 mg/dL 0.68 0.85 Sodium 136 - 144 mmol/L 135 (L) 136 Potassium 3.7 - 5.1 mmol/L 3.9 4.1 Chloride 97 - 105 mmol/L 102 101 CO2 22 - 30 mmol/L 19 (L) 24 Anion Gap 9 - 18 mmol/L 14 11 ALT 7 - 38 U/L 37 41 (H) eGFR- >60 eGFR-All Other Races . >60 eGFR >=60 mL/min/1.73m 81 WBC 3.70 - 11.00 k/uL 12.33 (H) RBC 3.90 - 5.20 m/uL 4.68 Hemoglobin 11.5 - 15.5 g/dL 13.3 Hematocrit 36.0 - 46.0 % 42.6 MCV 80.0 - 100.0 fL 91.0 MCH 26.0 - 34.0 pg 28.4 MCHC 30.5 - 36.0 g/dL 31.2 RDW-CV 11.5 - 15.0 % 13.2 Platelet Count 150 - 400 k/uL 324 MPV 9.0 - 12.7 fL 11.1 Absolute nRBC <0.01 k/uL <0.01 Cholesterol, Total <200 mg/dL 249 (H) 239 (H) Triglyceride <150 mg/dL 120 124 HDL Cholesterol >39 mg/dL 50 47 LDL Cholesterol <100 mg/dL 175 (H) 167 (H) Non HDL Cholesterol <130 mg/dL 199 (H) 192 (H) Fasting Time hrs 10 17 VLDL Cholesterol <30 mg/dL 24 25 TC:HDL Ratio <5.10 4.98 5.09 LDL:HDL Ratio <2.54 3.50 (H) 3.55 (H) HSV IgG 1 Qualitative Negative Positive (A) Herpes simplex 1, IgG AI 6.8 HSV IgG 2 Qualitative Negative Positive (A) Herpes simplex 2, IgG AI 7.6 Iron 41 - 186 ug/dL 55 88 TIBC 232 - 386 ug/dL 319 283 Transferrin Saturation 15.0 - 57.0 % 17 31.1 HIV 12 Combo (Ag/Ab) Non Reactive Non Reactive HIV-1/2 AB Test Not Indicated HIV Interpretation Negative Hemoglobin A1C 4.3 - 5.6 % 5.9 (H) 5.8 (H) Estimated Average Glucose mg/dL 123 120 Syphilis Screen Result Non Reactive Non Reactive Syphilis Interpretation Cannot exclude recent Treponemal infection if specimen collected within 7 to 10 . . . Ferritin 14.7 - 205.1 ng/mL 509.0 (H) 605.0 (H) Hep C Antibody IA Negative Negative Hep B Surface Ag Negative Negative TSH 0.270 - 4.200 mIU/L 6.230 (H) Free T4 0.9 - 1.7 ng/dL 1.0 Free T3 2.3 - 4.1 pg/mL 2.6 * Telephone Encounter - Gabriela Oro RN - 06/03/2022 11:34 AM EDT Patient calls and is asking about lab results? Please review and advise, Gabriela Oro RN documented in this encounterThe [facility]10-31-[facility]22 Miscellaneous Notes* Telephone Encounter - Diamond Elliott RN - 06/16/2022 1:46 PM EDT Patient has been identified by name and date of : Yes Patient phones for refill(s): Requested Prescriptions Pending Prescriptions Disp Refills lithium carbonate (ESKALITH) 300 mg capsule 60 capsule 5 Sig: Take 1 capsule by mouth twice daily with meals. Date of last office visit with pcp: 10/25/21 Next OV 06/20/22 Date of last office visit in primary care: Last 2 Encounter Wt Readings: Date: Wt: 10/25/2021 98.9 kg (218 lb) 04/09/2021 97.1 kg (214 lb) Previous labs/tests for medication: Not applicable Please advise. Thank you. Diamond Elliott RN documented in this encounterThe [facility]10-26-2022 Miscellaneous Notes* Telephone Encounter - Melvi Horne Ma - 06/11/2022 11:37 AM EDT Patient notified * Telephone Encounter - Dayton Garcia MD - 06/11/2022 11:28 AM EDT More refills at upcoming appointment--make sure she knows she has November appointment The following approved medication requests have been transmitted electronically. Requested Prescriptions Signed Prescriptions Disp Refills nortriptyline (PAMELOR) 25 mg capsule 30 capsule 1 Sig: Take 1 capsule by mouth daily at bedtime. Authorizing Provider: DAYTON GARCIA etodolac (LODINE) 400 mg tablet 60 tablet 1 Sig: Take 1 tablet by mouth twice daily as needed. Authorizing Provider: DAYTON GARCIA MD * Telephone Encounter - Snow Vences RN - 06/11/2022 9:58 AM EDT Pt reports she only has enough of the one medication to last through tonight. Patient has been identified by name and date of : Yes Patient phones for refill(s): Requested Prescriptions Pending Prescriptions Disp Refills nortriptyline (PAMELOR) 25 mg capsule 30 capsule 5 Sig: Take 1 capsule by mouth daily at bedtime. etodolac (LODINE) 400 mg tablet 60 tablet 1 Sig: Take 1 tablet by mouth twice daily as needed. Date of last office visit in primary care: 10/25/21 Future visit: 06/20/22 Last 2 Encounter Wt Readings: Date: Wt: 10/25/2021 98.9 kg (218 lb) 04/09/2021 97.1 kg (214 lb) Previous labs/tests for medication: Blood Pressure: BUN (mg/dL) Date Value 06/02/2022 5 05/20/2021 5 Sodium (mmol/L) Date Value 06/02/2022 136 05/20/2021 135 Last 1 Encounter BP Readings: Date: BP: 10/25/2021 118/72 Liver Function: ALT (U/L) Date Value 06/02/2022 41 05/20/2021 37 AST (U/L) Date Value 06/02/2022 41 05/20/2021 33 Please advise. Thank you. Snow Vences, RN documented in this encounterThe [facility]09-21-2022 Miscellaneous Notes* Telephone Encounter - Patricia Miller LPN - 05/07/2022 9:23 AM EDT Pharmacy never received 10/25/2021 Levothyroxine RX, please resend. Patient has been identified by name and date of : Yes Patient phones for refill(s): Requested Prescriptions Pending Prescriptions Disp Refills levothyroxine (SYNTHROID) 75 mcg tablet 30 tablet 11 Sig: Take 1 tablet by mouth once daily. Take on empty stomach. For Thyroid Date of last office visit in primary care: 10/25/2021 6 month follow-up: 06/20/2022 Last 2 Encounter Wt Readings: Date: Wt: 10/25/2021 98.9 kg (218 lb) 04/09/2021 97.1 kg (214 lb) Previous labs/tests for medication: Thyroid: TSH (uU/mL) Date Value 12/26/2020 2.670 Please advise. Thank you. Patricia Miller LPN * Telephone Encounter - Maricarmen Bellamy Pss - 05/06/2022 4:46 PM EDT Patient has been identified by name and date of : Yes Requested Prescriptions Pending Prescriptions Disp Refills dicyclomine (BENTYL) 20 mg tablet 90 tablet 5 Sig: Take 1 tablet by mouth three times daily. levothyroxine (SYNTHROID) 75 mcg tablet 30 tablet 11 Sig: Take 1 tablet by mouth once daily. Take on empty stomach. For Thyroid RX INSTRUCTIONS: Patient aware RX will be sent to pharmacy. No need to notify patient. Maricarmen Leigh documented in this encounterThe [facility]09-19-2022 Miscellaneous Notes* Telephone Encounter - Patricia Miller LPN - 05/05/2022 3:47 PM EDT Patient has been identified by name and date of : Yes Patient phones for refill(s): Requested Prescriptions Pending Prescriptions Disp Refills dicyclomine (BENTYL) 20 mg tablet 90 tablet 5 Sig: Take 1 tablet by mouth three times daily. Date of last office visit in primary care: 10/25/2021 6 month follow-up: 06/20/2022 Last 2 Encounter Wt Readings: Date: Wt: 10/25/2021 98.9 kg (218 lb) 04/09/2021 97.1 kg (214 lb) Previous labs/tests for medication: Not applicable Please advise. Thank you. Patricia Miller LPN documented in this encounterThe [facility]09-09-2022 Miscellaneous Notes* Telephone Encounter - Dyaton Garcia MD - 04/25/2022 12:33 AM EDT Okayed * Telephone Encounter - Patricia Miller LPN - 04/24/2022 2:16 PM EDT Patient has been identified by name and date of : Yes Patient phones for refill(s): Requested Prescriptions Pending Prescriptions Disp Refills omeprazole (PRILOSEC) 40 mg capsule 90 capsule 3 Sig: Take 1 capsule by mouth once daily. buPROPion XL (WELLBUTRIN XL) 150 mg 24 hr tablet 30 tablet 5 Sig: Take 1 tablet by mouth once daily. busPIRone (BUSPAR) 15 mg tablet 60 tablet 5 Sig: Take 1 tablet by mouth twice daily. phenytoin ER (DILANTIN) 100 mg ER capsule 90 capsule 5 Sig: Take 1 capsule by mouth three times daily. Date of last office visit in primary care: 10/25/2021 6 month follow-up: 06/20/2022 Last 2 Encounter Wt Readings: Date: Wt: 10/25/2021 98.9 kg (218 lb) 04/09/2021 97.1 kg (214 lb) Previous labs/tests for medication: Not applicable Please advise. Thank you. Patricia Miller LPN documented in this encounterThe [facility]05-20-2022 Miscellaneous Notes* Telephone Encounter - Violeta Alegria LPN - 01/03/2022 3:03 PM EDT Patient returned call and went over notes below from Dr Garcia with understanding. Patient said she hardly eats as it is for quite some time. Advised may have to check with insurance for which DME to get compression stockings from. * Telephone Encounter - Melvi Horne Ma - 01/03/2022 2:52 PM EDT Left message for patient to call office * Telephone Encounter - Dayton Garcia MD - 01/02/2022 5:55 PM EDT See if patient wants to try to stop any meds that might be contributing to dry mouth or does she feel that all her meds are helping her and wants to stay on al of them? There are a few meds on her list that are more likely than others to cause dry mouth. In the meanwhile, needs to drink enough non-caffeinated fluids (if not able to drink 8 cups a day, aim for at least 4). She can use Biotene products (mouth wash, toothpaste, gel, sprays, etc). Remind her to get her labs so we cam make sure liver and kidneys, etc are doing okay. * Telephone Encounter - Lilly Spear LPN - 12/27/2021 9:[address] Batista sees pt and he came to the office late yesterday to report pt complains of dry mouth. [place] pcp to review. documented in this encounterThe [facility]04-26-2022 Miscellaneous Notes* Telephone Encounter - Ruby Bellamy LPN - 12/10/2021 9:13 AM EDT Patient has been identified by name and date of : Yes Patient phones for refill(s): Pending Prescriptions Disp Refills NORTRIPTYLINE 25 MG CAPSULE 30 capsule 5 Sig: Take 1 capsule by mouth daily at bedtime. ANGY: No Date of last office visit in primary care: 10/25/21 next apt 06/20/22 Last 2 Encounter Wt Readings: Date: Wt: 10/25/2021 98.9 kg (218 lb) 04/09/2021 97.1 kg (214 lb) Previous labs/tests for medication: Not applicable Please advise. Thank you. Ruby Bellamy LPN documented in this encounterThe [facility]04-25-2022 Miscellaneous Notes* Telephone Encounter - Saeid Koch APRN.CNS - 12/09/2021 3:45 PM EDT ok * Telephone Encounter - Delmis Che LPN - 12/09/2021 1:58 PM EDT Patient scheduled for nurse visit 12/23/21 to receive Hepatitis B vaccine. Please place order at thistime. Delmis Che LPN documented in this encounterThe [facility]04-12-2022 Miscellaneous Notes* Telephone Encounter - Gabriela Oro RN - 11/26/2021 3:57 PM EDT Patient calls and is notified of this. Patient verbalized understanding. Gabriela Oro, RN documented in this encounterThe [facility]04-11-2022 Miscellaneous Notes* Telephone Encounter - Patricia Miller LPN - 11/25/2021 5:[address] Joanie Mahan did write a new prescription for Bupropion XL (Wellbutrin XL) on 10/25/2021 for30 tablets, 5 [facility]ills[facility] Please check with your pharmacy, they should have the prescription on file, waiting for you to call to fill. If you have any questions, please call and speak to a nurse. Patricia Miller LPN documented in this encounterThe [facility]2022 Miscellaneous Notes* Telephone Encounter - Amaury Hilario Ma - 11/04/2021 1:12 PM EDT JOSE J: 10/25/2021 Last refill: 05/03/2021 QTY: 90 Refills: 5 Patient's request for medication is as follows: Pending Prescriptions Disp Refills DICYCLOMINE 20 MG TABLET 90 tablet 5 Sig: Take 1 tablet by mouth three times daily. ANGY: No Please approve the above prescription(s) to electronically send to pharmacy. Amaury Hilario Ma documented in this encounterThe [facility]03-11-2022 Instructions* Patient Instructions* Dayton Garcia MD - 10/25/2021 5:00 PM EST Avoid eating carbs without a protein. Limit bagels since usually 60 grams of carbs per bagel. Keep eating veggies. documented in this [facility]03-11-2022 History of Present illness Narrative* Dayton Garcia MD - 10/25/2021 4:40 PM EST This note was created using Tri-Medics[employer]. Subjective Kalli Jacobs is a 56 year old female. Patient presents with: 6 Month Exam SUBJECTIVE: Kalli Jacobs is a 56 year old year old lady here today for 6 month follow up appointment for review of medical conditions. Will see eye doctor next month. Dr. Batista recommended Wellbutrin. Help with weight and focus. Doing okay on current meds for thyroid, anxiety. Does not want on Zoloft, Geodon and Depakote because gained weight. Discussed DM prevention. Sarmad tea. Stopped coffee. Usually bagel in AM. Eats when has meds--salad or fish for dinner. Eats 4 times a day. Does like veggies Back pain limits walking. Thera tears in between other eye drops. PAST MEDICAL HISTORY Diagnosis Date Bee sting allergy 12/17/2007 By patient history Bipolar I disorder, most recent episode (or current) unspecified Borderline diabetes mellitus 09/14/2017 Esophageal reflux 09/02/2005 Hearing loss Hot flashes due to menopause Migraine with aura Other forms of epilepsy and recurrent seizures Unspecified asthma(493.90) Unspecified constipation Current Outpatient Medications Medication Sig QUEtiapine (SEROQUEL) 50 mg tablet Take 1 tablet by mouth daily at bedtime. albuterol HFA (VENTOLIN HFA) 90 mcg/actuation inhaler Inhale 2 Puffs as instructed every 4 hours asneeded. Also use 2 puffs prior to exertion albuterol (PROVENTIL) 2.5 mg /3 mL (0.083 %) nebulizer solution Use 3 mL via nebulizer every 6 hours as needed for Wheezing/Shortness of Breath. fluticasone (FLONASE) 50 mcg/actuation nasal spray Use 2 Sprays in each nostril once daily. montelukast (SINGULAIR) 10 mg tablet Take 1 tablet by mouth daily at bedtime. lithium carbonate (ESKALITH) 300 mg capsule Take 1 capsule by mouth twice daily with meals. levothyroxine (SYNTHROID) 75 mcg tablet Take 1 tablet by mouth once daily. Take on empty stomach. For Thyroid nortriptyline (PAMELOR) 25 mg capsule Take 1 capsule by mouth daily at bedtime. omeprazole (PRILOSEC) 40 mg capsule Take 1 capsule by mouth once daily. dicyclomine (BENTYL) 20 mg tablet Take 1 tablet by mouth three times daily. phenytoin ER (DILANTIN) 100 mg ER capsule Take 1 capsule by mouth three times daily. busPIRone (BUSPAR) 15 mg tablet Take 1 tablet by mouth twice daily. azelastine (ASTELIN) 0.1% nasal spray Azelastine Active 1 SPRAY INTRANASAL TWICE A DAY March 05, 2021 1:44pm cholestyramine (QUESTRAN) 4 gram packet Take 1 Packet by mouth once daily. for diarrhea EPINEPHrine (EPIPEN) 0.3 mg/0.3 mL auto-injector Use as needed for bee sting then go to emergecny room for further evaluation and treatment after bee sting loperamide (IMODIUM A-D) 2 mg cap(s) Take 1 capsule by mouth four times daily as needed for Diarrhea. etodolac (LODINE) 400 mg tablet Take 1 tablet by mouth twice daily as needed. nicotine (NICODERM) 21 mg/24 hr Apply 1 Patch as directed every 24 hours. spironolactone (ALDACTONE) 25 mg tablet Take 1 tablet by mouth once daily as needed (swelling/fluidretention). polyethylene glycol 3350 (MIRALAX, GLYCOLAX) 17 gram/dose powder Mix 1 capful (17 grams) once a dayin 8 ounces of liquid daily acetaminophen (TYLENOL) 325 mg tablet Take 2 tablets by mouth every 6 hours as needed for Pain. (Patient not taking: Reported on 04/09/2021 ) Compression Knee Highs KNEE HIGH COMPRESSION STOCKINGS 20-30 MM. DX: lower extremity edema, varicose veins, zafar insufficiency timolol hemihydrate (BETIMOL) 0.5 % ophthalmic solution Use 1 Drop in both eyes twice daily. COMPOUNDED PRESCRIPTION Nebulizer for home use. Dx: 493.90 No current facility-administered medications for this visit. Review of Systems Objective BP 118/72 Pulse 92 Wt 98.9 kg (218 lb) LMP 01/30/2011 BMI 41.19 kg/m Last 5 Encounter BP Readings: Date: BP: 10/25/2021 118/72 04/09/2021 126/82 12/18/2020 132/84 12/06/2020 136/84 09/17/2020 126/84 Last 5 Encounter Wt Readings: Date: Wt: 10/25/2021 98.9 kg (218 lb) 04/09/2021 97.1 kg (214 lb) 12/18/2020 99.2 kg (218 lb 9.6 oz) 12/06/2020 98.2 kg (216 lb 6.4 oz) 09/17/2020 95.3 kg (210 lb) Physical Exam Constitutional: Appearance: Normal appearance. HENT: Head: Normocephalic. Eyes: Conjunctiva/sclera: Conjunctivae normal. Cardiovascular: Rate and Rhythm: Normal rate and regular rhythm. Heart sounds: Normal heart sounds. Pulmonary: Effort: Pulmonary effort is normal. Breath sounds: Normal breath sounds. Musculoskeletal: Right lower leg: Edema present. Left lower leg: Edema present. Skin: General: Skin is warm and dry. Neurological: General: No focal deficit present. Mental Status: She is alert and oriented to person, place, and time. Psychiatric: Mood and Affect: Mood normal. Behavior: Behavior normal. Thought Content: Thought content normal. Judgment: Judgment normal. Assessment and Plan Encounter Diagnosis ICD-10-CM 1. Bipolar I disorder ([facility]) F31.9 buPROPion XL (WELLBUTRIN XL) 150 mg 24 hr tablet 2. Acquired hypothyroidism E03.9 levothyroxine (SYNTHROID) 75 mcg tablet TSH BLD T4 FREE/FREE THYROX T3 FREE BLD 3. Elevated cholesterol E78.00 LIPID PANEL BASIC 4. Elevated ferritin R79.89 5. Elevated hemoglobin A1c R73.09 HGB A1C 6. Encounter for long-term current use of medication Z79.899 7. Medication management Z79.899 busPIRone (BUSPAR) 15 mg tablet COMP METABOLIC PANEL CBC LIPID PANEL BASIC TSH BLD T4 FREE/FREE THYROX T3 FREE BLD IRON + TIBC FERRITIN BLD 8. 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 Class 3 severe obesity due to excess calories without serious comorbidity with body mass index (BMI) of 40.0 to 44.9 in adult ([facility]) E66.01 Z68.41 10. Gastroesophageal reflux disease, unspecified whether esophagitis present K21.9 11. Moderate persistent asthma without complication J45.40 12. Kyphosis of thoracic region, unspecified kyphosis type M40.204 ASSESSMENT/PLAN: 1. Bipolar I disorder (HCC) - ICD9: 296.7, ICD10: F31.9 (primary diagnosis) Further evaluation and treatment as indicated. - BUPROPION XL 150 MG TAB 2. Acquired hypothyroidism - ICD9: 244.9, ICD10: E03.9 - Instructed patient on importance of taking on an empty stomach either first thing in the morning or at bedtime. Get labs and adjust dose as needed - LEVOTHYROXINE 75 MCG TABLET - TSH BLD - T4 FREE/FREE THYROX - T3 FREE BLD 3. Elevated cholesterol - ICD9: 272.0, ICD10: E78.00 Further evaluation and treatment as indicated. - LIPID PANEL BASIC 4. Elevated ferritin - ICD9: 790.6, ICD10: R79.89 Further evaluation and treatment as indicated. Was trending down. 5. Elevated hemoglobin A1c - ICD9: 790.29, ICD10: R73.09 Needs to keep working on diet and exercise with lifestyle changes for effective weight loss as wellas prevention of DM, and control of BP and lipids. - HGB A1C 6. Encounter for long-term current use of medication - ICD9: V58.69, ICD10: Z79.899 - BUSPIRONE 15 MG TABLET - COMP METABOLIC PANEL - CBC - LIPID PANEL BASIC - TSH BLD - T4 FREE/FREE THYROX - T3 FREE BLD - IRON + TIBC - FERRITIN BLD 7. Generalized convulsive epilepsy (HCC) - ICD9: 345.10, ICD10: G40.309 Further evaluation and treatment as indicated. 8. Class 3 severe obesity due to excess calories without serious comorbidity with body mass index (BMI) of 40.0 to 44.9 in adult (HCC) - ICD9: 278.01, V85.41, ICD10: E66.01, Z68.41 Needs to keep working on diet and exercise with lifestyle changes for effective weight loss as wellas prevention of DM, and control of BP and lipids. 9. Gastroesophageal reflux disease, unspecified whether esophagitis present - ICD9: 530.81, ICD10: K21.9 Continue present management. Work on weight loss. PPI effective 11. Moderate persistent asthma without complication - ICD9: 493.90, ICD10: J45.40 Continue present management. 12. Kyphosis of thoracic region, unspecified kyphosis type - ICD9: 737.10, ICD10: M40.204 Work on weight loss and posture, core strengthening exercises. Dayton Garcia MD documented in this encounterThe [facility]12-05-2021 Miscellaneous Notes* Telephone Encounter - Dayton Garcia MD - 07/21/2021 7:11 PM EST Make sure already trying environmental control with adjusting room temperature (usually need to lower room temperature, plus making adjustments in what she wears for sleep, what she uses for bed sheets and blankets as well as pillows--anything that retains too much heat will get too hot in the middle of the night and trigger hot flashes. Similar changes need made for clothing during the day. Could consider gabapentin at bedtime, estrogen (hormonr replacement), clonidine, and SSRI meds likeLexapro or Effexor if has not tried these meds for other reasons but had adverse effects. Should beseen to discuss option for meds.. 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 * Telephone Encounter - Rukhsana Pisano LPN - 07/19/2021 1:34 PM EST Patient is having severe hot flashes and is wondering what she can do to help alleviated the symptoms. She has not tried anything over the counter as of this time. Please advise. documented in this encounterThe [facility]08-24-2021 History of Present illness Narrative* Mara Luis, RT(R) - 04/09/2021 3:20 PM EDT Radiology Service Progress Note PATIENT NAME: Kalli Jacobs DATE OF SERVICE: April 09, 2021 TIME: 3:14 pm PATIENT IDENTITY VERIFICATION COMPLETED USING TWO (2) IDENTIFIERS: Name and Date of confirmedby patient verbally. FALL SCREENING: Has the patient had 2 falls in the last year or 1 fall with injury or currently using an Ambulatory Assistive Device (Walker, Cane, Wheelchair, Crutches, etc.)? No PATIENT GENDER DATA: Female. status: : No status: NO. PATIENT RELEVANT IMPLANT DATA REVIEWED: Not Applicable RADIOLOGY DEPARTMENT: General X-ray: Exam(s) Completed: Spine X-Ray(s): Thoracic and Lumbar AP / LAT / L5-S1 PERIPHERAL IV DATA: Not applicable SIGNED BY: RT Judith(R) April 09, 2021 3:33 PM documented in this encounter[address]23-2006 History of Past illness Narrative* Problem Noted Date Resolved Date Closed fracture of hamate (unciform) bone of [facility] 04/08/2006 06/04/2012 Closed fracture of metacarpal bone(s), site unsp ecified 03/25/2006 06/04/2012 documented as of this encounter (statuses as of 11/04/2021) [address] History of Past illness Narrative* Problem Noted Date Resolved Date Closed fracture of hamate (unciform) bone of [facility] 04/08/2006 06/04/2012 Closed fracture of metacarpal bone(s), site unsp ecified 03/25/2006 06/04/2012 documented as of this encounter (statuses as of 11/25/2021) [address] History of Past illness Narrative* Problem Noted Date Resolved Date Closed fracture of hamate (unciform) bone of [facility] 04/08/2006 06/04/2012 Closed fracture of metacarpal bone(s), site unsp ecified 03/25/2006 06/04/2012 documented as of this encounter (statuses as of 11/26/2021) [address] History of Past illness Narrative* Problem Noted Date Resolved Date Closed fracture of hamate (unciform) bone of [facility] 04/08/2006 06/04/2012 Closed fracture of metacarpal bone(s), site unsp ecified 03/25/2006 06/04/2012 documented as of this encounter (statuses as of 12/09/2021) [address] History of Past illness Narrative* Problem Noted Date Resolved Date Closed fracture of hamate (unciform) bone of [facility] st 04/08/2006 06/04/2012 Closed fracture of metacarpal bone(s), site unsp ecified 03/25/2006 06/04/2012 documented as of this encounter (statuses as of 12/10/2021) [address] History of Past illness Narrative* Problem Noted Date Resolved Date Closed fracture of hamate (unciform) bone of [facility] st 04/08/2006 06/04/2012 Closed fracture of metacarpal bone(s), site unsp ecified 03/25/2006 06/04/2012 documented as of this encounter (statuses as of 01/02/2022) [address] [address] History of Past illness Narrative* Problem Noted Date Resolved Date Closed fracture of hamate (unciform) bone of [facility] 04/08/2006 06/04/2012 Closed fracture of metacarpal bone(s), site unsp ecified 03/25/2006 06/04/2012 documented as of this encounter (statuses as of 01/08/2022) [address] History of Past illness Narrative* Problem Noted Date Resolved Date Closed fracture of hamate (unciform) bone of [facility] 04/08/2006 06/04/2012 Closed fracture of metacarpal bone(s), site unsp ecified 03/25/2006 06/04/2012 documented as of this encounter (statuses as of 01/17/2022) [address] History of Past illness Narrative* Problem Noted Date Resolved Date Closed fracture of hamate (unciform) bone of [facility] st 04/08/2006 06/04/2012 Closed fracture of metacarpal bone(s), site unsp ecified 03/25/2006 06/04/2012 documented as of this encounter (statuses as of 02/17/2022) [address] History of Past illness Narrative* Problem Noted Date Resolved Date Closed fracture of hamate (unciform) bone of [facility] 04/08/2006 06/04/2012 Closed fracture of metacarpal bone(s), site unsp ecified 03/25/2006 06/04/2012 documented as of this encounter (statuses as of 04/25/2022) [address] History of Past illness Narrative* Problem Noted Date Resolved Date Closed fracture of hamate (unciform) bone of [facility] 04/08/2006 06/04/2012 Closed fracture of metacarpal bone(s), site unsp ecified 03/25/2006 06/04/2012 documented as of this encounter (statuses as of 05/05/2022) [address] History of Past illness Narrative* Problem Noted Date Resolved Date Closed fracture of hamate (unciform) bone of [facility] 04/08/2006 06/04/2012 Closed fracture of metacarpal bone(s), site unsp ecified 03/25/2006 06/04/2012 documented as of this encounter (statuses as of 05/07/2022) [address] History of Past illness Narrative* Problem Noted Date Resolved Date Closed fracture of hamate (unciform) bone of [facility] 04/08/2006 06/04/2012 Closed fracture of metacarpal bone(s), site unsp ecified 03/25/2006 06/04/2012 documented as of this encounter (statuses as of 06/11/2022) [address] History of Past illness Narrative* Problem Noted Date Resolved Date Closed fracture of hamate (unciform) bone of [facility] 04/08/2006 06/04/2012 Closed fracture of metacarpal bone(s), site unsp ecified 03/25/2006 06/04/2012 documented as of this encounter (statuses as of 06/16/2022) [address] History of Past illness Narrative* Problem Noted Date Resolved Date Closed fracture of hamate (unciform) bone of [facility] 04/08/2006 06/04/2012 Closed fracture of metacarpal bone(s), site unsp ecified 03/25/2006 06/04/2012 documented as of this encounter (statuses as of 06/20/2022) [address] History of Past illness Narrative* Problem Noted Date Resolved Date Closed fracture of hamate (unciform) bone of [facility] 04/08/2006 06/04/2012 Closed fracture of metacarpal bone(s), site unsp ecified 03/25/2006 06/04/2012 documented as of this encounter (statuses as of 06/26/2022) [address] History of Past illness Narrative* Problem Noted Date Resolved Date Closed fracture of hamate (unciform) bone of [facility] 04/08/2006 06/04/2012 Closed fracture of metacarpal bone(s), site unsp ecified 03/25/2006 06/04/2012 documented as of this encounter (statuses as of 06/26/2022) [address] History of Past illness Narrative* Problem Noted Date Resolved Date Closed fracture of hamate (unciform) bone of [facility] 04/08/2006 06/04/2012 Closed fracture of metacarpal bone(s), site unsp ecified 03/25/2006 06/04/2012 documented as of this encounter (statuses as of 07/14/2022) [address] History of Past illness Narrative* Problem Noted Date Resolved Date Closed fracture of hamate (unciform) bone of [facility] 04/08/2006 06/04/2012 Closed fracture of metacarpal bone(s), site unsp ecified 03/25/2006 06/04/2012 documented as of this encounter (statuses as of 07/16/2022) [address] History of Past illness Narrative* Problem Noted Date Resolved Date Closed fracture of hamate (unciform) bone of [facility] 04/08/2006 06/04/2012 Closed fracture of metacarpal bone(s), site unsp ecified 03/25/2006 06/04/2012 documented as of this encounter (statuses as of 07/21/2022) [address] History of Past illness Narrative* Problem Noted Date Resolved Date Closed fracture of hamate (unciform) bone of [facility] 04/08/2006 06/04/2012 Closed fracture of metacarpal bone(s), site unsp ecified 03/25/2006 06/04/2012 documented as of this encounter (statuses as of 08/18/2022) [address] History of Past illness Narrative* Problem Noted Date Resolved Date Closed fracture of hamate (unciform) bone of [facility] 04/08/2006 06/04/2012 Closed fracture of metacarpal bone(s), site unsp ecified 03/25/2006 06/04/2012 documented as of this encounter (statuses as of 08/21/2022) [address] History of Past illness Narrative* Problem Noted Date Resolved Date Closed fracture of hamate (unciform) bone of [facility] 04/08/2006 06/04/2012 Closed fracture of metacarpal bone(s), site unsp ecified 03/25/2006 06/04/2012 documented as of this encounter (statuses as of 09/02/2022) [address] History of Past illness Narrative* Problem Noted Date Resolved Date Closed fracture of hamate (unciform) bone of [facility] 04/08/2006 06/04/2012 Closed fracture of metacarpal bone(s), site unsp ecified 03/25/2006 06/04/2012 documented as of this encounter (statuses as of 09/03/2022) [address] History of Past illness Narrative* Problem Noted Date Resolved Date Closed fracture of hamate (unciform) bone of [facility] 04/08/2006 06/04/2012 Closed fracture of metacarpal bone(s), site unsp ecified 03/25/2006 06/04/2012 documented as of this encounter (statuses as of 09/05/2022) [address] History of Past illness Narrative* Problem Noted Date Resolved Date Closed fracture of hamate (unciform) bone of [facility] st 04/08/2006 06/04/2012 Closed fracture of metacarpal bone(s), site unsp ecified 03/25/2006 06/04/2012 documented as of this encounter (statuses as of 10/03/2022) [address] History of Past illness Narrative* Problem Noted Date Resolved Date Closed fracture of hamate (unciform) bone of [facility] st 04/08/2006 06/04/2012 Closed fracture of metacarpal bone(s), site unsp ecified 03/25/2006 06/04/2012 documented as of this encounter (statuses as of 10/03/2022) [address] History of Past illness Narrative* Problem Noted Date Resolved Date Closed fracture of hamate (unciform) bone of [facility] 04/08/2006 06/04/2012 Closed fracture of metacarpal bone(s), site unsp ecified 03/25/2006 06/04/2012 documented as of this encounter (statuses as of 10/14/2022) [address] History of Past illness Narrative* Problem Noted Date Resolved Date Closed fracture of hamate (unciform) bone of [facility] 04/08/2006 06/04/2012 Closed fracture of metacarpal bone(s), site unsp ecified 03/25/2006 06/04/2012 documented as of this encounter (statuses as of 10/21/2022) [address] History of Past illness Narrative* Problem Noted Date Resolved Date Closed fracture of hamate (unciform) bone of [facility] 04/08/2006 06/04/2012 Closed fracture of metacarpal bone(s), site unsp ecified 03/25/2006 06/04/2012 documented as of this encounter (statuses as of 10/27/2022) [address] History of Past illness Narrative* Problem Noted Date Resolved Date Closed fracture of hamate (unciform) bone of [facility] 04/08/2006 06/04/2012 Closed fracture of metacarpal bone(s), site unsp ecified 03/25/2006 06/04/2012 documented as of this encounter (statuses as of 12/10/2022) [address] History of Past illness Narrative* Problem Noted Date Resolved Date Closed fracture of hamate (unciform) bone of [facility] 04/08/2006 06/04/2012 Closed fracture of metacarpal bone(s), site unsp ecified 03/25/2006 06/04/2012 documented as of this encounter (statuses as of 12/10/2022) [address] History of Past illness Narrative* Problem Noted Date Resolved Date Closed fracture of hamate (unciform) bone of [facility] 04/08/2006 06/04/2012 Closed fracture of metacarpal bone(s), site unsp ecified 03/25/2006 06/04/2012 documented as of this encounter (statuses as of 12/15/2022) [address] History of Past illness Narrative* Problem Noted Date Resolved Date Closed fracture of hamate (unciform) bone of [facility] 04/08/2006 06/04/2012 Closed fracture of metacarpal bone(s), site unsp ecified 03/25/2006 06/04/2012 documented as of this encounter (statuses as of 02/02/2023) [address] History of Past illness Narrative* Problem Noted Date Resolved Date Closed fracture of hamate (unciform) bone of [facility] 04/08/2006 06/04/2012 Closed fracture of metacarpal bone(s), site unsp ecified 03/25/2006 06/04/2012 documented as of this encounter (statuses as of 02/03/2023) [address] History of Past illness Narrative* Problem Noted Date Diagnosed Date Resolved Date Closed fracture of hamate (u nciform) bone of wrist 04/08/2006 06/04/2012 Closed fracture of metacarpa l bone(s), site unspecified 03/25/2006 06/04/2012 documented as of this encounter (statuses as of 02/27/2023) [address] History of Past illness Narrative* Problem Noted Date Diagnosed Date Resolved Date Closed fracture of hamate (u nciform) bone of wrist 04/08/2006 06/04/2012 Closed fracture of metacarpa l bone(s), site unspecified 03/25/2006 06/04/2012 documented as of this encounter (statuses as of 02/27/2023) [address] History of Past illness Narrative* Problem Noted Date Diagnosed Date Resolved Date Closed fracture of hamate (u nciform) bone of wrist 04/08/2006 06/04/2012 Closed fracture of metacarpa l bone(s), site unspecified 03/25/2006 06/04/2012 documented as of this encounter (statuses as of 03/02/2023) [address] History of Past illness Narrative* Problem Noted Date Diagnosed Date Resolved Date Closed fracture of hamate (u nciform) bone of wrist 04/08/2006 06/04/2012 Closed fracture of metacarpa l bone(s), site unspecified 03/25/2006 06/04/2012 documented as of this encounter (statuses as of 03/28/2023) [address] History of Past illness Narrative* Problem Noted Date Diagnosed Date Resolved Date Closed fracture of hamate (u nciform) bone of wrist 04/08/2006 06/04/2012 Closed fracture of metacarpa l bone(s), site unspecified 03/25/2006 06/04/2012 documented as of this encounter (statuses as of 03/31/2023) [address] History of Past illness Narrative* Problem Noted Date Diagnosed Date Resolved Date Closed fracture of hamate (u nciform) bone of wrist 04/08/2006 06/04/2012 Closed fracture of metacarpa l bone(s), site unspecified 03/25/2006 06/04/2012 documented as of this encounter (statuses as of 04/02/2023) [address] History of Past illness Narrative* Problem Noted Date Diagnosed Date Resolved Date Closed fracture of hamate (u nciform) bone of wrist 04/08/2006 06/04/2012 Closed fracture of metacarpa l bone(s), site unspecified 03/25/2006 06/04/2012 documented as of this encounter (statuses as of 05/01/2023) [address] History of Past illness Narrative* Problem Noted Date Diagnosed Date Resolved Date Closed fracture of hamate (u nciform) bone of wrist 04/08/2006 06/04/2012 Closed fracture of metacarpa l bone(s), site unspecified 03/25/2006 06/04/2012 documented as of this encounter (statuses as of 05/23/2023) [address] History of Past illness Narrative* Problem Noted Date Diagnosed Date Resolved Date Closed fracture of hamate (u nciform) bone of wrist 04/08/2006 06/04/2012 Closed fracture of metacarpa l bone(s), site unspecified 03/25/2006 06/04/2012 documented as of this encounter (statuses as of 05/26/2023) [address] History of Past illness Narrative* Problem Noted Date Diagnosed Date Resolved Date Closed fracture of hamate (u nciform) bone of wrist 04/08/2006 06/04/2012 Closed fracture of metacarpa l bone(s), site unspecified 03/25/2006 06/04/2012 documented as of this encounter (statuses as of 06/01/2023) [address] History of Past illness Narrative* Problem Noted Date Diagnosed Date Resolved Date Closed fracture of hamate (u nciform) bone of wrist 04/08/2006 06/04/2012 Closed fracture of metacarpa l bone(s), site unspecified 03/25/2006 06/04/2012 documented as of this encounter (statuses as of 06/18/2023) [address] History of Past illness Narrative* Problem Noted Date Diagnosed Date Resolved Date Closed fracture of hamate (u nciform) bone of wrist 04/08/2006 06/04/2012 Closed fracture of metacarpa l bone(s), site unspecified 03/25/2006 06/04/2012 documented as of this encounter (statuses as of 06/18/2023) [address] History of Past illness Narrative* Problem Noted Date Diagnosed Date Resolved Date Closed fracture of hamate (u nciform) bone of wrist 04/08/2006 06/04/2012 Closed fracture of metacarpa l bone(s), site unspecified 03/25/2006 06/04/2012 documented as of this encounter (statuses as of 06/20/2023) [address] History of Past illness Narrative* Problem Noted Date Diagnosed Date Resolved Date Closed fracture of hamate (u nciform) bone of wrist 04/08/2006 06/04/2012 Closed fracture of metacarpa l bone(s), site unspecified 03/25/2006 06/04/2012 documented as of this encounter (statuses as of 07/18/2023) [address] History of Past illness Narrative* Problem Noted Date Diagnosed Date Resolved Date Closed fracture of hamate (u nciform) bone of wrist 04/08/2006 06/04/2012 Closed fracture of metacarpa l bone(s), site unspecified 03/25/2006 06/04/2012 documented as of this encounter (statuses as of 10/07/2023) [address] History of Past illness Narrative* Problem Noted Date Diagnosed Date Resolved Date Closed fracture of hamate (u nciform) bone of wrist 04/08/2006 06/04/2012 Closed fracture of metacarpa l bone(s), site unspecified 03/25/2006 06/04/2012 documented as of this encounter (statuses as of 10/26/2023) [facility]08-23-2006 History of Past illness Narrative* Problem Noted Date Diagnosed Date Resolved Date Closed fracture of hamate (u nciform) bone of wrist 04/08/2006 06/04/2012 Closed fracture of metacarpa l bone(s), site unspecified 03/25/2006 06/04/2012 documented as of this encounter (statuses as of 11/06/2023) [facility]08-23-2006 History of Past illness Narrative* Problem Noted Date Diagnosed Date Resolved Date Closed fracture of hamate (u nciform) bone of wrist 04/08/2006 06/04/2012 Closed fracture of metacarpa l bone(s), site unspecified 03/25/2006 06/04/2012 documented as of this encounter (statuses as of 12/01/2023) [facility] note* Diagnosis Left sided abdominal pain Abdominal pain, unspecified site documented in this encounter [facility] note* Diagnosis Bipolar I disorder (HCC) Bipolar I disorder, most recent episode (or current) unspecified documented in this encounter [facility] note* Diagnosis Need for vaccination- Primary Need for prophylactic vaccination and inoculation against unspecified single disease documented in this encounter [facility] note* Diagnosis Bipolar I disorder (HCC)- Primary Bipolar I disorder, most recent episode (or current) unspecified Acquired hypothyroidism Unspecified hypothyroidism Elevated cholesterol Pure hypercholesterolemia Elevated ferritin Other abnormal blood chemistry Elevated hemoglobin A1c Other abnormal blood chemistry Encounter for long-term current use of medication Generalized convulsive epilepsy (HCC) Generalized convulsive epilepsy without mention of intractable epilepsy Class 3 severe obesity due to excess calories without serious comorbidity with body mass index (BMI) of 40.0 to 44.9 in adult (HCC) Gastroesophageal reflux disease, unspecified whether esophagitis present Moderate persistent asthma without complication Unspecified asthma Kyphosis of thoracic region, unspecified kyphosis type documented in this encounter [facility] noteNo assessment information availableWBarney [facility] Work Phone: Evaluation note* Diagnosis Encounter for screening mammogram for breast cancer documented in this encounter [facility] note* Diagnosis Bipolar I disorder (HCC) Bipolar I disorder, most recent episode (or current) unspecified Encounter for long-term current use of medication [facility] this [facility]* Diagnosis Left sided abdominal pain Abdominal pain, unspecified site Acquired hypothyroidism Unspecified hypothyroidism documented in this encounter [facility] note* Diagnosis Myalgia Mylagia and myositis, unspecified Medication management Encounter for long-term (current) use of other medications documented in this encounter [facility]* Diagnosis Bipolar I disorder (HCC) Bipolar I disorder, most recent episode (or current) unspecified documented in this encounter [facility]* Diagnosis Abnormal mammogram- Primary Abnormal mammogram, unspecified documented in this encounter [facility]* Diagnosis Encounter for long-term current use of medication documented in this encounter [facility]* Diagnosis Acquired hypothyroidism- Primary Unspecified hypothyroidism documented in this encounter [facility] note* Diagnosis Bipolar I disorder (HCC) Bipolar I disorder, most recent episode (or current) unspecified documented in this encounter [facility] note* Diagnosis COVID-19 virus infection- Primary Mild intermittent asthma with acute exacerbation Unspecified asthma, with exacerbation Acute URI Acute upper respiratory infections of unspecified site [facility] Diagnosis Hot flash, menopausal Symptomatic menopausal or female climacteric states [facility] Diagnosis Hot flashes- Primary Symptomatic menopausal or female climacteric states Bipolar I disorder (HCC) Bipolar I disorder, most recent episode (or current) unspecified Anxiety Anxiety state, unspecified Encounter for long-term current use of medication High serum thyroid stimulating hormone (TSH) documented in this encounter [facility] note* Diagnosis Encounter for long-term current use of medication Anxiety Anxiety state, unspecified documented in this encounter [facility]* Diagnosis Medication management Encounter for long-term (current) use of other medications documented in this encounter [facility] note* Diagnosis Anxiety- Primary Anxiety state, unspecified Colon cancer screening Special screening for malignant neoplasms, colon Gastroesophageal reflux disease, unspecified whether esophagitis present Bipolar I disorder (HCC) Bipolar I disorder, most recent episode (or current) unspecified documented in this encounter [facility] note* Diagnosis Bipolar I disorder (HCC) Bipolar I disorder, most recent episode (or current) unspecified documented in this encounter [facility]* Diagnosis Myalgia Mylagia and myositis, unspecified Medication management Encounter for long-term (current) use of other medications documented in this encounter [facility]* Diagnosis Hot flash, menopausal Symptomatic menopausal or female climacteric states documented in this encounter [facility]* Diagnosis Myalgia Mylagia and myositis, unspecified Medication management Encounter for long-term (current) use of other medications documented in this encounter [facility] note* Diagnosis Myalgia- Primary Mylagia and myositis, unspecified Dysmetabolic syndrome Dysmetabolic Syndrome X Bipolar I disorder (HCC) Bipolar I disorder, most recent episode (or current) unspecified Acquired hypothyroidism Unspecified hypothyroidism Pure hypercholesterolemia Generalized convulsive epilepsy (HCC) Generalized convulsive epilepsy without mention of intractable epilepsy Breast cancer screening by mammogram Elevated LFTs Other abnormal blood chemistry Elevated ferritin Other abnormal blood chemistry Encounter for long-term current use of medication documented in this encounter [facility] note* Diagnosis Elevated ferritin- Primary Other abnormal blood chemistry documented in this encounter [facility]* Diagnosis Left sided abdominal pain Abdominal pain, unspecified site documented in this encounter [facility]* Diagnosis Acquired hypothyroidism Unspecified hypothyroidism Bipolar I disorder (HCC) Bipolar I disorder, most recent episode (or current) unspecified documented in this encounter [facility]* Diagnosis Hot flash, menopausal Symptomatic menopausal or female climacteric states [facility]* Diagnosis Abnormal mammogram Abnormal mammogram, unspecified documented in this encounter [facility]* Diagnosis Abnormal mammogram Abnormal mammogram, unspecified documented in this encounter [facility]* Diagnosis Myalgia Mylagia and myositis, unspecified documented in this encounter [facility]* Diagnosis Dysmetabolic syndrome Dysmetabolic Syndrome X [facility]* Diagnosis Myalgia Mylagia and myositis, unspecified documented in this encounter [facility]* Diagnosis Elevated ferritin- Primary Other abnormal blood chemistry Generalized convulsive epilepsy (HCC) Generalized convulsive epilepsy without mention of intractable epilepsy Bipolar I disorder (HCC) Bipolar I disorder, most recent episode (or current) unspecified Anxiety Anxiety state, unspecified Acquired hypothyroidism Unspecified hypothyroidism Class 2 obesity due to excess calories with body mass index (BMI) of 37.0 to 37.9 in adult, unspecified whether serious comorbidity present documented in this encounter [facility] note* Diagnosis Bipolar I disorder (HCC) Bipolar I disorder, most recent episode (or current) unspecified documented in this encounter [facility] note* Diagnosis Hot flash, menopausal Symptomatic menopausal or female climacteric states Bipolar I disorder (HCC) Bipolar I disorder, most recent episode (or current) unspecified documented in this encounter [facility] note* Diagnosis Myalgia Mylagia and myositis, unspecified Dysmetabolic syndrome Dysmetabolic Syndrome X documented in this encounter [facility] note* Diagnosis Encounter for screening mammogram for breast cancer documented in this encounter [facility] note* Diagnosis Localized swelling, mass or lump of neck- Primary Swelling, mass, or lump in head and neck documented in this encounter [facility] note* Diagnosis Localized swelling, mass or lump of neck Swelling, mass, or lump in head and neck documented in this encounter [facility] note* Diagnosis GEN CONVUL EPI W/O MENTN INTRACT- Primary Generalized convulsive epilepsy without mention of intractable epilepsy Allergic rhinitis Allergic rhinitis, cause unspecified Unspecified asthma(493.90) Unspecified asthma BIPOLAR - MOST RECENT EPISODE UNSPECIFIED Bipolar I disorder, most recent episode (or current) unspecified Chronic daily headache Headache Tobacco use disorder Screening, lipid Screening for lipoid disorders Urinary frequency Asthma Unspecified asthma Overweight (BMI 25.0-29.9) Overweight Bipolar I disorder (HCC)- Primary Bipolar I disorder, most recent episode (or current) unspecified Dystonia Abnormal involuntary movements Hot flash, menopausal Symptomatic menopausal or female climacteric states Class 1 obesity due to excess calories with body mass index (BMI) of 33.0 to 33.9 in adult, unspecified whether serious comorbidity present Adverse effects in the therapeutic use of other antipsychotics and neuroleptics Long-term current use of lithium documented in this encounter [facility] note* Diagnosis GEN CONVUL EPI W/O MENTN INTRACT- Primary Generalized convulsive epilepsy without mention of intractable epilepsy Allergic rhinitis Allergic rhinitis, cause unspecified Unspecified asthma(493.90) Unspecified asthma BIPOLAR - MOST RECENT EPISODE UNSPECIFIED Bipolar I disorder, most recent episode (or current) unspecified Chronic daily headache Headache Tobacco use disorder Screening, lipid Screening for lipoid disorders Urinary frequency Asthma Unspecified asthma Overweight (BMI 25.0-29.9) Overweight Adverse effects in the therapeutic use of other antipsychotics and neuroleptics- Primary Dystonia Abnormal involuntary movements Bipolar I disorder (HCC) Bipolar I disorder, most recent episode (or current) unspecified Generalized convulsive epilepsy (HCC) Generalized convulsive epilepsy without mention of intractable epilepsy documented in this encounter [facility] note* Diagnosis GEN CONVUL EPI W/O MENTN INTRACT- Primary Generalized convulsive epilepsy without mention of intractable epilepsy Allergic rhinitis Allergic rhinitis, cause unspecified Unspecified asthma(493.90) Unspecified asthma BIPOLAR - MOST RECENT EPISODE UNSPECIFIED Bipolar I disorder, most recent episode (or current) unspecified Chronic daily headache Headache Tobacco use disorder Screening, lipid Screening for lipoid disorders Urinary frequency Asthma Unspecified asthma Overweight (BMI 25.0-29.9) Overweight Acquired hypothyroidism Unspecified hypothyroidism documented in this encounter [facility] note* Diagnosis GEN CONVUL EPI W/O MENTN INTRACT- Primary Generalized convulsive epilepsy without mention of intractable epilepsy Allergic rhinitis Allergic rhinitis, cause unspecified Unspecified asthma(493.90) Unspecified asthma BIPOLAR - MOST RECENT EPISODE UNSPECIFIED Bipolar I disorder, most recent episode (or current) unspecified Chronic daily headache Headache Tobacco use disorder Screening, lipid Screening for lipoid disorders Urinary frequency Asthma Unspecified asthma Overweight (BMI 25.0-29.9) Overweight Chronic midline back pain, unspecified back location documented in this encounter [facility]* Diagnosis GEN CONVUL EPI W/O MENTN INTRACT- Primary Generalized convulsive epilepsy without mention of intractable epilepsy Allergic rhinitis Allergic rhinitis, cause unspecified Unspecified asthma(493.90) Unspecified asthma BIPOLAR - MOST RECENT EPISODE UNSPECIFIED Bipolar I disorder, most recent episode (or current) unspecified Chronic daily headache Headache Tobacco use disorder Screening, lipid Screening for lipoid disorders Urinary frequency Asthma Unspecified asthma Overweight (BMI 25.0-29.9) Overweight Hot flash, menopausal Symptomatic menopausal or female climacteric states Myalgia Mylagia and myositis, unspecified documented in this encounter [facility]* Diagnosis GEN CONVUL EPI W/O MENTN INTRACT- Primary Generalized convulsive epilepsy without mention of intractable epilepsy Allergic rhinitis Allergic rhinitis, cause unspecified Unspecified asthma(493.90) Unspecified asthma BIPOLAR - MOST RECENT EPISODE UNSPECIFIED Bipolar I disorder, most recent episode (or current) unspecified Chronic daily headache Headache Tobacco use disorder Screening, lipid Screening for lipoid disorders Urinary frequency Asthma Unspecified asthma Overweight (BMI 25.0-29.9) Overweight Dysmetabolic syndrome Dysmetabolic Syndrome X documented in this encounter [facility]* Diagnosis GEN CONVUL EPI W/O MENTN INTRACT- Primary Generalized convulsive epilepsy without mention of intractable epilepsy Allergic rhinitis Allergic rhinitis, cause unspecified Unspecified asthma(493.90) Unspecified asthma BIPOLAR - MOST RECENT EPISODE UNSPECIFIED Bipolar I disorder, most recent episode (or current) unspecified Chronic daily headache Headache Tobacco use disorder Screening, lipid Screening for lipoid disorders Urinary frequency Asthma Unspecified asthma Overweight (BMI 25.0-29.9) Overweight Dysmetabolic syndrome- Primary Dysmetabolic Syndrome X Class 1 obesity due to excess calories with body mass index (BMI) of 33.0 to 33.9 in adult, unspecified whether serious comorbidity present Dystonia Abnormal involuntary movements Dry mouth Disturbance of salivary secretion Acquired hypothyroidism Unspecified hypothyroidism Bipolar I disorder (HCC) Bipolar I disorder, most recent episode (or current) unspecified Other elevated white blood cell (WBC) count Elevated LFTs Other abnormal blood chemistry Encounter for long-term current use of medication Long-term current use of lithium Screening for depression Encounter for screening examination for other mental health and behavioral disorders documented in this encounter [facility] note* Diagnosis GEN CONVUL EPI W/O MENTN INTRACT- Primary Generalized convulsive epilepsy without mention of intractable epilepsy Allergic rhinitis Allergic rhinitis, cause unspecified Unspecified asthma(493.90) Unspecified asthma BIPOLAR - MOST RECENT EPISODE UNSPECIFIED Bipolar I disorder, most recent episode (or current) unspecified Chronic daily headache Headache Tobacco use disorder Screening, lipid Screening for lipoid disorders Urinary frequency Asthma Unspecified asthma Overweight (BMI 25.0-29.9) Overweight Encounter for long-term current use of medication Anxiety Anxiety state, unspecified documented in this encounter [facility] note* Diagnosis GEN CONVUL EPI W/O MENTN INTRACT- Primary Generalized convulsive epilepsy without mention of intractable epilepsy Allergic rhinitis Allergic rhinitis, cause unspecified Unspecified asthma(493.90) Unspecified asthma BIPOLAR - MOST RECENT EPISODE UNSPECIFIED Bipolar I disorder, most recent episode (or current) unspecified Chronic daily headache Headache Tobacco use disorder Screening, lipid Screening for lipoid disorders Urinary frequency Asthma Unspecified asthma Overweight (BMI 25.0-29.9) Overweight Myalgia Mylagia and myositis, unspecified documented in this encounter [facility]* Diagnosis GEN CONVUL EPI W/O MENTN INTRACT- Primary Generalized convulsive epilepsy without mention of intractable epilepsy Allergic rhinitis Allergic rhinitis, cause unspecified Unspecified asthma(493.90) Unspecified asthma BIPOLAR - MOST RECENT EPISODE UNSPECIFIED Bipolar I disorder, most recent episode (or current) unspecified Chronic daily headache Headache Tobacco use disorder Screening, lipid Screening for lipoid disorders Urinary frequency Asthma Unspecified asthma Overweight (BMI 25.0-29.9) Overweight Otalgia, right- Primary documented in this encounter [facility] note* Diagnosis GEN CONVUL EPI W/O MENTN INTRACT- Primary Generalized convulsive epilepsy without mention of intractable epilepsy Allergic rhinitis Allergic rhinitis, cause unspecified Unspecified asthma(493.90) Unspecified asthma BIPOLAR - MOST RECENT EPISODE UNSPECIFIED Bipolar I disorder, most recent episode (or current) unspecified Chronic daily headache Headache Tobacco use disorder Screening, lipid Screening for lipoid disorders Urinary frequency Asthma Unspecified asthma Overweight (BMI 25.0-29.9) Overweight Acute URI Acute upper respiratory infections of unspecified site documented in this encounter [facility] note* Diagnosis GEN CONVUL EPI W/O MENTN INTRACT- Primary Generalized convulsive epilepsy without mention of intractable epilepsy Allergic rhinitis Allergic rhinitis, cause unspecified Unspecified asthma(493.90) Unspecified asthma BIPOLAR - MOST RECENT EPISODE UNSPECIFIED Bipolar I disorder, most recent episode (or current) unspecified Chronic daily headache Headache Tobacco use disorder Screening, lipid Screening for lipoid disorders Urinary frequency Asthma Unspecified asthma Overweight (BMI 25.0-29.9) Overweight Asthma- Primary Unspecified asthma Encounter for immunization Need for other specified prophylactic vaccination against single bacterial disease Generalized convulsive epilepsy (HCC) Generalized convulsive epilepsy without mention of intractable epilepsy Bipolar I disorder (HCC) Bipolar I disorder, most recent episode (or current) unspecified Migraine with aura and without status migrainosus, not intractable Migraine with aura, without mention of intractable migraine without mention of status migrainosus Tobacco use disorder High serum thyroid stimulating hormone (TSH) Non morbid obesity due to excess calories documented in this encounter [facility] note* Diagnosis GEN CONVUL EPI W/O MENTN INTRACT- Primary Generalized convulsive epilepsy without mention of intractable epilepsy Allergic rhinitis Allergic rhinitis, cause unspecified Unspecified asthma(493.90) Unspecified asthma BIPOLAR - MOST RECENT EPISODE UNSPECIFIED Bipolar I disorder, most recent episode (or current) unspecified Chronic daily headache Headache Tobacco use disorder Screening, lipid Screening for lipoid disorders Urinary frequency Asthma (HCC) Unspecified asthma Overweight (BMI 25.0-29.9) Overweight Bipolar I disorder (HCC) Bipolar I disorder, most recent episode (or current) unspecified Hot flash, menopausal Symptomatic menopausal or female climacteric states documented in this encounter [facility] note* Diagnosis GEN CONVUL EPI W/O MENTN INTRACT- Primary Generalized convulsive epilepsy without mention of intractable epilepsy Allergic rhinitis Allergic rhinitis, cause unspecified Unspecified asthma(493.90) Unspecified asthma BIPOLAR - MOST RECENT EPISODE UNSPECIFIED Bipolar I disorder, most recent episode (or current) unspecified Chronic daily headache Headache Tobacco use disorder Screening, lipid Screening for lipoid disorders Urinary frequency Asthma (HCC) Unspecified asthma Overweight (BMI 25.0-29.9) Overweight Dysmetabolic syndrome Dysmetabolic Syndrome X documented in this encounter [facility] note* Diagnosis GEN CONVUL EPI W/O MENTN INTRACT- Primary Generalized convulsive epilepsy without mention of intractable epilepsy Allergic rhinitis Allergic rhinitis, cause unspecified Unspecified asthma(493.90) Unspecified asthma BIPOLAR - MOST RECENT EPISODE UNSPECIFIED Bipolar I disorder, most recent episode (or current) unspecified Chronic daily headache Headache Tobacco use disorder Screening, lipid Screening for lipoid disorders Urinary frequency Asthma (HCC) Unspecified asthma Overweight (BMI 25.0-29.9) Overweight Dystonia- Primary Abnormal involuntary movements Family history of Parkinson disease History of fall Personal history of fall documented in this encounter [facility] note* Diagnosis GEN CONVUL EPI W/O MENTN INTRACT- Primary Generalized convulsive epilepsy without mention of intractable epilepsy Allergic rhinitis Allergic rhinitis, cause unspecified Unspecified asthma(493.90) Unspecified asthma BIPOLAR - MOST RECENT EPISODE UNSPECIFIED Bipolar I disorder, most recent episode (or current) unspecified Chronic daily headache Headache Tobacco use disorder Screening, lipid Screening for lipoid disorders Urinary frequency Asthma (HCC) Unspecified asthma Overweight (BMI 25.0-29.9) Overweight Myalgia Mylagia and myositis, unspecified [facility] Diagnosis GEN CONVUL EPI W/O MENTN INTRACT- Primary Generalized convulsive epilepsy without mention of intractable epilepsy Allergic rhinitis Allergic rhinitis, cause unspecified Unspecified asthma(493.90) Unspecified asthma BIPOLAR - MOST RECENT EPISODE UNSPECIFIED Bipolar I disorder, most recent episode (or current) unspecified Chronic daily headache Headache Tobacco use disorder Screening, lipid Screening for lipoid disorders Urinary frequency Asthma (HCC) Unspecified asthma Overweight (BMI 25.0-29.9) Overweight Encounter for screening mammogram for breast cancer [facility] Additional Instructions Do not bear any weight on your left ankle. Use your crutches. Follow-up with Dr. Zepeda early this coming week. Call the office tomorrow for an appointment.[facility] Work Phone: Hospital Discharge instructions Additional Instructions Thank you for trusting us with your care today! Please use warm compresses. Please use erythromycin ointment as prescribed. Please take Tylenol (2 pills, 650 mg), ibuprofen (2 pills, 400 mg) every 6 hours as needed for pain and fever control. Please return to the emergency department if your symptoms change or worsen. Please follow with Ophthalmology for further outpatient evaluation and management.[facility] Work Phone: Hospital Discharge instructions Additional Instructions Your x-ray did not show a rib fracture indicating your ribs are bruised. This will take on average 1 [address] a lidocaine patch over the area that is painful and use the muscle relaxer to help with pain control as well. Return to the ER should you have any further concernsWooUniversity [facility] Work Phone: Reason for referral (narrative)* Diagnostic Procedure Only (Routine) - Pending Review Specialty Diagnoses / Procedures Referred By Contac t Referred To Contact [facility] IM[facility] Diagnoses Encounter for screening mammogram for breast cancer Procedures MARIA D SCREENING SCREENING MAMMOGRAPHY BI 2-VIEW BREAST INC CAD Dayton Garcia MD [address] [place] [address] [facility] [address] [facility] [place] [address] Referral ID Status Reason Start Date Expiration Date Visits Requested Visits Authorized [id number] Pending Review Auto-Generat ed Referral 02/12/2022 03/14/2023 1 1 [facility] for referral (narrative)* Diagnostic Procedure Only (Routine) - Pending Review Specialty Diagnoses / Procedures Referred By Marlon t Referred To Contact [facility] IMAG[facility] Diagnoses Abnormal mammogram Procedures US BREAST LTD LT US BREAST UNI REAL TIME WITH IMAGE LIMITED Dayton Garcia MD [address] [place] [address] [facility] [address] [place] [address] Referral ID Status Reason Start Date Expiration Date Visits Requested Visits Authorized [id number] Pending Review Auto-Generat ed Referral 2 07/26/2023 1 1 * Diagnostic Procedure Only (Routine) - Pending Review Specialty Diagnoses / Procedures Referred By Lavelleac t Referred To Contact [facility] IMAG[facility] Diagnoses Abnormal mammogram Procedures MARIA D DIAGNOSTIC LT DIAGNOSTIC MAMMOGRAPHY COMPUTER-AIDED DETCJ UNI Dayton Garcia MD [address] [place] [address] [facility] [address] [place] [address] Referral ID Status Reason Start Date Expiration Date Visits Requested Visits Authorized [id number] Pending Review Auto-Generat ed Referral 2 07/26/2023 1 1 [facility] for referral (narrative)* Diagnostic Procedure Only (Routine) - Closed Specialty Diagnoses / Procedures Referred By Marlon t Referred To Contact [facility] IM[facility] Diagnoses Abnormal mammogram Procedures US BREAST LTD LT US BREAST UNI REAL TIME WITH IMAGE LIMITED Dayton Garcia MD [address] [place] [address] [facility] [address] [place] [address] Referral ID Status Reason Start Date Expiration Date V isits Requested Visits Authorized [id number] Closed Auto-Generate d Referral 06/26/2022 07/26/2023 1 1 [facility] for referral (narrative)* Diagnostic Procedure Only (Routine) - Pending Review Specialty Diagnoses / Procedures Referred By Contac t Referred To Contact [facility] IMAG[facility] Diagnoses Encounter for screening mammogram for breast cancer Procedures MARIA D SCREENING SCREENING MAMMOGRAPHY BI 2-VIEW BREAST INC CAD Dayton Garcia MD [address] [place] [address] [facility] [address] [place] [address] Referral ID Status Reason Start Date Expiration Date Visits Requested Visits Authorized [id number] Pending Review Auto-Generat ed Referral 01/20/2024 02/18/2025 1 1 [facility] for referral (narrative)* Diagnostic Procedure Only (Routine) - Authorized Specialty Diagnoses / Procedures Referred By Contac t Referred To Contact US IMAGING Diagnoses Localized swelling, mass or lump of neck Procedures US HEAD/NECK SOFT TISSUE OTHER US SOFT TISSUE HEAD & NECK REAL TIME IMGE DOCM Albina Mi, HEALTHCARE OR MEDICAL.DESIGN ARCHITECT [address] [place] [address] [place] [address] Referral ID Status Reason Start Date Expiration Date Visits Requested Visits Authorized [id number] Authorized Auto-Generat ed Referral 02/05/2024 03/06/2025 1 1 [facility] for referral (narrative)* Diagnostic Procedure Only (Routine) - Closed Specialty Diagnoses / Procedures Referred By Contac t Referred To Contact XR IMAGING Diagnoses Chronic midline back pain, unspecified back location Procedures XR THORACIC GENERAL 3V AP/LAT/SWIMMERS X-RAY THORACIC SPINE AP/LAT W/SWIM Saeid Koch, HEALTHCARE OR MEDICAL.GAMING CASHIER [address] [place] [address] [place] [address] Referral ID Status Reason Start Date Expiration Date V isits Requested Visits Authorized [id number] Closed Auto-Generate d Referral 04/09/2021 05/09/2022 1 1 * Diagnostic Procedure Only (Routine) - Closed Specialty Diagnoses / Procedures Referred By Contac t Referred To Contact XR IMAGING Diagnoses Chronic midline back pain, unspecified back location Procedures XR LUMBAR GENERAL 3V AP/LAT/L5-S1 X-RAY L-S SPINE AP/LATERAL Saeid Koch APRN.GAMING CASHIER [address] [place] [address] [place] [address] Referral ID Status Reason Start Date Expiration Date V isits Requested Visits Authorized [id number] Closed Auto-Generate d Referral 04/09/2021 05/09/2022 1 1 [facility]No reason for referral information availableWBarney [facility] Work Phone: Reason for visit Narrative* Diagnostic Procedure Only (Routine) - Closed Specialty Diagnoses / Procedures Referred By Contac t Referred To Contact BR IMAGING Diagnoses Abnormal mammogram Procedures MARIA D DIAGNOSTIC LT DIAGNOSTIC MAMMOGRAPHY COMPUTER-AIDED DETCJ Dayton Rodriguez MD [address] [place] [address] [facility] [address] [place] [address] Referral ID Status Reason Start Date Expiration Date V isits Requested Visits Authorized [id number] Closed Auto-Generate d Referral 06/26/2022 07/26/2023 1 1 [facility] for visit Narrative* Diagnostic Procedure Only (Routine) - Closed Specialty Diagnoses / Procedures Referred By Contac t Referred To Contact XR IMAGING Diagnoses Chronic midline back pain, unspecified back location Procedures XR THORACIC GENERAL 3V AP/LAT/SWIMMERS X-RAY THORACIC SPINE AP/LAT W/SWIM Saeid Koch APRN.GAMING CASHIER [address] [place] [address] [place] [address] Referral ID Status Reason Start Date Expiration Date V isits Requested Visits Authorized [id number] Closed Auto-Generate d Referral 04/09/2021 05/09/2022 1 1 [facility] Summary Purpose Family History No Family History Records FoundNo Family History Records FoundNo Family History Records Found Advance Directives No Advanced Directives Records Found Advance Directive Response Recorded Date/ Time Advance Directives No August 23, 2017 9:50pm Living Will No January 19, 2022 5 :36pm Power of Seed Pelleter No January 19, 2022 5:36pm Advance Directive Response Recorded Date/ Time Advance Directives No August 23, 2017 9:50pm Living Will No April 12 8:52pm Power of Seed Pelleter No April 12 023 8:52pm Advance Directive Response Recorded Date/ Time Advance Directives No August 23, 2017 8:50pm Living Will No April 12 7:52pm Power of Seed Pelleter No April 12 023 7:52pm Advance Directive Response Recorded Date/ Time Living Will Yes November 10, 2024 5:21pm Do you have a Healthcare Power of Seed Pelleter? Yes November 10, 2024 5:21pm Name of Medical Power of Seed Pelleter daughter November 10, 2024 5:21pm Advance Directives No August 23, 2017 9:50pm Advance Directive Response Recorded Date/ Time Do you have a Healthcare Power of Seed Pelleter? No December 11, 2024 2:17pm Do you have a Healthcare Power of Seed Pelleter? No December 12, 2024 10:21pm Living Will Yes November 10, 2024 5:21pm Do you have a Healthcare Power of Seed Pelleter? Yes November 10, 2024 5:21pm Name of Medical Power of Seed Pelleter daughter November 10, 2024 5:21pm Advance Directives No August 23, 2017 9:50pm Chief Complaint and Reason for Visit Chief Complaint ABSCESS Chief Complaint LEFT ANKLE INJURY Chief Complaint rash Chief Complaint Admit Date eye prob November 10, 2024 3:2 4pm Chief Complaint Admit Date eye prob November 10, 2024 3:2 4pm LOWER EXT December 11, 2024 1:4 6pm R SIDED RIB PAIN December 12, 2024 9:4 0pm Chief Complaint Admit Date eye prob November 10, 2024 3:2 4pm LOWER EXT December 11, 2024 1:4 6pm R SIDED RIB PAIN December 12, 2024 9:4 0pm rib pain February 10, 2025 4:27 pm Reason for Referral Specialty Diagnoses / Procedures Referred By Contac t Referred To Contact Saeid Koch APRN.CNS [address] [place] [address] Referral ID Status Reason Start Date Expiration Date Visits Re quested Visits Authorized [id number] Closed 1 1 Specialty Diagnoses / Procedures Referred By Contac t Referred To Contact [facility] IMAG[facility] Diagnoses Breast cancer screening by mammogram Procedures MARIA D SCREENING SCREENING MAMMOGRAPHY BI 2-VIEW BREAST INC CAD Dayton Garcia MD [address] [place] [address] [facility] [address] [place] [address] Referral ID Status Reason Start Date Expiration Date Visits Requested Visits Authorized [id number] Pending Review Auto-Generat ed Referral 02/06/2023 05/07/2023 3 1 Specialty Diagnoses / Procedures Referred By Contac t Referred To Contact Diagnoses Adverse effects in the therapeutic use of other antipsychotics and neuroleptics Bipolar I disorder (HCC) Generalized convulsive epilepsy (HCC) Dystonia Procedures CONSULT TO PSYCHIATRY OFFICE/OUTPATIENT [facility] 60 MINUTES Dayton Garcia MD [address] [place] [address] Feroz Acosta MD [address] [place] [address] Referral ID Status Reason Start Date Expiration Date Visits Requested Visits Authorized [id number] Pending Review PCP Requested Referral 04/14/2024 04/14/2025 1 1 Additional Source Comments INFORMATION SOURCE (unrecogn ized section and content) DATE CREATED AUTHOR 02/08/2018 [facility] DATE CREATED AUTHOR AUTHOR'S ORGANIZ ATION 02/18/2025 [facility] DATE CREATED AUTHOR AUTHOR'S ORGANIZ ATION 03/20/2025 [facility] Source Comments (unrecognize d section and content) In the event this informatio n is protected by the Federal Confidentiality of Alcohol and Drug Abuse Patient Records regulations: The Federal rules restrict any use of the information to criminally investigate or prosecute any alcohol or drug abuse patient.[facility] the event this information is protected by the Federal Confidentiality of Alcohol and Drug Abuse Patient Records regulations: The Federal rules restrict any use of the information to criminally investigate or prosecute any alcohol or drug abuse patient.[facility] the event this information is protected by the Federal Confidentiality of Alcohol and Drug Abuse Patient Records regulations: The Federal rules restrict any use of the information to criminally investigate or prosecute any alcohol or drug abuse patient.[facility]In the event this information is protected by the Federal Confidentiality of Alcohol and Drug Abuse Patient Records regulations: The Federal rules restrict any use of the information to criminally investigate or prosecute any alcohol or drug abuse patient.[facility]In the event this information is protected by the Federal Confidentiality of Alcohol and Drug Abuse Patient Records regulations: The Federal rules restrict any use of the information to criminally investigate or prosecute any alcohol or drug abuse patient.[facility]In the event this information is protected by the Federal Confidentiality of Alcohol and Drug Abuse Patient Records regulations: The Federal rules restrict any use of the information to criminally investigate or prosecute any alcohol or drug abuse patient.[facility]In the event this information is protected by the Federal Confidentiality of Alcohol and Drug Abuse Patient Records regulations: The Federal rules restrict any use of the information to criminally investigate or prosecute any alcohol or drug abuse patient.[facility]In the event this information is protected by the Federal Confidentiality of Alcohol and Drug Abuse Patient Records regulations: The Federal rules restrict any use of the information to criminally investigate or prosecute any alcohol or drug abuse patient.[facility]In the event this information is protected by the Federal Confidentiality of Alcohol and Drug Abuse Patient Records regulations: The Federal rules restrict any use of the information to criminally investigate or prosecute any alcohol or drug abuse patient.[facility]In the event this information is protected by the Federal Confidentiality of Alcohol and Drug Abuse Patient Records regulations: The Federal rules restrict any use of the information to criminally investigate or prosecute any alcohol or drug abuse patient.[facility]In the event this information is protected by the Federal Confidentiality of Alcohol and Drug Abuse Patient Records regulations: The Federal rules restrict any use of the information to criminally investigate or prosecute any alcohol or drug abuse patient.[facility]In the event this information is protected by the Federal Confidentiality of Alcohol and Drug Abuse Patient Records regulations: The Federal rules restrict any use of the information to criminally investigate or prosecute any alcohol or drug abuse patient.[facility]In the event this information is protected by the Federal Confidentiality of Alcohol and Drug Abuse Patient Records regulations: The Federal rules restrict any use of the information to criminally investigate or prosecute any alcohol or drug abuse patient.[facility]In the event this information is protected by the Federal Confidentiality of Alcohol and Drug Abuse Patient Records regulations: The Federal rules restrict any use of the information to criminally investigate or prosecute any alcohol or drug abuse patient.[facility]In the event this information is protected by the Federal Confidentiality of Alcohol and Drug Abuse Patient Records regulations: The Federal rules restrict any use of the information to criminally investigate or prosecute any alcohol or drug abuse patient.[facility]In the event this information is protected by the Federal Confidentiality of Alcohol and Drug Abuse Patient Records regulations: The Federal rules restrict any use of the information to criminally investigate or prosecute any alcohol or drug abuse patient.[facility]In the event this information is protected by the Federal Confidentiality of Alcohol and Drug Abuse Patient Records regulations: The Federal rules restrict any use of the information to criminally investigate or prosecute any alcohol or drug abuse patient.[facility]In the event this information is protected by the Federal Confidentiality of Alcohol and Drug Abuse Patient Records regulations: The Federal rules restrict any use of the information to criminally investigate or prosecute any alcohol or drug abuse patient.[facility]In the event this information is protected by the Federal Confidentiality of Alcohol and Drug Abuse Patient Records regulations: The Federal rules restrict any use of the information to criminally investigate or prosecute any alcohol or drug abuse patient.[facility]In the event this information is protected by the Federal Confidentiality of Alcohol and Drug Abuse Patient Records regulations: The Federal rules restrict any use of the information to criminally investigate or prosecute any alcohol or drug abuse patient.[facility]In the event this information is protected by the Federal Confidentiality of Alcohol and Drug Abuse Patient Records regulations: The Federal rules restrict any use of the information to criminally investigate or prosecute any alcohol or drug abuse patient.[facility]In the event this information is protected by the Federal Confidentiality of Alcohol and Drug Abuse Patient Records regulations: The Federal rules restrict any use of the information to criminally investigate or prosecute any alcohol or drug abuse patient.[facility]In the event this information is protected by the Federal Confidentiality of Alcohol and Drug Abuse Patient Records regulations: The Federal rules restrict any use of the information to criminally investigate or prosecute any alcohol or drug abuse patient.[facility]In the event this information is protected by the Federal Confidentiality of Alcohol and Drug Abuse Patient Records regulations: The Federal rules restrict any use of the information to criminally investigate or prosecute any alcohol or drug abuse patient.[facility]In the event this information is protected by the Federal Confidentiality of Alcohol and Drug Abuse Patient Records regulations: The Federal rules restrict any use of the information to criminally investigate or prosecute any alcohol or drug abuse patient.[facility]In the event this information is protected by the Federal Confidentiality of Alcohol and Drug Abuse Patient Records regulations: The Federal rules restrict any use of the information to criminally investigate or prosecute any alcohol or drug abuse patient.[facility]In the event this information is protected by the Federal Confidentiality of Alcohol and Drug Abuse Patient Records regulations: The Federal rules restrict any use of the information to criminally investigate or prosecute any alcohol or drug abuse patient.[facility]In the event this information is protected by the Federal Confidentiality of Alcohol and Drug Abuse Patient Records regulations: The Federal rules restrict any use of the information to criminally investigate or prosecute any alcohol or drug abuse patient.[facility]In the event this information is protected by the Federal Confidentiality of Alcohol and Drug Abuse Patient Records regulations: The Federal rules restrict any use of the information to criminally investigate or prosecute any alcohol or drug abuse patient.[facility]In the event this information is protected by the Federal Confidentiality of Alcohol and Drug Abuse Patient Records regulations: The Federal rules restrict any use of the information to criminally investigate or prosecute any alcohol or drug abuse patient.[facility]In the event this information is protected by the Federal Confidentiality of Alcohol and Drug Abuse Patient Records regulations: The Federal rules restrict any use of the information to criminally investigate or prosecute any alcohol or drug abuse patient.[facility]In the event this information is protected by the Federal Confidentiality of Alcohol and Drug Abuse Patient Records regulations: The Federal rules restrict any use of the information to criminally investigate or prosecute any alcohol or drug abuse patient.[facility]In the event this information is protected by the Federal Confidentiality of Alcohol and Drug Abuse Patient Records regulations: The Federal rules restrict any use of the information to criminally investigate or prosecute any alcohol or drug abuse patient.[facility]In the event this information is protected by the Federal Confidentiality of Alcohol and Drug Abuse Patient Records regulations: The Federal rules restrict any use of the information to criminally investigate or prosecute any alcohol or drug abuse patient.[facility]In the event this information is protected by the Federal Confidentiality of Alcohol and Drug Abuse Patient Records regulations: The Federal rules restrict any use of the information to criminally investigate or prosecute any alcohol or drug abuse patient.[facility]In the event this information is protected by the Federal Confidentiality of Alcohol and Drug Abuse Patient Records regulations: The Federal rules restrict any use of the information to criminally investigate or prosecute any alcohol or drug abuse patient.[facility]In the event this information is protected by the Federal Confidentiality of Alcohol and Drug Abuse Patient Records regulations: The Federal rules restrict any use of the information to criminally investigate or prosecute any alcohol or drug abuse patient.[facility]In the event this information is protected by the Federal Confidentiality of Alcohol and Drug Abuse Patient Records regulations: The Federal rules restrict any use of the information to criminally investigate or prosecute any alcohol or drug abuse patient.[facility]In the event this information is protected by the Federal Confidentiality of Alcohol and Drug Abuse Patient Records regulations: The Federal rules restrict any use of the information to criminally investigate or prosecute any alcohol or drug abuse patient.[facility]In the event this information is protected by the Federal Confidentiality of Alcohol and Drug Abuse Patient Records regulations: The Federal rules restrict any use of the information to criminally investigate or prosecute any alcohol or drug abuse patient.[facility]In the event this information is protected by the Federal Confidentiality of Alcohol and Drug Abuse Patient Records regulations: The Federal rules restrict any use of the information to criminally investigate or prosecute any alcohol or drug abuse patient.[facility]In the event this information is protected by the Federal Confidentiality of Alcohol and Drug Abuse Patient Records regulations: The Federal rules restrict any use of the information to criminally investigate or prosecute any alcohol or drug abuse patient.[facility]In the event this information is protected by the Federal Confidentiality of Alcohol and Drug Abuse Patient Records regulations: The Federal rules restrict any use of the information to criminally investigate or prosecute any alcohol or drug abuse patient.[facility]In the event this information is protected by the Federal Confidentiality of Alcohol and Drug Abuse Patient Records regulations: The Federal rules restrict any use of the information to criminally investigate or prosecute any alcohol or drug abuse patient.[facility]In the event this information is protected by the Federal Confidentiality of Alcohol and Drug Abuse Patient Records regulations: The Federal rules restrict any use of the information to criminally investigate or prosecute any alcohol or drug abuse patient.[facility]In the event this information is protected by the Federal Confidentiality of Alcohol and Drug Abuse Patient Records regulations: The Federal rules restrict any use of the information to criminally investigate or prosecute any alcohol or drug abuse patient.[facility]In the event this information is protected by the Federal Confidentiality of Alcohol and Drug Abuse Patient Records regulations: The Federal rules restrict any use of the information to criminally investigate or prosecute any alcohol or drug abuse patient.[facility]In the event this information is protected by the Federal Confidentiality of Alcohol and Drug Abuse Patient Records regulations: The Federal rules restrict any use of the information to criminally investigate or prosecute any alcohol or drug abuse patient.[facility]In the event this information is protected by the Federal Confidentiality of Alcohol and Drug Abuse Patient Records regulations: The Federal rules restrict any use of the information to criminally investigate or prosecute any alcohol or drug abuse patient.[facility]In the event this information is protected by the Federal Confidentiality of Alcohol and Drug Abuse Patient Records regulations: The Federal rules restrict any use of the information to criminally investigate or prosecute any alcohol or drug abuse patient.[facility]In the event this information is protected by the Federal Confidentiality of Alcohol and Drug Abuse Patient Records regulations: The Federal rules restrict any use of the information to criminally investigate or prosecute any alcohol or drug abuse patient.[facility]In the event this information is protected by the Federal Confidentiality of Alcohol and Drug Abuse Patient Records regulations: The Federal rules restrict any use of the information to criminally investigate or prosecute any alcohol or drug abuse patient.[facility]In the event this information is protected by the Federal Confidentiality of Alcohol and Drug Abuse Patient Records regulations: The Federal rules restrict any use of the information to criminally investigate or prosecute any alcohol or drug abuse patient.[facility]In the event this information is protected by the Federal Confidentiality of Alcohol and Drug Abuse Patient Records regulations: The Federal rules restrict any use of the information to criminally investigate or prosecute any alcohol or drug abuse patient.[facility]In the event this information is protected by the Federal Confidentiality of Alcohol and Drug Abuse Patient Records regulations: The Federal rules restrict any use of the information to criminally investigate or prosecute any alcohol or drug abuse patient.[facility]In the event this information is protected by the Federal Confidentiality of Alcohol and Drug Abuse Patient Records regulations: The Federal rules restrict any use of the information to criminally investigate or prosecute any alcohol or drug abuse patient.[facility]In the event this information is protected by the Federal Confidentiality of Alcohol and Drug Abuse Patient Records regulations: The Federal rules restrict any use of the information to criminally investigate or prosecute any alcohol or drug abuse patient.[facility]In the event this information is protected by the Federal Confidentiality of Alcohol and Drug Abuse Patient Records regulations: The Federal rules restrict any use of the information to criminally investigate or prosecute any alcohol or drug abuse patient.[facility]In the event this information is protected by the Federal Confidentiality of Alcohol and Drug Abuse Patient Records regulations: The Federal rules restrict any use of the information to criminally investigate or prosecute any alcohol or drug abuse patient.[facility]In the event this information is protected by the Federal Confidentiality of Alcohol and Drug Abuse Patient Records regulations: The Federal rules restrict any use of the information to criminally investigate or prosecute any alcohol or drug abuse patient.[facility]In the event this information is protected by the Federal Confidentiality of Alcohol and Drug Abuse Patient Records regulations: The Federal rules restrict any use of the information to criminally investigate or prosecute any alcohol or drug abuse patient.[facility]In the event this information is protected by the Federal Confidentiality of Alcohol and Drug Abuse Patient Records regulations: The Federal rules restrict any use of the information to criminally investigate or prosecute any alcohol or drug abuse patient.[facility]In the event this information is protected by the Federal Confidentiality of Alcohol and Drug Abuse Patient Records regulations: The Federal rules restrict any use of the information to criminally investigate or prosecute any alcohol or drug abuse patient.[facility]In the event this information is protected by the Federal Confidentiality of Alcohol and Drug Abuse Patient Records regulations: The Federal rules restrict any use of the information to criminally investigate or prosecute any alcohol or drug abuse patient.[facility]In the event this information is protected by the Federal Confidentiality of Alcohol and Drug Abuse Patient Records regulations: The Federal rules restrict any use of the information to criminally investigate or prosecute any alcohol or drug abuse patient.[facility]In the event this information is protected by the Federal Confidentiality of Alcohol and Drug Abuse Patient Records regulations: The Federal rules restrict any use of the information to criminally investigate or prosecute any alcohol or drug abuse patient.[facility]In the event this information is protected by the Federal Confidentiality of Alcohol and Drug Abuse Patient Records regulations: The Federal rules restrict any use of the information to criminally investigate or prosecute any alcohol or drug abuse patient.[facility]In the event this information is protected by the Federal Confidentiality of Alcohol and Drug Abuse Patient Records regulations: The Federal rules restrict any use of the information to criminally investigate or prosecute any alcohol or drug abuse patient.[facility]In the event this information is protected by the Federal Confidentiality of Alcohol and Drug Abuse Patient Records regulations: The Federal rules restrict any use of the information to criminally investigate or prosecute any alcohol or drug abuse patient.[facility]In the event this information is protected by the Federal Confidentiality of Alcohol and Drug Abuse Patient Records regulations: The Federal rules restrict any use of the information to criminally investigate or prosecute any alcohol or drug abuse patient.[facility]In the event this information is protected by the Federal Confidentiality of Alcohol and Drug Abuse Patient Records regulations: The Federal rules restrict any use of the information to criminally investigate or prosecute any alcohol or drug abuse patient.[facility]In the event this information is protected by the Federal Confidentiality of Alcohol and Drug Abuse Patient Records regulations: The Federal rules restrict any use of the information to criminally investigate or prosecute any alcohol or drug abuse patient.[facility]In the event this information is protected by the Federal Confidentiality of Alcohol and Drug Abuse Patient Records regulations: The Federal rules restrict any use of the information to criminally investigate or prosecute any alcohol or drug abuse patient.[facility]In the event this information is protected by the Federal Confidentiality of Alcohol and Drug Abuse Patient Records regulations: The Federal rules restrict any use of the information to criminally investigate or prosecute any alcohol or drug abuse patient.[facility]In the event this information is protected by the Federal Confidentiality of Alcohol and Drug Abuse Patient Records regulations: The Federal rules restrict any use of the information to criminally investigate or prosecute any alcohol or drug abuse patient.[facility]In the event this information is protected by the Federal Confidentiality of Alcohol and Drug Abuse Patient Records regulations: The Federal rules restrict any use of the information to criminally investigate or prosecute any alcohol or drug abuse patient.[facility]In the event this information is protected by the Federal Confidentiality of Alcohol and Drug Abuse Patient Records regulations: The Federal rules restrict any use of the information to criminally investigate or prosecute any alcohol or drug abuse patient.[facility]In the event this information is protected by the Federal Confidentiality of Alcohol and Drug Abuse Patient Records regulations: The Federal rules restrict any use of the information to criminally investigate or prosecute any alcohol or drug abuse patient.[facility]In the event this information is protected by the Federal Confidentiality of Alcohol and Drug Abuse Patient Records regulations: The Federal rules restrict any use of the information to criminally investigate or prosecute any alcohol or drug abuse patient.[facility]In the event this information is protected by the Federal Confidentiality of Alcohol and Drug Abuse Patient Records regulations: The Federal rules restrict any use of the information to criminally investigate or prosecute any alcohol or drug abuse patient.[facility]In the event this information is protected by the Federal Confidentiality of Alcohol and Drug Abuse Patient Records regulations: The Federal rules restrict any use of the information to criminally investigate or prosecute any alcohol or drug abuse patient.[facility]In the event this information is protected by the Federal Confidentiality of Alcohol and Drug Abuse Patient Records regulations: The Federal rules restrict any use of the information to criminally investigate or prosecute any alcohol or drug abuse patient.[facility]In the event this information is protected by the Federal Confidentiality of Alcohol and Drug Abuse Patient Records regulations: The Federal rules restrict any use of the information to criminally investigate or prosecute any alcohol or drug abuse patient.[facility]In the event this information is protected by the Federal Confidentiality of Alcohol and Drug Abuse Patient Records regulations: The Federal rules restrict any use of the information to criminally investigate or prosecute any alcohol or drug abuse patient.[facility]In the event this information is protected by the Federal Confidentiality of Alcohol and Drug Abuse Patient Records regulations: The Federal rules restrict any use of the information to criminally investigate or prosecute any alcohol or drug abuse patient.[facility] Reason for Visit (unrecogniz ed section and content) Reason Onset Date Comments Refill Request 11/03/2021 Reason Onset Date Comments Refill Request 11/25/2021 Reason Comments Orders Reason Onset Date Comments Refill Request 12/09/2021 Reason Comments 6 Month Exam Reason Comments Dry Mouth Reason Comments hot flashes Reason Onset Date Comments Refill Request 04/23/2022 Reason Onset Date Comments Refill Request 05/05/2022 Reason Comments Refill Request Reason Onset Date Comments Refill Request 06/11/2022 Reason Onset Date Comments Refill Request 06/16/2022 Reason Comments Results Reason Onset Date Comments Results Breast Problem 06/26/2022 Mammogram at [facility] Reason Onset Date Comments Refill Request 07/14/2022 Reason Comments thyroid lab results Reason Comments COVID infection Asthma Reason Onset Date Comments Refill Request 08/15/2022 Reason Comments Dizziness Reason Comments Recheck Anxiety/depression Reason Onset Date Comments Refill Request 10/20/2022 Reason Comments Information Reason Onset Date Comments Refill Request 12/10/2022 Reason Onset Date Comments Refill Request 12/15/2022 Reason Onset Date Comments Refill Request 02/02/2023 Reason Onset Date Comments Established Patient Breast Problem 02/06/2023 Mammogram at [facility] Reason Onset Date Comments Refill Request 03/30/2023 Reason Onset Date Comments Refill Request 05/22/2023 Reason Onset Date Comments Refill Request 05/26/2023 Medication Problem 05/26/2023 Reason Comments Radiology US Specialty Diagnoses / Procedures Referred By Contac t Referred To Contact BR IMAGING Diagnoses Abnormal mammogram Procedures US BREAST LTD LT US BREAST UNI REAL TIME WITH IMAGE LIMITED Dayton Garcia MD [address] [place] [address] Br Imaging [address] [place] [address] Referral ID Status Reason Start Date Expiration Date V isits Requested Visits Authorized [id number] Closed Auto-Generate d Referral 06/26/2022 07/26/2023 1 1 Reason Onset Date Comments Refill Request 06/19/2023 Reason Onset Date Comments Refill Request 07/17/2023 Reason Onset Date Comments Refill Request 10/07/2023 Reason Comments Follow Up Reason Onset Date Comments Refill Request 11/05/2023 Reason Onset Date Comments Refill Request 11/30/2023 Reason Onset Date Comments Refill Request 12/31/2023 Reason Comments lump on chin Reason Onset Date Comments Refill Request 02/24/2024 Reason Comments Radiology US Specialty Diagnoses / Procedures Referred By Contac t Referred To Contact US IMAGING Diagnoses Localized swelling, mass or lump of neck Procedures US HEAD/NECK SOFT TISSUE OTHER US SOFT TISSUE HEAD & NECK REAL TIME IMGE DAWSONM Albina Mi M, HEALTHCARE OR MEDICAL.DESIGN ARCHITECT [address] [place] [address] [place] [id number] Referral ID Status Reason Start Date Expiration Date V isits Requested Visits Authorized [id number] Closed Auto-Generate d Referral 02/05/2024 03/06/2025 1 1 Reason Comments Forms Reason Onset Date Comments Refill Request 04/04/2024 Reason Comments ED Follow-up [facility] ER f/u 03/22/24 Reason Comments Follow Up [place], emergency [place] oom doctor took her off 2 meds then started with stuttering Reason Onset Date Comments Refill Request 04/21/2024 Reason Onset Date Comments Refill Request 05/24/2024 Reason Onset Date Comments Refill Request 06/22/2024 Reason Comments Established Patient Follow up Reason Onset Date Comments Refill Request 07/21/2024 Reason Onset Date Comments Refill Request 08/18/2024 Reason Onset Date Comments Refill Request 09/15/2024 Reason Comments Earache Reason Comments Ear Pain R ear pain x1 week Reason Comments Cough Reason Comments F/U 3 Month Reason Onset Date Comments Refill Request 10/14/2024 Reason Onset Date Comments Refill Request 11/14/2024 Reason Onset Date Comments Refill Request 12/12/2024 Reason Comments Hand Shakiness Reason Comments Acute Visit Concern for Parkinso n dt Family history Reason Onset Date Comments Refill Request 01/06/2025 Reason Onset Date Comments Refill Request 02/08/2025 Care Teams (unrecognized sec tion and content) Business Information Consultant Relationship Specialty Start Date End Date Dayton Garcia MD [address] [place] [address], [place] [address] PCP - General 09/02/05 Business Information Consultant Relationship Specialty Start Date End Date Dayton Garcia MD [address] [place] [address], [place] [address] PCP - General 09/02/05 Business Information Consultant Relationship Specialty Start Date End Date Dayton Garcia MD [address] [place] [address], [place] [address] PCP - General 09/02/05 Business Information Consultant Relationship Specialty Start Date End Date Dayton Garcia MD [address] [place] [address], [place] [address] PCP - General 09/02/05 Business Information Consultant Relationship Specialty Start Date End Date Dayton Garcia MD [address] [place] [address], [place] [address] PCP - General 09/02/05 Business Information Consultant Relationship Specialty Start Date End Date Dayton Garcia MD [address] [place] [address], [place] [address] PCP - General 09/02/05 Business Information Consultant Relationship Specialty Start Date End Date Dayton Garcia MD [address] [place] [address], [place] [address] PCP - General 09/02/05 Business Information Consultant Relationship Specialty Start Date End Date Dayton Garcia MD [address] [place] [address], [place] [address] PCP - General 09/02/05 Business Information Consultant Relationship Specialty Start Date End Date Dayton Garcia MD [address] [place] [address], [place] [address] PCP - General 09/02/05 Business Information Consultant Relationship Specialty Start Date End Date Dayton Garcia MD [address] [place] [address] PCP - General 09/02/05 Business Information Consultant Relationship Specialty Start Date End Date Dayton Garcia MD [facility] [place] [address] PCP - General 09/02/05 Business Information Consultant Relationship Specialty Start Date End Date Dyaton Garcia MD [address] [place] [address], [place] [address] PCP - General 09/02/05 Business Information Consultant Relationship Specialty Start Date End Date Dayton Garcia MD [address] [place] [address], [place] [address] PCP - General 09/02/05 Business Information Consultant Relationship Specialty Start Date End Date Dayton Garcia MD [address] [place] [address], [place] [address] PCP - General 09/02/05 Business Information Consultant Relationship Specialty Start Date End Date Dayton Garcia MD [address] [place] [address], [place] [address] PCP - General 09/02/05 Business Information Consultant Relationship Specialty Start Date End Date Dayton Garcia MD [address] [place] [address], [place] [address] PCP - General 09/02/05 Business Information Consultant Relationship Specialty Start Date End Date Dayton Garcia MD [address] [place] [address], [place] [address] PCP - General 09/02/05 Business Information Consultant Relationship Specialty Start Date End Date Dayton Garcia MD [address] [place] [address], [place] [address] PCP - General 09/02/05 Business Information Consultant Relationship Specialty Start Date End Date Dayton Garcia MD [address] [place], [place] [address]370[address] PCP - General 09/02/05 Business Information Consultant Relationship Specialty Start Date End Date Dayton Garcia MD [address] [place] [address] PCP - General 09/02/05 Business Information Consultant Relationship Specialty Start Date End Date Dayton Garcia MD [address] [place] [address] PCP - General 09/02/05 Business Information Consultant Relationship Specialty Start Date End Date Dayton Garcia MD [address] [place], [place] [address] PCP - General 09/02/05 Business Information Consultant Relationship Specialty Start Date End Date Dayton Garcia MD [address] [place], [place] [address]291 PCP - General 09/02/05 Team Status: Active Member Role Status Dates Dr. Dayton Garcia MD Family Provider Active Dr. Dayton Garcia MD Primary Care Provider Active Team Status: Inactive Member Role Status Dates Dr. Dayton Garcia MD Primary Care Provider Active Mikey Wallis MD Emergency Provider Active Business Information Consultant Relationship Specialty Start Date End Date Dayton Garcia MD [address] [place], [place] 993491 PCP - General 09/02/05 Business Information Consultant Relationship Specialty Start Date End Date Dayton Garcia MD [address] [place], [place] [address]678[address] PCP - General 09/02/05 Business Information Consultant Relationship Specialty Start Date End Date Dayton Garcia MD [address] [place] [address] PCP - General 09/02/05 Business Information Consultant Relationship Specialty Start Date End Date Dayton Garcia MD [address] [place] [address] PCP - General 09/02/05 Business Information Consultant Relationship Specialty Start Date End Date Dayton Garcia MD [address] [place] [address] PCP - General 09/02/05 Team Status: Inactive Member Role Status Dates Dr. Dayton Garcia MD Primary Care Provider Active Ed Physician Provider Emergency Provider Active Business Information Consultant Relationship Specialty Start Date End Date Dayton Garcia MD [address] [place] [address] PCP - General 09/02/05 Business Information Consultant Relationship Specialty Start Date End Date Dayton Garcia MD [address] [place] [address] PCP - General 09/02/05 Business Information Consultant Relationship Specialty Start Date End Date Dayton Garcia MD [address] [place] [address] PCP - General 09/02/05 Business Information Consultant Relationship Specialty Start Date End Date Dayton Garcia MD [address] [place] [address] PCP - General 09/02/05 Business Information Consultant Relationship Specialty Start Date End Date Dayton Garcia MD [address] [place] [address] PCP - General 09/02/05 Business Information Consultant Relationship Specialty Start Date End Date Dayton Garcia MD [address] [place] [address] PCP - General 09/02/05 Business Information Consultant Relationship Specialty Start Date End Date Dayton Garcia MD [address] [place] [address] PCP - General 09/02/05 Business Information Consultant Relationship Specialty Start Date End Date Dayton Garcia MD [address] [place] [address] PCP - General 09/02/05 Business Information Consultant Relationship Specialty Start Date End Date Dayton Garcia MD [address] [place] [address] PCP - General 09/02/05 Business Information Consultant Relationship Specialty Start Date End Date Dayton Garcia MD [address] [place] [address] PCP - General 09/02/05 Business Information Consultant Relationship Specialty Start Date End Date Dayton Garcia MD [address] [place] [address] PCP - General 09/02/05 Business Information Consultant Relationship Specialty Start Date End Date Dayton Garcia MD [address] [place] [address] PCP - General 09/02/05 Saeid Koch, HEALTHCARE OR MEDICAL.GAMING CASHIER [address] [place] [address] [facility] 07/25/24 Pinky Garcia APRN.DESIGN ARCHITECT [address] [facility] [place] [address] [facility] 07/25/24 Business Information Consultant Relationship Specialty Start Date End Date Dayton Garcia MD [address] [place] [address] PCP - General 09/02/05 Saeid Koch, [employer]ER[employer].GAMING CASHIER [address] [place] [address] [facility] 07/25/24 Pinky Garcia APRN.DESIGN ARCHITECT [address] [place] [address] [facility] 07/25/24 Business Information Consultant Relationship Specialty Start Date End Date Dayton Garcia MD [address] [place] [address] PCP - General 09/02/05 Saeid Koch APRN.GAMING CASHIER [address] [place] [address] [facility] 07/25/24 Pinky Garcia APRN.DESIGN ARCHITECT [address] [facility] [place] [address] [facility] 07/25/24 Business Information Consultant Relationship Specialty Start Date End Date Dayton Garcia MD [address] [place] [address] PCP - General 09/02/05 Saeid Koch, HEALTHCARE OR MEDICAL.GAMING CASHIER [address] [place] [address] [facility] 07/25/24 Pinky Garcia HEALTHCARE OR MEDICAL.DESIGN ARCHITECT [address] [place] [address] [facility] 07/25/24 Business Information Consultant Relationship Specialty Start Date End Date Dayton Garcia MD [address] [place] [address] PCP - General 09/02/05 Saeid Koch, HEALTHCARE OR MEDICAL.GAMING CASHIER [address] [place] [address] [facility] 07/25/24 Pinky Garcia HEALTHCARE OR MEDICAL.DESIGN ARCHITECT [address] [place] [address] [facility] Internal Medicine 07/25/24 Business Information Consultant Relationship Specialty Start Date End Date Dayton Garcia MD [address] [place] [address] PCP - General 09/02/05 Saeid Koch, HEALTHCARE OR MEDICAL.GAMING CASHIER [address] [place] [address] [facility] 07/25/24 Pinky Garcia HEALTHCARE OR MEDICAL.DESIGN ARCHITECT [address] [place] [address] [facility] 07/25/24 Team Status: Active Member Role Status Dates Dr. Dayton Garcia MD Primary Care Provider Active Team Status: Inactive Member Role Status Dates Dr. Dayton Garcia MD Primary Care Provider Active Start: November 10, 2024 End: November 10, 2024 Dr. Ashu Butts DO Referring Provider Active Start: November 10, 2024 End: November 10, 2024 Dr. Ashu Butts DO Emergency Provider Active Start: November 10, 2024 End: November 10, 2024 Business Information Consultant Relationship Specialty Start Date End Date Dayton Garcia MD [address] [place] [address] PCP - General 09/02/05 Saeid Koch, HEALTHCARE OR MEDICAL.GAMING CASHIER [address] [place] [address] [facility] 07/25/24 Pinky Garcia HEALTHCARE OR MEDICAL.DESIGN ARCHITECT [address] [place] [address] [facility] Internal Medicine 11/08/24 Business Information Consultant Relationship Specialty Start Date End Date Dayton Garcia MD [address] [place] [address] PCP - General 09/02/05 Saeid Koch, HEALTHCARE OR MEDICAL.GAMING CASHIER [address] [place] [address] [facility] Internal Medicine 07/25/24 Pinky Garcia APRN.DESIGN ARCHITECT [address] [place] [address] [facility] Internal Medicine 11/08/24 Team Status: Inactive Member Role Status Dates Dr. Dayton Garcia MD Primary Care Provider Active Start: November 10, 2024 End: November 10, 2024 Dr. Ashu Butts DO Attending Provider Active Start: November 10, 2024 End: November 10, 2024 Dr. Ashu Butts DO Referring Provider Active Start: November 10, 2024 End: November 10, 2024 Dr. Ashu Butts DO Emergency Provider Active Start: November 10, 2024 End: November 10, 2024 Team Status: Inactive Member Role Status Dates Dr. Dayton Garcia MD Primary Care Provider Active Start: December 11, 2024 End: December 11, 2024 Dr. Anusha Mancia DO Emergency Provider Active Start: December 11, 2024 End: December 11, 2024 Team Status: Inactive Member Role Status Dates Dr. Dayton Garcia MD Primary Care Provider Active Start: December 12, 2024 End: December 12, 2024 Dr. Bob Morgan DO Emergency Provider Active Start: December 12, 2024 End: December 12, 2024 Business Information Consultant Relationship Specialty Start Date End Date Dayton Garcia MD [address] [place] [address] PCP - General 09/02/05 Saeid Koch, HEALTHCARE OR MEDICAL.GAMING CASHIER [address] [place] [address] [facility] 07/25/24 Pinky Garcia, HEALTHCARE OR MEDICAL.DESIGN ARCHITECT [address] [place] [address] [facility] 11/08/24 Business Information Consultant Relationship Specialty Start Date End Date Dayton Garcia MD [address] [place] [address] PCP - General 09/02/05 Saeid Koch, HEALTHCARE OR MEDICAL.GAMING CASHIER [address] [place] [address] [facility] 07/25/24 Pinky Garcia HEALTHCARE OR MEDICAL.DESIGN ARCHITECT [address] [place] [address] [facility] 11/08/24 Business Information Consultant Relationship Specialty Start Date End Date Dayton Garcia MD [address] [facility] [place] [address] PCP - General 09/02/05 Pinky Garcia APRN.DESIGN ARCHITECT [address] [facility] [place] [address] [facility] 11/08/24 Saeid Koch, HEALTHCARE OR MEDICAL.GAMING CASHIER [address] [place] [address] [facility] 01/04/25 Business Information Consultant Relationship Specialty Start Date End Date Dayton Garcia MD [address] [place] [address] PCP - General 09/02/05 Saeid Koch HEALTHCARE OR MEDICAL.GAMING CASHIER [address] [place] [address] [facility] 07/25/24 01/03/25 Pinky Garcia HEALTHCARE OR MEDICAL.DESIGN ARCHITECT [address] [place] [address] [facility] 11/08/24 Saeid Koch, HEALTHCARE OR MEDICAL.GAMING CASHIER [address] [place] [address] [facility] 01/04/25 Business Information Consultant Relationship Specialty Start Date End Date Dayton Garcia MD [address] [facility] [place] [address] PCP - General 09/02/05 Pinky Garcia, HEALTHCARE OR MEDICAL.DESIGN ARCHITECT [address] [facility], [place] [address] [facility] Medicine 11/08/24 Saeid Koch, HEALTHCARE OR MEDICAL.GAMING CASHIER [address] [facility] [place] [address] [facility] Medicine 01/04/25 Team Status: Active Member Role/Relationship Status Dates Dr. Dayton Garcia MD Primary Care Provider Active Team Status: Inactive Member Role/Relationship Status Dates Dr. Dayton Garcia MD Primary Care Provider Active Start: November 10, 2024 End: November 10, 2024 Dr. Ashu Butts DO Attending Provider Active Start: November 10, 2024 End: November 10, 2024 Dr. Ashu Butts DO Referring Provider Active Start: November 10, 2024 End: November 10, 2024 Dr. Ashu Butts DO Emergency Provider Active Start: November 10, 2024 End: November 10, 2024 Team Status: Inactive Member Role/Relationship Status Dates Dr. Dayton Garcia MD Primary Care Provider Active Start: December 11, 2024 End: December 11, 2024 Dr. Anusha Mancia DO Attending Provider Active Start: December 11, 2024 End: December 11, 2024 Dr. Anusha Mancia DO Emergency Provider Active Start: December 11, 2024 End: December 11, 2024 Team Status: Inactive Member Role/Relationship Status Dates Dr. Dayton Garcia MD Primary Care Provider Active Start: December 12, 2024 End: December 12, 2024 Dr. Bob Morgan DO Attending Provider Active Start: December 12, 2024 End: December 12, 2024 Dr. Bob Morgan DO Emergency Provider Active Start: December 12, 2024 End: December 12, 2024 Team Status: Inactive Member Role/Relationship Status Dates Dr. Dayton Garcia MD Primary Care Provider Active Start: February 10, 2025 End: February 10, 2025 Ed Physician Provider Emergency Provider Active Start: February 10, 2025 End: February 10, 2025 Goals (unrecognized section and content) Goals may be documented in a n alternate sectionGoals may be documented in an alternate sectionGoals may be documented in an alternate sectionGoals may be documented in an alternate sectionGoals may be documented in an alternate sectionGoals may be documented in an alternate section FOR RECORDS PERTAINING TO PATIENTS WHO ARE OR HAVE BEEN ENROLLED IN A CHEMICAL DEPENDENCY/SUBSTANCEABUSE PROGRAM, SOME INFORMATION MAY BE OMITTED. This clinical summary was aggregated from multiple sources. Caution should be exercised in using it in the provision of clinical care. This summary normalizes information from multiple sources, and as a consequence, information in this document may materially change the coding, format and clinical context of patient data. In addition, data may be omitted in some cases. CLINICAL DECISIONS SHOULD BE BASED ON THE PRIMARY CLINICAL RECORDS. [facility] [employer] [facility]. provides no warranty or guarantee of the accuracy or completeness of information in this document.
[2025-04-01 22:40] VITALS: BP 130/84; PULSE 72; RESP 18; O2SAT 94
[2025-04-01 22:58] LABS: AST(SGOT) 25 U/L (<=31); Alanine Aminotransfer ALT/SGPT 13 U/L (<=34); Albumin, Serum 4.2 g/dL (3.5-5.0); Alkaline Phosphatase 174 U/L (35-104); Anion Gap 11 (5-15); BUN 13 mg/dL (4-19); BUN/Creat Ratio 13.8 RATIO (10-20); Calcium,Total 9.4 mg/dL (7.6-11.0); Carbon Dioxide 23.1 mmol/L (21.0-32.0); Chloride 106 mmol/L (98-108); Estimated Creatinine Clearance 53.85 ml/min (50-250); Globulin 3.1 g/dL (2.2-4.2); Glucose 112 mg/dL (70-99); Potassium 4.5 mmol/L (3.3-5.1)
[2025-04-01 23:11] LABS: Lithium 0.89 mmol/L (0.60-1.20)
[2025-04-02 00:45] VITALS: BP 142/78; PULSE 68; RESP 18; TEMP 36.7; O2SAT 99
== END 2025-04-02 00:45 | disposition home or self-care (01) ==
PROVIDERS: Emergency Provider Emergency Medicine; PCP Internal Medicine; Visit Provider Emergency Medicine
DX: G24.9 Dystonia, unspecified (principal); F31.9 Bipolar disorder, unspecified; F17.210 Nicotine dependence, cigarettes, uncomplicated; F17.290 Nicotine dependence, other tobacco product, uncomplicated; Z79.83 Long term (current) use of bisphosphonates
CPT/HCPCS: 80053; 80178; 85025; 99282; A4216